=== PATIENT | female | born 1940 | race Caucasian/White ===

== ENCOUNTER 2017-11-16 02:23 | Outpatient (CLI) | payer MEDICARE, SELFPAY ==
[2017-11-16 11:10] LABS: ALT 18 U/L (12-78); AST 23 U/L (15-37); Alkaline Phosphatase 80 U/L (46-116); CREATININE 0.84 mg/dL (0.55-1.02)
[2017-11-16 11:18] LABS: Absolute Basophil Count 0.01 k/cumm (0.0-0.2); Absolute Eosinophil Count 0.08 k/cumm (0.0-0.7); Absolute Lymphocyte Count 0.91 k/cumm (1.2-3.4); Absolute Monocyte Count 0.28 k/cumm (0.11-0.7); Absolute Neutrophil Count 2.63 k/cumm (1.2-6.7); Basophils % 0.3; HCT 39.2 % (36.0-46.0); HGB 12.9 g/dL (12.0-15.5); Lymphocytes % 23.3; Mean Corp. HGB Concentration 32.9 g/dL (32.0-36.0); Mean Corpuscular Hemoglobin 30.4 pg (27.0-33.0); Mean Corpuscular Volume 92.5 fL (80-95); Monocytes % 7.2; Neutrophils % 67.2; Platelet Count 171 x1000/uL (130-400); RBC 4.24 m/cumm (4.00-5.20); RBC Distribution Width 14.3 % (11.7-14.6); White Blood Cell Count 3.91 k/cumm (4.4-10.8)
[2017-11-16 13:20] LABS: ESR 23 MM/HR (0-30)
== END 2017-11-16 02:43 ==
PROVIDERS: Visit Provider Internal Medicine Rheumatology
DX: M06.9 Rheumatoid arthritis, unspecified (principal); Z79.899 Other long term (current) drug therapy
CPT/HCPCS: 36415; 85652; 82565; 84075; 84450; 84460; 85025; 86140

== ENCOUNTER 2018-02-23 02:02 | Outpatient (CLI) | payer MEDICARE, SELFPAY ==
[2018-02-23 11:46] LABS: Abs Immature Grans 0.01 k/cumm (0.0-0.09); Absolute Basophil Count 0.01 k/cumm (0.0-0.2); Absolute Eosinophil Count 0.09 k/cumm (0.0-0.7); Absolute Lymphocyte Count 0.93 k/cumm (1.2-3.4); Absolute Monocyte Count 0.27 k/cumm (0.11-0.7); Absolute Neutrophil Count 2.32 k/cumm (1.2-6.7); Basophils % 0.3; Eosinophils % 2.5; HCT 39.6 % (36.0-46.0); HGB 13.1 g/dL (12.0-15.5); Immature Grans % 0.3; Lymphocytes % 25.6; Mean Corp. HGB Concentration 33.1 g/dL (32.0-36.0); Mean Corpuscular Hemoglobin 31.2 pg (27.0-33.0); Mean Corpuscular Volume 94.3 fL (80-95); Mean Platelet Volume 10.6 fL (8.0-11.0); Monocytes % 7.4; Neutrophils % 63.9; Platelet Count 170 x1000/uL (130-400); RBC Distribution Width 13.6 % (11.7-14.6); White Blood Cell Count 3.63 k/cumm (4.4-10.8)
[2018-02-23 12:14] LABS: ALT 24 U/L (12-78); AST 19 U/L (15-37); Alkaline Phosphatase 86 U/L (46-116); C-Reactive Protein 0.24 mg/dL (0.0-0.3); CREATININE 0.95 mg/dL (0.55-1.02); Estimated GFR 56.89 (mL/min/1.73m2)
[2018-02-23 13:15] LABS: ESR 19 MM/HR (0-30)
== END 2018-02-23 02:22 ==
PROVIDERS: Visit Provider Internal Medicine Rheumatology
DX: M06.9 Rheumatoid arthritis, unspecified (principal); Z79.899 Other long term (current) drug therapy
CPT/HCPCS: 36415; 85652; 82565; 84075; 84450; 84460; 85025; 86140

== ENCOUNTER 2018-05-17 02:12 | Outpatient (CLI) | payer MEDICARE, SELFPAY ==
[2018-05-17 12:59] LABS: ALT 20 U/L (12-78); AST 17 U/L (15-37); Albumin 3.9 g/dL (3.4-5.0); Alkaline Phosphatase 92 U/L (46-116); Anion Gap 10.5 mmol/L (3-11); BUN 20 mg/dL (7-18); Bilirubin, Total 0.6 mg/dL (0.2-1.0); C-Reactive Protein 0.22 mg/dL (0.0-0.3); CO2 28.5 mmol/L (21.0-32.0); CREATININE 0.99 mg/dL (0.55-1.02); Calcium 8.8 mg/dL (8.5-10.1); Chloride 104 mmol/L (98-107); Estimated GFR 54.25 (mL/min/1.73m2); Glucose 83 mg/dL (70-100); Potassium 4.1 mmol/L (3.5-5.1); Sodium 143 mmol/L (136-145); Total Protein 6.6 g/dL (6.4-8.2)
[2018-05-17 13:06] LABS: Abs Immature Grans 0.01 k/cumm (0.0-0.09); Absolute Basophil Count 0.01 k/cumm (0.0-0.2); Absolute Eosinophil Count 0.09 k/cumm (0.0-0.7); Absolute Lymphocyte Count 1.09 k/cumm (1.2-3.4); Absolute Monocyte Count 0.33 k/cumm (0.11-0.7); Absolute Neutrophil Count 2.37 k/cumm (1.2-6.7); Basophils % 0.3; Eosinophils % 2.3; HGB 13.6 g/dL (12.0-15.5); Immature Grans % 0.3; Lymphocytes % 27.9; Mean Corp. HGB Concentration 33.2 g/dL (32.0-36.0); Mean Corpuscular Hemoglobin 30.9 pg (27.0-33.0); Mean Corpuscular Volume 93.2 fL (80-95); Mean Platelet Volume 11.1 fL (8.0-11.0); Monocytes % 8.5; Neutrophils % 60.7; Platelet Count 190 x1000/uL (130-400)
== END 2018-05-17 02:32 ==
PROVIDERS: Visit Provider Internal Medicine Rheumatology
DX: M06.9 Rheumatoid arthritis, unspecified (principal); Z79.899 Other long term (current) drug therapy
CPT/HCPCS: 36415; 80053; 85025; 86140

== ENCOUNTER 2018-08-18 08:16 | Outpatient (CLI) | payer MEDICARE, SELFPAY ==
[2018-08-18 12:09] LABS: Abs Immature Grans 0.01 k/cumm (0.0-0.09); Absolute Basophil Count 0.01 k/cumm (0.0-0.2); Absolute Eosinophil Count 0.09 k/cumm (0.0-0.7); Absolute Lymphocyte Count 1.13 k/cumm (1.2-3.4); Absolute Monocyte Count 0.33 k/cumm (0.11-0.7); Basophils % 0.3; Eosinophils % 2.3; HCT 38.6 % (36.0-46.0); HGB 12.9 g/dL (12.0-15.5); Immature Grans % 0.3; Lymphocytes % 28.8; Mean Corp. HGB Concentration 33.4 g/dL (32.0-36.0); Mean Corpuscular Hemoglobin 30.6 pg (27.0-33.0); Mean Corpuscular Volume 91.7 fL (80-95); Monocytes % 8.4; Neutrophils % 59.9; Platelet Count 172 x1000/uL (130-400); RBC 4.21 m/cumm (4.00-5.20); RBC Distribution Width 13.7 % (11.7-14.6); White Blood Cell Count 3.93 k/cumm (4.4-10.8)
[2018-08-18 12:21] LABS: Absolute Neutrophil Count 2.35 k/cumm (1.2-6.7)
[2018-08-18 12:57] LABS: ALT 17 U/L (12-78); AST 12 U/L (15-37); Albumin 3.9 g/dL (3.4-5.0); Alkaline Phosphatase 69 U/L (46-116); Anion Gap 8.8 mmol/L (3-11); BUN 21 mg/dL (7-18); Bilirubin, Total 0.6 mg/dL (0.2-1.0); C-Reactive Protein 0.23 mg/dL (0.0-0.3); CO2 25.2 mmol/L (21.0-32.0); Calcium 8.9 mg/dL (8.5-10.1); Chloride 109 mmol/L (98-107); Estimated GFR 53.62 (mL/min/1.73m2); Glucose 91 mg/dL (70-100); Potassium 3.9 mmol/L (3.5-5.1); Sodium 143 mmol/L (136-145); Total Protein 6.3 g/dL (6.4-8.2)
== END 2018-08-18 08:36 ==
PROVIDERS: Visit Provider Internal Medicine Rheumatology
DX: M06.9 Rheumatoid arthritis, unspecified (principal); Z79.899 Other long term (current) drug therapy
CPT/HCPCS: 36415; 80053; 85025; 86140

== ENCOUNTER 2018-12-20 01:44 | Outpatient (CLI) | payer MEDICARE, SELFPAY ==
[2018-12-20 11:13] LABS: Abs Immature Grans 0.01 k/cumm (0.0-0.09); Absolute Basophil Count 0.01 k/cumm (0.0-0.2); Absolute Eosinophil Count 0.07 k/cumm (0.0-0.7); Absolute Lymphocyte Count 1.12 k/cumm (1.2-3.4); Absolute Monocyte Count 0.32 k/cumm (0.11-0.7); Absolute Neutrophil Count 3.03 k/cumm (1.2-6.7); Basophils % 0.2; Eosinophils % 1.5; HCT 40.9 % (36.0-46.0); HGB 13.4 g/dL (12.0-15.5); Immature Grans % 0.2; Lymphocytes % 24.6; Mean Corp. HGB Concentration 32.8 g/dL (32.0-36.0); Mean Corpuscular Hemoglobin 30.7 pg (27.0-33.0); Mean Corpuscular Volume 93.6 fL (80-95); Mean Platelet Volume 10.9 fL (8.0-11.0); Neutrophils % 66.5; Platelet Count 203 x1000/uL (130-400); RBC 4.37 m/cumm (4.00-5.20); RBC Distribution Width 13.7 % (11.7-14.6); White Blood Cell Count 4.56 k/cumm (4.4-10.8)
[2018-12-20 12:10] LABS: ALT 23 U/L (14-59); AST 16 U/L (15-37); Alkaline Phosphatase 79 U/L (46-116); Anion Gap 6.9 mmol/L (3-11); BUN 22 mg/dL (7-18); Bilirubin, Total 0.5 mg/dL (0.2-1.0); CO2 29.1 mmol/L (21.0-32.0); CREATININE 0.75 mg/dL (0.55-1.02); Chloride 108 mmol/L (98-107); Glucose 92 mg/dL (70-100); Potassium 4.4 mmol/L (3.5-5.1); Sodium 144 mmol/L (136-145); Total Protein 6.7 g/dL (6.4-8.2)
== END 2018-12-20 02:04 ==
PROVIDERS: Visit Provider Internal Medicine Rheumatology
DX: M06.9 Rheumatoid arthritis, unspecified (principal); Z79.899 Other long term (current) drug therapy
CPT/HCPCS: 36415; 80053; 85025; 86140

== ENCOUNTER 2019-03-02 00:54 | Outpatient (CLI) | payer MEDICARE, SELFPAY ==
[2019-03-02 13:10] LABS: Abs Immature Grans 0.01 k/cumm (0.0-0.09); Absolute Basophil Count 0.02 k/cumm (0.0-0.2); Absolute Lymphocyte Count 0.95 k/cumm (1.2-3.4); Absolute Monocyte Count 0.47 k/cumm (0.11-0.7); Absolute Neutrophil Count 4.17 k/cumm (1.2-6.7); Basophils % 0.3; Eosinophils % 1.7; HCT 39.4 % (36.0-46.0); HGB 12.5 g/dL (12.0-15.5); Immature Grans % 0.2 %; Lymphocytes % 16.6; Mean Corp. HGB Concentration 31.7 g/dL (32.0-36.0); Mean Corpuscular Hemoglobin 29.1 pg (27.0-33.0); Mean Corpuscular Volume 91.6 fL (80-95); Mean Platelet Volume 10.1 fL (8.0-11.0); Monocytes % 8.2; Platelet Count 268 x1000/uL (130-400); RBC Distribution Width 14.3 % (11.7-14.6); White Blood Cell Count 5.72 k/cumm (4.4-10.8)
[2019-03-02 13:30] LABS: ALT 48 U/L (14-59); AST 31 U/L (15-37); Albumin 3.8 g/dL (3.4-5.0); Alkaline Phosphatase 112 U/L (46-116); Anion Gap 3.8 mmol/L (3-11); BUN 31 mg/dL (7-18); Bilirubin, Total 0.5 mg/dL (0.2-1.0); C-Reactive Protein 1.98 mg/dL (0.0-0.3); CO2 30.2 mmol/L (21.0-32.0); CREATININE 0.85 mg/dL (0.55-1.02); Calcium 9.4 mg/dL (8.5-10.1); Chloride 103 mmol/L (98-107); Glucose 91 mg/dL (74-106); Potassium 4.4 mmol/L (3.5-5.1); Sodium 137 mmol/L (136-145); Total Protein 6.5 g/dL (6.4-8.2)
== END 2019-03-02 01:14 ==
PROVIDERS: Visit Provider Internal Medicine Rheumatology
DX: M06.9 Rheumatoid arthritis, unspecified (principal); Z79.899 Other long term (current) drug therapy
CPT/HCPCS: 36415; 80053; 85025; 86140

== ENCOUNTER 2019-09-07 02:57 | Outpatient (RCR) | payer MEDICARE, SELFPAY ==
[2019-08-25] MEDS: Normal Saline Flush 10 ML SYR IVP (08:58)
[2019-08-25] MEDS: ABATACEPT 750 MG in Normal Saline 100 ML 200 MG IVPB (09:36)
[2019-09-07 11:18] LABS: Absolute Basophil Count 0.01 k/cumm (0.0-0.2); Absolute Eosinophil Count 0.09 k/cumm (0.0-0.7); Absolute Lymphocyte Count 1.36 k/cumm (1.2-3.4); Absolute Monocyte Count 0.24 k/cumm (0.11-0.7); Absolute Neutrophil Count 2.84 k/cumm (1.2-6.7); Basophils % 0.2; HCT 39.9 % (36.0-46.0); HGB 13.3 g/dL (12.0-15.5); Mean Corp. HGB Concentration 33.3 g/dL (32.0-36.0); Mean Corpuscular Volume 89.9 fL (80-95); Mean Platelet Volume 10.2 fL (8.0-11.0); Monocytes % 5.3; Neutrophils % 62.5; Platelet Count 231 x1000/uL (130-400); RBC 4.44 m/cumm (4.00-5.20); RBC Distribution Width 14.7 % (11.7-14.6); White Blood Cell Count 4.54 k/cumm (4.4-10.8)
[2019-09-07 11:29] LABS: ALT 19 U/L (14-59); AST 21 U/L (15-37); Albumin 3.7 g/dL (3.4-5.0); Alkaline Phosphatase 77 U/L (46-116); Anion Gap 8.9 mmol/L (3-11); BUN 24 mg/dL (7-18); C-Reactive Protein 0.13 mg/dL (0.0-0.3); CO2 27.1 mmol/L (21.0-32.0); CREATININE 0.91 mg/dL (0.55-1.02); Chloride 105 mmol/L (98-107); Estimated GFR 59.63 (mL/min/1.73m2); Glucose 135 mg/dL (74-106); Potassium 3.8 mmol/L (3.5-5.1); Sodium 141 mmol/L (136-145)
[2019-09-07 11:37] LABS: Bilirubin, Total 0.6 mg/dL (0.2-1.0)
[2019-09-07] MEDS: Normal Saline Flush 10 ML SYR IVP (11:43)
[2019-09-07] MEDS: ABATACEPT 750 MG in Normal Saline 100 ML 200 MG IVPB (11:43)
== END 2019-09-16 23:59 | disposition home or self-care (01) ==
LOC: INF 02:57
PROVIDERS: Visit Provider Internal Medicine
DX: M06.9 Rheumatoid arthritis, unspecified (principal)
CPT/HCPCS: 36415; 80053; 96365; 85025; 86140; J0129

== ENCOUNTER 2019-10-04 01:36 | Outpatient (RCR) | payer MEDICARE, SELFPAY ==
[2019-10-04] MEDS: Normal Saline Flush 10 ML SYR IVP (12:44)
[2019-10-04] MEDS: ABATACEPT 750 MG in Normal Saline 100 ML 200 MG IVPB (13:15)
== END 2019-10-17 23:59 | disposition home or self-care (01) ==
LOC: INF 01:36
PROVIDERS: Visit Provider Nurse Practitioner Family
DX: M06.9 Rheumatoid arthritis, unspecified (principal)
CPT/HCPCS: 96365; J0129

== ENCOUNTER 2019-11-02 02:23 | Outpatient (RCR) | payer MEDICARE, SELFPAY ==
[2019-11-02] MEDS: ABATACEPT 750 MG in Normal Saline 100 ML 200 MG IVPB (11:42)
[2019-11-02] MEDS: Normal Saline Flush 10 ML SYR IVP (11:42)
== END 2019-11-16 23:59 | disposition home or self-care (01) ==
LOC: INF 02:23
PROVIDERS: Visit Provider Nurse Practitioner Family
DX: M06.9 Rheumatoid arthritis, unspecified (principal)
CPT/HCPCS: 96365; J0129

== ENCOUNTER 2019-11-30 11:00 | Outpatient (RCR) | payer MEDICARE, SELFPAY ==
[2019-11-30 11:27] LABS: Abs Immature Grans 0.01 10^3/uL (0.0-0.06); Absolute Basophil Count 0.01 10^3/uL (0.0-0.2); Absolute Eosinophil Count 0.08 10^3/uL (0.0-0.7); Absolute Lymphocyte Count 1.41 10^3/uL (1.2-3.4); Absolute Monocyte Count 0.31 10^3/uL (0.1-0.8); Absolute Neutrophil Count 3.36 10^3/uL (1.2-6.7); Basophils % 0.2; Eosinophils % 1.5; HCT 41.3 % (36.0-46.0); HGB 13.6 g/dL (11.2-15.7); Immature Grans % 0.2; Lymphocytes % 27.2; MCH 30.2 pg (27.0-33.0); MCHC 32.9 % (32.0-36.0); MCV 91.6 fL (80-95); MPV 10.6 fL (8.0-11.0); Neutrophils % 64.9; Nucleated RBC 0 %; Platelet Count 214 10^3/uL (130-400); RBC 4.51 10^6/uL (3.93-5.22); RDW 13.5 % (11.7-14.6); RDW-SD 44.9 fL; WBC 5.18 10^3/uL (4.4-10.8)
[2019-11-30 11:48] LABS: ALT 15 U/L (14-59); AST 19 U/L (15-37); Albumin 3.8 g/dL (3.4-5.0); Alkaline Phosphatase 81 U/L (46-116); BUN 18 mg/dL (7-18); Bilirubin, Total 0.6 mg/dL (0.2-1.0); CREATININE 0.87 mg/dL (0.55-1.02); Chloride 106 mmol/L (98-107); Glucose 118 mg/dL (74-106); Potassium 3.7 mmol/L (3.5-5.1); Sodium 141 mmol/L (136-145); Total Protein 6.8 g/dL (6.4-8.2)
[2019-11-30] MEDS: Normal Saline Flush 10 ML SYR IVP (11:49)
[2019-11-30] MEDS: ABATACEPT 750 MG in Normal Saline 100 ML 200 MG IVPB (11:49)
[2019-11-30 11:51] LABS: C-Reactive Protein < 0.05 mg/dL (0.0-0.3)
== END 2019-12-17 23:59 | disposition home or self-care (01) ==
LOC: INF 11:00
PROVIDERS: Visit Provider Nurse Practitioner Family
DX: M06.9 Rheumatoid arthritis, unspecified (principal)
CPT/HCPCS: 36415; 80053; 96365; 85025; 86140; J0129

== ENCOUNTER 2019-12-28 02:15 | Outpatient (RCR) | payer MEDICARE, SELFPAY ==
[2019-12-28] MEDS: ABATACEPT 750 MG in Normal Saline 100 ML 200 MG IVPB (11:38)
[2019-12-28] MEDS: Normal Saline Flush 10 ML SYR IVP (11:38)
== END 2020-01-16 23:59 | disposition home or self-care (01) ==
LOC: INF 02:15
PROVIDERS: Visit Provider Nurse Practitioner Family
DX: M06.9 Rheumatoid arthritis, unspecified (principal)
CPT/HCPCS: 96365; J0129

== ENCOUNTER 2020-01-25 02:56 | Outpatient (RCR) | payer MEDICARE, SELFPAY ==
[2020-01-25] MEDS: Normal Saline Flush 10 ML SYR IVP (11:35)
[2020-01-25] MEDS: ABATACEPT 750 MG in Normal Saline 100 ML 200 MG IVPB (11:35)
== END 2020-02-16 23:59 | disposition home or self-care (01) ==
LOC: INF 02:56
PROVIDERS: Visit Provider Nurse Practitioner Family
DX: M06.9 Rheumatoid arthritis, unspecified (principal)
CPT/HCPCS: 96365; J0129

== ENCOUNTER 2020-02-22 11:00 | Outpatient (RCR) | payer MEDICARE, SELFPAY ==
[2020-02-22 11:11] LABS: Abs Immature Grans 0.02 10^3/uL (0.0-0.06); Absolute Basophil Count 0.02 10^3/uL (0.0-0.2); Absolute Eosinophil Count 0.08 10^3/uL (0.0-0.7); Absolute Lymphocyte Count 1.58 10^3/uL (1.2-3.4); Absolute Monocyte Count 0.28 10^3/uL (0.1-0.8); Absolute Neutrophil Count 3.97 10^3/uL (1.2-6.7); Basophils % 0.3; Eosinophils % 1.3; HCT 41.6 % (36.0-46.0); HGB 13.5 g/dL (11.2-15.7); Immature Grans % 0.3; Lymphocytes % 26.6; MCH 30.2 pg (27.0-33.0); MCHC 32.5 % (32.0-36.0); MCV 93.1 fL (80-95); MPV 10.7 fL (8.0-11.0); Monocytes % 4.7; Neutrophils % 66.8; Nucleated RBC 0 %; Platelet Count 209 10^3/uL (130-400); RBC 4.47 10^6/uL (3.93-5.22); RDW 13.8 % (11.7-14.6); RDW-SD 46.3 fL; WBC 5.95 10^3/uL (4.4-10.8)
[2020-02-22 11:23] LABS: ALT 20 U/L (14-59); AST 18 U/L (15-37); Alkaline Phosphatase 77 U/L (46-116); Anion Gap 10.5 mmol/L (3-11); BUN 15 mg/dL (7-18); Bilirubin, Total 0.9 mg/dL (0.2-1.0); C-Reactive Protein 0.21 mg/dL (0.0-0.3); CO2 26.5 mmol/L (21.0-32.0); CREATININE 0.94 mg/dL (0.55-1.02); Calcium 8.9 mg/dL (8.5-10.1); Chloride 106 mmol/L (98-107); Glucose 112 mg/dL (74-106); Potassium 3.6 mmol/L (3.5-5.1); Sodium 143 mmol/L (136-145)
[2020-02-22] MEDS: ABATACEPT 750 MG in Normal Saline 100 ML 200 MG IVPB (12:15)
[2020-02-22] MEDS: Normal Saline Flush 10 ML SYR IVP (12:15)
== END 2020-03-18 23:59 | disposition home or self-care (01) ==
LOC: INF 11:00
PROVIDERS: Visit Provider Nurse Practitioner Family
DX: M06.9 Rheumatoid arthritis, unspecified (principal)
CPT/HCPCS: 36415; 80053; 96365; 85025; 86140; J0129

== ENCOUNTER 2020-03-21 02:41 | Outpatient (CLI) | payer MEDICARE, SELFPAY ==
--- NOTE | 2020-03-21 06:45 | DI.RAD_ITS ---
EXAM: XR CHEST 2V PA LATERAL INDICATION: wheezing, dyspnea,r06.2,z79.899,j18.9. COMPARISON: CR CHEST 2 VIEWS PA,LAT from 02/23/2009 CR ABD FLAT UPRIGHT PA CHEST from 04/12/2009 TECHNIQUE: 2D digital imaging was performed. FINDINGS: The heart is mildly enlarged. The pulmonary vasculature is within normal limits. There are bilatera l basilar infiltrates, right greater than left. There is a small right pleural effusion. No pneumot horax is present. Degenerative changes are seen in the spine. There are surgical clips in the right upper quadrant of the abdomen. IMPRESSION: 1. Mild cardiomegaly. 2. Small right pleural effusion and bilateral basilar infiltrates. The findings may represent pneumo viral or fluid overload/congestive heart failure. Please correlate clinically. DATA REPOSITORY: RADIATION DOSE DELIVERED:
== END 2020-03-21 02:42 | disposition home or self-care (01) ==
LOC: DI 02:41
DX: I51.7 Cardiomegaly (principal); J90 Pleural effusion, not elsewhere classified; R91.8 Other nonspecific abnormal finding of lung field
CPT/HCPCS: 71046

== ENCOUNTER 2020-03-21 03:09 | Outpatient (RCR) | payer MEDICARE, SELFPAY ==
[2020-03-21] MEDS: ABATACEPT 750 MG in Normal Saline 100 ML 200 MG IVPB (11:13)
[2020-03-21] MEDS: Normal Saline Flush 10 ML SYR IVP (11:13)
== END 2020-04-15 23:59 | disposition home or self-care (01) ==
LOC: INF 03:09
PROVIDERS: Visit Provider Nurse Practitioner Family
DX: M06.9 Rheumatoid arthritis, unspecified (principal)
CPT/HCPCS: 96365; 71046; J0129

== ENCOUNTER 2020-03-28 02:22 | Outpatient (CLI) | payer MEDICARE, SELFPAY ==
--- NOTE | 2020-03-28 08:30 | DI.CT_ITS ---
EXAM: CT CHEST WO CLINICAL HISTORY: BILAT INFILTRATES,EFFUSION,ASSESS FOR INFECTION,INTERSTITIAL LUNG DISEASE TECHNIQUE: Imaging Protocol: Axial computed tomography images with coronal and sagittal reformatted images were created and reviewed CONTRAST MATERIAL: Intravenous: Omnipaque 350 Contrast volume:structured data in ml. COMPARISON: CT ABD PELVIS WITH CONTRAST from 04/12/2009 CT ABD PELVIS WITH CONTRAST from 04/12/2009 CR ABD FLAT UPRIGHT PA CHEST from 07/22/2014 CR XR CHEST 2V PA LATERAL from 03/21/2020 FINDINGS: There are moderate-sized bilateral pleural effusions, right slightly greater than left. There is adj acent atelectasis. Atelectasis is also noted in the lingula and right middle lobe. There is chronic blunting at the right costophrenic angle. The heart is enlarged. There is aortic valve and mitral annular calcifications as well as coronary artery calcifications. Mild thoracic calcifications are s een. Thyroid is unremarkable. There is no adenopathy. Surgical clips are again seen at the posteri or aspect of the liver. Portion of the posterior right lobe has been resected. The spleen, pancreas , adrenals and visualized portions of the kidneys are unremarkable. There is no bowel dilatation. D egenerative changes are noted in the spine. IMPRESSION: Cardiomegaly. Bilateral pleural effusions and adjacent atelectasis. Nose significant interstitial l moraima disease or definite pneumonia. RADIATION DOSE DELIVERED: 544.11mGy.cm Total DLP DATA REPOSITORY: All CT scans at this facility are submitted to the National Radiology Data Registry (NRDR) Dose Index Registry (DIR) with the [employer] (A[employer]). RADIATION OPTIMIZATION: All CT scans at this facility use at least one of these dose optimization te chniques: automated exposure control; mA and/or kV adjustment per patient size (includes targeted exa ms where dose is matched to clinical indication); or iterative reconstruction.
== END 2020-03-28 02:23 ==
LOC: DI 02:22
PROVIDERS: Visit Provider Internal Medicine Rheumatology
DX: I51.7 Cardiomegaly (principal); J90 Pleural effusion, not elsewhere classified; J98.11 Atelectasis
CPT/HCPCS: 71250

== ENCOUNTER 2020-03-28 09:14 | Outpatient (CLI) | payer MEDICARE, SELFPAY ==
[2020-03-29 14:35] LABS: COVID-19 RT-PCR UVMMC Result Negative (Negative)
== END 2020-03-28 09:15 | disposition home or self-care (01) ==
LOC: LBO 09:51
PROVIDERS: Visit Provider Family Medicine
DX: Z20.822 Contact with and (suspected) exposure to COVID-19 (principal); I51.7 Cardiomegaly; J90 Pleural effusion, not elsewhere classified; J98.11 Atelectasis
CPT/HCPCS: 71250; U0003; U0005

== ENCOUNTER 2020-04-04 02:57 | Outpatient (CLI) | payer MEDICARE, SELFPAY ==
[2020-04-04 12:51] LABS: HCT 39.8 % (36.0-46.0); HGB 12.8 g/dL (11.2-15.7); MCH 30.5 pg (27.0-33.0); MCHC 32.2 % (32.0-36.0); MCV 94.8 fL (80-95); MPV 11.6 fL (8.0-11.0); Platelet Count 192 10^3/uL (130-400); RDW 14.5 % (11.7-14.6); RDW-SD 49.7 fL; WBC 5.27 10^3/uL (4.4-10.8)
[2020-04-04 13:17] LABS: ALT 39 U/L (14-59); AST 21 U/L (15-37); Albumin 3.8 g/dL (3.4-5.0); Alkaline Phosphatase 74 U/L (46-116); Anion Gap 11.8 mmol/L (3-11); BUN 18 mg/dL (7-18); Bilirubin, Total 0.8 mg/dL (0.2-1.0); C-Reactive Protein 0.96 mg/dL (0.0-0.3); CO2 25.2 mmol/L (21.0-32.0); Calcium 9.2 mg/dL (8.5-10.1); Chloride 106 mmol/L (98-107); Estimated GFR 53.35 (mL/min/1.73m2); Glucose 115 mg/dL (74-106); NT-proBNP 10911 pg/mL (<300); Potassium 3.4 mmol/L (3.5-5.1); Sodium 143 mmol/L (136-145); Total Protein 6.3 g/dL (6.4-8.2)
== END 2020-04-04 02:58 | disposition home or self-care (01) ==
PROVIDERS: Visit Provider Internal Medicine Rheumatology
DX: J90 Pleural effusion, not elsewhere classified (principal); R06.2 Wheezing; M06.9 Rheumatoid arthritis, unspecified; Z79.899 Other long term (current) drug therapy
CPT/HCPCS: 36415; 80053; 85027; 83880; 86140

== ENCOUNTER 2020-04-09 16:02 | Observation (INO) | payer MEDICARE, SELFPAY ==
[2020-04-09] VITALS (34 sets, daily range): BP systolic 112–142; BP diastolic 66–99; PULSE 72–112; RESP 17–32; TEMP 36.4–36.7; O2SAT 91–100
--- NOTE | 2020-04-09 15:45 | RT.EKG_ITS ---
APPROVED REPORT Exam: Resting ECG Patient Location: E HR:97 bpm ECG Measurements Heart Rate 97 AXIS DE 212 P 63 QRSd 167 QRS 0 QT 436 T 127 QTc 550 Conclusion Sinus rhythm...normal P axis, V-rate 60- 99 Atrial premature complexes...SV complexes w/ short R-R intvls Borderline prolonged DE interval...DE >207, V-rate 91-120 IVCD, consider LBBB...QRSd>120, notch/slur R I aVL V5-6 ST elevation secondary to IVCD...Multiple VCG criteria Physician: Negative for ANJALI, no prior for comparison
--- NOTE | 2020-04-09 16:00 | DI.RAD_ITS ---
EXAM: XR PORTABLE CHEST AP CLINICAL HISTORY: SOB, left sided CP. TECHNIQUE: 2D digital imaging was performed. COMPARISON: CR XR CHEST 2V PA LATERAL from 03/21/2020 FINDINGS: Cardiomegaly again noted. The mediastinum is not widened. There is increasing infiltrate and pleural effusion on the right side-right lung base. Also mild inc reased markings in the superior lingular segment of the left lung. No obvious pleural effusion on th e left side IMPRESSION: Increasing size pleural effusion on the right. Also increasing right lung base infiltrate. DATA REPOSITORY: RADIATION DOSE DELIVERED:
--- NOTE | 2020-04-09 16:26 | ED.GENADUL_ITS ---
Discharge Plan Disposition Patient Disposition: [facility] INPATIENT Condition: Stable Discharge Details Clinical Impression: Pleural effusion, Breath, shortness, Acute exacerbation of CHF (congestive heart failure) Primary Care Provider: Tania Foy ED Provider: Timoteo Graham Home Meds and New Rx's Prescriptions: No Action Orencia (with maltose) 250 mg recon soln 3 ml IV .COMPLEX RF: 0 calcium carbonate-vitamin D3 1 EACH tablet 1 ea PO DAILY RF: 0 folic acid 1 MG tablet 1 mg PO DAILY Qty: 90 RF: 4 cholecalciferol (vitamin D3) 1,000 UNIT tablet 1,000 unit PO DAILY RF: 0 PreserVision Lutein 1 EACH capsule 1 ea PO DAILY RF: 0 hydroxychloroquine 200 mg tablet 300 mg PO DAILY Qty: 180 RF: 4 Medical Decision Making 80-year-old female with a past medical history of new diagnosis of heart failure with an EF of 32%, moderate aortic stenosis, mild obesity, rheumatoid arthritis, presents today for shortness of breath. Patient states that for the last 2 to 3 weeks she has had a new onset shortness of breath and left-sided chest pain under her left breast which is location where she has previously had shingles. She states that since the onset 2 weeks ago which seemed to have no inciting event, she has had intermittent chest pain and difficulty breathing. She has taken an inhaler, but this has not changed her symptoms at all. She did have a CT scan w/o contrast 12 days ago and this showed bilateral pleural effusions and atelectasis. Echo was performed at [facility] 3 days ago which showed the decreased EF and the aortic stenosis. She has not had any improvement of her symptoms since then. She states that she feels the shortness of breath is notably worse today, and the chest pain seems to continue to be intermittent. Chest pain is worse with breathing, as well as with palpation under the left breast. She denies any cough, fever, or chills. She has received her first Covid vaccine. She has no other complaints at this time. She denies any history of tobacco abuse. No other complaints at this time. Exam demonstrates diminished breath sounds in the bases bilaterally, no calf tenderness. Vital signs are stable, heart rate is 100, oxygenation is 95% and higher. Would not be surprised if she has mild pleural effusions that is causing her shortness of breath with no evidence of wheeze that I can detect at this time. She could be in an episode of CHF, but she does not appear to be in florid CHF with no peripheral edema, decent continued oxygenation, with no wheezes or crackles on exam. We will evaluate fo r this and other cardiac etiologies, PE is on the differential but does seem a little less likely. We will get a D-dimer for further evaluation. We will get a portable chest x-ray, monitor closely and reassess. Symptoms do not appear infectious at this time with no fevers, chills, or history of illness otherwise. 4:41 PM Laboratory work-up chest x-ray imaging is returned. Chest x-ray shows persistent effusions worsening on the right from prior study. No white count, no bandemia. D-dimer 640, and age-adjusted negative. VBG stable. Calcium is minimally low at 3.2, renal function good. proBNP is 20,000, which is double her previous value 5 days ago. Lipase and thyroid function normal. Troponin normal. Bedside ultrasound was performed, although the patient did demonstrate evidence of small effusion there is only about 1 centimeter of viable real estate for which to do a thoracentesis, so I do not feel that the risk is worth it to justify the procedure at this time. I feel that medical diuresis is probably the better option. We did do an ambulatory pulse ox, patient hovers around 94%, but becomes extremely dyspneic subjectively, and feels very short of breath. I feel that with the patient's new onset of heart failure and other problems she would benefit from an overnight admission/observation for diuresis. Will contact Dr. Kimble for admission. 6:30 PM 20 mg of Lasix has been given, patient has been given oral and IV potassium for correction. Discussed the case with Dr. Kimble, he agrees with the assessment and plan. I will place admission orders on his behalf. I have extensively reviewed the treatment plan with the patient. I have addressed all patient concerns at this time. I have also discussed the plan with the admitting physician and they agree with the current assessment and plan and have agreed to assume responsibility for the patient. All parties demonstrate verbal understanding and agreement with our assessment and plan at this time. The documentation in this chart was dictated using [employer] dictation software. Please excuse any dictation errors. EKG 16: 09 Rate 97, sinus rhythm with a left bundle branch block, negative for SCARBOSSA criteria. No STEMI. FINDINGS: Tubes, catheters and devices: EKG leads overlie the chest. Lungs: Bibasilar atelectasis is suspected. Pleural spaces: There is increased homogeneous opacification at the right lung base consistent with increase in size of a right pleural effusion. Heart/Mediastinum: Cardiomegaly is present. Bones/joints: Thoracic spondylosis is noted. IMPRESSION: 1. Persistent cardiomegaly and bilateral pleural effusions. The right pleural effusion appears increased from the prior study. 2. Bibasilar atelectasis is again noted. Thank you for allowing us to participate in the care of your patient. Dictated and Authenticated by: Jamar England MD 04/09/2020 4:50 PM Eastern Time ([place] & [place]) HPI General Date/Time Provider Initiated Documentation: 04/09/20 16:09 . HPI Narrative: 80-year-old female with a past medical history of new diagnosis of heart failure with an EF of 32%, moderate aortic stenosis, mild obesity, rheumatoid arthritis, presents today for shortness of breath. Patient states that for the last 2 to 3 weeks she has had a new onset shortness of breath and left-sided chest pain under her left breast which is location where she has previously had shingles. She states that since the onset 2 weeks ago which seemed to have no inciting event, she has had intermittent chest pain and difficulty breathing. She has taken an inhaler, but this has not changed her symptoms at all. She did have a CT scan w/o contrast 12 days ago and this showed bilateral pleural effusions and atelectasis. Echo was performed at [facility] 3 days ago which showed the decreased EF and the aortic stenosis. She has not had any improvement of her symptoms since then. She states that she feels the shortness of breath is notably worse today, and the chest pain seems to continue to be intermittent. Chest pain is worse with breathing, as well as with palpation under the left breast. She denies any cough, fever, or chills. She has received her first Covid vaccine. She has no other complaints at this time. She denies any history of tobacco abuse. No other complaints at this time. Related Data Home Medications Medication Instructions Recorded Confirmed calcium carbonate-vitamin D3 1 ea PO DAILY 10/30/12 04/09/20 cholecalciferol (vitamin D3) 1,000 unit PO DAILY 10/30/12 04/09/20 folic acid 1 mg PO DAILY #90 tab-cap 10/30/12 04/09/20 vit C-vit A-alsuli-nasw-lutein 1 ea PO DAILY 03/24/17 04/09/20 [Preservision Lutein Softgel] hydroxychloroquine 200 mg tablet 300 mg PO DAILY #180 tab-cap 06/06/19 04/09/20 abatacept (with maltose) 250 mg 3 ml IV .COMPLEX ea 03/27/20 04/09/20 intravenous solution Allergies Allergy/AdvReac Type Severity Reaction Status Date / Time hydrocodone AdvReac Intermediate Nausea, Verified 04/09/20 16:15 vomitiing General Stated Complaint: RespSymp ESTEPHANIA: 2 Review of Systems All systems reviewed & are unremarkable except as noted in HPI and below PFSH Medical History Atrial fibrillation (01/15/02) Cholelithiasis without obstruction 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) Depressive disorder (11/28/11) Hammer toes of both feet (03/24/17) Impacted cerumen, bilateral Increased body mass index (BMI) (03/24/17) Long-term use of immunosuppressant medication Paralytic strabismus Pneumonia Primary malignant neoplasm of colon (01/16/08) with metastases to the liver; surgery and chemo (sigmoid colectomy and partial hepatectomy) Rheumatoid arthritis (11/28/11) sees Dr Cameron (dx 12/23) Rotator cuff syndrome Systolic murmur systolic (2002 echo [facility] normal) Undiagnosed cardiac murmurs systolic (2002 echo [facility] normal) Wheezing Surgical History Extraction of cataract 03/08/15;RIGHT EYE; DR. TODD 03/01/15;LEFT; DR. TODD History of surgery of liver Sigmoidoscopy [facility] [place]; 10cm x 10 cm section of the sigmoid colon Family History Mother Alzheimer disease Father Heart disease Sister No problems noted. Sister No problems noted. Grandfather Stroke Grandmother No problems noted. Social History Smoking/Tobacco Use Status: Never Smoking risk assessment performed?: Yes Alcohol Intake: current Alcohol Intake frequency: holidays/special occasions only Drug use: Never Substance use type: does not use Current gender identity: female Do you feel safe at home: Yes Do you feel safe in your relationship?: Yes Exam Narrative Exam Narrative: 1.Const: Well-nourished, Well-developed, appearing stated age 2.Eyes: PERRL, no conjunctival injection, and symmetrical lids. 3.ENT: Atraumatic external nose and ears. Moist MM. Neck: Symmetric, trachea midline, No thyromegaly. 4.CVS: +S1/S2, No murmurs or gallops. Peripheral pulses 2+ and equal in all extremities. Brisk capillary refill in all extremities. 5.RESP: Unlabored respiratory effort however the patient is conversationally dyspneic. Clear to auscultation otherwise except for diminished breath sounds in the bases. No wheezes rales or rhonchi 6.GI: Soft, Nontender/Nondistended, No hepatosplenomegaly. No guarding or rebound. 7.MSK: Normocephalic/Atraumatic, Extremities w/o deformity or ttp No cyanosis or clubbing, Normal movement of all extremities, no pitting edema. No calf tenderness. 8.Skin: Warm, Dry. No rashes or lesions. 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 Sensation grossly intact, no focal neurol ogic deficits. 10.Psych: (AAO) x3. Appropriate mood and affect Course Vital Signs Vital signs: Vital Signs Temperature 36.7 C 04/09/20 16:08 Pulse 101 H 04/09/20 16:08 Respiratory Rate 18 04/09/20 16:08 Blood Pressure 142/88 H 04/09/20 16:08 Pulse Oximetry 95 04/09/20 16:08 Temperature 36.7 C 04/09/20 16:08 Temperature Source Temporal Artery Scan 04/09/20 16:08 Pulse 101 H 04/09/20 16:08 Respiratory Rate 18 04/09/20 16:08 Respiratory Effort 04/09/20 16:21 Blood Pressure 142/88 H 04/09/20 16:08 Blood Pressure Position Sitting 04/09/20 16:08 Pulse Oximetry 95 04/09/20 16:08 Oxygen Delivery Method Room Air 04/09/20 16:08 Oxygen Flow Rate 0 04/09/20 16:08 Pain Level 3 04/09/20 16:08
[2020-04-09 16:36] LABS: BE (Venous) 0 mmol/L (-2-3); HCO3 (Venous) 25 mmol/L (23-28); O2 Sat (Venous) 78 %; TCO2 (Venous) 23 mmol/L (24-29); pCO2 (Venous) 42 mmHg (41-51); pH (Venous) 7.39 (7.31-7.41); pO2 (Venous) 45 mmHg
[2020-04-09 16:38] LABS: Abs Immature Grans 0.02 10^3/uL (0.0-0.06); Absolute Basophil Count 0.02 10^3/uL (0.0-0.2); Absolute Eosinophil Count 0.04 10^3/uL (0.0-0.7); Absolute Lymphocyte Count 1.17 10^3/uL (1.2-3.4); Absolute Monocyte Count 0.27 10^3/uL (0.1-0.8); Absolute Neutrophil Count 5.22 10^3/uL (1.2-6.7); Basophils % 0.3; Eosinophils % 0.6; HCT 41.2 % (36.0-46.0); HGB 13.2 g/dL (11.2-15.7); Immature Grans % 0.3; Lymphocytes % 17.4; MCH 29.9 pg (27.0-33.0); MCV 93.4 fL (80-95); MPV 11.4 fL (8.0-11.0); Neutrophils % 77.4; Nucleated RBC 0 %; Platelet Count 206 10^3/uL (130-400); RBC 4.41 10^6/uL (3.93-5.22); RDW 14.3 % (11.7-14.6); RDW-SD 48.9 fL; WBC 6.74 10^3/uL (4.4-10.8)
--- NOTE | 2020-04-09 16:50 | DI.VRAD_ITS ---
PROCEDURE INFORMATION: Exam: XR Chest, 1 View Exam date and time: 04/09/2020 4:36 PM Age: 80 years old Clinical indication: Shortness of breath; Patient HX: SOB, per PT: SOB for few weeks TECHNIQUE: Imaging protocol: XR of the chest Views: 1 view. COMPARISON: CT CHEST WO 03/28/2020 8:32 AM FINDINGS: Tubes, catheters and devices: EKG leads overlie the chest. Lungs: Bibasilar atelectasis is suspected. Pleural spaces: There is increased homogeneous opacification at the right lung base consistent with increase in size of a right pleural effusion. Heart/Mediastinum: Cardiomegaly is present. Bones/joints: Thoracic spondylosis is noted. IMPRESSION: 1. Persistent cardiomegaly and bilateral pleural effusions. The right pleural effusion appears increased from the prior study. 2. Bibasilar atelectasis is again noted. Dictated and Authenticated by: Jamar England MD. Ordering:CHANCE Mahmood MD
[2020-04-09 16:51] LABS: INR 1.1 (0.9-1.1); PTT Activated 22.5 sec (21.0-27.5); Prothrombin Time 11.3 sec (9.3-11.0)
[2020-04-09 17:00] LABS: ALT 32 U/L (14-59); AST 19 U/L (15-37); Alkaline Phosphatase 74 U/L (46-116); Anion Gap 12.6 mmol/L (3-11); BUN 15 mg/dL (7-18); Bilirubin, Total 1.1 mg/dL (0.2-1.0); CO2 24.4 mmol/L (21.0-32.0); CREATININE 0.9 mg/dL (0.55-1.02); Calcium 9.2 mg/dL (8.5-10.1); Chloride 106 mmol/L (98-107); Glucose 134 mg/dL (74-106); Lipase 137 U/L (73-393); NT-proBNP 20693 pg/mL (<300); Potassium 3.2 mmol/L (3.5-5.1); Sodium 143 mmol/L (136-145); TSH (W/Ref FT4) 3.17 uIU/mL (0.36-3.74); Total Protein 6.8 g/dL (6.4-8.2); Troponin I < 0.05 ng/mL (<0.06)
[2020-04-09 17:30] LABS: D-Dimer 640 ng/mlFEU (<500)
[2020-04-09] MEDS: Potassium Chloride 20 MEQ TABCR 40 MEQ PO (18:19)
[2020-04-09] MEDS: Furosemide 20 MG/2 ML VIAL IVP (18:19)
[2020-04-09] MEDS: POTASSIUM CHLORIDE 10 MEQ/100 ML BAG 100 MEQ IVPB (18:24)
--- NOTE | 2020-04-09 20:17 | W.PM.HP.N ---
Date of service: 04/09/20 Time of Service: 20:17 Assessment and Plan Assessment and plan (1) Acute exacerbation of CHF (congestive heart failure): Status: Acute Assessment and plan: I agree the patient shortness of breath is consistent with congestive heart failure with her pleural effusions and progressively worsening BNP, up from 10,000 earlier this month to 20,000 today in concordance with progression of her symptoms. She has a reduced ejection fraction of 32% seen on echocardiogram from 3 days ago. What is less clear to me is how much of the heart failure can be attributed to her aortic stenosis versus previously undiagnosed ischemic cardiomyopathy or other cause. She did receive a dose of IV Lasix in the emergency room and is putting out urine. We will follow ins and outs. I will avoid aggressive diuresis given concern for maintaining preload with aortic stenosis. I have consulted cardiology to help guide medical management given this is a more complex case. EKG is not normal, but this and troponins do not indicate acute ischemia. She did not seem to meet criteria for severe aortic stenosis that requires valve replacement. However, she seems to clearly have symptomatic just of heart failure. My impression is that she likely has a combination of significant ischemic and valvular disease contributing to her symptoms. I will await cardiology input before ordering ischemic work-up or instituting goal-directed therapy. (2) Aortic stenosis, moderate: Status: Acute Assessment and plan: As above, appears to be contributing to acute congestive heart failure. (3) Rheumatoid arthritis: Status: Acute Assessment and plan: Patient does not appear to have active rheumatoid arthritis clinically. CRP was mildly elevated earlier in March, will repeat with morning labs. I am concerned with her prolonged QT with her hydroxychloroquine use. I am checking magnesium and will be placed this and potassium as needed. Qualifiers: Rheumatoid arthritis location: multiple sites Rheumatoid factor presence: with rheumatoid factor Qualified Code(s): M05.79 - Rheumatoid arthritis with rheumatoid factor of multiple sites without organ or systems involvement (4) Pleural effusion: Status: Acute Assessment and plan: I agree this is likely related to congestive heart failure rather than inflammatory from her rheumatoid arthritis. There was not enough fluid for the emergency room physician to feel comfortable performing a thoracentesis. (5) Atrial fibrillation: Status: Acute Assessment and plan: Per history, paroxysmal. She was unaware of this diagnosis or having been offered anticoagulation. (6) Hypokalemia: Status: Acute Assessment and plan: Replaced IV and orally in the emergency room. Follow, along with magnesium. (7) DVT prophylaxis: Status: Acute Assessment and plan: Low molecular weight heparin. (8) Discharge planning issues: Status: Acute Assessment and plan: Patient is currently stable on the medical floor with telemetry monitoring. She references a possible advanced directive indicating DNR status, but she does not want me to change her full CODE STATUS in our orders until I find and review this document, which I have not been able to find. History of Present Illness History of Present Illness Chief Complaint: Shortness of breath Narrative: This is an 80-year-old woman with a history of rheumatoid arthritis controlled with abatacept, methotrexate, and hydroxychloroquine, history of atrial fibrillation and remote metastatic colon cancer was presenting with about 6 weeks of progressive shortness of breath. Patient was first seen on March 08 and complained of wheezing. Initially this was felt to be atelectasis related to sedentary lifestyle. She was seen again on March 20 at her primary care clinic. At this point she had a chest x-ray which showed bilateral infiltrates. She was not hypoxic. She was started on doxycycline and albuterol inhaler. These did not improve her symptoms. CT chest without contrast on March 28 showed bilateral pleural effusion and adjacent atelectasis, cardiomegaly, and no significant interstitial lung disease or definite pneumonia. COVID-19 testing was negative March 29. BNP December 02 was elevated at around 10,000. CRP that day was mildly elevated at 0.96. The patient is a vague historian, and states she is been feeling overwhelmed and thus has a hard time remembering details. She denies any clear inciting event prior to shortness of breath starting. She denies chest pain currently, but there is note of some pleuritic chest tightness during evaluation in the clinic on March 28. She has no history of syncope and denies dizziness. She has had a dry cough that developed during the same time period, with no sputum production or hemoptysis. She has not had fevers or chills. She denies upper respiratory symptoms including nasal congestion, sore throat, runny nose, change of taste and smell. She had not traveled or had sick contacts. She has noted new orthopnea and paroxysmal nocturnal dyspnea. She has not noted significant peripheral edema developing, or weight gain. She was evaluated in the emergency room and given 20 mg IV Lasix, and she states she has urinated a lot since then. Review of Systems Constitutional Constitutional: Denies anorexia, Denies chills, Denies fever(s), Reports lethargy, Denies weakness and Denies weight gain Eyes Eyes: Denies change in vision, Denies eye discharge and Denies irritation ENT Ears, Nose, Mouth, and Throat: Denies dizziness, Denies nasal congestion, Denies nasal discharge and Denies sore throat Cardiovascular Cardiovascular: Denies syncope, Reports rapid heart rate, Denies palpitations and Denies orthopnea Respiratory Respiratory: Denies excessive phlegm production and Reports wheezing Gastrointestinal Gastrointestinal: Denies abdominal pain, Denies constipation, Denies heartburn, Denies diarrhea, Denies nausea and Denies vomiting Genitourinary Genitourinary: Denies hematuria, Denies dysuria, Denies urinary incontinence and Denies vaginal discharge Musculoskeletal Musculoskeletal: Denies joint swelling Comments: Reports RA has been well controlled Integumentary/Breasts Skin/Breast: Denies rash and Denies skin ulcer Neurologic Neurologic: Denies dizziness, Denies syncope, Denies sensory deficit and Denies weakness Psychiatric Psychiatric: Denies mood swings and Denies panic attacks Endocrine Endocrine: Denies palpitations Hematologic/Lymphatic Hematologic/Lymphatic: Denies easy bleeding Allergic/Immunologic Allergic/Immunologic: Reports wheezing [facility] Medical History Atrial fibrillation (01/15/02) Cholelithiasis without obstruction 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) Depressive disorder (11/28/11) Hammer toes of both feet (03/24/17) Impacted cerumen, bilateral Increased body mass index (BMI) (03/24/17) Long-term use of immunosuppressant medication Paralytic strabismus Pneumonia Primary malignant neoplasm of colon (01/16/08) with metastases to the liver; surgery and chemo (sigmoid colectomy and partial hepatectomy) Rheumatoid arthritis (11/28/11) sees Dr Cameron (dx 12/23) Rotator cuff syndrome Systolic murmur systolic (2002 echo [facility] normal) Undiagnosed cardiac murmurs systolic (2002 echo [facility] normal) Wheezing Surgical History Extraction of cataract 03/08/15;RIGHT EYE; DR. TODD 03/01/15;LEFT; DR. TODD History of surgery of liver [place] [facility] [place]; 10cm x 10 cm section of the sigmoid colon Family History Mother Alzheimer disease Father Heart disease Sister No problems noted. Sister No problems noted. Grandfather Stroke Grandmother No problems noted. Social History (Updated 04/09/20 @ 20:31 by Tremaine Benítez) Smoking/Tobacco Use Status: Never Smoking risk assessment performed?: Yes Alcohol Intake: current Alcohol Intake frequency: holidays/special occasions only Drug use: Never Substance use type: does not use Current gender identity: female Do you feel safe at home: Yes Do you feel safe in your relationship?: Yes Additional Social history: Lives alone with her cats in [place]. No local family. Meds Home Medications and Allergies Home Medications Medication Instructions Recorded Confirmed Type calcium carbonate-vitamin D3 1 ea PO DAILY 10/30/12 04/09/20 History cholecalciferol (vitamin D3) 1,000 unit PO DAILY 10/30/12 04/09/20 History folic acid 1 mg PO DAILY #90 tab-cap 10/30/12 04/09/20 History vit C-vit S-cisxkn-ysgb-lutein 1 ea PO DAILY 03/24/17 04/09/20 History [Preservision Lutein Softgel] hydroxychloroquine 200 mg tablet 300 mg PO DAILY #180 tab-cap 06/06/19 04/09/20 History abatacept (with maltose) 250 mg 3 ml IV .COMPLEX ea 03/27/20 04/09/20 History intravenous solution Allergies Allergy/AdvReac Type Severity Reaction Status Date / Time hydrocodone AdvReac Intermediate Nausea, Verified 04/09/20 16:15 vomitiing Exam Narrative Exam Narrative: GEN: Alert and oriented, pleasent and cooperative, gives linear history. No acute distress at rest. HEENT: Head atraumatic. Conjunctiva clear, no icterus. PEERL, EOMI. no rhinorrhea. MMM, OP benign. Neck is supple with no masses or lymphadenopathy, trachea midline. JVP visible at about 12 cm of water LUNGS: CTAB with normal effort, though moderately diminished at bases bilaterally. No Rales or wheezes. CV: Regular rhythm with occasional skipped beats. Harsh 2 out of 6 systolic murmur audible throughout with some radiation to the neck. No gallops or rubs. ABD: +BS, soft, NT/ND EXT: no cyanosis, clubbing. Trace bilateral ankle edema MSK: No joint redness or swelling, MCPs not tender, though some deformity of fingers. NEURO: CN 2-12 grossly intact. Normal movement of 4 extremities. Normal speech and coordination SKIN: No rashs or open wounds except red patch underneath right breast. PSYCH: normal mood and affect. Results Labs Result diagrams: 04/09/20 16:25 04/09/20 16:25 Labs: Laboratory Results - last 24 hr 04/09/20 04/09/20 04/09/20 16:25 16:25 16:25 WBC 6.74 RBC 4.41 Hgb 13.2 Hct 41.2 MCV 93.4 MCH 29.9 MCHC 32.0 RDW 14.3 Plt Count 206 MPV 11.4 H Immature Gran % 0.3 Neutrophils % 77.4 Lymphocytes % 17.4 Monocytes % 4.0 Eosinophils % 0.6 Basophils % 0.3 Nucleated RBC % 0 Absolute Neutrophils 5.22 Absolute Lymphocytes 1.17 L Absolute Monocytes 0.27 Absolute Eosinophils 0.04 Absolute Basophils 0.02 PT INR APTT D-Dimer VBG pH 7.39 VBG pCO2 42 VBG pO2 45 VBG HCO3 25 VBG Total CO2 23 L VBG O2 Saturation 78 VBG Base Excess 0 Sodium 143 Potassium 3.2 L Chloride 106 Carbon Dioxide 24.4 Anion Gap 12.6 H BUN 15 Creatinine 0.9 Estimated GFR/1.73 m2 >= 60.00 Glucose 134 H Calcium 9.2 Total Bilirubin 1.1 H AST 19 ALT 32 Alkaline Phosphatase 74 Troponin I < 0.05 NT-Pro-B Natriuret Pep 23826 H Total Protein 6.8 Albumin 4.0 Lipase 137 TSH 3.17 COVID-19 Source 04/09/20 04/09/20 04/09/20 16:25 16:25 18:00 WBC RBC Hgb Hct MCV MCH MCHC RDW Plt Count MPV Immature Gran % Neutrophils % Lymphocytes % Monocytes % Eosinophils % Basophils % Nucleated RBC % Absolute Neutrophils Absolute Lymphocytes Absolute Monocytes Absolute Eosinophils Absolute Basophils PT 11.3 H INR 1.1 APTT 22.5 D-Dimer 640 H VBG pH VBG pCO2 VBG pO2 VBG HCO3 VBG Total CO2 VBG O2 Saturation VBG Base Excess Sodium Potassium Chloride Carbon Dioxide Anion Gap BUN Creatinine Estimated GFR/1.73 m2 Glucose Calcium Total Bilirubin AST ALT Alkaline Phosphatase Troponin I NT-Pro-B Natriuret Pep Total Protein Albumin Lipase TSH COVID-19 Source Nasopharyx Last Vital Signs Temp 36.4 C L 04/09/20 19:26 Pulse 104 H 04/09/20 19:26 Resp 20 04/09/20 19:26 BP 126/80 04/09/20 19:26 Pulse Ox 100 04/09/20 19:26 COVID-19 Screening Have you, or household traveled for leisure in last 14 days?: No Had IN PERSON contact w/suspected or confirmed C-19 person: No
[2020-04-09 20:35] LABS: Troponin I < 0.05 ng/mL (<0.06)
[2020-04-09 20:46] LABS: Magnesium 1.8 mg/dL (1.8-2.4)
[2020-04-09] MEDS: Normal Saline Flush 10 ML SYR IVP ×2 (21:59→22:02)
[2020-04-09] MEDS: Enoxaparin 40 MG/0.4 ML SYR SC (22:00)
[2020-04-10] VITALS (7 sets, daily range): BP systolic 106–129; BP diastolic 76–89; PULSE 80–101; RESP 17–32; TEMP 35.7–36.4; O2SAT 94–100
[2020-04-10 07:01] LABS: Anion Gap 9.6 mmol/L (3-11); BUN 17 mg/dL (7-18); C-Reactive Protein 0.36 mg/dL (0.0-0.3); CO2 26.4 mmol/L (21.0-32.0); CREATININE 1.1 mg/dL (0.55-1.02); Calcium 8.9 mg/dL (8.5-10.1); Chloride 108 mmol/L (98-107); Estimated GFR 47.79 (mL/min/1.73m2); Glucose 147 mg/dL (74-106); Sodium 144 mmol/L (136-145)
[2020-04-10] MEDS: Cholecalciferol (Vitamin D3) 1,000 UNIT TAB 1000 UNITS PO (08:54)
[2020-04-10] MEDS: Folic Acid 1 MG TAB PO (08:54)
[2020-04-10] MEDS: Beta-Carotene(A) w/C,E, & Minerals TAB 1 TAB PO (08:54)
[2020-04-10] MEDS: Hydroxychloroquine 200 MG TAB 300 MG PO (08:54)
[2020-04-10] MEDS: Normal Saline Flush 10 ML SYR IVP ×2 (10:01→16:43)
[2020-04-10] MEDS: Furosemide 40 MG/4 ML VIAL IVP ×2 (10:01→16:44)
[2020-04-10] MEDS: Acetaminophen 325 MG TAB 650 MG PO (11:07)
--- NOTE | 2020-04-10 12:27 | W.PM.PROGNOT ---
Date of Service Date of service: 04/10/20 Time of Service: 12:28 Assessment and Plan Assessment and plan (1) Acute exacerbation of CHF (congestive heart failure): Start date: 04/10/20 Start time: 12:34 Status: Acute Assessment and plan: BNP over 20,000 up from previous. not on diuretics at home. EF 32%, Cardiology agrees with aggressive diuresis. Received 40 mg IVP in ED additional 20 mg this am with 40 mg IVP at 0830, after evaluation patient continues to severely SOB another 20 mg IVP ordered stat and 40 mg IVP ordered BID. She will need lasix po on discharge. She is adamant about going home if breathing improves possible discharge in am. (2) Pleural effusion: Start date: 04/10/20 Start time: 12:44 Status: Acute Assessment and plan: related to congestive heart failure rather than inflammatory from her rheumatoid arthritis. will treat as above (3) Aortic stenosis, moderate: Start date: 04/10/20 Start time: 12:37 Status: Acute Assessment and plan: Cardiology does not feel this is a contributing factor, she does have moderate PHTN, she could have also had a bout of RVR and she likely has sleep apnea, she also does not appear to be someone who knows about following a low sodium diet, educatio was given for CHF along with binder, daily wts and what to monitor for. EKG no change from previous, SR with LBBB, will d/c teley (4) Rheumatoid arthritis: Start date: 04/10/20 Start time: 12:42 Status: Acute Assessment and plan: Patient does not appear to have active rheumatoid arthritis clinically. CRP was mildly elevated earlier in March, will repeat with morning labs. concerned with her prolonged QT with her hydroxychloroquine use. magnesium 1.8 and potassium 4.0 will recheck labs in am and monitor, replete as necessary CRP down to 0.36 Qualifiers: Rheumatoid arthritis location: multiple sites Rheumatoid factor presence: with rheumatoid factor Qualified Code(s): M05.79 - Rheumatoid arthritis with rheumatoid factor of multiple sites without organ or systems involvement (5) Atrial fibrillation: Start date: 04/10/20 Start time: 12:45 Status: Ruled-out Assessment and plan: Per history, paroxysmal. SR at this time as above (6) Hypokalemia: Start date: 04/10/20 Start time: 12:50 Status: Resolved Assessment and plan: Replaced IV and orally in the emergency room. Follow, along with magnesium. (7) DVT prophylaxis: Start date: 04/10/20 Start time: 12:50 Status: Acute Assessment and plan: Low molecular weight heparin. (8) Discharge planning issues: Start date: 04/10/20 Start time: 12:50 Status: Acute Assessment and plan: She will go home when medically stable. Likely tomorrow,. above case discussed with Dr. Sandoval Subjective Subjective Patient reports: shortness of breath Interval history since last seen: Sitting up in chair wanting to go home, however visibly SOB while just sitting in the chair. Spoke with cardiology regarding diuretics and they agree to giving what is needed for diuresis. BNP over 20,000 this admission. Eager to go home, no edema or JVD, will given an additional 20 IVP lasix now and 40 ivp bid, possible discharge home tomorrow if SOB improved. She denies CP, n/v/d. Repeat EKG, questionable wide qt on telemetry Exam Narrative Exam Narrative: GEN: Alert and oriented, pleasent and cooperative. No acute distress at rest. HEENT: Head atraumatic. Conjunctiva clear, no icterus. PEERL, EOMI. no rhinorrhea. MMM, OP benign. Neck is supple with no masses or lymphadenopathy, trachea midline. NO JVD at this time. LUNGS: CTAB with normal effort, though moderately diminished at bases bilaterally. No Rales or wheezes. CV: Regular rhythm with occasional skipped beats. Harsh 2 out of 6 systolic murmur audible throughout with some radiation to the neck. No gallops or rubs. ABD: +BS, soft, NT/ND EXT: no cyanosis, clubbing. Trace bilateral ankle edema MSK: No joint redness or swelling, MCPs not tender, though some deformity of fingers. NEURO: CN 2-12 grossly intact. Normal movement of 4 extremities. Normal speech and coordination SKIN: No rashs or open wounds except red patch underneath right breast. PSYCH: normal mood and affect. Objective Last Vital Signs Temp 35.7 C L 04/10/20 11:13 Pulse 100 H 04/10/20 11:13 Resp 20 04/10/20 11:13 BP 106/86 04/10/20 11:13 Pulse Ox 94 04/10/20 11:13 Laboratory Results - last 24 hr 04/09/20 04/09/20 04/09/20 16:25 16:25 16:25 WBC 6.74 RBC 4.41 Hgb 13.2 Hct 41.2 MCV 93.4 MCH 29.9 MCHC 32.0 RDW 14.3 Plt Count 206 MPV 11.4 H Immature Gran % 0.3 Neutrophils % 77.4 Lymphocytes % 17.4 Monocytes % 4.0 Eosinophils % 0.6 Basophils % 0.3 Nucleated RBC % 0 Absolute Neutrophils 5.22 Absolute Lymphocytes 1.17 L Absolute Monocytes 0.27 Absolute Eosinophils 0.04 Absolute Basophils 0.02 PT INR APTT D-Dimer VBG pH 7.39 VBG pCO2 42 VBG pO2 45 VBG HCO3 25 VBG Total CO2 23 L VBG O2 Saturation 78 VBG Base Excess 0 Sodium 143 Potassium 3.2 L Chloride 106 Carbon Dioxide 24.4 Anion Gap 12.6 H BUN 15 Creatinine 0.9 Estimated GFR/1.73 m2 >= 60.00 Glucose 134 H Calcium 9.2 Magnesium Total Bilirubin 1.1 H AST 19 ALT 32 Alkaline Phosphatase 74 Troponin I < 0.05 C-Reactive Protein NT-Pro-B Natriuret Pep 23419 H Total Protein 6.8 Albumin 4.0 Lipase 137 TSH 3.17 COVID-19 Source 04/09/20 04/09/20 04/09/20 16:25 16:25 18:00 WBC RBC Hgb Hct MCV MCH MCHC RDW Plt Count MPV Immature Gran % Neutrophils % Lymphocytes % Monocytes % Eosinophils % Basophils % Nucleated RBC % Absolute Neutrophils Absolute Lymphocytes Absolute Monocytes Absolute Eosinophils Absolute Basophils PT 11.3 H INR 1.1 APTT 22.5 D-Dimer 640 H VBG pH VBG pCO2 VBG pO2 VBG HCO3 VBG Total CO2 VBG O2 Saturation VBG Base Excess Sodium Potassium Chloride Carbon Dioxide Anion Gap BUN Creatinine Estimated GFR/1.73 m2 Glucose Calcium Magnesium Total Bilirubin AST ALT Alkaline Phosphatase Troponin I C-Reactive Protein NT-Pro-B Natriuret Pep Total Protein Albumin Lipase TSH COVID-19 Source Nasopharyx 04/09/20 04/09/20 04/10/20 20:10 20:10 06:39 WBC RBC Hgb Hct MCV MCH MCHC RDW Plt Count MPV Immature Gran % Neutrophils % Lymphocytes % Monocytes % Eosinophils % Basophils % Nucleated RBC % Absolute Neutrophils Absolute Lymphocytes Absolute Monocytes Absolute Eosinophils Absolute Basophils PT INR APTT D-Dimer VBG pH VBG pCO2 VBG pO2 VBG HCO3 VBG Total CO2 VBG O2 Saturation VBG Base Excess Sodium 144 Potassium 4.0 D Chloride 108 H Carbon Dioxide 26.4 Anion Gap 9.6 BUN 17 Creatinine 1.1 H Estimated GFR/1.73 m2 47.79 Glucose 147 H Calcium 8.9 Magnesium 1.8 Total Bilirubin AST ALT Alkaline Phosphatase Troponin I < 0.05 C-Reactive Protein 0.36 H NT-Pro-B Natriuret Pep Total Protein Albumin Lipase TSH COVID-19 Source
--- NOTE | 2020-04-10 12:30 | RT.EKG_ITS ---
APPROVED REPORT Exam: Resting ECG Patient Location: I HR:91 bpm ECG Measurements Heart Rate 91 AXIS IA 192 P 38 QRSd 166 QRS -33 QT 444 T 128 QTc 538 Conclusion Sinus rhythm...normal P axis, V-rate 60- 99 Atrial premature complex...SV complex w/ short R-R interval Left bundle branch block...QRSd>120, broad/notched R ST elevation secondary to IVCD...Multiple VCG criteria
--- NOTE | 2020-04-10 12:36 | W.NUTRFU ---
Date of service: 04/10/20 Time of Service: 12:36 Nutritional Follow up NOTE: 80 year old female admitted with CHF, SOB with CP with hx of colon CA. BMI indicates class 1 obesity. Covid status pending. Does not appear at nutritional risk. Would like to educate pt on low sodium/DASH diet but unable to due to covid precautions. Provided written materials and contact info to nurse who will bring to patient. Will follow up when able to enter her room. Time Spent in Nutritional Counseling and Treatment: 0
[2020-04-10] MEDS: Furosemide 20 MG/2 ML VIAL IVP ×2 (13:56→14:19)
[2020-04-10] MEDS: Nystatin POWDER 60 GM JAR TP ×2 (13:57→19:51)
[2020-04-10 15:56] LABS: COVID-19 PCR Negative (Negative)
--- NOTE | 2020-04-10 17:19 | PDOC.CMIN ---
- If Service Date Differs Date of service: 04/11/20 Time of Service: 17:14 Care Management Initial Assess REASON FOR HOSPITALIZATION:: SOB, CHF Exacerbation PAST MEDICAL HISTORY/PAST SURGICAL HISTORY:: Atrial fibrillation (01/15/02). Cholelithiasis without obstruction. 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 Depressive disorder (11/28/11). Hammer toes of both feet (03/24/17). Impacted cerumen, bilateral. Increased body mass index (BMI) (03/24/17). Long-term use of immunosuppressant medication. Paralytic strabismus. Pneumonia. Primary malignant neoplasm of colon (01/16/08). with metastases to the liver; surgery and chemo (sigmoid colectomy and partial hepatectomy). Rheumatoid arthritis (11/28/11). sees Dr Cameron (dx 12/23). Rotator cuff syndrome. Systolic murmur. systolic (2002 echo [facility] normal). Undiagnosed cardiac murmurs. systolic (2002 echo [facility] normal). Wheezing. Surgical History . Extraction of cataract. 03/08/15;RIGHT EYE; DR. TODD. 03/01/15;LEFT; DR. TODD. History of surgery of liver. Sigmoidoscopy. [facility] [place]; 10cm x 10 cm section of the sigmoid colon PREVIOUS FUNCTIONAL STATUS/SOCIAL/FAMILY SUPPORTS:: Leanne resides alone in [place], [place] in a mobile home with her beloved kitties she calls her kids. She reports being independent at baseline in the community with friends who support her. CURRENT FUNCTIONAL STATUS:: Leanne is advocating for returning home to her kitties. She does not want to stay at [facility] and reports preferring to discuss services supports with her PCP; Tania Foy. ADVANCE DIRECTIVES:: On file at [facility] Loren as agent, Benita as alternate. Has patient been provided with info about the portal/API?: No Did the patient sign up for the portal?: No CODE STATUS:: DNR/DNI INSURANCE COVERAGE / FINANCIAL ISSUES:: Medicare. Financial Asst 100 CURRENT HOME/COMMUNITY SERVICES/EQUIPMENT:: Leanne reports no current supports at this time. PRIMARY CARE PHYSICIAN:: Tania Foy DO, [facility]. POTENTIAL DISCHARGE NEEDS:: Follow up appointments in the community. PATIENT/FAMILY EDUCATION NEEDS:: Review discharge instructions, discuss [employer]. ANTICIPATED BARRIERS TO DISCHARGE:: None identified. TRANSPORTATION:: Via [facility], coordinated by this marine underwriter. PLAN:: Leanne will return home when ready per MD. She is unwilling to consider additional services at this time and will discuss with her PCP during follow up. She reports having an appointment at the infusion room at [facility] next week. She will transport via private vehicle with [facility], coordinated by this marine underwriter.
[2020-04-10] MEDS: Enoxaparin 40 MG/0.4 ML SYR SC (19:50)
[2020-04-11 06:55] LABS: BUN 21 mg/dL (7-18); Calcium 8.6 mg/dL (8.5-10.1); Estimated GFR 53.35 (mL/min/1.73m2); Glucose 110 mg/dL (74-106); NT-proBNP 12833 pg/mL (<300)
[2020-04-11 07:10] LABS: Chloride 103 mmol/L (98-107); Sodium 144 mmol/L (136-145)
[2020-04-11 07:11] VITALS: PULSE 82
[2020-04-11 07:45] VITALS: BP 122/79; PULSE 85; RESP 19; TEMP 36.7; O2SAT 93
[2020-04-11] MEDS: Nystatin POWDER 60 GM JAR TP (08:40)
[2020-04-11] MEDS: Hydroxychloroquine 200 MG TAB 300 MG PO (08:40)
[2020-04-11] MEDS: Furosemide 40 MG/4 ML VIAL IVP (08:40)
[2020-04-11] MEDS: Normal Saline Flush 10 ML SYR IVP (08:41)
[2020-04-11] MEDS: Potassium Chloride 20 MEQ TABCR 40 MEQ PO (08:41)
[2020-04-11] MEDS: Beta-Carotene(A) w/C,E, & Minerals TAB 1 TAB PO (08:41)
[2020-04-11] MEDS: Cholecalciferol (Vitamin D3) 1,000 UNIT TAB 1000 UNITS PO (08:41)
[2020-04-11] MEDS: Folic Acid 1 MG TAB PO (08:41)
--- NOTE | 2020-04-11 10:35 | W.PM.DS.N ---
Date of service: 04/11/20 Time of Service: 11:05 DS: Diagnosis Discharge Diagnosis (1) Acute exacerbation of CHF (congestive heart failure): Start date: 04/11/20 Start time: 11:08 Status: Acute Asessment and Plan: Given CHF book, educated on sodium restriction, fluid restriction Will start lasix 20 mg daily Repeat BNP and BMP in 1 week f/u with cardiology and PCP wt self daily Given IV lasix with good result (2) Pleural effusion: Start date: 04/11/20 Start time: 11:07 Status: Acute Asessment and Plan: Found on imaging given lasix, improved no longer SOB (3) Aortic stenosis, moderate: Start date: 04/11/20 Start time: 11:07 Status: Acute Asessment and Plan: Cardiology does not feel this is affecting her CHF (4) Rheumatoid arthritis: Start date: 04/11/20 Start time: 11:07 Status: Acute Asessment and Plan: continue outpatient medication and follow up with Rheumatology as scheduled (5) Atrial fibrillation: Start date: 04/11/20 Start time: 11:06 Status: Ruled-out Asessment and Plan: EKG revealing prolonged qt likely from RA medication with SR and LBBB, she will need to be followed by cardiology (6) Hypokalemia: Start date: 04/11/20 Start time: 11:06 Status: Resolved Asessment and Plan: repleted with IV and PO, will need to monitor as an outpatient as she is starting potassium above case discussed with Dr. Sandoval Discharge Plan Disposition Patient Disposition: HOME Condition: Stable Discharge Details Reason For Visit: SOB, CHF EXACERBATION Admit Date/Time: 04/09/20 18:35 Admit Provider: Tremaine Benítez Attending Provider: Tremaine Benítez Primary Care Provider: Tania Foy [facility] Hospital Course: This is an 80-year-old woman with a history of rheumatoid arthritis controlled with abatacept, methotrexate, and hydroxychloroquine, history of atrial fibrillation and remote metastatic colon cancer was presenting with about 6 weeks of progressive shortness of breath. Patient was first seen on March 08 and complained of wheezing. Initially this was felt to be atelectasis related to sedentary lifestyle. She was seen again on March 20 at her primary care clinic. At this point she had a chest x-ray which showed bilateral infiltrates. She was not hypoxic. She was started on doxycycline and albuterol inhaler. These did not improve her symptoms. CT chest without contrast on March 28 showed bilateral pleural effusion and adjacent atelectasis, cardiomegaly, and no significant interstitial lung disease or definite pneumonia. COVID-19 testing was negative March 29. BNP December 02 was elevated at around 10,000. CRP that day was mildly elevated at 0.96. The patient is a vague historian, and states she is been feeling overwhelmed and thus has a hard time remembering details. She denies any clear inciting event prior to shortness of breath starting. She denies chest pain currently, but there is note of some pleuritic chest tightness during evaluation in the clinic on March 28. She has no history of syncope and denies dizziness. She has had a dry cough that developed during the same time period, with no sputum production or hemoptysis. She has not had fevers or chills. She denies upper respiratory symptoms including nasal congestion, sore throat, runny nose, change of taste and smell. She had not traveled or had sick contacts. She has noted new orthopnea and paroxysmal nocturnal dyspnea. She has not noted significant peripheral edema developing, or weight gain. She was evaluated in the emergency room and given 20 mg IV Lasix, and she states she has urinated a lot since then. She was admitted for further management of CHF. She needed an additional 40 mg IVP lasix with BNP of over 20,000. On evaluation she was SOB just sitting still she wanted to go home but required an additional 20 mg with 40 mg BID, repeat BNP revealed 12,000 in the morning. SOB resolved. She was educated on CHF given a binder and discussed with sodium restriction and fluid restriction. She will discharged home on lasix daily, she will need follow labs and f/u with cardiology as EF is 35% and new onset CHF and she will also need f/u with Dr. Grayson in 1 week with repeat BNP and BMP. SHe denies CP, SOB, N/V/D Home Meds and New Rx's Prescriptions: New potassium chloride 20 mEq tablet extended release 40 meq PO DAILY Qty: 2 RF: 0 furosemide 20 mg tablet 20 mg PO DAILY Qty: 30 RF: 0 Continued Orencia (with maltose) 250 mg recon soln 3 ml IV .COMPLEX RF: 0 calcium carbonate-vitamin D3 1 EACH tablet 1 ea PO DAILY RF: 0 folic acid 1 MG tablet 1 mg PO DAILY Qty: 90 RF: 4 cholecalciferol (vitamin D3) 1,000 UNIT tablet 1,000 unit PO DAILY RF: 0 PreserVision Lutein 1 EACH capsule 1 ea PO DAILY RF: 0 hydroxychloroquine 200 mg tablet 300 mg PO DAILY Qty: 180 RF: 4 Discharge Instructions Instructions: DASH Eating Plan (GEN), Low-Sodium Diet (GEN) Additional Instructions: Follow a low sodium diet Weigh yourself daily, if you have a 2-3 lb weight gain in 1-2 days follow up with you PCP right away Stick to a 1500 fluid restriction daily, you can have 500 ml of fluid throughout the morning, 500 throughout the afternoon and again in the evening. This may need to decreased to 1200 ml if you start to retain fluid You will be started on lasix 20 mg. You can take this in the morning or between 2-4 pm, this will make you pee. It needs to be taken daily. Follow up Cardology at [facility] on Follow up with Dr. Grayson on 04/19 at 3:20 Stand Alone Forms: Nursing Discharge Form Referrals: CARDIOLOGY,[facility] [OTHER] - (EF of 35% with no cardiology following her, now with CHF. Starting on Lasix Would prefer Tika) Tania Foy MD, [place] [Primary Care Provider] - 04/19/20 3:20 pm Activity:: Activity as Tolerated Equipment/Supplies:: No Equipment Needed Diet:: Low Sodium Discharge Orders Discharge Orders: Discharge Order (Routine); Ordered 04/11/20 Ordered By: Jessie Benoit Other Ambulatory Orders: Basic Metabolic Panel (Routine) Location: None Selected Ordered By: Jessie Benoit NT-proBNP (Routine) Location: None Selected Ordered By: Jessie Benoit DS: Summary Time Spent with Patient providing and/or coordinating discharge services: Greater than 30 minutes (total discharge time 65 mins) Status at Discharge Functional status at discharge: independent ambulation Overall status at discharge: patient is back to baseline Mental Status: mental status grossly normal Speech and Movement: speech and movement normal Mood: congruent mood Affect: normal affect Exam Narrative Exam Narrative: GEN: Alert and oriented, pleasent and cooperative. No acute distress at rest. HEENT: Head atraumatic. Conjunctiva clear, no icterus. PEERL, EOMI. no rhinorrhea. MMM, OP benign. Neck is supple with no masses or lymphadenopathy, trachea midline. NO JVD at this time. LUNGS: CTAB with normal effort, though moderately diminished at bases bilaterally. No Rales or wheezes. CV: Regular rhythm with occasional skipped beats. Harsh 2 out of 6 systolic murmur audible throughout with some radiation to the neck. No gallops or rubs. ABD: +BS, soft, NT/ND EXT: no cyanosis, clubbing. Trace bilateral ankle edema MSK: No joint redness or swelling, MCPs not tender, though some deformity of fingers. NEURO: CN 2-12 grossly intact. Normal movement of 4 extremities. Normal speech and coordination SKIN: No rashs or open wounds except red patch underneath right breast. PSYCH: normal mood and affect. Psych Mental Status: mental status grossly normal Speech and Movement: speech and movement normal Mood: congruent mood Affect: normal affect DS: Data Vitals/I&O Vitals and I&O: Vital Signs Temperature 36.7 C 04/11/20 07:45 Temperature Source Tympanic 04/11/20 07:45 Pulse 85 04/11/20 07:45 Pulse Rhythm Regular 04/11/20 02:46 Pulse 106 H 04/09/20 18:40 Respiratory Rate 19 04/11/20 07:45 Respiratory Effort 04/11/20 02:46 Respiratory Depth Shallow 04/11/20 02:46 Respiratory Pattern Normal 04/11/20 02:46 Blood Pressure 122/79 04/11/20 07:45 Blood Pressure Mean 103 04/09/20 18:46 Blood Pressure Position Sitting 04/09/20 16:08 Pulse Oximetry 93 04/11/20 07:45 Oxygen Delivery Method Room Air 04/11/20 07:45 Oxygen Flow Rate 0 04/11/20 07:45 Pain Level 0 04/11/20 07:45 Intake & Output 04/10/20 04/10/20 04/11/20 11:59 23:59 11:59 Intake Total 120 / 360 240 / 360 500 / 500 Output Total 600 / 1800 1200 / 1800 750 / 750 Balance -480 / -1440 -960 / -1440 -250 / -250 Weight 70.8 kg 68.9 kg Intake: IV 20 / 20 Oral 120 / 360 240 / 360 480 / 480 Output: Urine 600 / 1800 1200 / 1800 750 / 750 Other: Urine Color Yellow Pale Straw Urine Appearance Clear Clear Sediment Urine Odor Normal Normal Strong Comment pt voided 1x in toilet and dumped hat before RN assessed. Pt educated about importance of measuring urine and asked to leave urine in hat after voiding. Per pt she has voided 4 times and emptied the hat in the toliet herself and has not looked at the measurement. Discussed that we need to measure the urine so she needs to let us empty it. Voiding Methods Toilet Toilet Toilet Data Completed and Pending Completed studies during hospitalization [Text1]: COMPARISON: CR XR CHEST 2V PA LATERAL from 03/21/2020 FINDINGS: Cardiomegaly again noted. The mediastinum is not widened. There is increasing infiltrate and pleural effusion on the right side-right lung base. Also mild increased markings in the superior lingular segment of the left lung. No obvious pleural effusion on the left side IMPRESSION: Increasing size pleural effusion on the right. Also increasing right lung base infiltrate. 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 TODD 03/01/15;LEFT; DR. TODD History of surgery of liver [place] [facility] 10[place] x 10 cm section of the sigmoid colon Family History Mother Alzheimer disease Father Heart disease Sister No problems noted. Sister No problems noted. Grandfather Stroke Grandmother No problems noted. Social History (Updated 04/09/20 @ 20:31 by Tremaine Benítez) Smoking/Tobacco Use Status: Never Smoking risk assessment performed?: Yes Alcohol Intake: current Alcohol Intake frequency: holidays/special occasions only Drug use: Never Substance use type: does not use Current gender identity: female Do you feel safe at home: Yes Do you feel safe in your relationship?: Yes Additional Social history: Lives alone with her cats in [place]. No local family.
--- NOTE | 2020-04-11 12:19 | NUR.NOTE ---
Received call from Charu Moody who is on Leanne's HIPAA. States that she is concerned about the pt being confused. Advised that pt has been oriented and very cooperative with teaching while she has been here and that she has been cleared for discharge. Asking if pt will have services while at home. Spoke with Allie Dickerson who stated that they will send a referral to [facility]. Charu also asking what else she can do if they notice decline in the pt. Discussed that she can follow up with the [facility] or call Leanne's PCP. Verbalized understanding.Nursing Note:
--- NOTE | 2020-04-11 17:26 | PDOC.CMDIS ---
LACE Index Scoring Tool - Questions: Length of Stay (in days): 2 Acuity (Admit via E.D.?): Yes Comorbidities: Any Tumor, Connective Tissue Disease E.D. Visits: 1 - Answers: Total Score: 11 Risk of Readmission: High Risk Care Management Discharge Reason for Hospitalization: SOB, CHF Exacerbation Discharge Plan: Leanne will return home when ready per MD. She is unwilling to consider additional services at this time and will discuss with her PCP during follow up. She reports having an appointment at the infusion room at [facility] next week. She will transport via private vehicle with [facility], coordinated by this appeals writer. Patient/Family Education Needs: Review discharge instructions, discuss Ask Me Three. Services Needed at Discharge: Transportation ([facility])
== END 2020-04-11 12:11 | disposition home or self-care (01) ==
LOC: ER 18:40 → MS 19:22
PROVIDERS: Nurse Practitioner Family; Admitting Provider Family Medicine; Emergency Provider Student in an Organized Health Care Education/Training Program; PCP Family Medicine; Visit Provider Family Medicine
DX: I50.9 Heart failure, unspecified (principal); R94.31 Abnormal electrocardiogram [ECG] [EKG]; G40.209 Localization-related (focal) (partial) symptomatic epilepsy and epileptic syndromes with complex partial seizures, not intractable, without status epilepticus; Z85.038 Personal history of other malignant neoplasm of large intestine; Z90.49 Acquired absence of other specified parts of digestive tract; Z98.0 Intestinal bypass and anastomosis status; I27.20 Pulmonary hypertension, unspecified; M05.79 Rheumatoid arthritis with rheumatoid factor of multiple sites without organ or systems involvement; I48.0 Paroxysmal atrial fibrillation; E87.6 Hypokalemia; Z79.899 Other long term (current) drug therapy
CPT/HCPCS: 36415; 80048; 80053; 82805; 83690; 93005; 96365; 96375; 99219; 99233; 99239; 99285; J1650; 71045; 83735; 83880; 84443; 84484; 85025; 85379; 85610; 85730; 86140; 93010; 99226; G0378; J1940; J1941; J3480

== ENCOUNTER → 2020-04-10 07:55 | Outpatient (BNVA) | payer MEDICARE, SELFPAY | PROVIDERS: PCP Family Medicine; Referring Provider Family Medicine; Visit Provider Internal Medicine Cardiovascular Disease | DX: R69 Illness, unspecified (principal) ==

== ENCOUNTER 2020-04-30 15:03 | Outpatient (REF) | payer MEDICARE, SELFPAY ==
[2020-04-30 20:55] LABS: ALT 25 U/L (14-59); AST 25 U/L (15-37); Albumin 4.2 g/dL (3.4-5.0); Alkaline Phosphatase 73 U/L (46-116); Anion Gap 11.2 mmol/L (3-11); BUN 25 mg/dL (7-18); Bilirubin, Total 0.9 mg/dL (0.2-1.0); CO2 27.8 mmol/L (21.0-32.0); CREATININE 1.1 mg/dL (0.55-1.02); Calcium 9.9 mg/dL (8.5-10.1); Chloride 103 mmol/L (98-107); Estimated GFR 47.79 (mL/min/1.73m2); Glucose 103 mg/dL (74-106); Sodium 142 mmol/L (136-145); Total Protein 6.8 g/dL (6.4-8.2)
== END 2020-04-30 15:04 | disposition home or self-care (01) ==
LOC: LBN 15:03
PROVIDERS: PCP Family Medicine; Visit Provider Family Medicine
DX: I50.9 Heart failure, unspecified (principal)
CPT/HCPCS: 80053

== ENCOUNTER → 2020-05-03 10:22 | Outpatient (BNVA) | payer MEDICARE, SELFPAY | PROVIDERS: PCP Family Medicine; Referring Provider Family Medicine; Visit Provider Internal Medicine Cardiovascular Disease | DX: I50.22 Chronic systolic (congestive) heart failure (principal); R01.1 Cardiac murmur, unspecified; I35.0 Nonrheumatic aortic (valve) stenosis | CPT/HCPCS: 99203; 99213 ==

== ENCOUNTER 2020-05-16 02:28 | Outpatient (RCR) | payer MEDICARE, SELFPAY ==
[2020-04-18 11:08] LABS: Abs Immature Grans 0.01 10^3/uL (0.0-0.06); Absolute Basophil Count 0.03 10^3/uL (0.0-0.2); Absolute Eosinophil Count 0.08 10^3/uL (0.0-0.7); Absolute Lymphocyte Count 1.26 10^3/uL (1.2-3.4); Absolute Monocyte Count 0.31 10^3/uL (0.1-0.8); Absolute Neutrophil Count 3.99 10^3/uL (1.2-6.7); Basophils % 0.5; Eosinophils % 1.4; HCT 43.6 % (36.0-46.0); HGB 14.1 g/dL (11.2-15.7); Immature Grans % 0.2; Lymphocytes % 22.2; MCH 30.1 pg (27.0-33.0); MCHC 32.3 % (32.0-36.0); MPV 12.5 fL (8.0-11.0); Monocytes % 5.5; Neutrophils % 70.2; Nucleated RBC 0 %; Platelet Count 218 10^3/uL (130-400); RBC 4.69 10^6/uL (3.93-5.22); RDW 14.2 % (11.7-14.6); RDW-SD 47.9 fL; WBC 5.68 10^3/uL (4.4-10.8)
[2020-04-18 11:23] LABS: ALT 27 U/L (14-59); AST 25 U/L (15-37); Alkaline Phosphatase 69 U/L (46-116); BUN 20 mg/dL (7-18); Bilirubin, Total 0.9 mg/dL (0.2-1.0); C-Reactive Protein 0.07 mg/dL (0.0-0.3); CREATININE 1.1 mg/dL (0.55-1.02); Calcium 9.2 mg/dL (8.5-10.1); Chloride 105 mmol/L (98-107); Estimated GFR 47.79 (mL/min/1.73m2); Glucose 145 mg/dL (74-106); Potassium 3.8 mmol/L (3.5-5.1); Sodium 142 mmol/L (136-145); Total Protein 7.1 g/dL (6.4-8.2)
[2020-04-18] MEDS: ABATACEPT 750 MG in Normal Saline 100 ML 200 MG IVPB (11:29)
[2020-04-18] MEDS: Normal Saline Flush 10 ML SYR IVP (11:29)
[2020-05-16] MEDS: Normal Saline Flush 10 ML SYR IVP (10:54)
[2020-05-16] MEDS: ABATACEPT 750 MG in Normal Saline 100 ML 200 MG IVPB (11:33)
== END 2020-05-16 23:59 | disposition home or self-care (01) ==
LOC: INF 02:28
PROVIDERS: Internal Medicine Rheumatology; PCP Family Medicine; Visit Provider Nurse Practitioner Family
DX: M06.9 Rheumatoid arthritis, unspecified (principal)
CPT/HCPCS: 36415; 80053; 96365; 85025; 86140; J0129

== ENCOUNTER 2020-06-13 11:00 | Outpatient (RCR) | payer MEDICARE, SELFPAY ==
[2020-06-13] MEDS: Normal Saline Flush 10 ML SYR IVP (11:05)
[2020-06-13 11:13] LABS: Absolute Basophil Count 0.03 10^3/uL (0.0-0.2); Absolute Eosinophil Count 0.12 10^3/uL (0.0-0.7); Absolute Lymphocyte Count 1.73 10^3/uL (1.2-3.4); Absolute Monocyte Count 0.33 10^3/uL (0.1-0.8); Absolute Neutrophil Count 2.96 10^3/uL (1.2-6.7); Basophils % 0.6; Eosinophils % 2.3; HCT 40.7 % (36.0-46.0); HGB 13.2 g/dL (11.2-15.7); Lymphocytes % 33.5; MCH 29.6 pg (27.0-33.0); MCHC 32.4 % (32.0-36.0); MCV 91.3 fL (80-95); MPV 11.5 fL (8.0-11.0); Monocytes % 6.4; Neutrophils % 57.2; Nucleated RBC 0 %; Platelet Count 188 10^3/uL (130-400); RBC 4.46 10^6/uL (3.93-5.22); RDW 14.4 % (11.7-14.6); RDW-SD 47.8 fL; WBC 5.17 10^3/uL (4.4-10.8)
[2020-06-13 11:34] LABS: ALT 21 U/L (14-59); AST 21 U/L (15-37); Albumin 3.9 g/dL (3.4-5.0); Alkaline Phosphatase 71 U/L (46-116); Anion Gap 7.2 mmol/L (3-11); BUN 20 mg/dL (7-18); Bilirubin, Total 0.4 mg/dL (0.2-1.0); C-Reactive Protein < 0.05 mg/dL (0.0-0.3); CO2 28.8 mmol/L (21.0-32.0); CREATININE 0.9 mg/dL (0.55-1.02); Chloride 108 mmol/L (98-107); Glucose 83 mg/dL (74-106); Potassium 3.5 mmol/L (3.5-5.1); Sodium 144 mmol/L (136-145)
[2020-06-13] MEDS: ABATACEPT 750 MG in Normal Saline 100 ML 200 MG IVPB (11:35)
== END 2020-06-15 23:59 | disposition home or self-care (01) ==
LOC: INF 11:00
PROVIDERS: Internal Medicine Rheumatology; PCP Family Medicine; Visit Provider Nurse Practitioner Family
DX: M06.9 Rheumatoid arthritis, unspecified (principal)
CPT/HCPCS: 36415; 80053; 96365; 85025; 86140; J0129

== ENCOUNTER 2020-07-11 02:59 | Outpatient (RCR) | payer MEDICARE, SELFPAY ==
[2020-07-11] MEDS: Normal Saline Flush 10 ML SYR IVP (11:44)
[2020-07-11] MEDS: ABATACEPT 750 MG in Normal Saline 100 ML 200 MG IVPB (11:44)
== END 2020-07-16 23:59 | disposition home or self-care (01) ==
LOC: INF 02:59
PROVIDERS: PCP Family Medicine; Visit Provider Nurse Practitioner Family
DX: M06.9 Rheumatoid arthritis, unspecified (principal)
CPT/HCPCS: 96365; J0129

== ENCOUNTER 2020-07-30 01:40 | Outpatient (CLI) | payer MEDICARE, SELFPAY ==
--- NOTE | 2020-07-30 13:49 | DI.US_ITS ---
APPROVED REPORT EXAM: Comprehensive 2D, Doppler, and color-flow Echocardiogram Patient Location: Out-Patient Linoleum Tile Floor Layer: Micaela Kirk RDCS (AE) Indications: Aortic Stenosis, Moderate Systolic murmur, Chronic Systolic heart failure Other Information Study Quality: Adequate Conclusion Left Ventricle : Left ventricle is moderately dilated. Left ventricular systolic function is severely decreased. There is normal left ventricular wall thickness. Global hypokinesis LVEF is 16%. Right Ventricle : Right ventricle is not well visualized. Right ventricular systolic function could n ot be assessed. The RVSP is 26.7 mmHg. Atria : Left atrium is severely dilated. Right atrium is not well visualized. Aortic Valve : Aortic valve is calcified. Number of aortic valve leaflets could not be assessed. Trac e aortic regurgitation. Moderate aortic stenosis. Peak aortic valve gradient is 34.5mmHg. Highest tammie n aortic valve gradient is 20.6mmHg. Calculated CHRISTIE by the continuity equation is 1.06cm2. Mitral Valve : Severe mitral annular calcification. Mild to moderate mitral regurgitation. No evidenc e of mitral valve stenosis. Great Vessels : The aortic root is normal in size. The ascending aorta is moderately dilated. Aortic arch is normal in caliber. IVC is normal in size and collapses >50% with inspiration. No prior study available for comparison. Wall motion Left Ventricle Left ventricle is moderately dilated. Left ventricular systolic function is severely decreased. There is normal left ventricular wall thickness. Global hypokinesis There is no ventricular septal defect visualized. LVEF is 16%. Right Ventricle Right ventricle is not well visualized. Right ventricular systolic function could not be assessed. Th e RVSP is 26.7 mmHg. Atria Left atrium is severely dilated. Right atrium is not well visualized. The interatrial septum is intac t with no evidence for an atrial septal defect. Aortic Valve Aortic valve is calcified. Number of aortic valve leaflets could not be assessed. Moderate aortic anirudh nosis. Peak aortic valve gradient is 34.5mmHg. Highest mean aortic valve gradient is 20.6mmHg. Calcul ated CHRISTIE by the continuity equation is 1.06cm2. Trace aortic regurgitation. Mitral Valve Severe mitral annular calcification. No evidence of mitral valve stenosis. Mild to moderate mitral re gurgitation. Tricuspid Valve The tricuspid valve is normal in structure. There is no tricuspid valve stenosis. Mild tricuspid regu rgitation. Pulmonic Valve The pulmonary valve is normal in structure. There is no pulmonic valvular stenosis. There is no pulmo junior valvular regurgitation. Great Vessels The aortic root is normal in size. The ascending aorta is moderately dilated. Aortic arch is normal i n caliber. IVC is normal in size and collapses >50% with inspiration. Pericardium There is no pericardial effusion. 2D Dimensions IVSD d PLAX 1.00 cm F: 0.6-1.0 LV Vol A2C d MOD 171.0 mL LVPW d PLAX 1.01 cm F: 0.6 - 1.0 LV Vol A4C d MOD 150.3 mL LVID d PLAX 5.78 cm F: 3.8 - 5.2 LA vol/ BSA A4C s A-L 60.4 mL/m2 LVDs 5.30 cm F: 2.2 - 3.5 LA Area A4C s MOD 26.98 cm2 Ao Root d 2.67 cm F: 2.7 - 3.3 LV EF A4C MOD 15.3 % Ao Asc Diam d 3.58 cm F: 2.3 - 3.1 LV EF A2C MOD 15.9 % LV EF Teichholz 17.3 % LV EF Biplane MOD 16.1 % LVEF (Davis's) 16.11 % F: 54 - 74 SV 27.89 mL LV Volume 140.70 mL F: 46 - 106 SV Index 17.44 mL/m2 LV Volume Index 87.93 mL/m2 F: 29 - 61 LV Vol Biplane MOD 173.1 mL FS 7.90 % M-Mode TAPSE 2.21 cm (M/F) >1.7 LV Diastology MV E' medial 0.060 (>0.07 m/s) E/A Ratio 0.7 LV E/e MED 14.25 (<14) MV E Vmax 0.86 (0.4-1.3 m/s) MV E' lateral 0.064 (>0.1 m/s) MV A Vmax 1.30 (0.4-1.3 m/s) LV E/e LAT 13.35 (<14) MV E/A Ratio 0.66 MV E/E' medial 14.29 MV E/E' lateral 13.39 Aortic Valve LVOT Area 3.23 cm2 AoV Area Vmax 1.06 cm2 LVOT Vmax 0.97 m/s AoV Area/ BSA (Vmax) 0.67 cm2/m2 LVOT Mean Carlos. 0.75 m/s CHRISTIE Mean Carlos. 1.12 cm2 LVOT Peak Grad 3.7 mmHg CHRISTIE Mean Carlos. Index 0.70 cm2/m2 LVOT Mean Grad 2.4 mmHg AR DT 3016 msec LVOT VTI 0.214 m AR PHT 875 msec LVOT Diam s 2.00 cm AoV Vmax 2.94 m/s Velocity Ratio 0.32 AoV Mean Carlos. 2.16 m/s AoV Peak Grad 34.5 mmHg LVOT SV 69.01 mL AoV Mean Grad 20.6 mmHg AoV VTI 0.649 m AoV Area VTI 1.06 cm2 AoV Area/ BSA (VTI) 0.67 cm/m2 Mitral Valve MV DT 296 (160-240 msec) MR Vmax 4.47 m/s MV PHT 86 msec MR VTI 1.567 m MV Area PHT 2.56 cm2 MR Peak Grad 80.0 mmHg MV VTI 0.465 m MR Mean Grad 53.7 mmHg MV VTI Annulus 0.477 m MR PISA Radius 0.52 cm MV Area VTI 1.52 (4.0-6.0 cm2) MR EROA 0.13 cm2 MR Aliasing Velocity 0.35 m/s MR PISA 1.67 cm2 Pulmonary Valve PV Vmax 1.16 (0.5-1.5 m/s) RVOT Peak Gr. 4.55 mmHg PV Peak Grad 5.4 mmHg RVOT Mean Gr. 1.95 mmHg PV Mean Grad 2.6 mmHg RVOT VTI 0.177 m PV VTI 0.214 m RVOT Vmax 1.07 m/s Tricuspid Valve TR Peak Grad 23.6 mmHg TR Vmax 2.43 m/s RA Pressure 3.00 mmHg RVSP (TR) 26.7 mmHg
== END 2020-07-30 02:00 ==
PROVIDERS: PCP Family Medicine; Visit Provider Internal Medicine Cardiovascular Disease
DX: R01.1 Cardiac murmur, unspecified (principal); I77.810 Thoracic aortic ectasia; I08.3 Combined rheumatic disorders of mitral, aortic and tricuspid valves
CPT/HCPCS: 93306

== ENCOUNTER → 2020-08-07 12:49 | Outpatient (BNVA) | payer MEDICARE, SELFPAY | PROVIDERS: PCP Family Medicine; Referring Provider Family Medicine; Visit Provider Internal Medicine Cardiovascular Disease | DX: I35.0 Nonrheumatic aortic (valve) stenosis (principal); I50.22 Chronic systolic (congestive) heart failure | CPT/HCPCS: 99214 ==

== ENCOUNTER 2020-08-08 10:00 | Outpatient (RCR) | payer MEDICARE, SELFPAY ==
[2020-08-08 11:04] LABS: Abs Immature Grans 0.02 10^3/uL (0.0-0.06); Absolute Basophil Count 0.03 10^3/uL (0.0-0.2); Absolute Eosinophil Count 0.13 10^3/uL (0.0-0.7); Absolute Lymphocyte Count 1.82 10^3/uL (1.2-3.4); Absolute Monocyte Count 0.35 10^3/uL (0.1-0.8); Absolute Neutrophil Count 3.09 10^3/uL (1.2-6.7); Basophils % 0.6; Eosinophils % 2.4; HCT 40.1 % (36.0-46.0); HGB 13.2 g/dL (11.2-15.7); Immature Grans % 0.4; Lymphocytes % 33.5; MCHC 32.9 % (32.0-36.0); MCV 94.1 fL (80-95); MPV 10.4 fL (8.0-11.0); Monocytes % 6.4; Neutrophils % 56.7; Nucleated RBC 0 %; Platelet Count 199 10^3/uL (130-400); RBC 4.26 10^6/uL (3.93-5.22); RDW 13.6 % (11.7-14.6); RDW-SD 46.2 fL; WBC 5.44 10^3/uL (4.4-10.8)
[2020-08-08 11:18] LABS: ALT 20 U/L (14-59); AST 20 U/L (15-37); Albumin 3.9 g/dL (3.4-5.0); Alkaline Phosphatase 69 U/L (46-116); Anion Gap 9.8 mmol/L (3-11); BUN 21 mg/dL (7-18); Bilirubin, Total 0.4 mg/dL (0.2-1.0); C-Reactive Protein 0.06 mg/dL (0.0-0.3); CO2 27.2 mmol/L (21.0-32.0); CREATININE 0.8 mg/dL (0.55-1.02); Calcium 8.7 mg/dL (8.5-10.1); Chloride 106 mmol/L (98-107); Glucose 95 mg/dL (74-106); Potassium 3.7 mmol/L (3.5-5.1); Sodium 143 mmol/L (136-145)
[2020-08-08] MEDS: ABATACEPT 750 MG in Normal Saline 100 ML 200 MG IVPB (11:28)
[2020-08-08] MEDS: Normal Saline Flush 10 ML SYR IVP (11:29)
== END 2020-08-15 23:59 | disposition home or self-care (01) ==
LOC: INF 10:00
PROVIDERS: Internal Medicine Rheumatology; PCP Family Medicine; Visit Provider Nurse Practitioner Family
DX: M06.9 Rheumatoid arthritis, unspecified (principal)
CPT/HCPCS: 36415; 80053; 96365; 85025; 86140; J0129

== ENCOUNTER 2020-09-05 02:43 | Outpatient (RCR) | payer MEDICARE, SELFPAY ==
[2020-09-05] MEDS: ABATACEPT 750 MG in Normal Saline 100 ML 200 MG IVPB (11:31)
[2020-09-05] MEDS: Normal Saline Flush 10 ML SYR IVP (11:31)
== END 2020-09-15 23:59 | disposition home or self-care (01) ==
LOC: INF 02:43
PROVIDERS: PCP Family Medicine; Visit Provider Nurse Practitioner Family
DX: M06.9 Rheumatoid arthritis, unspecified (principal)
CPT/HCPCS: 96365; J0129

== ENCOUNTER 2020-10-04 02:13 | Outpatient (RCR) | payer MEDICARE, SELFPAY ==
[2020-10-04] MEDS: Normal Saline Flush 10 ML SYR IVP (09:39)
[2020-10-04 09:54] LABS: Abs Immature Grans 0.01 10^3/uL (0.0-0.06); Absolute Basophil Count 0.02 10^3/uL (0.0-0.2); Absolute Eosinophil Count 0.11 10^3/uL (0.0-0.7); Absolute Monocyte Count 0.35 10^3/uL (0.1-0.8); Absolute Neutrophil Count 3.31 10^3/uL (1.2-6.7); Basophils % 0.4; Eosinophils % 2.1; HCT 39.4 % (36.0-46.0); HGB 13.1 g/dL (11.2-15.7); Immature Grans % 0.2; Lymphocytes % 28.3; MCH 31.3 pg (27.0-33.0); MCHC 33.2 % (32.0-36.0); MCV 94.3 fL (80-95); MPV 10.3 fL (8.0-11.0); Monocytes % 6.6; Neutrophils % 62.4; Nucleated RBC 0 %; Platelet Count 201 10^3/uL (130-400); RBC 4.18 10^6/uL (3.93-5.22); RDW 12.9 % (11.7-14.6)
[2020-10-04 10:12] LABS: ALT 26 U/L (14-59); AST 20 U/L (15-37); Albumin 3.9 g/dL (3.4-5.0); Alkaline Phosphatase 73 U/L (46-116); Anion Gap 9.8 mmol/L (3-11); BUN 25 mg/dL (7-18); Bilirubin, Total 0.4 mg/dL (0.2-1.0); C-Reactive Protein < 0.05 mg/dL (0.0-0.3); CO2 28.2 mmol/L (21.0-32.0); Calcium 9.1 mg/dL (8.5-10.1); Chloride 106 mmol/L (98-107); Estimated GFR 53.35 (mL/min/1.73m2); Glucose 103 mg/dL (74-106); Potassium 3.9 mmol/L (3.5-5.1); Sodium 144 mmol/L (136-145); Total Protein 6.9 g/dL (6.4-8.2)
[2020-10-04] MEDS: ABATACEPT 750 MG in Normal Saline 100 ML 200 MG IVPB (10:15)
== END 2020-10-16 23:59 | disposition home or self-care (01) ==
LOC: INF 02:13
PROVIDERS: Internal Medicine Rheumatology; PCP Family Medicine; Visit Provider Nurse Practitioner Family
DX: M06.9 Rheumatoid arthritis, unspecified (principal)
CPT/HCPCS: 36415; 80053; 96365; 85025; 86140; J0129

== ENCOUNTER → 2020-10-26 10:37 | Outpatient (BNVA) | payer MEDICARE, SELFPAY | PROVIDERS: PCP Family Medicine; Visit Provider Internal Medicine Cardiovascular Disease | DX: I35.0 Nonrheumatic aortic (valve) stenosis (principal); I42.9 Cardiomyopathy, unspecified; I50.22 Chronic systolic (congestive) heart failure | CPT/HCPCS: 99214; 99213 ==

== ENCOUNTER 2020-11-07 02:38 | Outpatient (RCR) | payer MEDICARE, SELFPAY ==
[2020-11-07] MEDS: Normal Saline Flush 10 ML SYR IVP (13:01)
[2020-11-07] MEDS: ABATACEPT 750 MG in Normal Saline 100 ML 200 MG IVPB (13:37)
== END 2020-11-15 23:59 | disposition home or self-care (01) ==
LOC: INF 02:38
PROVIDERS: PCP Family Medicine; Visit Provider Nurse Practitioner Family
DX: M06.9 Rheumatoid arthritis, unspecified (principal)
CPT/HCPCS: 96365; J0129

== ENCOUNTER 2020-12-05 11:00 | Outpatient (RCR) | payer MEDICARE, SELFPAY ==
[2020-12-05 11:10] LABS: Abs Immature Grans 0.01 10^3/uL (0.0-0.06); Absolute Basophil Count 0.03 10^3/uL (0.0-0.2); Absolute Eosinophil Count 0.08 10^3/uL (0.0-0.7); Absolute Lymphocyte Count 1.63 10^3/uL (1.2-3.4); Absolute Monocyte Count 0.31 10^3/uL (0.1-0.8); Absolute Neutrophil Count 3.54 10^3/uL (1.2-6.7); Basophils % 0.5; Eosinophils % 1.4; HCT 41.5 % (36.0-46.0); HGB 13.9 g/dL (11.2-15.7); Immature Grans % 0.2; Lymphocytes % 29.1; MCHC 33.5 % (32.0-36.0); MCV 92.6 fL (80-95); MPV 10.4 fL (8.0-11.0); Monocytes % 5.5; Neutrophils % 63.3; Nucleated RBC 0 %; Platelet Count 204 10^3/uL (130-400); RBC 4.48 10^6/uL (3.93-5.22); RDW 12.4 % (11.7-14.6); RDW-SD 41.8 fL
[2020-12-05 11:20] LABS: ALT 20 U/L (14-59); AST 17 U/L (15-37); Albumin 4.1 g/dL (3.4-5.0); Alkaline Phosphatase 77 U/L (46-116); Anion Gap 9.2 mmol/L (3-11); BUN 13 mg/dL (7-18); Bilirubin, Total 0.7 mg/dL (0.2-1.0); CO2 27.8 mmol/L (21.0-32.0); Calcium 9.2 mg/dL (8.5-10.1); Chloride 107 mmol/L (98-107); Estimated GFR 53.35 (mL/min/1.73m2); Glucose 141 mg/dL (74-106); Sodium 144 mmol/L (136-145); Total Protein 7.1 g/dL (6.4-8.2)
[2020-12-05 11:22] LABS: C-Reactive Protein < 0.05 mg/dL (0.0-0.3)
[2020-12-05] MEDS: Normal Saline Flush 10 ML SYR IVP (11:30)
[2020-12-05] MEDS: ABATACEPT 750 MG in Normal Saline 100 ML 200 MG IVPB (11:30)
== END 2020-12-16 23:59 | disposition home or self-care (01) ==
LOC: INF 11:00
PROVIDERS: Internal Medicine Rheumatology; PCP Family Medicine; Visit Provider Nurse Practitioner Family
DX: M06.9 Rheumatoid arthritis, unspecified (principal)
CPT/HCPCS: 36415; 80053; 96365; 85025; 86140; J0129

== ENCOUNTER 2021-01-02 01:27 | Outpatient (RCR) | payer MEDICARE, SELFPAY ==
[2021-01-02] MEDS: Normal Saline Flush 10 ML SYR IVP (10:57)
[2021-01-02] MEDS: ABATACEPT 750 MG in Normal Saline 100 ML 200 MG IVPB (11:30)
== END 2021-01-15 23:59 | disposition home or self-care (01) ==
LOC: INF 01:27
PROVIDERS: PCP Family Medicine; Visit Provider Nurse Practitioner Family
DX: M06.9 Rheumatoid arthritis, unspecified (principal); Z79.899 Other long term (current) drug therapy
CPT/HCPCS: 96365; J0129

== ENCOUNTER 2021-01-18 01:33 | Outpatient (CLI) | payer MEDICARE, SELFPAY ==
--- NOTE | 2021-01-18 13:57 | DI.US_ITS ---
APPROVED REPORT EXAM: Comprehensive 2D, Doppler, and color-flow Echocardiogram Patient Location: Out-Patient Certified Massage Therapist: Micaela Kirk RDCS (AE) Indications: Aortic stenosis, Systolic murmur Other Information Study Quality: Adequate Conclusion Left ventricle is mildly dilated. Wall thickness is normal. Estimated ejection fraction is 20%. Th ere is severe global hypokinesis The right ventricle appears normal in size and systolic function The left atrium is moderately dilated. The right atrium is normal in size Aortic valve is sclerotic with mild regurgitation. There is severe aortic stenosis. Peak gradient i s 43 mmHg, mean gradient 25 mmHg. Calculated aortic valve area is 0.96 cm?? Moderate to severe mitral annular calcification. Mild to moderate mitral regurgitation Normal tricuspid valve with mild regurgitation. Estimated right ventricular systolic pressure is nor mal at 23 mmHg Mildly dilated ascending aorta measuring 3.56 cm Wall motion Left Ventricle Left ventricle is mildly dilated. Left ventricular systolic function is severely decreased. There is normal left ventricular wall thickness. Severe global hypokinesis There is no ventricular septal defe ct visualized. LVEF is 20%. Right Ventricle The right ventricle is normal size. The right ventricular systolic function is normal RVSP .23 mmHG Atria Left atrium is moderately dilated. The right atrium size is normal. The interatrial septum is intact with no evidence for an atrial septal defect. Aortic Valve Aortic valve is calcified. Aortic valve is probably trileaflet. Severe aortic stenosis. Peak aortic v alve gradient is 42.9mmHg. Highest mean aortic valve gradient is 24.6mmHg. Calculated CHRISTIE by the cont inuity equation is .96cm2. Mild aortic regurgitation. Mitral Valve Moderate to severe mitral annular calcification. No evidence of mitral valve stenosis. Mild to modera te mitral regurgitation. Tricuspid Valve The tricuspid valve is normal in structure. There is no tricuspid valve stenosis. Mild tricuspid regu rgitation. Pulmonic Valve The pulmonary valve is normal in structure. There is no pulmonic valvular stenosis. There is no pulmo junior valvular regurgitation. Great Vessels The aortic root is normal in size. The ascending aorta is mildly dilated. Aortic arch is normal in ca liber. IVC is normal in size and collapses >50% with inspiration. Pericardium There is no pericardial effusion. 2D Dimensions IVSD d PLAX 1.02 cm F: 0.6-1.0 LV Vol A2C d MOD 155.6 mL LVPW d PLAX 1.00 cm F: 0.6 - 1.0 LV Vol A4C d MOD 186.0 mL LVID d PLAX 5.74 cm F: 3.8 - 5.2 LA vol/ BSA A2C s A-L 40.6 mL/m2 LVDs 5.25 cm F: 2.2 - 3.5 LA vol/ BSA A4C s A-L 56.2 mL/m2 Ao Root d 2.74 cm F: 2.7 - 3.3 LA Vol/ BSA Biplane s A-L 47.9 mL/m2 RA Area A4C 9.91 cm2 LA Area A4C s MOD 24.83 cm2 RA Vol/ BSA A4C s A-L 12.6 mL/m2 LA Area A2C s MOD 21.16 cm2 Ao Asc Diam d 3.56 cm F: 2.3 - 3.1 LV EF A4C MOD 17.0 % LV EF Teichholz 17.5 % LV EF A2C MOD 16.9 % LVEF (Davis's) 17.36 % F: 54 - 74 LV EF Biplane MOD 17.4 % LV Volume 138.09 mL F: 46 - 106 SV 29.72 mL LV Volume Index 84.71 mL/m2 F: 29 - 61 SV Index 18.23 mL/m2 LV Vol Biplane MOD 171.2 mL FS 8.00 % M-Mode TAPSE 2.20 cm (M/F) >1.7 LV Diastology MV E' medial 0.042 (>0.07 m/s) E/A Ratio 0.6 LV E/e MED 25.50 (<14) MV E Vmax 1.07 (0.4-1.3 m/s) MV E' lateral 0.031 (>0.1 m/s) MV A Vmax 1.70 (0.4-1.3 m/s) LV E/e LAT 34.30 (<14) MV E/A Ratio 0.63 MV E/E' medial 25.53 MV E/E' lateral 34.31 Aortic Valve LVOT Area 3.16 cm2 AoV Area Vmax 0.96 cm2 LVOT Vmax 0.99 m/s AoV Area/ BSA (Vmax) 0.59 cm2/m2 LVOT Mean Carlos. 0.79 m/s CHRISTIE Mean Carlos. 1.06 cm2 LVOT Peak Grad 3.9 mmHg CHRISTIE Mean Carlos. Index 0.65 cm2/m2 LVOT Mean Grad 2.6 mmHg AR DT 2214 msec LVOT VTI 0.241 m AR PHT 642 msec LVOT Diam s 2.00 cm AoV Vmax 3.28 m/s Velocity Ratio 0.30 AoV Mean Carlos. 2.35 m/s AoV Peak Grad 42.9 mmHg LVOT SV 76.16 mL AoV Mean Grad 24.6 mmHg AoV VTI 0.769 m AoV Area VTI 0.99 cm2 AoV Area/ BSA (VTI) 0.61 cm/m2 Mitral Valve MV DT 562 (160-240 msec) MR Vmax 4.72 m/s MV PHT 163 msec MR VTI 2.077 m MV Area PHT 1.35 cm2 MR Peak Grad 89.0 mmHg MV VTI 0.583 m MR Mean Grad 58.4 mmHg MV VTI Annulus 0.591 m MR PISA Radius 0.41 cm MV Area VTI 1.33 (4.0-6.0 cm2) MR EROA 0.08 cm2 MR Aliasing Velocity 0.35 m/s MR PISA 1.05 cm2 Pulmonary Valve PV Vmax 1.03 (0.5-1.5 m/s) RVOT Peak Gr. 2.54 mmHg PV Peak Grad 4.2 mmHg RVOT Mean Gr. 1.25 mmHg PV Mean Grad 2.2 mmHg RVOT VTI 0.172 m PV VTI 0.228 m RVOT Vmax 0.80 m/s Tricuspid Valve TR Peak Grad 20.2 mmHg TR Vmax 2.25 m/s RA Pressure 3.00 mmHg RVSP (TR) 23.2 mmHg
== END 2021-01-18 01:53 ==
PROVIDERS: PCP Family Medicine; Visit Provider Internal Medicine Cardiovascular Disease
DX: R01.1 Cardiac murmur, unspecified (principal); I77.810 Thoracic aortic ectasia; I08.3 Combined rheumatic disorders of mitral, aortic and tricuspid valves
CPT/HCPCS: 93306

== ENCOUNTER → 2021-01-25 10:31 | Outpatient (BNVA) | payer MEDICARE, SELFPAY | PROVIDERS: PCP Family Medicine; Visit Provider Internal Medicine Cardiovascular Disease | DX: I35.0 Nonrheumatic aortic (valve) stenosis (principal); I42.9 Cardiomyopathy, unspecified; I50.22 Chronic systolic (congestive) heart failure; I44.7 Left bundle-branch block, unspecified | CPT/HCPCS: 99214 ==

== ENCOUNTER 2021-01-30 11:00 | Outpatient (RCR) | payer MEDICARE, SELFPAY ==
[2021-01-30 11:16] LABS: Abs Immature Grans 0.03 10^3/uL (0.0-0.06); Absolute Basophil Count 0.02 10^3/uL (0.0-0.2); Absolute Eosinophil Count 0.22 10^3/uL (0.0-0.7); Absolute Lymphocyte Count 1.32 10^3/uL (1.2-3.4); Absolute Monocyte Count 0.43 10^3/uL (0.1-0.8); Absolute Neutrophil Count 5.65 10^3/uL (1.2-6.7); Basophils % 0.3; Eosinophils % 2.9; HCT 41.7 % (36.0-46.0); HGB 14.1 g/dL (11.2-15.7); Immature Grans % 0.4; Lymphocytes % 17.2; MCH 31.6 pg (27.0-33.0); MCHC 33.8 % (32.0-36.0); MCV 93.5 fL (80-95); MPV 10.4 fL (8.0-11.0); Monocytes % 5.6; Neutrophils % 73.6; Nucleated RBC 0 %; Platelet Count 210 10^3/uL (130-400); RBC 4.46 10^6/uL (3.93-5.22); RDW 12.8 % (11.7-14.6); RDW-SD 43.5 fL; WBC 7.67 10^3/uL (4.4-10.8)
[2021-01-30 11:29] LABS: ALT 19 U/L (14-59); AST 19 U/L (15-37); Albumin 4.1 g/dL (3.4-5.0); Alkaline Phosphatase 91 U/L (46-116); Anion Gap 9.9 mmol/L (3-11); BUN 18 mg/dL (7-18); C-Reactive Protein 1.24 mg/dL (0.0-0.3); CO2 27.1 mmol/L (21.0-32.0); CREATININE 0.9 mg/dL (0.55-1.02); Chloride 104 mmol/L (98-107); Glucose 108 mg/dL (74-106); Potassium 3.9 mmol/L (3.5-5.1); Sodium 141 mmol/L (136-145); Total Protein 7.2 g/dL (6.4-8.2)
[2021-01-30] MEDS: ABATACEPT 750 MG in Normal Saline 100 ML 200 MG IVPB (11:58)
[2021-01-30] MEDS: Normal Saline Flush 10 ML SYR IVP (11:59)
[2021-03-27 11:36] LABS: Abs Immature Grans 0.01 10^3/uL (0.0-0.06); Absolute Basophil Count 0.02 10^3/uL (0.0-0.2); Absolute Eosinophil Count 0.05 10^3/uL (0.0-0.7); Absolute Lymphocyte Count 1.84 10^3/uL (1.2-3.4); Absolute Monocyte Count 0.38 10^3/uL (0.1-0.8); Basophils % 0.3; Eosinophils % 0.8; HCT 40.6 % (36.0-46.0); HGB 13.5 g/dL (11.2-15.7); Immature Grans % 0.2; Lymphocytes % 31.2; MCH 31.5 pg (27.0-33.0); MCHC 33.3 % (32.0-36.0); MCV 94.9 fL (80-95); MPV 10.8 fL (8.0-11.0); Monocytes % 6.4; Neutrophils % 61.1; Nucleated RBC 0 %; Platelet Count 229 10^3/uL (130-400); RBC 4.28 10^6/uL (3.93-5.22); RDW 13.2 % (11.7-14.6); RDW-SD 44.5 fL
[2021-03-27 11:49] LABS: ALT 18 U/L (14-59); AST 22 U/L (15-37); Albumin 4.2 g/dL (3.4-5.0); Alkaline Phosphatase 73 U/L (46-116); BUN 19 mg/dL (7-18); Bilirubin, Total 0.7 mg/dL (0.2-1.0); C-Reactive Protein < 0.05 mg/dL (0.0-0.3); CREATININE 0.8 mg/dL (0.55-1.02); Calcium 8.9 mg/dL (8.5-10.1); Chloride 107 mmol/L (98-107); Glucose 99 mg/dL (74-106); Potassium 3.7 mmol/L (3.5-5.1); Sodium 142 mmol/L (136-145); Total Protein 7.1 g/dL (6.4-8.2)
== END 2021-02-15 23:59 | disposition home or self-care (01) ==
LOC: INF 11:00
PROVIDERS: Family Medicine; Internal Medicine Rheumatology; PCP Family Medicine; Visit Provider Nurse Practitioner Family
DX: M06.09 Rheumatoid arthritis without rheumatoid factor, multiple sites (principal)
CPT/HCPCS: 36415; 80053; 96365; 85025; 86140; J0129

== ENCOUNTER 2021-02-06 03:01 | Outpatient (CLI) | payer MEDICARE, SELFPAY ==
[2021-02-06 11:32] LABS: Absolute Basophil Count 0.02 10^3/uL (0.0-0.2); Absolute Eosinophil Count 0.07 10^3/uL (0.0-0.7); Absolute Lymphocyte Count 1.71 10^3/uL (1.2-3.4); Absolute Monocyte Count 0.33 10^3/uL (0.1-0.8); Absolute Neutrophil Count 2.71 10^3/uL (1.2-6.7); Basophils % 0.4; Eosinophils % 1.4; HCT 39.6 % (36.0-46.0); HGB 13.4 g/dL (11.2-15.7); Lymphocytes % 35.3; MCH 31.7 pg (27.0-33.0); MCHC 33.8 % (32.0-36.0); MCV 93.6 fL (80-95); MPV 10.2 fL (8.0-11.0); Monocytes % 6.8; Neutrophils % 56.1; Nucleated RBC 0 %; Platelet Count 199 10^3/uL (130-400); RBC 4.23 10^6/uL (3.93-5.22); RDW-SD 43.9 fL; WBC 4.84 10^3/uL (4.4-10.8)
[2021-02-06 11:47] LABS: PTT Activated 22.5 sec (21.0-27.5); Prothrombin Time 9.9 sec (9.3-11.0)
[2021-02-06 13:14] LABS: Anion Gap 7.6 mmol/L (3-11); BUN 22 mg/dL (7-18); CO2 30.4 mmol/L (21.0-32.0); CREATININE 0.9 mg/dL (0.55-1.02); Chloride 107 mmol/L (98-107); Glucose 85 mg/dL (74-106); Potassium 4.2 mmol/L (3.5-5.1); Sodium 145 mmol/L (136-145)
== END 2021-02-06 03:02 | disposition home or self-care (01) ==
LOC: LBO 03:01
PROVIDERS: PCP Family Medicine; Visit Provider Internal Medicine Cardiovascular Disease
DX: R01.1 Cardiac murmur, unspecified; I50.22 Chronic systolic (congestive) heart failure; I48.91 Unspecified atrial fibrillation; I35.0 Nonrheumatic aortic (valve) stenosis; I42.9 Cardiomyopathy, unspecified; Z98.890 Other specified postprocedural states; Z79.899 Other long term (current) drug therapy
CPT/HCPCS: 36415; 80051; 82947; 84520; 82565; 85025; 85610; 85730

== ENCOUNTER 2021-02-27 01:36 | Outpatient (RCR) | payer MEDICARE, SELFPAY ==
[2021-02-27] MEDS: ABATACEPT 750 MG in Normal Saline 100 ML 200 MG IVPB (11:58)
[2021-02-27] MEDS: Normal Saline Flush 10 ML SYR IVP (11:58)
== END 2021-03-18 23:59 | disposition home or self-care (01) ==
LOC: INF 01:36
PROVIDERS: PCP Family Medicine; Visit Provider Nurse Practitioner Family
DX: M06.09 Rheumatoid arthritis without rheumatoid factor, multiple sites (principal); Z79.899 Other long term (current) drug therapy
CPT/HCPCS: 96365; J0129

== ENCOUNTER 2021-03-12 03:55 | Outpatient (CLI) | payer MEDICARE, SELFPAY ==
[2021-03-12 20:29] LABS: COVID-19 RT-PCR UVMMC Result Negative (Negative)
== END 2021-03-12 03:56 | disposition home or self-care (01) ==
LOC: LBO 03:55
PROVIDERS: PCP Family Medicine; Visit Provider Internal Medicine Rheumatology
DX: Z20.822 Contact with and (suspected) exposure to COVID-19 (principal); Z01.818 Encounter for other preprocedural examination
CPT/HCPCS: U0003; U0005

== ENCOUNTER 2021-03-14 03:18 | Outpatient (CLI) | payer MEDICARE, SELFPAY | END 2021-03-14 03:19 | disposition home or self-care (01) | LOC: INF 03:19 | PROVIDERS: PCP Family Medicine; Visit Provider Family Medicine | DX: D84.821 Immunodeficiency due to drugs (principal); Z79.899 Other long term (current) drug therapy; M06.9 Rheumatoid arthritis, unspecified; Z23 Encounter for immunization | CPT/HCPCS: 96372; Q0220 ==

== ENCOUNTER 2021-03-27 11:15 | Outpatient (RCR) | payer MEDICARE, SELFPAY ==
[2021-03-27] MEDS: ABATACEPT 750 MG in Normal Saline 100 ML 200 MG IVPB (11:26)
[2021-03-27] MEDS: Normal Saline Flush 10 ML SYR IVP (11:27)
== END 2021-04-15 23:59 | disposition home or self-care (01) ==
LOC: INF 11:15
PROVIDERS: PCP Family Medicine; Visit Provider Nurse Practitioner Family
DX: M06.09 Rheumatoid arthritis without rheumatoid factor, multiple sites (principal)
CPT/HCPCS: 36415; 80053; 96365; 85025; 86140; J0129

== ENCOUNTER 2021-04-22 04:03 | Outpatient (CLI) | payer MEDICARE, SELFPAY ==
[2021-04-23 02:16] LABS: COVID-19 RT-PCR UVMMC Result Negative (Negative)
== END 2021-04-22 04:04 | disposition home or self-care (01) ==
LOC: LBO 04:04
PROVIDERS: PCP Family Medicine; Visit Provider Internal Medicine Rheumatology
DX: Z20.822 Contact with and (suspected) exposure to COVID-19 (principal); Z01.812 Encounter for preprocedural laboratory examination
CPT/HCPCS: U0003; U0005

== ENCOUNTER 2021-04-24 01:38 | Outpatient (RCR) | payer MEDICARE, SELFPAY ==
[2021-04-24] MEDS: Normal Saline Flush 10 ML SYR IVP (11:00)
[2021-04-24] MEDS: ABATACEPT 750 MG in Normal Saline 100 ML 200 MG IVPB (11:37)
== END 2021-05-16 23:59 | disposition home or self-care (01) ==
LOC: INF 01:38
PROVIDERS: PCP Family Medicine; Visit Provider Nurse Practitioner Family
DX: M06.09 Rheumatoid arthritis without rheumatoid factor, multiple sites (principal)
CPT/HCPCS: 96365; 96372; Q0221; J0129

== ENCOUNTER 2021-05-22 01:54 | Outpatient (RCR) | payer MEDICARE, SELFPAY ==
[2021-05-22 11:04] LABS: Abs Immature Grans 0.01 10^3/uL (0.0-0.06); Absolute Basophil Count 0.02 10^3/uL (0.0-0.2); Absolute Eosinophil Count 0.11 10^3/uL (0.0-0.7); Absolute Lymphocyte Count 1.69 10^3/uL (1.2-3.4); Absolute Monocyte Count 0.33 10^3/uL (0.1-0.8); Absolute Neutrophil Count 2.95 10^3/uL (1.2-6.7); Basophils % 0.4; Eosinophils % 2.2; HGB 13.6 g/dL (11.2-15.7); Immature Grans % 0.2; Lymphocytes % 33.1; MCH 30.8 pg (27.0-33.0); MCHC 33.2 % (32.0-36.0); Monocytes % 6.5; Neutrophils % 57.6; Nucleated RBC 0 %; Platelet Count 189 10^3/uL (130-400); RBC 4.41 10^6/uL (3.93-5.22); RDW 12.6 % (11.7-14.6); RDW-SD 43.1 fL; WBC 5.11 10^3/uL (4.4-10.8)
[2021-05-22 11:22] LABS: ALT 19 U/L (14-59); AST 18 U/L (15-37); Albumin 4.1 g/dL (3.4-5.0); Alkaline Phosphatase 72 U/L (46-116); Anion Gap 9.5 mmol/L (3-11); BUN 18 mg/dL (7-18); Bilirubin, Total 0.5 mg/dL (0.2-1.0); C-Reactive Protein 0.07 mg/dL (0.0-0.3); CO2 26.5 mmol/L (21.0-32.0); CREATININE 0.8 mg/dL (0.55-1.02); Calcium 8.7 mg/dL (8.5-10.1); Chloride 107 mmol/L (98-107); Glucose 100 mg/dL (74-106); Potassium 3.5 mmol/L (3.5-5.1); Sodium 143 mmol/L (136-145)
[2021-05-22] MEDS: ABATACEPT 750 MG in Normal Saline 100 ML 200 MG IVPB (11:31)
[2021-05-22] MEDS: Normal Saline Flush 10 ML SYR IVP (11:31)
== END 2021-06-15 23:59 | disposition home or self-care (01) ==
LOC: INF 01:54
PROVIDERS: PCP Family Medicine; Visit Provider Nurse Practitioner Family
DX: M06.09 Rheumatoid arthritis without rheumatoid factor, multiple sites (principal)
CPT/HCPCS: 36415; 80053; 96365; 85025; 86140; J0129

== ENCOUNTER → 2021-05-28 23:53 | Outpatient (CLI) | payer MEDICARE, SELFPAY ==
--- NOTE | 2021-05-28 | DI.RAD_ITS ---
Exam(s) XR TOE RT GREAT EXAM: XR TOE RT GREAT CLINICAL HISTORY: STUBBED TOE ABOUT 10 DAYS AGO, SWELLING, PAIN, ASSESS FOR FRACTURE. TECHNIQUE: 2D digital imaging was performed. Four images were obtained. COMPARISON: No exams were available for comparison FINDINGS: BONES: There is a lucency at the lateral aspect of the metaphysis of the distal phalanx of the great toe suspicious for nondisplaced fracture. No bony destructive lesion is seen. JOINTS: No dislocation present. There is a marked hallux valgus deformity. Degenerative changes are seen at the 1st MTP joint. Hammertoe deformities are seen at the 2nd through 5th toes. SOFT TISSUE: Normal. IMPRESSION: Question of a nondisplaced fracture involving the proximal metaphysis of the distal phalanx of the gr eat toe. DATA REPOSITORY: RADIATION DOSE DELIVERED:
== END ==
PROVIDERS: PCP Family Medicine; Visit Provider Internal Medicine Rheumatology
DX: M79.674 Pain in right toe(s) (principal); R22.43 Localized swelling, mass and lump, lower limb, bilateral
CPT/HCPCS: 73660

== ENCOUNTER 2021-07-16 02:02 | Outpatient (RCR) | payer MEDICARE, SELFPAY ==
[2021-06-19] MEDS: ABATACEPT 750 MG in Normal Saline 100 ML 200 MG IVPB (11:38)
[2021-06-19] MEDS: Normal Saline Flush 10 ML SYR IVP (11:39)
[2021-07-16 08:24] LABS: Abs Immature Grans 0.01 10^3/uL (0.0-0.06); Absolute Basophil Count 0.03 10^3/uL (0.0-0.2); Absolute Eosinophil Count 0.11 10^3/uL (0.0-0.7); Absolute Lymphocyte Count 1.78 10^3/uL (1.2-3.4); Absolute Monocyte Count 0.29 10^3/uL (0.1-0.8); Absolute Neutrophil Count 2.71 10^3/uL (1.2-6.7); Basophils % 0.6; Eosinophils % 2.2; HGB 13.2 g/dL (11.2-15.7); Immature Grans % 0.2; Lymphocytes % 36.1; MCH 30.4 pg (27.0-33.0); MCV 92 fL (80-95); MPV 11.2 fL (8.0-11.0); Monocytes % 5.9; Platelet Count 182 10^3/uL (130-400); RBC 4.34 10^6/uL (3.93-5.22); RDW 12.6 % (11.7-14.6); RDW-SD 42.2 fL; WBC 4.93 10^3/uL (4.4-10.8)
[2021-07-16] MEDS: ABATACEPT 750 MG in Normal Saline 100 ML 200 MG IVPB (08:37)
[2021-07-16] MEDS: Normal Saline Flush 10 ML SYR IVP (08:37)
[2021-07-16 08:42] LABS: ALT 17 U/L (14-59); AST 19 U/L (15-37); Albumin 3.9 g/dL (3.4-5.0); Alkaline Phosphatase 70 U/L (46-116); Anion Gap 7.9 mmol/L (3-11); BUN 17 mg/dL (7-18); Bilirubin, Total 0.6 mg/dL (0.2-1.0); C-Reactive Protein 0.09 mg/dL (0.0-0.3); CO2 26.1 mmol/L (21.0-32.0); CREATININE 0.9 mg/dL (0.55-1.02); Calcium 8.7 mg/dL (8.5-10.1); Chloride 109 mmol/L (98-107); Glucose 93 mg/dL (74-106); Potassium 3.7 mmol/L (3.5-5.1); Sodium 143 mmol/L (136-145); Total Protein 6.7 g/dL (6.4-8.2)
== END 2021-07-16 23:59 | disposition home or self-care (01) ==
LOC: INF 02:02
PROVIDERS: PCP Family Medicine; Visit Provider Nurse Practitioner Family
DX: M06.09 Rheumatoid arthritis without rheumatoid factor, multiple sites (principal)
CPT/HCPCS: 36415; 80053; 96365; 85025; 86140; J0129

== ENCOUNTER 2021-08-05 02:45 | Outpatient (CLI) | payer MEDICARE, SELFPAY ==
[2021-08-05 15:01] LABS: ALT 20 U/L (14-59); AST 18 U/L (15-37); Albumin 4.2 g/dL (3.4-5.0); Alkaline Phosphatase 74 U/L (46-116); Anion Gap 8.5 mmol/L (3-11); BUN 19 mg/dL (7-18); Bilirubin, Total 0.7 mg/dL (0.2-1.0); CO2 27.5 mmol/L (21.0-32.0); CREATININE 1.1 mg/dL (0.55-1.02); Calcium 9.4 mg/dL (8.5-10.1); Chloride 105 mmol/L (98-107); Estimated GFR 47.67 (mL/min/1.73m2); Glucose 99 mg/dL (74-106); Potassium 3.7 mmol/L (3.5-5.1); Sodium 141 mmol/L (136-145); Total Protein 7.1 g/dL (6.4-8.2)
[2021-08-05 23:23] LABS: Calculated LDL 141 mg/dL (<100); Cholesterol 227 mg/dL (<200); HDL Cholesterol 64 mg/dL (40-60); Triglyceride 111 mg/dL (<150)
== END 2021-08-05 02:46 | disposition home or self-care (01) ==
LOC: LOS 02:46
PROVIDERS: PCP Family Medicine; Visit Provider Family Medicine
DX: I50.22 Chronic systolic (congestive) heart failure (principal); Z98.2 Presence of cerebrospinal fluid drainage device; Z79.899 Other long term (current) drug therapy
CPT/HCPCS: 36415; 80053; 80061

== ENCOUNTER 2021-08-14 01:35 | Outpatient (RCR) | payer MEDICARE, SELFPAY ==
[2021-08-14 11:23] LABS: Abs Immature Grans 0.01 10^3/uL (0.0-0.06); Absolute Basophil Count 0.02 10^3/uL (0.0-0.2); Absolute Eosinophil Count 0.12 10^3/uL (0.0-0.7); Absolute Lymphocyte Count 1.32 10^3/uL (1.2-3.4); Absolute Monocyte Count 0.22 10^3/uL (0.1-0.8); Absolute Neutrophil Count 3.44 10^3/uL (1.2-6.7); Basophils % 0.4; Eosinophils % 2.3; HCT 39.8 % (36.0-46.0); HGB 13.3 g/dL (11.2-15.7); Immature Grans % 0.2; Lymphocytes % 25.7; MCH 31.1 pg (27.0-33.0); MCHC 33.4 % (32.0-36.0); MCV 93 fL (80-95); MPV 10.4 fL (8.0-11.0); Monocytes % 4.3; Neutrophils % 67.1; Platelet Count 177 10^3/uL (130-400); RBC 4.27 10^6/uL (3.93-5.22); RDW 13.4 % (11.7-14.6); RDW-SD 44.9 fL; WBC 5.13 10^3/uL (4.4-10.8)
[2021-08-14] MEDS: Normal Saline Flush 10 ML SYR IVP (11:41)
[2021-08-14] MEDS: ABATACEPT 750 MG in Normal Saline 100 ML 200 MG IVPB (11:41)
[2021-08-14 11:44] LABS: ALT 19 U/L (14-59); AST 17 U/L (15-37); Albumin 3.8 g/dL (3.4-5.0); Alkaline Phosphatase 70 U/L (46-116); Anion Gap 9.5 mmol/L (3-11); BUN 25 mg/dL (7-18); Bilirubin, Total 0.5 mg/dL (0.2-1.0); CO2 25.5 mmol/L (21.0-32.0); Calcium 8.7 mg/dL (8.5-10.1); Chloride 104 mmol/L (98-107); Estimated GFR 53.21 (mL/min/1.73m2); Glucose 143 mg/dL (74-106); Potassium 3.5 mmol/L (3.5-5.1); Sodium 139 mmol/L (136-145); Total Protein 6.7 g/dL (6.4-8.2)
[2021-08-14 11:45] LABS: C-Reactive Protein < 0.05 mg/dL (0.0-0.3)
== END 2021-08-15 23:59 | disposition home or self-care (01) ==
LOC: INF 01:35
PROVIDERS: PCP Family Medicine; Visit Provider Nurse Practitioner Family
DX: M06.09 Rheumatoid arthritis without rheumatoid factor, multiple sites (principal); Z79.899 Other long term (current) drug therapy
CPT/HCPCS: 80053; 96365; 85025; 86140; J0129

== ENCOUNTER → 2021-09-05 10:31 | Outpatient (BNVA) | payer MEDICARE, SELFPAY | PROVIDERS: PCP Family Medicine; Referring Provider Family Medicine; Visit Provider Internal Medicine Cardiovascular Disease | DX: I44.7 Left bundle-branch block, unspecified (principal); I42.9 Cardiomyopathy, unspecified; Z95.2 Presence of prosthetic heart valve | CPT/HCPCS: 99214; 99213 ==

== ENCOUNTER 2021-09-11 02:33 | Outpatient (RCR) | payer MEDICARE, SELFPAY ==
[2021-09-11] MEDS: Normal Saline Flush 10 ML SYR IVP (11:36)
[2021-09-11] MEDS: ABATACEPT 750 MG in Normal Saline 100 ML 200 MG IVPB (11:36)
== END 2021-09-15 23:59 | disposition home or self-care (01) ==
LOC: INF 02:33
PROVIDERS: PCP Family Medicine; Visit Provider Nurse Practitioner Family
DX: M06.09 Rheumatoid arthritis without rheumatoid factor, multiple sites (principal)
CPT/HCPCS: 96365; J0129

== ENCOUNTER 2021-10-09 02:17 | Outpatient (RCR) | payer MEDICARE, SELFPAY ==
[2021-10-09 10:55] LABS: Abs Immature Grans 0.01 10^3/uL (0.0-0.06); Absolute Basophil Count 0.03 10^3/uL (0.0-0.2); Absolute Eosinophil Count 0.14 10^3/uL (0.0-0.7); Absolute Lymphocyte Count 1.53 10^3/uL (1.2-3.4); Absolute Monocyte Count 0.29 10^3/uL (0.1-0.8); Absolute Neutrophil Count 3.05 10^3/uL (1.2-6.7); Basophils % 0.6; Eosinophils % 2.8; HGB 13.3 g/dL (11.2-15.7); Immature Grans % 0.2; Lymphocytes % 30.3; MCHC 33.3 % (32.0-36.0); MCV 93 fL (80-95); MPV 10.6 fL (8.0-11.0); Monocytes % 5.7; Neutrophils % 60.4; Platelet Count 188 10^3/uL (130-400); RBC 4.29 10^6/uL (3.93-5.22); RDW 12.8 % (11.7-14.6); RDW-SD 42.8 fL; WBC 5.05 10^3/uL (4.4-10.8)
[2021-10-09 11:12] LABS: ALT 22 U/L (14-59); AST 22 U/L (15-37); Albumin 3.7 g/dL (3.4-5.0); Alkaline Phosphatase 67 U/L (46-116); Anion Gap 7.6 mmol/L (3-11); BUN 19 mg/dL (7-18); Bilirubin, Total 0.6 mg/dL (0.2-1.0); CO2 28.4 mmol/L (21.0-32.0); CREATININE 0.9 mg/dL (0.55-1.02); Calcium 8.6 mg/dL (8.5-10.1); Chloride 107 mmol/L (98-107); Glucose 110 mg/dL (74-106); Potassium 3.7 mmol/L (3.5-5.1); Sodium 143 mmol/L (136-145); Total Protein 6.6 g/dL (6.4-8.2)
[2021-10-09] MEDS: Normal Saline Flush 10 ML SYR IVP (11:16)
[2021-10-09] MEDS: ABATACEPT 750 MG in Normal Saline 100 ML 200 MG IVPB (11:16)
[2021-10-09 11:17] LABS: C-Reactive Protein < 0.05 mg/dL (0.0-0.3)
== END 2021-10-16 23:59 | disposition home or self-care (01) ==
LOC: INF 02:17
PROVIDERS: Internal Medicine Rheumatology; PCP Family Medicine; Visit Provider Nurse Practitioner Family
DX: M06.09 Rheumatoid arthritis without rheumatoid factor, multiple sites (principal)
CPT/HCPCS: 36415; 80053; 96365; 85025; 86140; J0129

== ENCOUNTER 2021-11-06 02:02 | Outpatient (RCR) | payer MEDICARE, SELFPAY ==
[2021-11-06] MEDS: ABATACEPT 750 MG in Normal Saline 100 ML 200 MG IVPB (11:22)
[2021-11-06] MEDS: Normal Saline Flush 10 ML SYR IVP (11:22)
== END 2021-11-15 23:59 | disposition home or self-care (01) ==
LOC: INF 02:02
PROVIDERS: PCP Family Medicine; Visit Provider Nurse Practitioner Family
DX: M06.09 Rheumatoid arthritis without rheumatoid factor, multiple sites (principal)
CPT/HCPCS: 96365; 96372; Q0221; J0129

== ENCOUNTER 2021-12-04 02:12 | Outpatient (RCR) | payer MEDICARE, SELFPAY ==
[2021-12-04 11:04] LABS: Abs Immature Grans 0.01 10^3/uL (0.0-0.06); Absolute Basophil Count 0.02 10^3/uL (0.0-0.2); Absolute Eosinophil Count 0.08 10^3/uL (0.0-0.7); Absolute Lymphocyte Count 1.13 10^3/uL (1.2-3.4); Absolute Monocyte Count 0.36 10^3/uL (0.1-0.8); Absolute Neutrophil Count 3.02 10^3/uL (1.2-6.7); Basophils % 0.4; Eosinophils % 1.7; HGB 13.6 g/dL (11.2-15.7); Immature Grans % 0.2; Lymphocytes % 24.5; MCH 30.8 pg (27.0-33.0); MCV 91 fL (80-95); MPV 9.9 fL (8.0-11.0); Monocytes % 7.8; Neutrophils % 65.4; Platelet Count 184 10^3/uL (130-400); RBC 4.42 10^6/uL (3.93-5.22); RDW 12.8 % (11.7-14.6); RDW-SD 41.1 fL; WBC 4.62 10^3/uL (4.4-10.8)
[2021-12-04 11:23] LABS: ALT 21 U/L (14-59); AST 22 U/L (15-37); Albumin 4.1 g/dL (3.4-5.0); Alkaline Phosphatase 92 U/L (46-116); Anion Gap 7.8 mmol/L (3-11); BUN 16 mg/dL (7-18); Bilirubin, Total 0.9 mg/dL (0.2-1.0); C-Reactive Protein 0.24 mg/dL (0.0-0.3); CO2 29.2 mmol/L (21.0-32.0); CREATININE 0.9 mg/dL (0.55-1.02); Calcium 9.4 mg/dL (8.5-10.1); Chloride 106 mmol/L (98-107); Estimated GFR 64.23 (mL/min/1.73m2); Glucose 97 mg/dL (74-106); Potassium 3.5 mmol/L (3.5-5.1); Sodium 143 mmol/L (136-145); Total Protein 7.3 g/dL (6.4-8.2)
[2021-12-04] MEDS: ABATACEPT 750 MG in Normal Saline 100 ML 200 MG IVPB (11:43)
[2021-12-04] MEDS: Normal Saline Flush 10 ML SYR IVP (11:44)
== END 2021-12-16 23:59 | disposition home or self-care (01) ==
LOC: INF 02:12
PROVIDERS: PCP Family Medicine; Visit Provider Nurse Practitioner Family
DX: M06.09 Rheumatoid arthritis without rheumatoid factor, multiple sites (principal)
CPT/HCPCS: 36415; 80053; 96365; 85025; 86140; J0129

== ENCOUNTER 2022-01-03 09:51 | Emergency (ER) | payer MEDICARE, SELFPAY ==
[2022-01-03] VITALS (32 sets, daily range): BP systolic 118–146; BP diastolic 57–76; PULSE 70–110; RESP 14–26; TEMP 36.6; O2SAT 89–98
--- NOTE | 2022-01-03 09:45 | RT.EKG_ITS ---
APPROVED REPORT Exam: Resting ECG Reason for Exam: weakness Patient Location: E HR:87 bpm ECG Measurements Heart Rate 87 AXIS RI 182 P 24 QRSd 175 QRS -36 QT 440 T 116 QTc 529 Conclusion Sinus rhythm...normal P axis, V-rate 60- 99 Left bundle branch block...QRSd>120, broad/notched R ST elevation secondary to IVCD...Multiple VCG criteria sinus rhythm, left axis, LBBB with expected repol abnormalities, negative sgarbossa criteria
--- NOTE | 2022-01-03 10:15 | DI.CT_ITS ---
Exam(s) CT HEAD WO EXAM: CT HEAD WO CLINICAL HISTORY: unsteady gait. TECHNIQUE: Imaging Protocol: Axial computed tomography images with coronal and sagittal reformatted images were created and reviewed COMPARISON: No exams were available for comparison FINDINGS: There are no skull fractures. There is no fluid in the visualized paranasal sinuses. There is no evidence of intracranial hemorrhage, mass effect, or shift of midline structures. There are no extra-axial fluid collections. No evidence of blood within the ventricles nor within the basa l cisterns. No evidence of obvious territorial infarct. Size the lateral ventricles is slightly lar varghese than size of the overlying cortical sulci. IMPRESSION: No acute intracranial findings on this noninfused CT scan of the brain. However, the size of the lateral ventricles is slightly at a proportion when compared to the overlyin g cortical sulci. Correlation with clinical triad of normal pressure hydrocephalus recommended. RADIATION DOSE DELIVERED: Total DLP DATA REPOSITORY: All CT scans at this facility are submitted to the National Radiology Data Registry (NRDR) Dose Index Registry (DIR) with the [employer] (ACR). RADIATION OPTIMIZATION: All CT scans at this facility use at least one of these dose optimization te chniques: automated exposure control; mA and/or kV adjustment per patient size (includes targeted exa ms where dose is matched to clinical indication); or iterative reconstruction.
--- NOTE | 2022-01-03 10:15 | DI.CT_ITS ---
Exam(s) CT ABDOMEN PELVIS W EXAM: CT ABDOMEN PELVIS W CLINICAL HISTORY: decreased po intake, hx of colon cancer in remiss. TECHNIQUE: Imaging Protocol: Axial computed tomography images with coronal and sagittal reformatted images were created and reviewed CONTRAST MATERIAL: Intravenous: Omnipaque 100cc Oral: None COMPARISON: CT ABD PELVIS WITH CONTRAST from 04/12/2009 FINDINGS: VISUALIZED LUNG BASES: No nodules nor pleural effusions evident. Aortic valve TAVR incidentally note d. ABDOMEN: There is no ascites. LIVER: There are no focal hepatic lesions evident . GALLBLADDER/BILIARY: Gallbladder surgically absent. CBD is not dilated. PANCREAS: No evidence of pancreatic mass nor dilatation of the pancreatic duct. SPLEEN: Spleen is not enlarged. No obvious intrasplenic lesions. Splenic and portal veins are paten t. ADRENALS: There are no significant adrenal masses. KIDNEYS:No cysts evident. No solid renal masses. No calculi nor hydronephrosis.. ABDOMINAL AORTA: Abdominal aorta is not enlarged. LYMPH NODES:There is no retroperitoneal nor paraaortic adenopathy. ABDOMINAL WALL: Anterior abdominal wall fat containing umbilical hernia noted, larger than previous. No bowel loops therein. No bowel obstruction. GI: There is no evidence of bowel obstruction, free air, nor abscess. PELVIS: GI: Again noted is evidence of partial sigmoid resection..No evidence of sigmoid diverticulitis. LYMPH NODES: There is a partially calcified mass in the pelvis left of center which measures 4 by 3 c m, not previously present. Suspicious for malignant mass. REPRODUCTIVE: Age-appropriate URINARY BLADDER: Collapsed. OSSEOUS: No significant osseous lesions. IMPRESSION: 1. In this patient has had prior surgery there is a suspicion partially calcified left pelvic mesente nuris mass measuring 4 x 3 x 3.3 cm, as described above. Probable malignant mass. There are no lesion s in the liver at this time.. 2. Anterior abdominal wall periumbilical fat containing hernia as well as another sludge or hernia in the midline just below this. There are no bowel loops within the hernia sacs. No bowel obstruction evident. No free fluid. No prominent adenopathy. 3. No ascites Called by myself to ER physician. RADIATION DOSE DELIVERED: Total DLP DATA REPOSITORY: All CT scans at this facility are submitted to the National Radiology Data Registry (NRDR) Dose Index Registry (DIR) with the [employer] (ACR). RADIATION OPTIMIZATION: All CT scans at this facility use at least one of these dose optimization te chniques: automated exposure control; mA and/or kV adjustment per patient size (includes targeted exa ms where dose is matched to clinical indication); or iterative reconstruction.
--- NOTE | 2022-01-03 10:24 | ED.GENADUL_ITS ---
Discharge Plan Disposition Patient Disposition: Home Condition: Stable Discharge Details Chief Complaint: GenMedical Clinical Impression: Pelvic mass Primary Care Provider: Tania Foy ED Provider: Lanre Traore Home Meds and New Rx's Prescriptions: No Action Orencia (with maltose) 250 mg recon soln 3 ml IV .COMPLEX Rx Instructions: 3 mL (750mg) IV Q4 weeks; methotrexate sodium 2.5 mg tablet 10 mg PO QWEEK aspirin 81 mg tablet,chewable 81 mg PO DAILY calcium carbonate-vitamin D3 1 EACH tablet 1 ea PO DAILY folic acid 1 MG tablet 1 mg PO DAILY Qty: 90 cholecalciferol (vitamin D3) 1,000 UNIT tablet 1,000 unit PO DAILY PreserVision Lutein 226 mg-200 unit -5 mg-0.8 mg capsule 2 cap PO DAILY hydroxychloroquine 200 mg tablet 100 mg PO DAILY Qty: 180 Rx Instructions: 1.5 TAB Daily; updated to 1 cap daily 08/07/20. furosemide 20 mg tablet 20 mg PO DAILY Qty: 90 4RF metoprolol succinate 25 mg tablet extended release 24 hr 12.5 mg PO DAILY losartan 25 mg tablet 50 mg PO DAILY Qty: 90 3RF Discharge Instructions Additional Instructions: Please follow-up with Dr. Foy on Thursday at 1:40 PM to further evaluate abdominal/pelvic mass found on CT scan. Please return to the emergency department for any worsening symptoms Referrals: Tania Foy MD, [place] [Primary Care Provider] - 01/06/22 1:40 pm Medical Decision Making 81-year-old female history of CHF, TAVR, in remission from colon cancer, presents with decreased p.o. intake over the past 3 to 4 days, no nausea no vomiting, no abdominal distention or pain, nonperitoneal on examination, denies diarrhea has not had a bowel movement in a couple of days, slight dry oral mucosa slightly pale conjunctiva, hemodynamically stable afebrile nontoxic, consider dehydration versus left-sided abnormality must also consider recurrence of malignancy versus bowel obstruction versus intracranial metastases versus viral syndrome. Will obtain screening labs imaging close reassessment disposition pending results 15: 56 patient resting comfortably no acute distress. Mild COLTEN likely related to decreased p.o. intake. Evidence of pelvic mesenteric mass measuring 4 x 3 x 3.3 cm. Concern for recurrence of her prior malignancy. Discussed case with her primary care team Dr. Foy's office they would like to fit her in Thursday morning at 1:40 PM to initiate a malignancy evaluation. Patient counseled regarding these findings. Given home care instructions and return precautions. Family friend coming to pick her up. Sign Out No HPI General Date/Time Provider Initiated Documentation: 01/03/22 10:03 . 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 intake over the past 3 to 4 days, denies nausea or vomiting, denies abdominal pain, denies diarrhea has had some constipation. Feels that both of her legs are fatigued and she needs to hold onto things when she ambulates. Related Data Home Medications Medication Instructions Recorded Confirmed calcium carbonate 600 mg-vitamin 1 ea PO DAILY 10/30/12 01/03/22 D3 5 mcg (200 unit) tablet cholecalciferol (vitamin D3) 25 1,000 unit PO DAILY 10/30/12 01/03/22 mcg (1,000 unit) tablet folic acid 1 mg tablet 1 mg PO DAILY #90 tab-caps 10/30/12 01/03/22 abatacept (with maltose) 250 mg 3 ml IV .COMPLEX 03/27/20 01/03/22 intravenous solution (Orencia (with maltose)) vit C 226 mg-vit E 90 mg-copper 2 cap PO DAILY 05/03/20 01/03/22 0.8 mg-zinc oxide-lutein 5 mg capsule (PreserVision Lutein) hydroxychloroquine 200 mg tablet 100 mg PO DAILY #180 tab-caps 08/07/20 01/03/22 methotrexate sodium 2.5 mg tablet 10 mg PO QWEEK 08/07/20 01/03/22 aspirin 81 mg chewable tablet 81 mg PO DAILY 07/29/21 01/03/22 furosemide 20 mg tablet 20 mg PO DAILY #90 tabs 08/12/21 01/03/22 losartan 25 mg tablet 50 mg PO DAILY #90 tabs 11/13/21 01/03/22 metoprolol succinate 25 mg 12.5 mg PO DAILY 11/13/21 01/03/22 tablet,extended release 24 hr Previous Rx's Medication Instructions Recorded furosemide 20 mg tablet 20 mg PO DAILY #90 tabs 08/12/21 losartan 25 mg tablet 50 mg PO DAILY #90 tabs 11/13/21 Allergies Allergy/AdvReac Type Severity Reaction Status Date / Time hydrocodone AdvReac Intermediate Nausea, Verified 01/03/22 10:04 vomitiing General Stated Complaint: GenMedical ESTEPHANIA: 2 Review of Systems Narrative: Review of Systems Constitutional: Fatigue Eyes: negative ENT: negative Cardiovascular: negative Respiratory: negative Gastrointestinal: Decreased p.o. intake : negative Musculoskeletal: negative Skin: negative Neurologic: negative Psych: negative PFSH All Active Problems (Updated 01/03/22 @ 16:01 by Lanre Traore MD) Pelvic mass (Acute) S/P TAVR (transcatheter aortic valve replacement) (Acute) 07/17/21 [facility] [place] Left bundle branch block (Acute) Aortic stenosis (Chronic) Cardiomyopathy (Acute) Chronic systolic heart failure (Acute) Discharge planning issues (Acute) DVT prophylaxis (Acute) Pleural effusion (Acute) Breath, shortness (Acute) Acute exacerbation of CHF (congestive heart failure) (Acute) Symptomatic severe aortic stenosis with low ejection fraction (Acute) 32% : 1.2 cm Aortic stenosis, moderate (Acute) 1.2-1.3 cm on 04/09/20 Pneumonia (Acute) Impacted cerumen, bilateral (Acute) Wheezing (Acute) Long-term use of immunosuppressant medication (Acute) Undiagnosed cardiac murmurs (Acute) systolic (2002 echo [facility] normal) Cholelithiasis without obstruction (Acute) 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 TODD 03/01/15;LEFT; DR. TODD Sigmoidoscopy [facility] [place]; 10cm x 10 cm section of the sigmoid colon Family History Mother Alzheimer disease Father Heart disease Sister No problems noted. Sister No problems noted. Grandfather Stroke Grandmother No problems noted. Social History Smoking/Tobacco Use Status: Never Smoking risk assessment performed?: Yes Alcohol Intake: current Alcohol Intake frequency: holidays/special occasions only Alcohol type: wine Drug use: Never Substance use type: does not use Current gender identity: female What type of physical activity do you participate in: none Do you feel safe at home: Yes Do you feel safe in your relationship?: Yes Additional Social history: Lives alone with her cats in [place]. No local family. Exam Narrative Exam Narrative: Physical Examination General: alert, awake, cooperative, resting comfortably, no acute distress HEENT: normocephalic, atraumatic; PERRL, EOM intact, conjunctiva slightly pale; no nasal discharge; slightly dry mucous membranes, oral and pharyngeal mucosa normal, tolerating secretions Neck: supple, trachea midline; full ROM Chest: normal to inspection Respiratory: normal respiratory effort, speaking in full sentences, clear to auscultation, no wheezing, rales or rhonchi Cardiac: regular rate, regular rhythm, S1S2 intact, no murmurs rubs or gallops GI: abdomen soft, non-tender, non-distended; no palpable mass or hepatosplenomegaly Skin: no lesions, rashes or trauma appreciated Neuro: AAOx3, normal speech, moving all extremities; 5-5 strength upper and lower extremities bilaterally, cranial nerves II through XII intact Extremities: No edema or trauma noted Psych: Appropriate mood and affect Course Vital Signs Vital signs: Vital Signs Temperature 36.6 C 01/03/22 09:56 Pulse 88 01/03/22 09:56 Respiratory Rate 18 01/03/22 09:56 Blood Pressure 125/70 01/03/22 09:56 Pulse Oximetry 97 01/03/22 09:56 Temperature 36.6 C 01/03/22 09:56 Temperature Source Oral 01/03/22 09:56 Pulse 88 01/03/22 09:56 Respiratory Rate 16 01/03/22 10:16 Respiratory Effort Non-Labored 01/03/22 10:16 Respiratory Depth Normal 01/03/22 10:16 Respiratory Pattern Normal 01/03/22 10:16 Blood Pressure 125/70 01/03/22 09:56 Blood Pressure Position Supine 01/03/22 09:56 Pulse Oximetry 97 01/03/22 09:56 Oxygen Delivery Method Room Air 01/03/22 09:56 Oxygen Flow Rate 0 01/03/22 09:56 PAWSS Have you Been Recently Intoxicated or Drunk Within the Last 30 days?: No Have you Ever Experienced Previous Episodes of Alcohol Withdrawal?: No Have you ever Experienced Withdrawal Seizures?: No Have you ever Experienced Delirium Tremens(DT)s?: No Have you ever undergone Alcohol Rehabilitation Treatment (i.e, inpt ot outpatient treatment programs)?: No Have you ever Experienced Blackouts?: No Have you ever Combined Alcohol with other Downers within the last 90 days?: No Have you ever Combined Alcohol with any other Substance of Abuse during the last 90 days?: No Positive Blood Alcohol level on Presentation? [PCS.BAL]: No Evidence of Increased Autonomic Activity (i.e. HR>120, tremor, sweating, agitation, nausea)?: No Result: 0
[2022-01-03] MEDS: Normal Saline 500 ML 1000 ML IV (10:35)
[2022-01-03] MEDS: Ondansetron 4 MG/2 ML VIAL IVP (10:36)
[2022-01-03 10:39] LABS: Abs Immature Grans 0.02 10^3/uL (0.0-0.06); Absolute Basophil Count 0.01 10^3/uL (0.0-0.2); Absolute Eosinophil Count 0.06 10^3/uL (0.0-0.7); Absolute Monocyte Count 0.32 10^3/uL (0.1-0.8); Absolute Neutrophil Count 4.49 10^3/uL (1.2-6.7); Basophils % 0.2; Eosinophils % 1.1; HCT 37.4 % (36.0-46.0); HGB 12.6 g/dL (11.2-15.7); Immature Grans % 0.4; Lymphocytes % 10.9; MCH 29.7 pg (27.0-33.0); MCHC 33.7 % (32.0-36.0); MCV 88 fL (80-95); MPV 9.5 fL (8.0-11.0); Monocytes % 5.8; Neutrophils % 81.6; Platelet Count 228 10^3/uL (130-400); RBC 4.24 10^6/uL (3.93-5.22); RDW 14.2 % (11.7-14.6); RDW-SD 44.8 fL
[2022-01-03 10:59] LABS: ALT 15 U/L (14-59); AST 21 U/L (15-37); Albumin 3.7 g/dL (3.4-5.0); Alkaline Phosphatase 90 U/L (46-116); Anion Gap 10.6 mmol/L (3-11); BUN 27 mg/dL (7-18); Bilirubin, Total 0.9 mg/dL (0.2-1.0); CO2 28.4 mmol/L (21.0-32.0); CREATININE 1.3 mg/dL (0.55-1.02); Calcium 10.3 mg/dL (8.5-10.1); Chloride 99 mmol/L (98-107); Estimated GFR 41.31 (mL/min/1.73m2); Glucose 114 mg/dL (74-106); Potassium 3.2 mmol/L (3.5-5.1); Sodium 138 mmol/L (136-145); Total Protein 7.4 g/dL (6.4-8.2)
[2022-01-03 11:14] LABS: COVID-19 PCR Negative (Negative); Influenza A PCR Negative (Negative); Influenza B PCR Negative (Negative); RSV PCR Negative (Negative)
[2022-01-03 13:12] LABS: Bilirubin Negative (Negative); Blood Negative (Negative); Clarity Clear (Clear); Glucose Negative (Negative); Ketones Negative (Negative); Leukocyte Esterase Negative (Negative); Nitrite Negative (Negative); Specific Gravity >= 1.030 (1.005-1.025); Urobilinogen 0.2 EU/dL (Up TO 0.2); pH 5.5 (5-8)
[2022-01-03] MEDS: Omnipaque 350 MG/ML 100 ML BTL IJ (13:27)
== END 2022-01-03 16:07 | disposition home or self-care (01) ==
PROVIDERS: Emergency Provider Emergency Medicine; PCP Family Medicine
DX: R19.00 Intra-abdominal and pelvic swelling, mass and lump, unspecified site (principal); C18.9 Malignant neoplasm of colon, unspecified; C78.7 Secondary malignant neoplasm of liver and intrahepatic bile duct; N17.9 Acute kidney failure, unspecified; I50.9 Heart failure, unspecified; Z79.82 Long term (current) use of aspirin; Z20.822 Contact with and (suspected) exposure to COVID-19
CPT/HCPCS: 36415; 80053; 87637; 93005; 96361; 96374; 99285; 70450; 74177; 81003; 85025; 93010; J2405; J3490

== ENCOUNTER 2022-01-10 00:54 | Outpatient (RCR) | payer MEDICARE, SELFPAY ==
[2022-01-10] MEDS: Normal Saline Flush 10 ML SYR IVP ×2 (10:18→10:59)
[2022-01-10] MEDS: ABATACEPT 750 MG in Normal Saline 100 ML 200 MG IVPB (10:58)
== END 2022-01-15 23:59 | disposition home or self-care (01) ==
LOC: INF 00:54
PROVIDERS: PCP Family Medicine; Visit Provider Nurse Practitioner Family
DX: M06.09 Rheumatoid arthritis without rheumatoid factor, multiple sites (principal)
CPT/HCPCS: 96365; J0129

== ENCOUNTER 2022-01-30 02:12 | Outpatient (CLI) | payer MEDICARE, SELFPAY ==
--- NOTE | 2022-01-30 06:45 | DI.MRI_ITS ---
Exam(s) MR BRAIN WO EXAM: MR BRAIN WO CLINICAL HISTORY: F/U abnl CT Head,R93.0,INCREASED LATERAL VENTRICLE TECHNIQUE: Multiplanar multisequence MRI of the brain was performed. COMPARISON: CT CT HEAD WO from 01/03/2022 FINDINGS: VENTRICLES AND EXTRA AXIAL SPACES: Normal in size and morphology for the patient's age. MIDLINE SHIFT: None. CEREBRAL PARENCHYMA: No focus of restricted diffusion to suggest acute infarct. No space-occupying le zeny identified. There are few foci of hyperintense signal seen in the white matter on the FLAIR and T2 weighted images likely reflecting small vessel ischemic disease. The periventricular white matter is nonspecific. There does appear to be bilateral and symmetric hippocampal atrophy. The findings in the ventricle likely reflect age-related cerebral atrophy. HEMORRHAGE: None. BRAINSTEM/CEREBELLUM: Normal. CALVARIUM: Normal. VISUALIZED PARANASAL SINUSES/MASTOIDS:Clear. [place]: Normal flow void. PIT[place]ARY [place]: Unremarkable. OTHER FINDINGS: None. IMPRESSION: 1. Probable age-related cerebral atrophy. 2. Findings of small vessel ischemic disease. 3. No evidence of an acute infarct. DATA REPOSITORY:
== END 2022-01-30 02:32 ==
PROVIDERS: PCP Family Medicine; Visit Provider Family Medicine
DX: R93.0 Abnormal findings on diagnostic imaging of skull and head, not elsewhere classified (principal); G93.89 Other specified disorders of brain
CPT/HCPCS: 70551

== ENCOUNTER 2022-02-12 02:12 | Outpatient (RCR) | payer MEDICARE, SELFPAY ==
[2022-02-12 11:08] LABS: Abs Immature Grans 0.01 10^3/uL (0.0-0.06); Absolute Basophil Count 0.02 10^3/uL (0.0-0.2); Absolute Eosinophil Count 0.11 10^3/uL (0.0-0.7); Absolute Lymphocyte Count 1.33 10^3/uL (1.2-3.4); Absolute Monocyte Count 0.33 10^3/uL (0.1-0.8); Absolute Neutrophil Count 2.82 10^3/uL (1.2-6.7); Basophils % 0.4; Eosinophils % 2.4; HCT 39.1 % (36.0-46.0); HGB 12.8 g/dL (11.2-15.7); Immature Grans % 0.2; Lymphocytes % 28.8; MCH 29.6 pg (27.0-33.0); MCHC 32.7 % (32.0-36.0); MCV 90 fL (80-95); MPV 10.2 fL (8.0-11.0); Monocytes % 7.1; Neutrophils % 61.1; Platelet Count 182 10^3/uL (130-400); RBC 4.33 10^6/uL (3.93-5.22); RDW 14.7 % (11.7-14.6); RDW-SD 47.6 fL; WBC 4.62 10^3/uL (4.4-10.8)
[2022-02-12 11:23] LABS: ALT 37 U/L (14-59); AST 25 U/L (15-37); Albumin 4.1 g/dL (3.4-5.0); Alkaline Phosphatase 91 U/L (46-116); Anion Gap 7.3 mmol/L (3-11); BUN 17 mg/dL (7-18); Bilirubin, Total 0.5 mg/dL (0.2-1.0); CO2 28.7 mmol/L (21.0-32.0); CREATININE 0.9 mg/dL (0.55-1.02); Calcium 9.2 mg/dL (8.5-10.1); Chloride 106 mmol/L (98-107); Estimated GFR 63.83 (mL/min/1.73m2); Glucose 99 mg/dL (74-106); Potassium 3.7 mmol/L (3.5-5.1); Sodium 142 mmol/L (136-145); Total Protein 7.2 g/dL (6.4-8.2)
[2022-02-12 11:30] LABS: C-Reactive Protein < 0.05 mg/dL (0.0-0.3)
[2022-02-12] MEDS: ABATACEPT 750 MG in Normal Saline 100 ML 200 MG IVPB (12:14)
[2022-02-12] MEDS: Normal Saline Flush 10 ML SYR IVP (12:15)
== END 2022-02-15 23:59 | disposition home or self-care (01) ==
LOC: INF 02:12
PROVIDERS: PCP Family Medicine; Visit Provider Nurse Practitioner Family
DX: M06.09 Rheumatoid arthritis without rheumatoid factor, multiple sites (principal)
CPT/HCPCS: 36415; 80053; 96365; 85025; 86140; J0129

== ENCOUNTER → 2022-03-10 10:13 | Outpatient (BNVA) | payer MEDICARE, SELFPAY | PROVIDERS: PCP Family Medicine; Referring Provider Family Medicine; Visit Provider Surgery | DX: Z12.11 Encounter for screening for malignant neoplasm of colon (principal); Z85.038 Personal history of other malignant neoplasm of large intestine | CPT/HCPCS: 99213 ==

== ENCOUNTER 2022-03-12 08:17 | Day surgery (SDC) | payer MEDICARE, SELFPAY ==
[2022-03-12 08:36] VITALS: BP 133/72; PULSE 86; RESP 16; TEMP 36.3; O2SAT 99
[2022-03-12] MEDS: Lactated Ringers 1,000 ML 80 ML IV (09:01)
--- NOTE | 2022-03-12 09:23 | W.ANESPRE ---
General Info Date of Service Date Performed: 03/12/22 Height: 5 ft Weight: 68.4 kg Body Mass Index (BMI): 29.4 Surgical Procedure: Operation Date: 03/12/22 09:50 Proposed Procedure Side Surgeon p Skyler Castrejon MD Meds Allergies and Home Medications Allergies Allergy/AdvReac Type Severity Reaction Status Date / Time hydrocodone AdvReac Intermediate Nausea, Verified 03/11/22 14:08 vomitiing Home Medication Medication Instructions Recorded calcium carbonate 600 mg-vitamin 1 ea PO DAILY 10/30/12 D3 5 mcg (200 unit) tablet cholecalciferol (vitamin D3) 25 1,000 unit PO DAILY 10/30/12 mcg (1,000 unit) tablet folic acid 1 mg tablet 1 mg PO DAILY #90 tab-caps 10/30/12 methotrexate sodium 2.5 mg tablet 10 mg PO QWEEK 08/07/20 aspirin 81 mg chewable tablet 81 mg PO DAILY 07/29/21 furosemide 20 mg tablet 20 mg PO DAILY #90 tabs 08/12/21 losartan 25 mg tablet 50 mg PO DAILY #90 tabs 11/13/21 metoprolol succinate 25 mg 12.5 mg PO DAILY #45 tabs 01/29/22 tablet,extended release 24 hr abatacept 50 mg/0.4 mL 250 mg subcut .every 28 days 02/28/22 subcutaneous syringe (Orencia) vit C 250 mg-vit E 200 unit-zinc 2 tab PO DAILY 02/28/22 12.5 mg-copper 1 [id number] tablet (ICaps AREDS2 (copper citrate)) Current Visit Medications: Current Medications Generic Name Dose Route Start Last Admin Trade Name Umang PRN Reason Stop Dose Admin Ringer's Solution 1,000 mls @ 80 mls/hr 03/12/22 06:00 03/12/22 09:01 IV 04/10/22 23:59 80 mls/hr INFUSION WES Administration Ampicillin Sodium 2 gm/ Sodium 100 mls @ 300 mls/hr 03/12/22 06:00 Chloride IVPB 03/12/22 18:00 PREOP WES IV Miscellaneous Supplies 1 each 03/12/22 06:00 Iv Access IV 04/10/22 23:59 DIRECTED WES Sodium Chloride 0 ml 03/12/22 06:00 Normal Saline Flush 10 Ml Syr IV 04/10/22 23:59 PRN PRN Sodium Chloride 0 ml 03/12/22 06:00 Normal Saline 10 Ml Vial IJ 04/10/22 23:59 DIRECTED PRN Sterile Water 0 ml 03/12/22 06:00 Water,Injection,Sterile 10 Ml Vial IJ 04/10/22 23:59 DIRECTED PRN PFSH Active Problems Active Problems: Problem Status Onset Code Systolic murmur R01.1 Rotator cuff syndrome M75.100 Rheumatoid arthritis 11/28/11 M06.9 Primary malignant neoplasm of colon 01/16/08 C18.9 Paralytic strabismus H49.9 Increased body mass index (BMI) 03/24/17 R63.8 History of surgery of liver Z98.890 Hammer toes of both feet 03/24/17 M20.41, M20.42 Depressive disorder 11/28/11 F32.9 Complex partial epilepsy 01/20/14 G40.209 Cholelithiasis without obstruction K80.20 Undiagnosed cardiac murmurs R01.1 Long-term use of immunosuppressant medication Z79.899 Wheezing R06.2 Impacted cerumen, bilateral H61.23 Pneumonia J18.9 Aortic stenosis, moderate I35.0 Symptomatic severe aortic stenosis with low ejection fraction I35.0 Pleural effusion J90 Breath, shortness R06.02 Acute exacerbation of CHF (congestive heart failure) I50.9 DVT prophylaxis Z29.9 Discharge planning issues Z02.9 Hypokalemia E87.6 Chronic systolic heart failure I50.22 Cardiomyopathy I42.9 Aortic stenosis I35.0 Left bundle branch block I44.7 S/P TAVR (transcatheter aortic valve replacement) Z95.[address] scan, head R93.0 Metastatic colon cancer in female C18.9 Tooth pain K08.89 CHF (congestive heart failure) I50.9 Vascular abnormality of brain Q28.3 Medical History Medical History CAD (coronary artery disease) Depression History of DVT (deep vein thrombosis) Surgical History Surgical History (Updated 03/12/22 @ 08:28 by Jed Christianson) Extraction of cataract 03/08/15;RIGHT EYE; DR. TODD 03/01/15;LEFT; DR. TODD History of colonoscopy History of partial colectomy Hx of cholecystectomy Sigmoidoscopy [facility]; 10cm x 10 cm section of the sigmoid colon Tobacco Smoking/Tobacco Use Status: Never Alcohol Alcohol Intake: current Alcohol intake frequency: holidays/special occasions only Alcohol type: wine Substance Use Substance use: Never Substance use type: does not use Vital Signs and Lab Results Vital Signs Most Recent Vital Signs in EMR: Most Recent Vital Signs Temp Pulse Resp BP Pulse Ox 36.3 C L 86 16 133/72 99 03/12/22 08:36 03/12/22 08:36 03/12/22 08:36 03/12/22 08:36 03/12/22 08:36 Lab Results Blood Type / Crossmatch: No Data to Display Complete Blood Count: White Blood Count 4.62 10^3/uL (4.4-10.8) 02/12/22 10:54 Red Blood Count 4.33 10^6/uL (3.93-5.22) 02/12/22 10:54 Hemoglobin 12.8 g/dL (11.2-15.7) 02/12/22 10:54 Hematocrit 39.1 % (36.0-46.0) 02/12/22 10:54 Platelet Count 182 10^3/uL (130-400) 02/12/22 10:54 Complete Metabolic Panel: Sodium 142 mmol/L (136-145) 02/12/22 10:54 Potassium 3.7 mmol/L (3.5-5.1) 02/12/22 10:54 Chloride 106 mmol/L (98-107) 02/12/22 10:54 Carbon Dioxide 28.7 mmol/L (21.0-32.0) 02/12/22 10:54 BUN 17 mg/dL (7-18) 02/12/22 10:54 Creatinine 0.9 mg/dL (0.55-1.02) 02/12/22 10:54 Est GFR (CKD-EPI 2020) 63.83 (mL/min/1.73m2) 02/12/22 10:54 Calcium 9.2 mg/dL (8.5-10.1) 02/12/22 10:54 Albumin 4.1 g/dL (3.4-5.0) 02/12/22 10:54 Glucose 99 mg/dL (74-106) 02/12/22 10:54 C-Reactive Protein < 0.05 mg/dL (0.0-0.3) 02/12/22 10:54 Liver Function Panel: Alanine Aminotransferase (ALT/SGPT) 37 U/L (14-59) 02/12/22 10:54 Aspartate Amino Transf (AST/SGOT) 25 U/L (15-37) 02/12/22 10:54 Coagulation Panel: No Data to Display Cardiac Panel: No Data to Display Arterial Blood Gas: No Data to Display Venous Blood Gas: No Data to Display Pancreas Panel: No Data to Display Thyroid Panel: No Data to Display Infectious Disease: No Data to Display Blood Cultures: No Data to Display Toxicology Panel: No Data to Display Imaging and Studies Imaging and Studies Study information below may be from another EMR and interpreted by another provider. Please see original notes in EMR for more complete details. EKG Summary: DATE/TIME OF SERVICE: 01/03/22 1001 : 1940PERFORMING LOCATION: ER APPROVED REPORT Exam: Resting ECG Reason for Exam: weakness Patient Location: E HR:87 bpm ECG Measurements Heart Rate 87 AXIS OH 182 P 24 QRSd 175 QRS -36 QT 440 T116 QTc 529 Conclusion Sinus rhythm...normal P axis, V-rate 60- 99 Left bundle branch block...QRSd>120, broad/notched R ST elevation secondary to IVCD...Multiple VCG criteria Echocardiogram Summary: 09/24/21: EF 33%, Mild to mod MR, mild MS, prosthetic aortic valve in place. Date of Exam: 01/18/21Sex: F Admission Date: 01/18/21 : 1940 Age: 80 APPROVED REPORT EXAM: Comprehensive 2D, Doppler, and color-flow Echocardiogram Patient Location: Out-Patient Professional Architect: Micaela Kirk RDCS (AE) Indications: Aortic stenosis, Systolic murmur Other Information Study Quality: Adequate Conclusion Left ventricle is mildly dilated. Wall thickness is normal. Estimated ejection fraction is 20%. There is severe global hypokinesis The right ventricle appears normal in size and systolic function The left atrium is moderately dilated. The right atrium is normal in size Aortic valve is sclerotic with mild regurgitation. There is severe aortic stenosis. Peak gradient is 43 mmHg, mean gradient 25 mmHg. Calculated aortic valve area is 0.96 cm?? Moderate to severe mitral annular calcification. Mild to moderate mitral regurgitation Normal tricuspid valve with mild regurgitation. Estimated right ventricular systolic pressure is normal at 23 mmHg Mildly dilated ascending aorta measuring 3.56 cm Anesthesia Assessment and Plan Anesthesia History Personal History: PONV Family History: No Family History of Anesthesia Complications Exercise Tolerance Exercise Tolerance: Metabolic Equivalents>4 Pertinent Negatives Pertinent Negatives: No Symptoms of GERD and No Major Pulmonary Symptoms or Complaints Cardiac & Pulmonary Exam Cardiac Exam: Normal S1/S2 Heart Sounds Pulmonary Exam: Clear Bilateral Breath Sounds Implantable Cardiac Device Does patient have a Pacemaker or an ICD?: No Airway Exam Known Difficult Airway: No Mallampati Class: 1 Mouth Opening: Normal (> 3cm) Thyromental Distance: Greater than 3 cm Neck Range of Motion: Full ROM Neck Circumference: Normal Teeth Condition: Normal Dentition ASA Classification ASA Score: ASA 4 Emergency Case?: No NPO Status NPO Status: NPO Clears >2 hours, Solids >8 hours Anesthesia Plan Resuscitation Status: Full Code Anesthesia Technique: General Anesthesia Airway Planned: Natural Airway Monitors Used: Standard Monitors
[2022-03-12] MEDS: AMPICILLIN SODIUM 2 GM in Normal Saline 100 ML IVPB (09:26)
[2022-03-12 09:27] VITALS: BMI 29.4
--- NOTE | 2022-03-12 09:27 | COLE_ITS ---
Date of service: 03/12/22 Time of Service: 10:00 Colonoscopy Report Procedure Description: Procedures performed: 1. Colonoscopy Preoperative diagnosis: Surveillance colonoscopy, history of colon cancer, metastatic adenocarcinoma Postoperative diagnosis: Minimal pandiverticular disease Surgeon: Micah Castrejon Anesthesia: Nicholas Indication for procedure: 82-year-old woman has a history of colorectal cancer, treated with surgery upfront around a decade ago. She does not recall if she has had surveillance colonoscopy since then or not. A couple of months ago she underwent CT?guided biopsy of pelvic retroperitoneal lymph node which revealed metastatic adenocarcinoma presumably colon in origin. Her medical oncologist (Dr. Puentes) recommended a prompt surveillance colonoscopy. Findings: No new colon cancer was found. No polyps either. The prior anastomosis was easily identified and normal. There are scattered diverticular disease present throughout the entire colon but it is minimal. There are a couple of small diverticuli in the right?colon and care is needed that these are not mis?identified as the appendiceal orifice which was reliably seen after finding the ileocecal valve. Surveillance/follow-up recommendations: The patient has metastatic adenocarc inoma. Surveillance colonoscopy is probably unnecessary going forward but I would defer that decision to her medical oncology team. Complications: None Blood loss: Minimal Prep: Excellent Specimens: None Procedure in detail: Written consent was obtained from the patient who was in agreement with the risks, benefits and indications of the procedure.? We went to the endoscopy suite and laid the patient in left lateral decubitus position.? Anesthesia was administered which was tolerated well.? A timeout was performed and when we are all in agreement we began the procedure. Digital rectal exam and visual examination was performed and within normal limits.? A well?lubricated colonoscope was advanced without difficulty all the way to the cecum identified by the ileocecal valve and appendiceal orifice.? It was then slowly withdrawn.?? Retroflexion was performed in the rectum.? The findings/interventions are noted above. The scope was then removed and the patient tolerated the procedure well and was then taken back to the PACU in hemodynamically stable condition.
[2022-03-12 10:25] VITALS: BP 124/60; PULSE 59; RESP 16; TEMP 36.2
--- NOTE | 2022-03-12 10:31 | W.ANESPOSTOP ---
Postoperative Evaluation Date, Time and Location Date Performed: 03/12/22 Time Performed: 10:31 Patient Location: Day Surgery Unit Vital Signs Most Recent Imported Vital Signs: Most Recent Vital Signs Temp Pulse Resp BP Pulse Ox 36.2 C L 59 L 16 124/60 99 03/12/22 10:25 03/12/22 10:25 03/12/22 10:25 03/12/22 10:03/12/22 08:36 Pain Score Most Recent Pain Score: Most Recent Pain Score Pain Level 0 03/12/22 10:25 Assessment Mental Status: Awake (Alert & Oriented to Patient Baseline) Airway and Respiratory Function: Patent airway with normal (patient baseline) respiratory exam Cardiovascular Function: Hemodynamically Stable Hydration Status: Adequately Hydrated Nausea & Vomiting: No Nausea or Vomiting Pain: Pt. Denies Any Pain Peripheral Nerve Block: Patient did not receive a nerve block
[2022-03-12 10:52] VITALS: BP 139/66; PULSE 60; RESP 16; TEMP 36.3; O2SAT 97
== END 2022-03-12 11:33 | disposition home or self-care (01) ==
PROVIDERS: PCP Family Medicine; Visit Provider Student in an Organized Health Care Education/Training Program
PROC: 0DJD8ZZ Inspection of Lower Intestinal Tract, Via Natural or Artificial Opening Endoscopic (ICD-10-PCS; CPT 45378; principal; 2022-03-12 09:45)
DX: Z12.11 Encounter for screening for malignant neoplasm of colon (principal); Z85.038 Personal history of other malignant neoplasm of large intestine; K57.30 Diverticulosis of large intestine without perforation or abscess without bleeding; C77.2 Secondary and unspecified malignant neoplasm of intra-abdominal lymph nodes
CPT/HCPCS: G0105; J0290

== ENCOUNTER 2022-03-13 02:11 | Outpatient (RCR) | payer MEDICARE, SELFPAY ==
[2022-03-13] MEDS: Normal Saline Flush 10 ML SYR IVP (10:15)
[2022-03-13] MEDS: ABATACEPT 750 MG in Normal Saline 100 ML 200 MG IVPB (10:15)
== END 2022-03-18 23:59 | disposition home or self-care (01) ==
LOC: INF 02:11
PROVIDERS: PCP Family Medicine; Visit Provider Nurse Practitioner Family
DX: M05.79 Rheumatoid arthritis with rheumatoid factor of multiple sites without organ or systems involvement (principal)
CPT/HCPCS: 96365; J0129

== ENCOUNTER 2022-04-17 02:53 | Outpatient (RCR) | payer MEDICARE, SELFPAY ==
[2022-04-17] MEDS: Normal Saline Flush 10 ML SYR IVP (09:58)
[2022-04-17 10:03] LABS: Abs Immature Grans 0.01 10^3/uL (0.0-0.06); Absolute Basophil Count 0.02 10^3/uL (0.0-0.2); Absolute Eosinophil Count 0.12 10^3/uL (0.0-0.7); Absolute Lymphocyte Count 1.36 10^3/uL (1.2-3.4); Absolute Monocyte Count 0.43 10^3/uL (0.1-0.8); Absolute Neutrophil Count 4.17 10^3/uL (1.2-6.7); Basophils % 0.3; HCT 42.5 % (36.0-46.0); HGB 14.1 g/dL (11.2-15.7); Immature Grans % 0.2; Lymphocytes % 22.3; MCH 30.7 pg (27.0-33.0); MCHC 33.2 % (32.0-36.0); MCV 93 fL (80-95); Neutrophils % 68.2; Platelet Count 210 10^3/uL (130-400); RBC 4.59 10^6/uL (3.93-5.22); RDW 14.2 % (11.7-14.6); RDW-SD 47.2 fL; WBC 6.11 10^3/uL (4.4-10.8)
[2022-04-17 10:18] LABS: ALT 41 U/L (14-59); AST 27 U/L (15-37); Albumin 4.1 g/dL (3.4-5.0); Alkaline Phosphatase 92 U/L (46-116); Anion Gap 8.9 mmol/L (3-11); BUN 24 mg/dL (7-18); Bilirubin, Total 0.7 mg/dL (0.2-1.0); C-Reactive Protein < 0.05 mg/dL (0.0-0.3); CO2 29.1 mmol/L (21.0-32.0); CREATININE 0.9 mg/dL (0.55-1.02); Calcium 9.1 mg/dL (8.5-10.1); Chloride 106 mmol/L (98-107); Estimated GFR 63.83 (mL/min/1.73m2); Glucose 99 mg/dL (74-106); Potassium 3.7 mmol/L (3.5-5.1); Sodium 144 mmol/L (136-145); Total Protein 7.3 g/dL (6.4-8.2)
[2022-04-17] MEDS: ABATACEPT 750 MG in Normal Saline 100 ML 200 MG IVPB (10:36)
== END 2022-05-16 23:59 | disposition home or self-care (01) ==
LOC: INF 02:53
PROVIDERS: PCP Family Medicine; Visit Provider Nurse Practitioner Family
DX: M05.79 Rheumatoid arthritis with rheumatoid factor of multiple sites without organ or systems involvement (principal)
CPT/HCPCS: 80053; 96365; 85025; 86140; J0129

== ENCOUNTER 2022-05-20 02:45 | Outpatient (RCR) | payer MEDICARE, SELFPAY ==
[2022-05-20] MEDS: Normal Saline Flush 10 ML SYR IVP (10:59)
[2022-05-20] MEDS: ABATACEPT 750 MG in Normal Saline 100 ML 200 MG IVPB (10:59)
== END 2022-06-15 23:59 | disposition home or self-care (01) ==
LOC: INF 02:45
PROVIDERS: PCP Family Medicine; Visit Provider Nurse Practitioner Family
DX: M05.79 Rheumatoid arthritis with rheumatoid factor of multiple sites without organ or systems involvement (principal)
CPT/HCPCS: 96365; J0129

== ENCOUNTER 2022-05-23 11:55 | Outpatient (CLI) | payer MEDICARE, SELFPAY ==
[2022-05-23 11:48] LABS: Abs Immature Grans 0.01 10^3/uL (0.0-0.06); Absolute Basophil Count 0.03 10^3/uL (0.0-0.2); Absolute Eosinophil Count 0.16 10^3/uL (0.0-0.7); Absolute Lymphocyte Count 0.98 10^3/uL (1.2-3.4); Absolute Monocyte Count 0.21 10^3/uL (0.1-0.8); Absolute Neutrophil Count 4.75 10^3/uL (1.2-6.7); Basophils % 0.5; Eosinophils % 2.6; HCT 38.8 % (36.0-46.0); Immature Grans % 0.2; MCH 31.1 pg (27.0-33.0); MCHC 33.5 % (32.0-36.0); MCV 93 fL (80-95); MPV 9.8 fL (8.0-11.0); Monocytes % 3.4; Neutrophils % 77.3; Platelet Count 144 10^3/uL (130-400); RBC 4.18 10^6/uL (3.93-5.22); RDW 13.1 % (11.7-14.6); WBC 6.14 10^3/uL (4.4-10.8)
[2022-05-23 12:02] LABS: ALT 24 U/L (14-59); AST 19 U/L (15-37); Alkaline Phosphatase 86 U/L (46-116); Anion Gap 7.1 mmol/L (3-11); BUN 21 mg/dL (7-18); Bilirubin, Total 0.7 mg/dL (0.2-1.0); CO2 29.9 mmol/L (21.0-32.0); CREATININE 0.9 mg/dL (0.55-1.02); Calcium 8.9 mg/dL (8.5-10.1); Chloride 106 mmol/L (98-107); Estimated GFR 63.83 (mL/min/1.73m2); Glucose 118 mg/dL (74-106); Potassium 3.7 mmol/L (3.5-5.1); Sodium 143 mmol/L (136-145); Total Protein 6.9 g/dL (6.4-8.2)
[2022-05-26 14:40] LABS: CEA 13.5 ng/mL (See Note)
== END 2022-05-23 11:56 | disposition home or self-care (01) ==
LOC: LBO 11:56
PROVIDERS: PCP Family Medicine; Visit Provider Internal Medicine Hematology & Oncology
DX: C18.9 Malignant neoplasm of colon, unspecified (principal); C78.7 Secondary malignant neoplasm of liver and intrahepatic bile duct
CPT/HCPCS: 36415; 80053; 82378; 85025

== ENCOUNTER 2022-07-15 03:17 | Outpatient (RCR) | payer MEDICARE, SELFPAY ==
[2022-06-17] MEDS: Normal Saline Flush 10 ML SYR IVP (10:08)
[2022-06-17 10:21] LABS: Abs Immature Grans 0.03 10^3/uL (0.0-0.06); Absolute Basophil Count 0.02 10^3/uL (0.0-0.2); Absolute Eosinophil Count 0.09 10^3/uL (0.0-0.7); Absolute Lymphocyte Count 0.94 10^3/uL (1.2-3.4); Absolute Neutrophil Count 3.99 10^3/uL (1.2-6.7); Basophils % 0.4; Eosinophils % 1.7; HCT 39.2 % (36.0-46.0); HGB 13.4 g/dL (11.2-15.7); Immature Grans % 0.6; Lymphocytes % 17.5; MCH 31.6 pg (27.0-33.0); MCHC 34.2 % (32.0-36.0); MCV 93 fL (80-95); MPV 9.7 fL (8.0-11.0); Monocytes % 5.6; Neutrophils % 74.2; Platelet Count 160 10^3/uL (130-400); RBC 4.24 10^6/uL (3.93-5.22); RDW 13.2 % (11.7-14.6); WBC 5.37 10^3/uL (4.4-10.8)
[2022-06-17 10:35] LABS: ALT 26 U/L (14-59); AST 22 U/L (15-37); Albumin 4.1 g/dL (3.4-5.0); Alkaline Phosphatase 86 U/L (46-116); Anion Gap 6.3 mmol/L (3-11); BUN 23 mg/dL (7-18); Bilirubin, Total 0.8 mg/dL (0.2-1.0); C-Reactive Protein 0.05 mg/dL (0.0-0.3); CO2 29.7 mmol/L (21.0-32.0); CREATININE 0.9 mg/dL (0.55-1.02); Calcium 8.9 mg/dL (8.5-10.1); Chloride 108 mmol/L (98-107); Estimated GFR 63.83 (mL/min/1.73m2); Glucose 104 mg/dL (74-106); Potassium 3.7 mmol/L (3.5-5.1); Sodium 144 mmol/L (136-145); Total Protein 7.2 g/dL (6.4-8.2)
[2022-06-17] MEDS: ABATACEPT 750 MG in Normal Saline 100 ML 200 MG IVPB (10:37)
== END 2022-07-16 23:59 | disposition home or self-care (01) ==
LOC: INF 03:17
PROVIDERS: PCP Family Medicine; Visit Provider Nurse Practitioner Family
DX: M05.79 Rheumatoid arthritis with rheumatoid factor of multiple sites without organ or systems involvement (principal)
CPT/HCPCS: 80053; 96365; 85025; 86140; J0129

== ENCOUNTER 2022-08-14 03:40 | Outpatient (RCR) | payer MEDICARE, SELFPAY ==
[2022-07-17] MEDS: ABATACEPT 750 MG in Normal Saline 100 ML 200 MG IVPB (10:36)
[2022-07-17] MEDS: Normal Saline Flush 10 ML SYR IVP (10:37)
[2022-08-14 10:19] LABS: Abs Immature Grans 0.02 10^3/uL (0.0-0.06); Absolute Basophil Count 0.03 10^3/uL (0.0-0.2); Absolute Eosinophil Count 0.14 10^3/uL (0.0-0.7); Absolute Lymphocyte Count 1.23 10^3/uL (1.2-3.4); Absolute Monocyte Count 0.34 10^3/uL (0.1-0.8); Absolute Neutrophil Count 3.95 10^3/uL (1.2-6.7); Basophils % 0.5; Eosinophils % 2.5; HCT 38.3 % (36.0-46.0); HGB 12.9 g/dL (11.2-15.7); Immature Grans % 0.4; Lymphocytes % 21.5; MCH 31.1 pg (27.0-33.0); MCHC 33.7 % (32.0-36.0); MCV 92 fL (80-95); MPV 9.9 fL (8.0-11.0); Neutrophils % 69.1; Platelet Count 175 10^3/uL (130-400); RBC 4.15 10^6/uL (3.93-5.22); RDW 13.2 % (11.7-14.6); RDW-SD 43.8 fL; WBC 5.71 10^3/uL (4.4-10.8)
[2022-08-14 10:49] LABS: ALT 20 U/L (14-59); AST 21 U/L (15-37); Albumin 3.9 g/dL (3.4-5.0); Alkaline Phosphatase 86 U/L (46-116); Anion Gap 8.6 mmol/L (3-11); BUN 23 mg/dL (7-18); Bilirubin, Total 0.7 mg/dL (0.2-1.0); CO2 28.4 mmol/L (21.0-32.0); CREATININE 0.9 mg/dL (0.55-1.02); Calcium 8.9 mg/dL (8.5-10.1); Chloride 105 mmol/L (98-107); Estimated GFR 63.83 (mL/min/1.73m2); Glucose 127 mg/dL (74-106); Potassium 3.6 mmol/L (3.5-5.1); Sodium 142 mmol/L (136-145)
[2022-08-14 10:50] LABS: C-Reactive Protein < 0.05 mg/dL (0.0-0.3)
[2022-08-14] MEDS: ABATACEPT 750 MG in Normal Saline 100 ML 200 MG IVPB (10:50)
[2022-08-14] MEDS: Normal Saline Flush 10 ML SYR IVP (10:50)
== END 2022-08-15 23:59 | disposition home or self-care (01) ==
LOC: INF 03:40
PROVIDERS: Internal Medicine Rheumatology; PCP Family Medicine; Visit Provider Nurse Practitioner Family
DX: M05.79 Rheumatoid arthritis with rheumatoid factor of multiple sites without organ or systems involvement (principal)
CPT/HCPCS: 36415; 80053; 96365; 85025; 86140; J0129

== ENCOUNTER 2022-09-04 01:53 | Outpatient (CLI) | payer MEDICARE, SELFPAY ==
--- NOTE | 2022-09-04 08:00 | DI.CT_ITS ---
Exam(s) CT CHEST/ABD/PEL W EXAM: CT CHEST/ABD/PEL W CLINICAL HISTORY: PRIMARY COLON CA WITH METS, C18.9 TECHNIQUE: Imaging Protocol: Axial computed tomography images with coronal and sagittal reformatted images were created and reviewed CONTRAST MATERIAL: Intravenous: Omnipaque 350 contrast volume:100 mL Oral: Yes COMPARISON: CT CT ABDOMEN PELVIS W from 01/03/2022 FINDINGS: The examination is limited due to patient motion artifact. CHEST: Tracheobronchial tree: Patent where visualized. Pulmonary parenchyma: No consolidation or dominant measurable mass. No architectural distortion. Ther e is a stable 4 mm pulmonary nodule in the left lower lobe. Visualized thyroid gland: There are few small hypodense nodules in the thyroid gland. The largest me asures 7 mm. No follow-up is recommended. Mediastinum and Jocelyn: No dominant adenopathy or fluid collection. The esophagus is unremarkable. Pleura: No effusion or pneumothorax. Heart: The heart is not dilated. No coronary artery calcifications are seen. No pericardial effusion. There is an aortic valve replacement. Pulmonary arteries: No pulmonary emboli are identified. Aorta: Thoracic aorta non-dilated. Atherosclerosis. Lymph nodes: Within normal limits. Soft tissues: Unremarkable. Bones:Within normal limits for the patient's age. ABDOMEN: Liver: Normal density. No measurable mass. Partial hepatic resection. Portal, Superior Mesenteric, and Splenic Veins: Unremarkable. Gallbladder and Biliary Tract: Status post cholecystectomy. No biliary ductal dilatation. Pancreas: Normal density, no abnormal calcifications or inflammatory process. Spleen: Normal. Adrenals: No masses seen. Kidneys: Normal size, contour and axis. No radiodense stones or obstructive uropathy. There are tiny hypodensities in the kidneys. They are too small for further characterization, but likely reflect sm all cysts. No follow-up is recommended. Abdominal Aorta: Abdominal portion non-dilated. Atherosclerosis. Bowel: No obstruction or bowel wall thickening. No evidence of appendicitis. Anastomotic changes are seen in the sigmoid colon. No evidence of an obstructing mass. Peritoneal Cavity: The partially calcified mass in the left abdomen is again seen. It measures 4.3 x 3.0 cm. It appears grossly unchanged compared to the prior examination. No ascites is present. No free air. Lymph Nodes: Within normal limits. Bones: Within normal limits for the patient's age. Unchanged compared to the prior examinations. Gr jaki 1 anterolisthesis of L4 on L5. There is a mild right convex curvature of the lumbar spine. Soft Tissues: There is a supraumbilical fat containing small midline anterior abdominal wall hernia. There is a moderate size infra umbilical fat containing anterior abdominal wall hernia. PELVIS: Bladder: Symmetric distention, no gross wall thickening. Reproductive Organs: Unremarkable as visualized. Lymph Nodes: Within normal limits. Bones: Within normal limits. IMPRESSION: 1. Stable 4 mm left lower lobe pulmonary nodule. 2. Stable partially calcified left mesenteric mass. 3. Postsurgical changes in the sigmoid colon. 4. Partial hepatic resection, status post cholecystectomy. RADIATION DOSE DELIVERED: Total DLP DATA REPOSITORY: All CT scans at this facility are submitted to the National Radiology Data Registry (NRDR) Dose Index Registry (DIR) with the [employer] ([employer]). RADIATION OPTIMIZATION: All CT scans at this facility use at least one of these dose optimization te chniques: automated exposure control; mA and/or kV adjustment per patient size (includes targeted exa ms where dose is matched to clinical indication); or iterative reconstruction.
[2022-09-04] MEDS: Barium Sulfate 2% W/V-Creamy Vanilla Smoothie 450 ML BTL 900 ML PO (08:21)
[2022-09-04 08:28] LABS: Abs Immature Grans 0.01 10^3/uL (0.0-0.06); Absolute Basophil Count 0.01 10^3/uL (0.0-0.2); Absolute Lymphocyte Count 1.35 10^3/uL (1.2-3.4); Absolute Monocyte Count 0.31 10^3/uL (0.1-0.8); Absolute Neutrophil Count 2.48 10^3/uL (1.2-6.7); Basophils % 0.2; Eosinophils % 4.6; HCT 36.1 % (36.0-46.0); HGB 12.5 g/dL (11.2-15.7); Immature Grans % 0.2; MCHC 34.6 % (32.0-36.0); MCV 92 fL (80-95); MPV 10.4 fL (8.0-11.0); Monocytes % 7.1; Neutrophils % 56.9; Platelet Count 146 10^3/uL (130-400); RBC 3.91 10^6/uL (3.93-5.22); RDW 13.3 % (11.7-14.6); WBC 4.36 10^3/uL (4.4-10.8)
[2022-09-04 08:45] LABS: ALT 22 U/L (14-59); AST 25 U/L (15-37); Albumin 3.7 g/dL (3.4-5.0); Alkaline Phosphatase 81 U/L (46-116); Anion Gap 8.3 mmol/L (3-11); BUN 21 mg/dL (7-18); Bilirubin, Total 0.4 mg/dL (0.2-1.0); CO2 25.7 mmol/L (21.0-32.0); CREATININE 0.9 mg/dL (0.55-1.02); Calcium 8.6 mg/dL (8.5-10.1); Chloride 109 mmol/L (98-107); Estimated GFR 63.83 (mL/min/1.73m2); Glucose 103 mg/dL (74-106); Sodium 143 mmol/L (136-145); Total Protein 6.6 g/dL (6.4-8.2)
[2022-09-04] MEDS: Omnipaque 350 MG/ML 500 ML BTL-Imaging package 100 ML IJ (10:24)
[2022-09-04] MEDS: Normal Saline - Diluent 50 ML VIAL IJ (10:25)
[2022-09-04 20:48] LABS: CEA 2.5 ng/mL (See Note)
== END 2022-09-04 02:13 ==
LOC: DI 01:54
PROVIDERS: PCP Family Medicine; Visit Provider Nurse Practitioner Family
DX: C18.9 Malignant neoplasm of colon, unspecified (principal); Q44.0 Agenesis, aplasia and hypoplasia of gallbladder; Z48.815 Encounter for surgical aftercare following surgery on the digestive system; Z90.89 Acquired absence of other organs
CPT/HCPCS: 74177; 80053; 71260; 82378; 85025

== ENCOUNTER 2022-09-10 03:31 | Outpatient (RCR) | payer MEDICARE, SELFPAY ==
[2022-09-10] MEDS: ABATACEPT 750 MG in Normal Saline 100 ML 200 MG IVPB (10:40)
[2022-09-10] MEDS: Normal Saline Flush 10 ML SYR IVP (10:41)
== END 2022-09-15 23:59 | disposition home or self-care (01) ==
LOC: INF 03:31
PROVIDERS: PCP Family Medicine; Visit Provider Nurse Practitioner Family
DX: M05.79 Rheumatoid arthritis with rheumatoid factor of multiple sites without organ or systems involvement (principal)
CPT/HCPCS: 96365; J0129

== ENCOUNTER 2022-10-08 03:59 | Outpatient (RCR) | payer MEDICARE, SELFPAY ==
[2022-10-08] MEDS: ABATACEPT 750 MG in Normal Saline 100 ML 200 MG IVPB (10:31)
[2022-10-08] MEDS: Normal Saline Flush 10 ML SYR IVP (10:31)
== END 2022-10-16 23:59 | disposition home or self-care (01) ==
LOC: INF 03:59
PROVIDERS: PCP Family Medicine; Visit Provider Nurse Practitioner Family
DX: M05.79 Rheumatoid arthritis with rheumatoid factor of multiple sites without organ or systems involvement (principal)
CPT/HCPCS: 96365; J0129

== ENCOUNTER 2022-11-05 03:05 | Outpatient (RCR) | payer MEDICARE, SELFPAY ==
[2022-11-05 10:37] LABS: Abs Immature Grans 0.03 10^3/uL (0.0-0.06); Absolute Basophil Count 0.02 10^3/uL (0.0-0.2); Absolute Eosinophil Count 0.08 10^3/uL (0.0-0.7); Absolute Lymphocyte Count 0.82 10^3/uL (1.2-3.4); Absolute Monocyte Count 0.37 10^3/uL (0.1-0.8); Absolute Neutrophil Count 3.46 10^3/uL (1.2-6.7); Basophils % 0.4; Eosinophils % 1.7; HCT 37.8 % (36.0-46.0); Immature Grans % 0.6; Lymphocytes % 17.2; MCH 31.5 pg (27.0-33.0); MCHC 34.4 % (32.0-36.0); MCV 92 fL (80-95); MPV 10.3 fL (8.0-11.0); Monocytes % 7.7; Neutrophils % 72.4; Platelet Count 148 10^3/uL (130-400); RBC 4.13 10^6/uL (3.93-5.22); RDW 13.2 % (11.7-14.6); WBC 4.78 10^3/uL (4.4-10.8)
[2022-11-05] MEDS: Normal Saline Flush 10 ML SYR IVP (10:37)
[2022-11-05] MEDS: ABATACEPT 750 MG in Normal Saline 100 ML 200 MG IVPB (10:37)
[2022-11-05 10:59] LABS: ALT 24 U/L (14-59); AST 22 U/L (15-37); Alkaline Phosphatase 82 U/L (46-116); Anion Gap 6.2 mmol/L (3-11); BUN 20 mg/dL (7-18); Bilirubin, Total 0.6 mg/dL (0.2-1.0); C-Reactive Protein 0.27 mg/dL (0.0-0.3); CO2 29.8 mmol/L (21.0-32.0); CREATININE 0.9 mg/dL (0.55-1.02); Calcium 9.6 mg/dL (8.5-10.1); Chloride 103 mmol/L (98-107); Estimated GFR 63.83 (mL/min/1.73m2); Glucose 104 mg/dL (74-106); Potassium 3.4 mmol/L (3.5-5.1); Sodium 139 mmol/L (136-145); Total Protein 7.3 g/dL (6.4-8.2)
== END 2022-11-15 23:59 | disposition home or self-care (01) ==
LOC: INF 03:05
PROVIDERS: PCP Family Medicine; Visit Provider Nurse Practitioner Family
DX: M05.79 Rheumatoid arthritis with rheumatoid factor of multiple sites without organ or systems involvement (principal)
CPT/HCPCS: 36415; 80053; 96365; 85025; 86140; J0129

== ENCOUNTER → 2022-11-17 03:18 | Outpatient (CLI) | payer MEDICARE, SELFPAY ==
[2022-11-17] MEDS: Barium Sulfate 2% W/V-Creamy Vanilla Smoothie 450 ML BTL 900 ML PO (09:02)
[2022-11-17 10:21] LABS: Abs Immature Grans 0.02 10^3/uL (0.0-0.06); Absolute Basophil Count 0.01 10^3/uL (0.0-0.2); Absolute Eosinophil Count 0.06 10^3/uL (0.0-0.7); Absolute Lymphocyte Count 0.85 10^3/uL (1.2-3.4); Absolute Monocyte Count 0.26 10^3/uL (0.1-0.8); Absolute Neutrophil Count 3.41 10^3/uL (1.2-6.7); Basophils % 0.2; Eosinophils % 1.3; HCT 36.3 % (36.0-46.0); HGB 12.4 g/dL (11.2-15.7); Immature Grans % 0.4; Lymphocytes % 18.4; MCH 31.2 pg (27.0-33.0); MCHC 34.2 % (32.0-36.0); MCV 91 fL (80-95); MPV 9.4 fL (8.0-11.0); Monocytes % 5.6; Neutrophils % 74.1; Platelet Count 151 10^3/uL (130-400); RBC 3.98 10^6/uL (3.93-5.22); RDW-SD 42.4 fL; WBC 4.61 10^3/uL (4.4-10.8)
[2022-11-17 10:40] LABS: ALT 30 U/L (14-59); AST 23 U/L (15-37); Albumin 3.8 g/dL (3.4-5.0); Alkaline Phosphatase 84 U/L (46-116); Anion Gap 5.8 mmol/L (3-11); BUN 23 mg/dL (7-18); Bilirubin, Total 0.7 mg/dL (0.2-1.0); CO2 29.2 mmol/L (21.0-32.0); Calcium 9.5 mg/dL (8.5-10.1); Chloride 103 mmol/L (98-107); Estimated GFR 56.25 (mL/min/1.73m2); Glucose 105 mg/dL (74-106); Potassium 3.6 mmol/L (3.5-5.1); Sodium 138 mmol/L (136-145); Total Protein 7.1 g/dL (6.4-8.2)
[2022-11-17] MEDS: Normal Saline - Diluent 50 ML VIAL IJ (11:51)
[2022-11-17] MEDS: Omnipaque 350 MG/ML 500 ML BTL-Imaging package IJ (11:53)
--- NOTE | 2022-11-17 12:15 | DI.CT_ITS ---
Exam(s) CT CHEST/ABD/PEL W EXAM: CT CHEST/ABD/PEL W CLINICAL HISTORY: PRIMARY COLON CA WITH METS,C18.9,ASSESS TREATMENT RESPONSE. TECHNIQUE: Imaging Protocol: Axial computed tomography images with coronal and sagittal reformatted images were created and reviewed CONTRAST MATERIAL: Intravenous: Omnipaque 350 Contrast volume:100 ml Oral: Yes. Oral contrast was also administered for bowel opacification. COMPARISON: CT CT CHEST/ABD/PEL W from 09/04/2022 FINDINGS: CHEST: LUNGS: Again noted is a stable unchanged 4 millimeter nodule in the left lower lobe. There are no ne w lung nodules.. There are mild increased markings in the superior segment of the left lower lobe no w evident no new right lung findings. There are no pleural effusions. No new findings in trachea an d mainstem bronchi.. MEDIASTINUM: There is no hilar nor mediastinal adenopathy. Nodules again noted in the inferior aspect of the right thyroid lobe which measures 9 x 9 mm. CARDIAC: Heart size is normal. There is no pericardial effusion.Aortic valve TAVR noted. Diameter o f the ascending thoracic aorta is within normal limits. There is no evidence of dissection. OSSEOUS: No significant osseous lesions.. ABDOMEN: There is no ascites. LIVER: Partial hepatic resection again noted. There are no new discrete focal hepatic lesions nor di latation of intrahepatic ducts. GALLBLADDER/BILIARY: The gallbladder is again noted be surgically absent. CBD is not dilated. PANCREAS: No evidence of pancreatic mass nor dilatation of the pancreatic duct. SPLEEN: Spleen is not enlarged. There are no intrasplenic lesions. Splenic and portal veins are pool nt. ADRENALS: There are no significant adrenal masses. KIDNEYS: No calculi nor hydronephrosis. No solid renal masses. No cysts evident. ABDOMINAL AORTA: Abdominal aorta is not enlarged. LYMPH NODES: There is no retroperitoneal nor paraaortic adenopathy. ABDOMINAL WALL: Anterior abdominal wall midline fat containing paraumbilical hernia is again noted. This does not contain bowel loops and there is no associated bowel obstruction. GI: There is a anastomosis in the sigmoid from partial sigmoid resection. There is again noted a par tially calcified mesenteric mass again noted in left side of the upper pelvis which measures 4.3 by 2 .5 by 3.0 cm. This appears stable in size and configuration and there are no new additional mesenter ic masses evident. PELVIS: LYMPH NODES: There is no intrapelvic nor inguinal adenopathy. GI: No evidence of appendicitis.No evidence of sigmoid diverticulitis. URINARY BLADDER: No calculi nor masses evident REPRODUCTIVE: Slight thickening of the endometrium noted for this age group. No abnormal adnexal mas ses. No free fluid. OSSEOUS: No fractures. No new significant osseous lesions. IMPRESSION: 1. Stable solitary 4 millimeter left lower lobe nodule. No new lung findings and no pleural effusion s nor intrathoracic adenopathy. 2. Stable partially calcified left mesenteric mass. 3. Postsurgical changes in the sigmoid colon. 4. Partial hepatic resection and post cholecystectomy. No new lesions in the liver nor elsewhere in the abdomen. No ascites. 5. Endometrial thickness appears slightly prominent for this advanced age group. Can be further shannon with ultrasound. RADIATION DOSE DELIVERED: 1,471.66mGy.cm Total DLP DATA REPOSITORY: All CT scans at this facility are submitted to the National Radiology Data Registry (NRDR) Dose Index Registry (DIR) with the [employer] ([employer]). RADIATION OPTIMIZATION: All CT scans at this facility use at least one of these dose optimization te chniques: automated exposure control; mA and/or kV adjustment per patient size (includes targeted exa ms where dose is matched to clinical indication); or iterative reconstruction.
[2022-11-17 19:22] LABS: CEA 2.5 ng/mL (See Note)
== END ==
PROVIDERS: PCP Family Medicine; Visit Provider Nurse Practitioner Family
DX: R91.1 Solitary pulmonary nodule (principal); Z98.890 Other specified postprocedural states; K66.8 Other specified disorders of peritoneum
CPT/HCPCS: 74177; 80053; 71260; 82378; 85025

== ENCOUNTER 2022-12-11 13:58 | Emergency (ER) | payer MEDICARE, SELFPAY ==
[2022-12-11 13:54] VITALS: BP 151/102; PULSE 83; RESP 20; TEMP 37.1; O2SAT 97
[2022-12-11 13:59] VITALS: BP 151/102; PULSE 84
--- NOTE | 2022-12-11 14:00 | DI.RAD_ITS ---
Exam(s) XR HIP PELVIS ADULT BL EXAM: XR HIP PELVIS ADULT BL CLINICAL HISTORY: fall, hip pain, unreliable. TECHNIQUE: 2D digital imaging was performed. Three views. COMPARISON: No exams were available for comparison FINDINGS: BONES: No acute fracture is present. No bony destructive lesion is seen. JOINTS: No dislocation present. Hip joint spaces are maintained. There is bilateral acetabular spu rring. There are degenerative changes at the SI joints and pubic symphysis are not widened. SOFT TISSUE: Vascular calcifications. IMPRESSION: No acute abnormality. DATA REPOSITORY: RADIATION DOSE DELIVERED:
--- NOTE | 2022-12-11 14:00 | RT.EKG_ITS ---
APPROVED REPORT Exam: Resting ECG Reason for Exam: fall, unknown downtime, history atrial fib Patient Location: E HR:77 bpm ECG Measurements Heart Rate 77 AXIS PA 183 P 32 QRSd 169 QRS -48 QT 449 T 136 QTc 506 Conclusion Sinus rhythm...normal P axis, V-rate 60- 99 Atrial premature complex...SV complex w/ short R-R interval Left bundle branch block...QRSd>120, broad/notched R ST elevation secondary to IVCD...Multiple VCG criteria
[2022-12-11 14:01] VITALS: BP 132/79; PULSE 53
[2022-12-11] MEDS: Normal Saline 1,000 ML 1000 ML IV (14:23)
[2022-12-11 14:24] LABS: Abs Immature Grans 0.03 10^3/uL (0.0-0.06); Absolute Basophil Count 0.02 10^3/uL (0.0-0.2); Absolute Eosinophil Count 0.02 10^3/uL (0.0-0.7); Absolute Monocyte Count 0.41 10^3/uL (0.1-0.8); Absolute Neutrophil Count 6.48 10^3/uL (1.2-6.7); Basophils % 0.3; Eosinophils % 0.3; HCT 33.1 % (36.0-46.0); HGB 11.1 g/dL (11.2-15.7); Immature Grans % 0.4; Lymphocytes % 6.7; MCH 29.7 pg (27.0-33.0); MCHC 33.5 % (32.0-36.0); MCV 89 fL (80-95); MPV 9.8 fL (8.0-11.0); Monocytes % 5.5; Neutrophils % 86.8; Platelet Count 187 10^3/uL (130-400); RBC 3.74 10^6/uL (3.93-5.22); RDW 13.3 % (11.7-14.6); RDW-SD 42.9 fL; WBC 7.46 10^3/uL (4.4-10.8)
[2022-12-11 14:32] LABS: Ammonia < 10 umol/L (11-32)
--- NOTE | 2022-12-11 14:39 | DI.CT_ITS ---
Exam(s) CT HEAD WO EXAM: CT HEAD WO CLINICAL HISTORY: unknown down time, fall. TECHNIQUE: Imaging Protocol: Axial computed tomography images with coronal and sagittal reformatted images were created and reviewed COMPARISON: CT CT HEAD WO from 01/03/2022 FINDINGS: Exam limited by patient motion, particularly lower images. Ventricles and Extra axial spaces: Unchanged from prior. Hemorrhage: No hemorrhage is visible. Subtle hemorrhage could be obscured by artifact. Cerebral parenchyma: No evidence of acute infarct or mass. Midline shift: None. Brainstem/Cerebellum: Normal. Calvarium: Normal. Visualized Paranasal sinuses/Mastoids: Clear. Soft Tissues: Unremarkable. IMPRESSION: Limited exam due to motion. No acute intracranial process. RADIATION DOSE DELIVERED: Total DLP DATA REPOSITORY: All CT scans at this facility are submitted to the National Radiology Data Registry (NRDR) Dose Index Registry (DIR) with the [employer] ([employer]). RADIATION OPTIMIZATION: All CT scans at this facility use at least one of these dose optimization te chniques: automated exposure control; mA and/or kV adjustment per patient size (includes targeted exa ms where dose is matched to clinical indication); or iterative reconstruction.
[2022-12-11 14:44] LABS: ALT 17 U/L (14-59); AST 24 U/L (15-37); Albumin 3.5 g/dL (3.4-5.0); Alkaline Phosphatase 86 U/L (46-116); Anion Gap 8.7 mmol/L (3-11); BUN 9 mg/dL (7-18); CO2 26.3 mmol/L (21.0-32.0); CREATININE 0.8 mg/dL (0.55-1.02); Calcium 8.9 mg/dL (8.5-10.1); Chloride 102 mmol/L (98-107); Creatine Kinase 265 U/L (26-192); Estimated GFR 73.52 (mL/min/1.73m2); Glucose 138 mg/dL (74-106); Magnesium 1.9 mg/dL (1.8-2.4); Potassium 3.1 mmol/L (3.5-5.1); Sodium 137 mmol/L (136-145); Total Protein 6.9 g/dL (6.4-8.2)
[2022-12-11] MEDS: Lactated Ringers 500 ML 1000 ML IV (15:36)
--- NOTE | 2022-12-11 15:37 | ED.GENADUL_ITS ---
Discharge Plan Disposition Patient Disposition: Home Condition: Stable Discharge Details Clinical Impression: Confusion, Fall Primary Care Provider: Tania Foy ED Provider: Timoteo García Home Meds and New Rx's Prescriptions: Continued methotrexate sodium 2.5 mg tablet 10 mg PO QWEEK aspirin 81 mg tablet,chewable 81 mg PO DAILY calcium carbonate-vitamin D3 1 EACH tablet 1 ea PO DAILY folic acid 1 MG tablet 1 mg PO DAILY Qty: 90 cholecalciferol (vitamin D3) 1,000 UNIT tablet 1,000 unit PO DAILY losartan 25 mg tablet 50 mg PO DAILY Qty: 90 3RF metoprolol succinate 25 mg tablet extended release 24 hr 12.5 mg PO DAILY Qty: 45 4RF ICaps AREDS2 (copper citrate) 250 mg-200 unit -12.5 mg-1 mg tablet 2 tab PO DAILY furosemide 20 mg tablet 20 mg PO DAILY Qty: 90 4RF potassium chloride 10 mEq tablet extended release 10 meq PO DAILY Qty: 90 4RF Hold Instructions: Changed by Provider Orencia (with maltose) 250 mg recon soln See Rx Instructions IV Q4W Rx Instructions: 750mg intravenously every 4 weeks; Discharge Instructions Instructions: Fall Prevention for Older Adults (ED), Mild Cognitive Impairment: New Diagnosis (DC) Additional Instructions: You were seen in the emergency department for your fall at home, you have been having increasing confusion lately and I think you need to be evaluated by your primary care provider Dr. Foy. They are going to make a house call for you. We have also arranged a walker for you as well as home health including nursing, physical therapy, Occupational Therapy. We have sent referrals for this service and it should get done on an urgent basis. Your medical work-up was unremarkable with no signs of significant infection, no trauma to your head or hips. You need to refrain from driving at all this is likely going to be a permanent limitation. Please return for any worsening falls, any significant trauma, severe confusion with fever or signs of illness. Referrals: Care Management [Provider Group] Tania Foy MD, [place] [Primary Care Provider] - Discharge Data Discharge Date/Time-TO BE ENTERED AT DEPARTURE: 12/11/22 17:45 Medical Decision Making <TRU Urbano - Last Filed: 12/11/22 18:01> Assessment: 82-year-old female presents by EMS for a fall of unknown duration downtime. She states it was 2 days ago but she appears very well for this time spent down, has no signs of major trauma on physical exam, she is globally confused and per independent historian her friend Jessica she has been having memory issues and confusion consistently. She lives independently and does not use a walker normally at home, she states that somebody came over and cleans her floors and they were very slippery and she slipped. She is alert to person and month but not specific day or year and has trouble differentiating which hospital she is in. She knows she is from [place]. Pertinent physical exam findings include mild bilateral hip tenderness without crepitus, she is ambulating with walker and PT was consulted in department. Her lungs are clear to auscultation, she has a benign cardiac exam, she is overall nontoxic with a soft nontender abdomen with no ecchymosis globally, her neuro exam has no focalities and her NIH is 0. Pertinent diagnostics of a CBC showing no leukocytosis, mild hypokalemia that we will replete with normal dietary intake, her CK is not elevated 0 point of suspicion for rhabdomyolysis and her urine shows no UTI. CT of the head is negative for any intracranial bleeding or mass effect, x-ray of the hip shows no acute fracture. Speaking with the patient to develop disposition plan it became apparent she missed a primary care appointment today, myself and Dr. Wadsworth consulted with her primary care provider Dr. Foy, we completed home health recommendations for PT as well as OT for safety in the home, nursing to make sure she is receiving correct medications with her global confusion likely early onset dementia. She states that she has been on a wait list for placement for assisted living or SNF for years. She does drive in the community quite frequently and we advised her that she needed to cease driving immediately as it is a danger to herself and others. The patient and patient's friend and verbalized understanding of this plan and return to ED criteria, they have aided in obtaining a life alert for her should she have further falls, she was provide d fall risk education materials. Medical Records Medical records reviewed: Yes I reviewed the patient's medical records. Imaging Data Radiologic Study: My impression: CT Head wo to rule out mets, trauma - ICH, XR Hips for mild bilat hip tenderness Radiologist's impression: EXAM: CT HEAD WO CLINICAL HISTORY: unknown down time, fall. TECHNIQUE: Imaging Protocol: Axial computed tomography images with coronal and sagittal reformatted images were created and reviewed COMPARISON: CT CT HEAD WO from 01/03/2022 FINDINGS: Exam limited by patient motion, particularly lower images. Ventricles and Extra axial spaces: Unchanged from prior. Hemorrhage: No hemorrhage is visible. Subtle hemorrhage could be obscured by artifact. Cerebral parenchyma: No evidence of acute infarct or mass. Midline shift: None. Brainstem/Cerebellum: Normal. Calvarium: Normal. Visualized Paranasal sinuses/Mastoids: Clear. Soft Tissues: Unremarkable. IMPRESSION: Limited exam due to motion. No acute intracranial process. RADIATION DOSE DELIVERED: Total DLP DATA REPOSITORY: All CT scans at this facility are submitted to the National Radiology Data Registry (NRDR) Dose Index Registry (DIR) with the [employer] (ACR). RADIATION OPTIMIZATION: All CT scans at this facility use at least one of these dose optimization techniques: automated exposure control; mA and/or kV adjustment per patient size (includes targeted exams where dose is matched to clinical indication); or iterative reconstruction. [id number]: Total DLP = 0.00 mGy-cm Ordered By: Timoteo García CC: Dictated By: Elli De La Vega M.D. 12/11/221442 <Electronically signed by Elli De La Vega M.D. in [place]> 12/11/221442 Transcribed By: Elli De La Vega 12/11/221442 EXAM: XR HIP PELVIS ADULT BL CLINICAL HISTORY: fall, hip pain, unreliable. TECHNIQUE: 2D digital imaging was performed. Three views. COMPARISON: No exams were available for comparison FINDINGS: BONES: No acute fracture is present. No bony destructive lesion is seen. JOINTS: No dislocation present. Hip joint spaces are maintained. There is bilateral acetabular spurring. There are degenerative changes at the SI joints and pubic symphysis are not widened. SOFT TISSUE: Vascular calcifications. IMPRESSION: No acute abnormality. DATA REPOSITORY: RADIATION DOSE DELIVERED: Ordered By: Timoteo García CC: Dictated By: Elli De La Vega M.D. 12/11/221456 <Electronically signed by Elli De La Vega M.D. in [place]> 12/11/221456 Transcribed By: Elli De La Vega 12/11/221456 Lab Data Labs: Laboratory Tests Range/Units 12/11/22 12/11/22 12/11/22 14:05 14:05 16:30 WBC (4.4-10.8) 10^3/uL 7.46 RBC (3.93-5.22) 10^6/uL 3.74 L Hgb (11.2-15.7) g/dL 11.1 L Hct (36.0-46.0) % 33.1 L MCV (80-95) fL 89 MCH (27.0-33.0) pg 29.7 MCHC (32.0-36.0) % 33.5 RDW (11.7-14.6) % 13.3 Plt Count (130-400) 10^3/uL 187 MPV (8.0-11.0) fL 9.8 Immature Gran % 0.4 Neutrophils % 86.8 Lymphocytes % 6.7 Monocytes % 5.5 Eosinophils % 0.3 Basophils % 0.3 Nucleated RBC % (0.0-0.3) % 0.0 Absolute Neutrophils (1.2-6.7) 10^3/uL 6.48 Absolute Lymphocytes (1.2-3.4) 10^3/uL 0.50 L Absolute Monocytes (0.1-0.8) 10^3/uL 0.41 Absolute Eosinophils (0.0-0.7) 10^3/uL 0.02 Absolute Basophils (0.0-0.2) 10^3/uL 0.02 Sodium (136-145) mmol/L 137 Potassium (3.5-5.1) mmol/L 3.1 L Chloride (98-107) mmol/L 102 Carbon Dioxide (21.0-32.0) mmol/L 26.3 Anion Gap (3-11) mmol/L 8.7 BUN (7-18) mg/dL 9 Creatinine (0.55-1.02) mg/dL 0.8 Est GFR (CKD-EPI 2020) (mL/min/1.73m2) 73.52 Glucose (74-106) mg/dL 138 H Calcium (8.5-10.1) mg/dL 8.9 Magnesium (1.8-2.4) mg/dL 1.9 Total Bilirubin (0.2-1.0) mg/dL 1.0 AST (15-37) U/L 24 ALT (14-59) U/L 17 Alkaline Phosphatase (46-116) U/L 86 Ammonia (11-32) umol/L < 10 L Creatine Kinase (26-192) U/L 265 H Cancelled Total Protein (6.4-8.2) g/dL 6.9 Albumin (3.4-5.0) g/dL 3.5 Urine Color (Yellow) Yellow Urine Clarity (Clear) Clear Urine pH (5-8) 7.0 Ur Specific [place] (1.005-1.025) 1.020 Urine Protein (Negative) mg/dL 30 H Urine Ketones (Negative) mg/dL 15 H Urine Blood (Negative) Negative Urine Nitrite (Negative) Negative Urine Bilirubin (Negative) Negative Urine Urobilinogen (Up to 0.2) mg/dL 1.0 H Ur Leukocyte Esterase (Negative) Negative Urine RBC (0-2) HPF 0-2 Urine WBC (0-5) HPF 0-2 Ur Epithelial Cells (Negative) HPF Rare Urine Crystals (Negative) HPF Rare Amorphous Urine Bacteria (Negative) HPF Rare Urine Casts (Negative) LPF Negative Urine Mucus (Negative) Trace Ur Culture Indicated? No Urine Glucose (Negative) mg/dL Negative <Yair Wadsworth MD - Last Filed: 12/14/22 15:55> Date: 12/11/22 Time: 15:53 Note: Patient seen, examined, and discussed with TRU García. I agree with treatment plan as discussed/documented. HPI <TRU Urbano - Last Filed: 12/11/22 18:01> General Date/Time Provider Initiated Documentation: 12/11/22 14:16 . HPI Narrative: 82-year-old female is brought in by EMS/[facility]-she has reportedly suffered a fall on Thursday after someone visited her home and wash the floors which were slippery and could not get up for 2 days. She states that she may have sold her self and that she may be a little dehydrated but is reporting no pain. She is globally confused and alert to person, not entirely place, knows the month but not day, does not know who the president is. Denies sensory deficits or motor deficits, denies dizziness, is not speaking with garbled speech, denies recent fever or cough or shortness of breath. Patient does endorse some mild bilateral hip tenderness. She lives alone but has a quality audit representative through the [place] on aging, she has a neighbor Jessica who presented to the ED states that she had not eaten her Meals on Wheels delivery for 2 days and not taken her medications for 2 days. That likely she has been down in her home for the entire 2 days. She states that she has been having global confusion and memory problems for quite some time now. Related Data Home Medications Medication Instructions Recorded Confirmed calcium carbonate 600 mg-vitamin 1 ea PO DAILY 10/30/12 12/11/22 D3 5 mcg (200 unit) tablet cholecalciferol (vitamin D3) 25 1,000 unit PO DAILY 10/30/12 12/11/22 mcg (1,000 unit) tablet folic acid 1 mg tablet 1 mg PO DAILY #90 tab-caps 10/30/12 12/11/22 methotrexate sodium 2.5 mg tablet 10 mg PO QWEEK 08/07/20 12/11/22 aspirin 81 mg chewable tablet 81 mg PO DAILY 07/29/21 12/11/22 losartan 25 mg tablet 50 mg (2 x 25 mg) PO DAILY #90 tabs 11/13/21 12/11/22 metoprolol succinate 25 mg 12.5 mg (1/2 x 25 mg) PO DAILY #45 01/29/22 12/11/22 tablet,extended release 24 hr tabs vit C 250 mg-vit E 200 unit-zinc 2 tab PO DAILY 02/28/22 12/11/22 12.5 mg-copper 1 [id number] tablet (ICaps AREDS2 (copper citrate)) furosemide 20 mg tablet 20 mg PO DAILY #90 tabs 09/08/22 12/11/22 potassium chloride 10 mEq 10 meq PO DAILY #90 tabs 11/06/22 12/11/22 tablet,extended release abatacept (with maltose) 250 mg See Rx Instructions IV Q4W 12/11/22 12/11/22 intravenous solution (Orencia (with maltose)) Previous Rx's Medication Instructions Recorded losartan 25 mg tablet 50 mg (2 x 25 mg) PO DAILY #90 tabs 11/13/21 metoprolol succinate 25 mg 12.5 mg (1/2 x 25 mg) PO DAILY #45 01/29/22 tablet,extended release 24 hr tabs furosemide 20 mg tablet 20 mg PO DAILY #90 tabs 09/08/22 potassium chloride 10 mEq 10 meq PO DAILY #90 tabs 11/06/22 tablet,extended release Allergies Allergy/AdvReac Type Severity Reaction Status Date / Time hydrocodone AdvReac Intermediate Nausea, Verified 12/11/22 14:46 vomitiing General Stated Complaint: Trauma ESTEPHANIA: 2 Review of Systems <TRU Urbano - Last Filed: 12/11/22 18:01> All systems reviewed & are unremarkable except as noted in HPI and below PFSH <TRU Urbano - Last Filed: 12/11/22 18:01> All Active Problems (Updated 12/11/22 @ 16:38 by Yair Wadsworth MD) Fall (Acute) Confusion (Acute) Corns and callosities (Acute) Other specified peripheral vascular diseases (Acute) Mycotic toenails (Acute) Other rheumatoid arthritis with rheumatoid factor of right ankle and foot (Acute) Other rheumatoid arthritis with rheumatoid factor of left ankle and foot (Acute) Metastasis from colon cancer (Acute) Metastasis from colon cancer (Acute) Hx of colon cancer, stage IV (Acute) mets to liver Tx sx and chemo Systolic murmur (Acute) systolic (2002 echo [facility] normal) Rotator cuff syndrome (Acute) Rheumatoid arthritis (Acute 11/28/11) sees Dr Cameron (dx 12/23) Primary malignant neoplasm of colon (Acute 01/16/08) with metastases to the liver; surgery and chemo (sigmoid colectomy and partial hepatectomy) Paralytic strabismus (Acute) Increased body mass index (BMI) (Acute 03/24/17) History of surgery of liver (Acute) Hammer toes of both feet (Acute 03/24/17) Depressive disorder (Acute 11/28/11) 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) Cholelithiasis without obstruction (Acute) Undiagnosed cardiac murmurs (Acute) systolic (2002 echo [facility] normal) Long-term use of immunosuppressant medication (Acute) Wheezing (Acute) Impacted cerumen, bilateral (Acute) Pneumonia (Acute) Aortic stenosis, moderate (Acute) 1.2-1.3 cm on 04/09/20 Symptomatic severe aortic stenosis with low ejection fraction (Acute) 32% : 1.2 cm Pleural effusion (Acute) Breath, shortness (Acute) Acute exacerbation of CHF (congestive heart failure) (Acute) DVT prophylaxis (Acute) Discharge planning issues (Acute) Chronic systolic heart failure (Acute) Cardiomyopathy (Acute) Left bundle branch block (Acute) S/P TAVR (transcatheter aortic valve replacement) (Acute) [place] [facility] [place], [place] (Acute) Metastatic colon cancer in female (Acute) [place] [facility] [place] Tooth pain (Acute) CHF (congestive heart failure) (Chronic) Vascular abnormality of brain (Acute) Medical History (Updated 12/11/22 @ 16:38 by Yair Wadsworth MD) Depression History of DVT (deep vein thrombosis) CAD (coronary artery disease) Aortic stenosis s/p TAVR Surgical History (Updated 03/12/22 @ 08:28 by Jed Christianson) History of partial colectomy Hx of cholecystectomy History of colonoscopy [place] [facility] [place] 10cm x 10 cm section of the sigmoid colon Extraction of cataract 03/08/15;RIGHT EYE; DR. TODD 03/01/15;LEFT; DR. TODD Family History Mother Alzheimer disease Father Heart disease Sister No problems noted. Sister No problems noted. Grandfather Stroke Grandmother No problems noted. Social History Smoking/Tobacco Use Status: Never Smoking risk assessment performed?: Yes Alcohol Intake: current Alcohol Intake frequency: holidays/special occasions only Alcohol type: wine Drug use: Never Substance use type: does not use Current gender identity: female What type of physical activity do you participate in: none Do you feel safe at home: Yes Do you feel safe in your relationship?: Yes Additional Social history: Lives alone with her cats in [place]. No local family. Exam <TRU Urbano - Last Filed: 12/11/22 18:01> Const General: cooperative, healthy appearing and comfortable [facility] Head: normal to inspection, normocephalic, atraumatic, no acral cyanosis, no Nye's sign, no contusions, no hematomas, no raccoon eyes and No periorbital ecchymosis General nose exam: external nose normal, no nasal discharge and no epistaxis Eyes General: appearance normal, both eyes and all related structures Visual Tran: normal visual tran by confrontation Pupils: PERRL EOM: EOM intact bilaterally Neck Neck: normal visual inspection, full ROM and no midline deformity Chest Chest: normal inspection of the chest, normal palpation of entire chest wall, no crepitus, no localized rib tenderness and no tenderness Resp Effort & Inspection: normal respiratory effort, able to speak in complete sentences and abnormal respiratory pattern Auscultation: clear to auscultation bilaterally, no crackles and lung sounds not diminished Cardio Jugular venous pressure: no JVD Rate: regular rate Heart Sounds: murmur Bruits: no carotid bruits Pulses: radial pulses present GI Palpation: soft, no guarding, no pulsatile masses and nontender Back/Spine/Pelvis Cervical Spine: No cervical spinal tenderness Thoracic/Lumbar Spine: thoraco-lumbar ROM normal, straight leg raise negative bilaterally, No thoracic spinal tenderness and No lumbar spinal tenderness Skin General skin exam: no rashes or lesions noted, no ecchymosis, no erythema, no mottling, no petechiae and no purpura Neuro General: patient alert, patient awake, not oriented x3, moves all extremities, normal light touch, pain and propioception, no focal motor deficits, CN's II-XI intact bilaterally and patient confused Cranial Nerves: PERRL, EOM intact bilaterally, no nystagmus, facial strength normal, able to rotate head bilaterally and able to elevate shoulders bilaterally Cognition: abnormal cognition Speech: speech normal and other Gait: antalgic and gait assisted Motor: muscle tone normal throughout, strength 5/5 throughout, no pronator drift, no movement abnormalities noted and no fasciculations Sensory Exam: no sensory deficits noted Coordination: [id number] test normal and Does not sway with eyes open Other: Incorrect responses but appropriate to various topics, likely general global confusion/cognitive decline Course <TRU Urbano - Last Filed: 12/11/22 18:01> Vital Signs Vital signs: Vital Signs Temperature 37.1 C 12/11/22 13:54 Pulse 83 12/11/22 13:54 Respiratory Rate 20 12/11/22 13:54 Blood Pressure 151/102 H 12/11/22 13:54 Pulse Oximetry 97 12/11/22 13:54 Temperature 37.1 C 12/11/22 13:54 Pulse 83 12/11/22 13:54 Respiratory Rate 20 12/11/22 13:54 Blood Pressure 151/102 H 12/11/22 13:54 Pulse Oximetry 97 12/11/22 13:54 Oxygen Delivery Method Room Air 12/11/22 13:54 Oxygen Flow Rate 0 12/11/22 13:54 Lab/Test Results Lab/Test Results: Laboratory Tests Range/Units 12/11/22 12/11/22 14:05 14:05 WBC (4.4-10.8) 10^3/uL 7.46 RBC (3.93-5.22) 10^6/uL 3.74 L Hgb (11.2-15.7) g/dL 11.1 L Hct (36.0-46.0) % 33.1 L MCV (80-95) fL 89 MCH (27.0-33.0) pg 29.7 MCHC (32.0-36.0) % 33.5 RDW (11.7-14.6) % 13.3 Plt Count (130-400) 10^3/uL 187 MPV (8.0-11.0) fL 9.8 Immature Gran % 0.4 Neutrophils % 86.8 Lymphocytes % 6.7 Monocytes % 5.5 Eosinophils % 0.3 Basophils % 0.3 Nucleated RBC % (0.0-0.3) % 0.0 Absolute Neutrophils (1.2-6.7) 10^3/uL 6.48 Absolute Lymphocytes (1.2-3.4) 10^3/uL 0.50 L Absolute Monocytes (0.1-0.8) 10^3/uL 0.41 Absolute Eosinophils (0.0-0.7) 10^3/uL 0.02 Absolute Basophils (0.0-0.2) 10^3/uL 0.02 Sodium (136-145) mmol/L 137 Potassium (3.5-5.1) mmol/L 3.1 L Chloride (98-107) mmol/L 102 Carbon Dioxide (21.0-32.0) mmol/L 26.3 Anion Gap (3-11) mmol/L 8.7 BUN (7-18) mg/dL 9 Creatinine (0.55-1.02) mg/dL 0.8 Est GFR (CKD-EPI 2020) (mL/min/1.73m2) 73.52 Glucose (74-106) mg/dL 138 H Calcium (8.5-10.1) mg/dL 8.9 Magnesium (1.8-2.4) mg/dL 1.9 Total Bilirubin (0.2-1.0) mg/dL 1.0 AST (15-37) U/L 24 ALT (14-59) U/L 17 Alkaline Phosphatase (46-116) U/L 86 Ammonia (11-32) umol/L < 10 L Creatine Kinase (26-192) U/L 265 H Cancelled Total Protein (6.4-8.2) g/dL 6.9 Albumin (3.4-5.0) g/dL 3.5
[2022-12-11 15:55] VITALS: BP 143/52; PULSE 74
--- NOTE | 2022-12-11 15:55 | IN_ITS ---
PT Notes Visit Reasons: [facility] Emergency Department Initial Evaluation Date: 12/11/2022 Referring Doctor: TRU Shelley PT Orders: PT CONSULT: Safety Consult for D/C Precautions: Fall. Standard. Activity as tolerated. Patient Profile/Admitting Diagnosis: Patient is an 82-year-old female who presented to the ED due to a fall this week and reportedly satyed on the floor for 2 days. referral for Pt was made to assess for safety of ambulation performance using front-wheeled walker in anticipation of discharge to home alone per PLOF. PMHX: All Active Problems (Updated 07/26/22 @ 18:44 by Vivian Madrigal DPM) Corns and callosities (Acute) Other specified peripheral vascular diseases (Acute) Mycotic toenails (Acute) Other rheumatoid arthritis with rheumatoid factor of right ankle and foot (Acute) Other rheumatoid arthritis with rheumatoid factor of left ankle and foot (Acute) Metastasis from colon cancer (Acute) Metastasis from colon cancer (Acute) Hx of colon cancer, stage IV (Acute) mets to liver Tx sx and chemoSystolic murmur (Acute) systolic (2002 echo [facility] normal) Rotator cuff syndrome (Acute) Rheumatoid arthritis (Acute 11/28/11) sees Dr Cameron (dx 12/23) Primary malignant neoplasm of colon (Acute 01/16/08) with metastases to the liver; surgery and chemo (sigmoid colectomy and partial hepatectomy) Paralytic strabismus (Acute) Increased body mass index (BMI) (Acute 03/24/17) History of surgery of liver (Acute) Hammer toes of both feet (Acute 03/24/17) Depressive disorder (Acute 11/28/11) 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) Cholelithiasis without obstruction (Acute) Undiagnosed cardiac murmurs (Acute) systolic (2002 echo [facility] normal) Long-term use of immunosuppressant medication (Acute) Wheezing (Acute) Impacted cerumen, bilateral (Acute) Pneumonia (Acute) Aortic stenosis, moderate (Acute) 1.2-1.3 cm on 04/09/20Symptomatic severe aortic stenosis with low ejection fraction (Acute) 32% : 1.2 cmPleural effusion (Acute) Breath, shortness (Acute) Acute exacerbation of CHF (congestive heart failure) (Acute) DVT prophylaxis (Acute) Discharge planning issues (Acute) Chronic systolic heart failure (Acute) Cardiomyopathy (Acute) Left bundle branch block (Acute) S/P TAVR (transcatheter aortic valve replacement) (Acute) [place] [facility] [place] [place]) Metastatic colon cancer in female (Acute) bx [facility] [place]/22Tooth pain (Acute) CHF (congestive heart failure) (Chronic) Vascular abnormality of brain (Acute) Medical History (Updated 07/26/22 @ 18:44 by Vivian Madrigal DPM) Depression History of DVT (deep vein thrombosis) CAD (coronary artery disease) Aortic stenosis s/p TAVR Surgical History (Updated 03/12/22 @ 08:28 by Jed Christianson) History of partial colectomy Hx of cholecystectomy History of colonoscopy Sigmoidoscopy [facility] [place]; 10cm x 10 cm section of the sigmoid colon Extraction of cataract 03/08/15;RIGHT EYE; DR. TODD 03/01/15;LEFT; DR. TODD Social History/Home Situation: Lives alone in a priavte home with 5-6 steps to enter with a rail on one side. Had been managing at home without AD but has had some decline that resulted to this fall. Friends Miguelito and Mp stated that they have been providing assistance and miguelito has recently been made her POA. Patient is on the waitlist to go to an [facility] as she has been becoming unable to mange alone at home which has exacerbated for this admission due to probable dehydration and UTI. Equipment Owned/DME: None Subjective: Leanne reports some chronic pain in B feet due to arthritic process going on. Agreeable to seeing golf ball cover treater eventually so she could get orthopedic shoes that will allow for better and safer navigation indoors and outdoors. Denies headache, chest pain, and lightheadedness throughout up health system. Objective: General Observation: Supine in stretcher. Friends Miguelito (POA) and miguelito's Mp were present in room. IV through L UE. Mental Status: Alert and oriented as to person. Mildy doubtful about the year but she did say it is 2022. Unsure if it was March this month. Aware that she is [facility] in the hospital. Able to say her birthday without hesitation. Pain: Mild pain in soles and toes of B feet Vital Signs: Closely monitored by Nurse Haas ROM: Right Upper Extremity: Shoulder Flexion WFL. Shoulder abduction WFL. Elbow flexion WFL. Wrist flexion WFL. Functional opening and closing of hand WFL. Left Upper Extremity: Shoulder Flexion WFL. Shoulder abduction WFL. Elbow flexion WFL. Wrist flexion WFL. Functional opening and closing of hand WFL. Right Lower Extremity: Hip flexion WFL. Hip abduction WFL. Knee flexion WFL. Ankle dorsiflexion to neutral only. Ankle plantarflexion WFL. Left Lower Extremity: Hip flexion WFL. Hip abduction WFL. Knee flexion WFL. Ankle dorsiflexion to neutral only. Ankle plantarflexion WFL. Strength: Right Upper Extremity: Shoulder flexors 4/5. Shoulder abductors 4/5. Elbow flexors 4/5. Elbow extensors 4/5. Composition Siding Worker strong. Left Upper Extremity: Shoulder flexors 4/5. Shoulder abductors 4/5. Elbow flexors 4/5. Elbow extensors 4/5. Composition Siding Worker strong. Right Lower Extremity: Hip flexors 4-/5. Hip abductors 4-/5. Knee flexors 4-/5. Knee extensors 4-/5. Ankle dorsiflexors 3-/5. Ankle plantarflexors 4-/5. Left Lower Extremity: Hip flexors 4-/5. Hip abductors 4-/5. Knee flexors 4-/5. Knee extensors 4-/5. Ankle dorsiflexors 3-/5. Ankle plantarflexors 4-/5. Bed Mobility/Transfers: Supine to sit with stand by assist with cues provided for use of B hands for support Sit to stand with stand by assist with cues provided for use of B hands for support Stand to sit with stand by assist with cues provided for use of B hands for support Bed to toilet seat stand by assist with cues provided for use of B hands for support Gait: Facilitated safe and correct performance of level surface ambulation using FWW with step through gait pattern with report of mild chronic pain in her soles and toes, covered a distance of 75 feet with stand by assist. Balance: Static Sitting: Normal Dynamic Sitting: Normal Static Standing: Fair Dynamic Standing: Fair Special Tests: Mobility Limitations Standardized Measure [facility] 6 clicks Basic Mobility Inpatient Short Form: Raw Score: 23 CMS Score: 11% deficit Informed Consent/Education: Patient was instructed in purpose of PT consult. Agreeable to going home with FWW. Amenable to PT working with her for functional mobility training, strengthening, balance, and for home safety check. Assessment: Patient presents with clinical signs and symptoms consistent with current/admitting diagnoses that have resulted to mobility limitations, gait instability, generalized weakness, and overall ADL decline as demonstrated by the following impairment level findings: 1. Decreased strength to B UE/LE major muscle groups 2. Impaired sitting/standing balance 3. Impaired activity tolerance Impairments are contributing to the following functional limitations: 1. Difficulty with ambulation without assistive device 2. Increased completion time for mobility ADL performance 3. Increased risk for falls 4. Difficulty with managing steps alone safely Patient is assessed as a 12484 complexity based on the following: History: 82-year-old female with past medical history as indicated above Examination: Demonstrable impairment in strength, balance, and mobility level with underlying impairments and functional limitations as exhibited above as well as deficit score of 11% utilizing the [facility] Mobility Inpatient Short Form Presentation: Stable Decision Makin moderate complexity Goals: N/A. PT evaluation and one treatment session only for functional mobility training. Plan of Care/Treatment Plan: N/A. PT evaluation and one treatment session only for functional mobility training. DISCHARGE RECOMMENDATIONS: [] Home with no services [] [X] Home with services. Patient will benefit from home health PT services in order to progress mobility level using least restrictive assistive ambulatory device, assess home safety, identify additional equipment needs, and establish a functional maintenance program that will increase ability of patient to remain at home. [] Home with outpatient PT [] [] SNF for continued rehabilitation [] [] Director Of Category Management Care [] [] SNF versus LTC based on ability to participate and progress [] [X] Will require front-wheeled walker to reduce fall risk at home TREATMENT CODE/TIME: 49966 x 20 minutes for unit, 43360 x 18 minutes for 1 unit beginning at 3:55 PM. Thank you for the opportunity to participate in the care of this patient. Jackie Villegas PT, DPT, CLT [facility] [place], [place]
[2022-12-11 16:37] LABS: Bilirubin Negative (Negative); Blood Negative (Negative); Clarity Clear (Clear); Glucose Negative (Negative); Ketones 15 mg/dL (Negative); Leukocyte Esterase Negative (Negative); Nitrite Negative (Negative)
[2022-12-11 16:50] LABS: RBC 0-2 HPF (0-2); WBC 0-2 HPF (0-5)
[2022-12-11 16:51] LABS: Bacteria Rare HPF (Negative); C & S Indicated? No; Casts Negative LPF (Negative); Crystals Rare Amorphous HPF (Negative); Epithelial Cells Rare HPF (Negative); Mucus Trace (Negative)
[2022-12-11 17:20] VITALS: BP 130/32; PULSE 66
--- NOTE | 2022-12-14 16:01 | NUR.NOTE ---
Accessed pt chart to determine need for walker for [facility]. First few pages of note sent to [facility] for confimation of walker need. No order placed. Nursing Note:
== END 2022-12-11 17:45 | disposition home or self-care (01) ==
PROVIDERS: Emergency Provider Physician Assistant; PCP Family Medicine
DX: R41.0 Disorientation, unspecified (principal); E87.6 Hypokalemia; I11.0 Hypertensive heart disease with heart failure; I50.22 Chronic systolic (congestive) heart failure; I25.10 Atherosclerotic heart disease of native coronary artery without angina pectoris; Z85.038 Personal history of other malignant neoplasm of large intestine; Z95.2 Presence of prosthetic heart valve; Z86.718 Personal history of other venous thrombosis and embolism; W01.0XXA Fall on same level from slipping, tripping and stumbling without subsequent striking against object, initial encounter; Y93.01 Activity, walking, marching and hiking; Y92.018 Other place in single-family (private) house as the place of occurrence of the external cause
CPT/HCPCS: 73521; 80053; 82550; 93005; 97162; 97530; 99284; 70450; 81003; 81015; 82140; 83735; 85025; 93010

== ENCOUNTER 2023-01-15 01:43 | Outpatient (RCR) | payer MEDICARE, SELFPAY ==
[2023-01-15] MEDS: ABATACEPT 750 MG in Normal Saline 100 ML 200 MG IVPB (11:01)
[2023-01-15] MEDS: Normal Saline Flush 10 ML SYR IVP (11:01)
[2023-01-15 11:20] LABS: Abs Immature Grans 0.01 10^3/uL (0.0-0.06); Absolute Basophil Count 0.03 10^3/uL (0.0-0.2); Absolute Eosinophil Count 0.13 10^3/uL (0.0-0.7); Absolute Neutrophil Count 3.78 10^3/uL (1.2-6.7); Basophils % 0.5; Eosinophils % 2.3; HCT 38.3 % (36.0-46.0); HGB 12.9 g/dL (11.2-15.7); Immature Grans % 0.2; Lymphocytes % 21.6; MCH 30.3 pg (27.0-33.0); MCHC 33.7 % (32.0-36.0); MCV 90 fL (80-95); Monocytes % 7.2; Neutrophils % 68.2; Platelet Count 197 10^3/uL (130-400); RBC 4.26 10^6/uL (3.93-5.22); RDW 16.1 % (11.7-14.6); RDW-SD 52.5 fL; WBC 5.55 10^3/uL (4.4-10.8)
[2023-01-15 11:38] LABS: ALT 29 U/L (14-59); AST 20 U/L (15-37); Albumin 3.9 g/dL (3.4-5.0); Alkaline Phosphatase 83 U/L (46-116); BUN 23 mg/dL (7-18); Bilirubin, Total 0.6 mg/dL (0.2-1.0); C-Reactive Protein < 0.05 mg/dL (0.0-0.3); CREATININE 0.9 mg/dL (0.55-1.02); Calcium 9.8 mg/dL (8.5-10.1); Chloride 106 mmol/L (98-107); Estimated GFR 63.83 (mL/min/1.73m2); Glucose 89 mg/dL (74-106); Potassium 3.5 mmol/L (3.5-5.1); Sodium 142 mmol/L (136-145); Total Protein 7.5 g/dL (6.4-8.2)
== END 2023-01-15 23:59 | disposition home or self-care (01) ==
LOC: INF 01:43
PROVIDERS: Nurse Practitioner Family; PCP Family Medicine; Visit Provider Nurse Practitioner Acute Care
DX: M05.79 Rheumatoid arthritis with rheumatoid factor of multiple sites without organ or systems involvement (principal)
CPT/HCPCS: 36415; 80053; 96365; 85025; 86140; J0129

== ENCOUNTER 2023-02-12 00:42 | Outpatient (RCR) | payer MEDICARE, SELFPAY ==
[2023-02-12] MEDS: ABATACEPT 750 MG in Normal Saline 100 ML 200 MG IVPB (10:56)
[2023-02-12] MEDS: Normal Saline Flush 10 ML SYR IVP (10:57)
== END 2023-02-15 23:59 | disposition home or self-care (01) ==
LOC: INF 00:42
PROVIDERS: PCP Family Medicine; Visit Provider Nurse Practitioner Family
DX: M05.79 Rheumatoid arthritis with rheumatoid factor of multiple sites without organ or systems involvement (principal)
CPT/HCPCS: 96365; J0129

== ENCOUNTER 2023-03-16 03:12 | Outpatient (RCR) | payer MEDICARE, SELFPAY ==
[2023-03-16] MEDS: ABATACEPT 750 MG in Normal Saline 100 ML 200 MG IVPB (10:17)
[2023-03-16] MEDS: Normal Saline Flush 10 ML SYR IVP (10:18)
[2023-03-16 10:28] LABS: Abs Immature Grans 0.01 10^3/uL (0.0-0.06); Absolute Basophil Count 0.02 10^3/uL (0.0-0.2); Absolute Eosinophil Count 0.14 10^3/uL (0.0-0.7); Absolute Lymphocyte Count 1.49 10^3/uL (1.2-3.4); Absolute Monocyte Count 0.35 10^3/uL (0.1-0.8); Basophils % 0.3; Eosinophils % 2.2; HCT 39.7 % (36.0-46.0); HGB 13.3 g/dL (11.2-15.7); Immature Grans % 0.2; Lymphocytes % 22.9; MCH 30.2 pg (27.0-33.0); MCHC 33.5 % (32.0-36.0); MCV 90 fL (80-95); MPV 10.3 fL (8.0-11.0); Monocytes % 5.4; Platelet Count 173 10^3/uL (130-400); RDW 14.9 % (11.7-14.6); RDW-SD 49.1 fL; WBC 6.51 10^3/uL (4.4-10.8)
[2023-03-16 11:11] LABS: ALT 24 U/L (14-59); AST 17 U/L (15-37); Albumin 3.9 g/dL (3.4-5.0); Alkaline Phosphatase 65 U/L (46-116); Anion Gap 9.5 mmol/L (3-11); BUN 26 mg/dL (7-18); C-Reactive Protein 0.09 mg/dL (0.0-0.3); CO2 29.5 mmol/L (21.0-32.0); CREATININE 0.9 mg/dL (0.55-1.02); Calcium 9.4 mg/dL (8.5-10.1); Chloride 105 mmol/L (98-107); Estimated GFR 63.43 (mL/min/1.73m2); Glucose 98 mg/dL (74-106); Potassium 3.2 mmol/L (3.5-5.1); Sodium 144 mmol/L (136-145); Total Protein 6.9 g/dL (6.4-8.2)
[2023-03-16 19:18] LABS: CEA 3.8 ng/mL (See Note)
== END 2023-03-18 23:59 | disposition home or self-care (01) ==
LOC: INF 03:12
PROVIDERS: PCP Family Medicine; Visit Provider Nurse Practitioner Family
DX: M05.79 Rheumatoid arthritis with rheumatoid factor of multiple sites without organ or systems involvement (principal); C18.9 Malignant neoplasm of colon, unspecified; C78.7 Secondary malignant neoplasm of liver and intrahepatic bile duct
CPT/HCPCS: 36415; 80053; 96365; 82378; 85025; 86140; J0129

== ENCOUNTER 2023-04-08 14:12 | Outpatient (CLI) | payer MEDICARE, SELFPAY ==
[2023-04-08 13:14] LABS: Abs Immature Grans 0.01 10^3/uL (0.0-0.06); Absolute Basophil Count 0.04 10^3/uL (0.0-0.2); Absolute Eosinophil Count 0.09 10^3/uL (0.0-0.7); Absolute Lymphocyte Count 0.88 10^3/uL (1.2-3.4); Absolute Monocyte Count 0.25 10^3/uL (0.1-0.8); Absolute Neutrophil Count 3.66 10^3/uL (1.2-6.7); Basophils % 0.8; Eosinophils % 1.8; HCT 37.2 % (36.0-46.0); HGB 12.4 g/dL (11.2-15.7); Immature Grans % 0.2; Lymphocytes % 17.8; MCH 30.5 pg (27.0-33.0); MCHC 33.3 % (32.0-36.0); MCV 91 fL (80-95); MPV 9.4 fL (8.0-11.0); Monocytes % 5.1; Neutrophils % 74.3; Platelet Count 156 10^3/uL (130-400); RBC 4.07 10^6/uL (3.93-5.22); RDW 14.6 % (11.7-14.6); RDW-SD 48.2 fL; WBC 4.93 10^3/uL (4.4-10.8)
[2023-04-08 13:36] LABS: ALT 21 U/L (14-59); AST 21 U/L (15-37); Albumin 3.9 g/dL (3.4-5.0); Alkaline Phosphatase 81 U/L (46-116); Anion Gap 8.4 mmol/L (3-11); BUN 22 mg/dL (7-18); Bilirubin, Total 0.5 mg/dL (0.2-1.0); CO2 30.6 mmol/L (21.0-32.0); Calcium 9.5 mg/dL (8.5-10.1); Chloride 107 mmol/L (98-107); Glucose 133 mg/dL (74-106); Potassium 3.7 mmol/L (3.5-5.1); Sodium 146 mmol/L (136-145)
[2023-04-09 09:25] LABS: CEA 3.9 ng/mL (See Note)
== END 2023-04-08 14:13 | disposition home or self-care (01) ==
LOC: LBO 14:13
PROVIDERS: PCP Family Medicine; Visit Provider Internal Medicine Hematology & Oncology
DX: C18.9 Malignant neoplasm of colon, unspecified (principal); C78.7 Secondary malignant neoplasm of liver and intrahepatic bile duct
CPT/HCPCS: 36415; 80053; 82378; 85025

== ENCOUNTER 2023-04-15 02:34 | Outpatient (RCR) | payer MEDICARE, SELFPAY ==
[2023-04-15] MEDS: Normal Saline Flush 10 ML SYR IVP (11:01)
[2023-04-15] MEDS: ABATACEPT 750 MG in Normal Saline 100 ML 200 MG IVPB (11:01)
== END 2023-04-16 23:59 | disposition home or self-care (01) ==
LOC: INF 02:34
PROVIDERS: PCP Family Medicine; Visit Provider Nurse Practitioner Family
DX: M05.79 Rheumatoid arthritis with rheumatoid factor of multiple sites without organ or systems involvement (principal); C18.9 Malignant neoplasm of colon, unspecified; C78.7 Secondary malignant neoplasm of liver and intrahepatic bile duct
CPT/HCPCS: 96365; J0129

== ENCOUNTER → 2023-04-23 09:46 | Outpatient (BNVA) | payer MEDICARE, SELFPAY | PROVIDERS: PCP Family Medicine; Referring Provider Family Medicine; Visit Provider Podiatrist | DX: B35.1 Tinea unguium (principal); L60.3 Nail dystrophy; M79.674 Pain in right toe(s); M79.675 Pain in left toe(s) | CPT/HCPCS: 11721 ==

== ENCOUNTER 2023-05-20 04:53 | Outpatient (RCR) | payer MEDICARE, SELFPAY ==
[2023-05-20 10:07] LABS: Abs Immature Grans 0.01 10^3/uL (0.0-0.06); Absolute Basophil Count 0.03 10^3/uL (0.0-0.2); Absolute Eosinophil Count 0.15 10^3/uL (0.0-0.7); Absolute Lymphocyte Count 1.05 10^3/uL (1.2-3.4); Absolute Monocyte Count 0.39 10^3/uL (0.1-0.8); Absolute Neutrophil Count 3.52 10^3/uL (1.2-6.7); Basophils % 0.6; Eosinophils % 2.9; HCT 40.8 % (36.0-46.0); HGB 13.5 g/dL (11.2-15.7); Immature Grans % 0.2; Lymphocytes % 20.4; MCH 31.3 pg (27.0-33.0); MCHC 33.1 % (32.0-36.0); MCV 95 fL (80-95); MPV 10.2 fL (8.0-11.0); Monocytes % 7.6; Neutrophils % 68.3; Platelet Count 179 10^3/uL (130-400); RBC 4.31 10^6/uL (3.93-5.22); RDW 13.4 % (11.7-14.6); RDW-SD 45.5 fL; WBC 5.15 10^3/uL (4.4-10.8)
[2023-05-20 10:39] LABS: ALT 24 U/L (14-59); AST 19 U/L (15-37); Albumin 3.8 g/dL (3.4-5.0); Alkaline Phosphatase 76 U/L (46-116); Anion Gap 9.6 mmol/L (3-11); BUN 29 mg/dL (7-18); Bilirubin, Total 0.4 mg/dL (0.2-1.0); CO2 26.4 mmol/L (21.0-32.0); CREATININE 0.8 mg/dL (0.55-1.02); Calcium 8.8 mg/dL (8.5-10.1); Chloride 109 mmol/L (98-107); Estimated GFR 73.06 (mL/min/1.73m2); Glucose 101 mg/dL (74-106); Potassium 3.9 mmol/L (3.5-5.1); Sodium 145 mmol/L (136-145); Total Protein 6.9 g/dL (6.4-8.2)
[2023-05-20] MEDS: Normal Saline Flush 10 ML SYR IVP (10:39)
[2023-05-20] MEDS: ABATACEPT 750 MG in Normal Saline 100 ML 200 MG IVPB (10:39)
[2023-05-20 10:40] LABS: C-Reactive Protein < 0.50 mg/dL (<or=0.5)
== END 2023-06-16 23:59 | disposition home or self-care (01) ==
LOC: INF 04:53
PROVIDERS: PCP Family Medicine; Visit Provider Nurse Practitioner Family
DX: M05.79 Rheumatoid arthritis with rheumatoid factor of multiple sites without organ or systems involvement (principal)
CPT/HCPCS: 36415; 80053; 96365; 85025; 86140; J0129

== ENCOUNTER → 2023-06-25 00:01 | Outpatient (CLI) | payer MEDICARE, SELFPAY ==
[2023-06-25] MEDS: Barium Sulfate 2% W/V-Berry Smoothie 450 ML BTL PO ×2 (11:39→11:40)
[2023-06-25 11:41] LABS: Abs Immature Grans 0.01 10^3/uL (0.0-0.06); Absolute Basophil Count 0.02 10^3/uL (0.0-0.2); Absolute Eosinophil Count 0.12 10^3/uL (0.0-0.7); Absolute Lymphocyte Count 0.99 10^3/uL (1.2-3.4); Absolute Monocyte Count 0.27 10^3/uL (0.1-0.8); Absolute Neutrophil Count 3.79 10^3/uL (1.2-6.7); Basophils % 0.4 %; Eosinophils % 2.3 %; HCT 38.3 % (36.0-46.0); HGB 13.1 g/dL (11.2-15.7); Immature Grans % 0.2 %; MCH 31.6 pg (27.0-33.0); MCHC 34.2 % (32.0-36.0); MCV 92 fL (80-95); MPV 9.9 fL (8.0-11.0); Monocytes % 5.2 %; Neutrophils % 72.9 %; Platelet Count 155 10^3/uL (130-400); RBC 4.15 10^6/uL (3.93-5.22); RDW 13.2 % (11.7-14.6); RDW-SD 43.8 fL
[2023-06-25 11:56] LABS: ALT 19 U/L (14-59); AST 16 U/L (15-37); Alkaline Phosphatase 92 U/L (46-116); Anion Gap 9.5 mmol/L (3-11); BUN 27 mg/dL (7-18); Bilirubin, Total 0.4 mg/dL (0.2-1.0); CO2 27.5 mmol/L (21.0-32.0); CREATININE 0.8 mg/dL (0.55-1.02); Calcium 8.8 mg/dL (8.5-10.1); Chloride 106 mmol/L (98-107); Estimated GFR 73.06 (mL/min/1.73m2); Glucose 92 mg/dL (74-106); Potassium 3.9 mmol/L (3.5-5.1); Sodium 143 mmol/L (136-145)
[2023-06-25] MEDS: Omnipaque 350 MG/ML 500 ML BTL-Imaging package 100 ML IJ (13:40)
[2023-06-25] MEDS: Normal Saline - Diluent 50 ML VIAL IJ (13:46)
--- NOTE | 2023-06-25 14:00 | DI.CT_ITS ---
Exam(s) CT CHEST/ABD/PEL W EXAM: CT CHEST/ABD/PEL W CLINICAL HISTORY: C18.9,C78.7,C18.9 Colon Ca mets to liver, Colon CA to other site TECHNIQUE: Imaging Protocol: Axial computed tomography images with coronal and sagittal reformatted images were created and reviewed CONTRAST MATERIAL: Intravenous: Omnipaque 350 contrast volume:100 mL Oral: Yes COMPARISON: CT CT ABDOMEN PELVIS W from 01/03/[address] CHEST/ABD/PEL W from 09/04/[address] CHEST/ABD/PEL W from 11/17/2022 FINDINGS: CHEST: Tracheobronchial tree: Patent where visualized. Pulmonary parenchyma: There is a stable 4.5 mm nodule in the left lower lobe (series 5, image 397). No new pulmonary nodules are present. No focal consolidating infiltrates are seen. Visualized thyroid gland: There is again seen a right thyroid nodule measuring 7 mm. No follow-up is recommended. Mediastinum and Jocelyn: No dominant adenopathy or fluid collection. The esophagus is unremarkable. Pleura: No effusion or pneumothorax. Heart: Cardiomegaly. Coronary artery calcifications are present. There is an aortic valve replaceme nt. Calcification of the mitral annulus is present. No pericardial effusion. Pulmonary arteries: No pulmonary emboli are identified. Aorta: Thoracic aorta non-dilated. There is no evidence of dissection. Atherosclerotic calcification is present. Lymph nodes: Within normal limits. Soft tissues: Unremarkable. Bones:Within normal limits for the patient's age. ABDOMEN: Liver: There again seen postsurgical changes of a hepatic resection. No hepatic mass is seen. Portal, Superior Mesenteric, and Splenic Veins: Unremarkable. Gallbladder and Biliary Tract: Gallbladder is absent. There is no biliary ductal dilatation. Pancreas: Normal density, no abnormal calcifications or inflammatory process. Spleen: Normal. Adrenals: No masses seen. Kidneys: Normal size, contour and axis. No radiodense stones or obstructive uropathy. No masses seen. Abdominal Aorta: Abdominal portion non-dilated. Atherosclerotic calcification is present. Bowel: No obstruction or bowel wall thickening. No evidence of appendicitis. Peritoneal Cavity: There is again seen a partially calcified mesenteric mass measuring 4.4 x 3.3 cm. No free air. Lymph Nodes: Within normal limits. Bones: Within normal limits for the patient's age. No aggressive osseous lesion is seen in the lumba r spine. There is a right convex lumbar scoliosis. Soft Tissues: There is a fat containing midline paraumbilical hernia. PELVIS: Bladder: Symmetric distention, no gross wall thickening. Reproductive Organs: Unremarkable as visualized. Lymph Nodes: Within normal limits. Bones: Within normal limits. IMPRESSION: 1. Stable findings in the chest, abdomen and pelvis. 2. No acute abnormality is seen in the abdomen or pelvis. RADIATION DOSE DELIVERED: 1,558.41mGy.cm Total DLP DATA REPOSITORY: All CT scans at this facility are submitted to the National Radiology Data Registry (NRDR) Dose Index Registry (DIR) with the [employer] (ACR). RADIATION OPTIMIZATION: All CT scans at this facility use at least one of these dose optimization te chniques: automated exposure control; mA and/or kV adjustment per patient size (includes targeted exa ms where dose is matched to clinical indication); or iterative reconstruction.
[2023-06-25 19:18] LABS: CEA 5.5 ng/mL (See Note)
== END ==
PROVIDERS: PCP Family Medicine; Visit Provider Nurse Practitioner Family
DX: C18.9 Malignant neoplasm of colon, unspecified (principal); C78.7 Secondary malignant neoplasm of liver and intrahepatic bile duct
CPT/HCPCS: 74177; 80053; 71260; 82378; 85025

== ENCOUNTER 2023-07-15 04:51 | Outpatient (RCR) | payer MEDICARE, SELFPAY ==
[2023-06-17] MEDS: ABATACEPT 750 MG in Normal Saline 100 ML 200 MG IVPB (11:05)
[2023-06-17] MEDS: Normal Saline Flush 10 ML SYR IVP (11:10)
[2023-07-15] MEDS: ABATACEPT 750 MG in Normal Saline 100 ML 200 MG IVPB (10:43)
[2023-07-15] MEDS: Normal Saline Flush 10 ML SYR IVP (10:43)
== END 2023-07-17 23:59 | disposition home or self-care (01) ==
LOC: INF 04:51
PROVIDERS: PCP Family Medicine; Visit Provider Nurse Practitioner Family
DX: M05.79 Rheumatoid arthritis with rheumatoid factor of multiple sites without organ or systems involvement (principal)
CPT/HCPCS: 96365; J0129

== ENCOUNTER 2023-08-12 01:21 | Outpatient (RCR) | payer MEDICARE, SELFPAY ==
[2023-08-12 10:29] LABS: Abs Immature Grans 0.02 10^3/uL (0.0-0.06); Absolute Basophil Count 0.02 10^3/uL (0.0-0.2); Absolute Eosinophil Count 0.11 10^3/uL (0.0-0.7); Absolute Lymphocyte Count 1.03 10^3/uL (1.2-3.4); Absolute Monocyte Count 0.32 10^3/uL (0.1-0.8); Absolute Neutrophil Count 4.02 10^3/uL (1.2-6.7); Basophils % 0.4 %; HCT 39.1 % (36.0-46.0); HGB 13.1 g/dL (11.2-15.7); Immature Grans % 0.4 %; Lymphocytes % 18.7 %; MCHC 33.5 % (32.0-36.0); MCV 92 fL (80-95); MPV 10.2 fL (8.0-11.0); Monocytes % 5.8 %; Neutrophils % 72.7 %; Platelet Count 156 10^3/uL (130-400); RBC 4.23 10^6/uL (3.93-5.22); RDW 13.3 % (11.7-14.6); RDW-SD 44.5 fL; WBC 5.52 10^3/uL (4.4-10.8)
[2023-08-12] MEDS: ABATACEPT 750 MG in Normal Saline 100 ML 200 MG IVPB (10:39)
[2023-08-12] MEDS: Normal Saline Flush 10 ML SYR IVP (10:40)
[2023-08-12 10:44] LABS: ALT 23 U/L (14-59); AST 21 U/L (15-37); Alkaline Phosphatase 79 U/L (46-116); Anion Gap 8.5 mmol/L (3-11); BUN 19 mg/dL (7-18); Bilirubin, Total 0.77 mg/dL (0.2-1.0); CO2 28.5 mmol/L (21.0-32.0); CREATININE 0.9 mg/dL (0.55-1.02); Calcium 8.9 mg/dL (8.5-10.1); Chloride 106 mmol/L (98-107); Estimated GFR 63.43 (mL/min/1.73m2); Glucose 102 mg/dL (74-106); Potassium 3.7 mmol/L (3.5-5.1); Sodium 143 mmol/L (136-145)
[2023-08-12 10:45] LABS: C-Reactive Protein < 0.50 mg/dL (<or=0.5)
== END 2023-08-16 23:59 | disposition home or self-care (01) ==
LOC: INF 01:21
PROVIDERS: Nurse Practitioner Acute Care; PCP Family Medicine; Visit Provider Nurse Practitioner Family
DX: M05.79 Rheumatoid arthritis with rheumatoid factor of multiple sites without organ or systems involvement (principal)
CPT/HCPCS: 36415; 80053; 96365; 85025; 86140; J0129

== ENCOUNTER 2023-09-09 02:01 | Outpatient (RCR) | payer MEDICARE, SELFPAY ==
[2023-09-09] MEDS: Normal Saline Flush 10 ML SYR IVP (10:46)
[2023-09-09] MEDS: ABATACEPT 750 MG in Normal Saline 100 ML 200 MG IVPB (10:46)
== END 2023-09-16 23:59 | disposition home or self-care (01) ==
LOC: INF 02:01
PROVIDERS: PCP Family Medicine; Visit Provider Nurse Practitioner Family
DX: M05.79 Rheumatoid arthritis with rheumatoid factor of multiple sites without organ or systems involvement (principal)
CPT/HCPCS: 96365; J0129

== ENCOUNTER 2023-09-14 12:19 | Emergency (ER) | payer MEDICARE, SELFPAY ==
[2023-09-14 12:20] VITALS: BP 115/91; PULSE 102; RESP 17; TEMP 36.4; O2SAT 95
--- NOTE | 2023-09-14 12:46 | W.ED.GENAD ---
Discharge Plan Disposition Patient Disposition: Home Condition: Stable Discharge Details Clinical Impression: Vision loss, right eye Primary Care Provider: Tanai Foy ED Provider: Josué Burton Home Meds and New Rx's Prescriptions: Continued methotrexate sodium 2.5 mg tablet 10 mg PO QWEEK aspirin 81 mg tablet,chewable 81 mg PO DAILY folic acid 1 mg tablet 1 mg PO DAILY Qty: 90 6RF calcium carbonate-vitamin D3 600 mg-5 mcg (200 unit) tablet 1 tab PO BID Qty: 180 5RF furosemide 20 mg tablet 20 mg PO DAILY Qty: 90 4RF losartan 50 mg tablet 50 mg PO DAILY Qty: 90 3RF metoprolol succinate 25 mg tablet extended release 24 hr 12.5 mg PO DAILY Qty: 45 4RF potassium chloride 10 mEq tablet extended release 10 meq PO DAILY Qty: 90 4RF ICaps AREDS2 (copper citrate) 250 mg-200 unit -12.5 mg-1 mg tablet 2 tab PO DAILY Qty: 180 4RF cholecalciferol (vitamin D3) 1,000 UNIT tablet 1,000 unit PO DAILY Orencia (with maltose) 250 mg recon soln See Rx Instructions IV Q4W Rx Instructions: 750mg intravenously every 4 weeks; Discharge Instructions Additional Instructions: You have an appointment at 2 PM [facility] Please go to this appointment and follow their recommendations. HPI General Mode of arrival: ambulatory. Date/Time Provider Initiated Documentation: 09/14/23 12:21. Limitations to Documentation: no limitations. Information obtained by: patient. History of Present Illness 83 year old F presents to the emergency department with the chief complaint of decrease in vision right eye, and is localized to the eyes and right. Patient reports no radiation. Patient started experiencing this day(s) (3) and it has been constant. No relieving factors improve symptom(s), No exacerbating factors reported . Patient notes no other symptoms.. Patient did receive the following treatments prior to arrival, none Related Data Home Medications ?Medication ?Instructions ?Recorded ?Confirmed cholecalciferol (vitamin D3) 25 1,000 unit PO DAILY 10/30/12 04/23/23 mcg (1,000 unit) tablet methotrexate sodium 2.5 mg tablet 10 mg PO QWEEK 08/07/20 04/23/23 aspirin 81 mg chewable tablet 81 mg PO DAILY 07/29/21 04/23/23 abatacept (with maltose) 250 mg See Rx Instructions IV Q4W 12/11/22 04/23/23 intravenous solution (Orencia (with maltose)) calcium carbonate 600 mg-vitamin 1 tab PO BID #180 tabs 01/20/23 04/23/23 D3 5 mcg (200 unit) tablet folic acid 1 mg tablet 1 mg PO DAILY #90 tab-caps 01/20/23 04/23/23 furosemide 20 mg tablet 20 mg PO DAILY #90 tabs 01/20/23 04/23/23 losartan 50 mg tablet 50 mg PO DAILY #90 tabs 01/20/23 04/23/23 metoprolol succinate 25 mg 12.5 mg (1/2 x 25 mg) PO DAILY #45 01/20/23 04/23/23 tablet,extended release 24 hr tabs potassium chloride 10 mEq 10 meq PO DAILY #90 tabs 01/20/23 04/23/23 tablet,extended release vit C 250 mg-vit E 200 unit-zinc 2 tab PO DAILY #180 tabs 01/20/23 04/23/23 12.5 mg-copper 1 [id number] tablet (ICaps AREDS2 (copper citrate)) Previous Rx's ?Medication ?Instructions ?Recorded calcium carbonate 600 mg-vitamin 1 tab PO BID #180 tabs 01/20/23 D3 5 mcg (200 unit) tablet folic acid 1 mg tablet 1 mg PO DAILY #90 tab-caps 01/20/23 furosemide 20 mg tablet 20 mg PO DAILY #90 tabs 01/20/23 losartan 50 mg tablet 50 mg PO DAILY #90 tabs 01/20/23 metoprolol succinate 25 mg 12.5 mg (1/2 x 25 mg) PO DAILY #45 01/20/23 tablet,extended release 24 hr tabs potassium chloride 10 mEq 10 meq PO DAILY #90 tabs 01/20/23 tablet,extended release vit C 250 mg-vit E 200 unit-zinc 2 tab PO DAILY #180 tabs 01/20/23 12.5 mg-copper 1 [id number] tablet (ICaps AREDS2 (copper citrate)) Allergies Allergy/AdvReac Type Severity Reaction Status Date / Time hydrocodone AdvReac Intermediate Nausea, Verified 04/23/23 09:50 vomitiing General Stated Complaint: EyeProblem ESTEPHANIA: 3 Review of Systems All systems reviewed & are unremarkable except as noted in HPI and below Constitutional Constitutional: Denies chills, Denies fever(s) and Denies weakness Eyes Eyes: Reports loss of vision Cardiovascular Cardiovascular: Denies chest pain and Denies dyspnea Respiratory Respiratory: Denies cough and Denies dyspnea Gastrointestinal Gastrointestinal: Denies abdominal pain, Denies nausea and Denies vomiting Integumentary/Breasts Skin/Breast: Denies rash Neurologic Neurologic: Reports loss of vision and Denies weakness Exam Const General: no acute distress Orientation: alert HENMT Head: normal to inspection Ears: external ears normal General nose exam: external nose normal Mouth: moist mucous membranes Eyes Periorbital: periorbital findings normal Eyelids: no eyelid abnormalities Neck Neck: normal visual inspection Resp Effort & Inspection: normal respiratory effort and able to speak in complete sentences Cardio Rate: regular rate Skin General skin exam: no rashes or lesions noted Neuro General: patient alert and patient oriented x3 Extrem General: normal to inspection Psych Mental Status: mental status grossly normal Course Vital Signs Vital signs: Vital Signs Temperature 36.4 C L 09/14/23 12:20 Pulse 102 H 09/14/23 12:20 Respiratory Rate 17 09/14/23 12:20 Blood Pressure 115/91 H 09/14/23 12:20 Pulse Oximetry 95 09/14/23 12:20 Temperature 36.4 C L 09/14/23 12:20 Temperature Source Temporal Artery Scan 09/14/23 12:20 Pulse 102 H 09/14/23 12:20 Respiratory Rate 17 09/14/23 12:20 Blood Pressure 115/91 H 09/14/23 12:20 Pulse Oximetry 95 09/14/23 12:20 Pain Level 0 09/14/23 12:20 Medical Decision Making 83-year-old female with a history of A-fib not on anticoagulation, hypertension rheumatoid arthritis, who comes in with decreased vision in right eye since Thursday. Is unclear why she waited until today to be evaluated. She has not had any pain or discomfort in the eye or head. She says she otherwise feels fine. She says she can only see presence of light in the right eye. When held in finger she cannot see on the right eye, has intact 20/25 vision in the left eye with her glasses on. There is no periorbital swelling, her pupils are still reactive to light. Bedside ultrasound does appear to have a vitreous hemorrhage did not see a clear retinal detachment. Similar findings on retinal exam I do not find evidence of central vein occlusion or central artery occlusion. She has no pain so doubt entities such as endophthalmitis or glaucoma, IOP 16. She has no other neurological deficits and has a steady gait so doubt CVA. Given lack of head pain and findings feel is likely related to eye pathology and I suspect vitreous hemorrhage. Stable to [facility] and they do have an availability at 2:00 today. I discussed consulting with [facility] ophthalmology and possible transfer patient does not want to be transferred if possible would like to stay local so feel this is reasonable. Given she is at the issue since Thursday unlikely to have significant change in vision with treatments at this time. She will return here if other findings found during exam Differential Diagnosis Differential Diagnosis: Vitreous hemorrhage, retinal detachment Medical Records Medical records reviewed: Yes I reviewed the patient's medical records. 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 (Acute) Urinary incontinence (Acute) Corns and callosities (Acute) Other specified peripheral vascular diseases (Acute) Mycotic toenails (Acute) Other rheumatoid arthritis with rheumatoid factor of right ankle and foot (Acute) Other rheumatoid arthritis with rheumatoid factor of left ankle and foot (Acute) Metastasis from colon cancer (Acute) Metastasis from colon cancer (Acute) Hx of colon cancer, stage IV (Acute) mets to liver Tx sx and chemo Systolic murmur (Acute) systolic (2002 echo [facility] normal) Rotator cuff syndrome (Acute) Rheumatoid arthritis (Acute 11/28/11) sees Dr Cameron (dx 12/23) Primary malignant neoplasm of colon (Acute 01/16/08) with metastases to the liver; surgery and chemo (sigmoid colectomy and partial hepatectomy) Paralytic strabismus (Acute) Increased body mass index (BMI) (Acute 03/24/17) History of surgery of liver (Acute) Hammer toes of both feet (Acute 03/24/17) Depressive disorder (Acute 11/28/11) 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) Cholelithiasis without obstruction (Acute) Undiagnosed cardiac murmurs (Acute) systolic (2002 echo [facility] normal) Long-term use of immunosuppressant medication (Acute) Wheezing (Acute) Impacted cerumen, bilateral (Acute) Pneumonia (Acute) Aortic stenosis, moderate (Acute) 1.2-1.3 cm on 04/09/20 Symptomatic severe aortic stenosis with low ejection fraction (Acute) 32% : 1.2 cm Pleural effusion (Acute) Breath, shortness (Acute) Acute exacerbation of CHF (congestive heart failure) (Acute) DVT prophylaxis (Acute) Discharge planning issues (Acute) Chronic systolic heart failure (Acute) Cardiomyopathy (Acute) Left bundle branch block (Acute) S/P TAVR (transcatheter aortic valve replacement) (Acute) 07/17/21 [facility] [place] CT scan, head (Acute) Metastatic colon cancer in female (Acute) bx [facility] [place] 01/15/22 Tooth pain (Acute) CHF (congestive heart failure) (Chronic) Vascular abnormality of brain (Acute) Medical History Depression History of DVT (deep vein thrombosis) CAD (coronary artery disease) Aortic stenosis s/p TAVR Surgical History History of partial colectomy Hx of cholecystectomy History of colonoscopy Sigmoidoscopy [facility] [place]; 10cm x 10 cm section of the sigmoid colon Extraction of cataract 03/08/15;RIGHT EYE; DR. TODD 03/01/15;LEFT; DR. TODD Family History Mother Alzheimer disease Father Heart disease Sister No problems noted. Sister No problems noted. Grandfather Stroke Grandmother No problems noted. Social History Smoking/Tobacco Use Status: Never Smoking risk assessment performed?: Yes Alcohol Intake: current Alcohol Intake frequency: holidays/special occasions only Alcohol type: wine Drug use: Never Substance use type: does not use Current gender identity: female What type of physical activity do you participate in: none Do you feel safe at home: Yes Do you feel safe in your relationship?: Yes Additional Social history: Lives alone with her cats in [place]. No local family.
[2023-09-14 13:21] VITALS: BP 118/82; PULSE 90; RESP 16; TEMP 36.4; O2SAT 96
[2023-09-14 13:23] VITALS: BP 118/82; PULSE 90; RESP 16; TEMP 36.4; O2SAT 96
== END 2023-09-14 13:13 | disposition home or self-care (01) ==
PROVIDERS: Emergency Provider Emergency Medicine; PCP Family Medicine
DX: H53.131 Sudden visual loss, right eye (principal); I25.10 Atherosclerotic heart disease of native coronary artery without angina pectoris; I10 Essential (primary) hypertension; I48.91 Unspecified atrial fibrillation; M06.9 Rheumatoid arthritis, unspecified; Z90.49 Acquired absence of other specified parts of digestive tract; Z79.82 Long term (current) use of aspirin; Z86.718 Personal history of other venous thrombosis and embolism
CPT/HCPCS: 99283

== ENCOUNTER 2023-09-14 14:50 | Observation (INO) | payer MEDICARE, SELFPAY ==
[2023-09-14] VITALS (34 sets, daily range): BP systolic 130–194; BP diastolic 55–94; PULSE 60–94; RESP 12–20; TEMP 36.9–37.2; O2SAT 95–98
--- NOTE | 2023-09-14 15:00 | RT.EKG_ITS ---
APPROVED REPORT Exam: Resting ECG Reason for Exam: ?cva Patient Location: E HR:96 bpm ECG Measurements Heart Rate 96 AXIS KS 212 P 54 QRSd 158 QRS -25 QT 405 T 147 QTc 511 Conclusion Sinus rhythm...normal P axis, V-rate 60- 99 Borderline prolonged KS interval...KS >207, V-rate 91-120 Left bundle branch block...QRSd>120, broad/notched R ST elevation secondary to IVCD...Multiple VCG criteria
--- NOTE | 2023-09-14 15:25 | ED.GENADUL_ITS ---
Discharge Plan Discharge Details Chief Complaint: CVA/TIA Clinical Impression: Vision loss, right eye, Central retinal artery occlusion of right eye Primary Care Provider: Tania Foy ED Provider: Josué Burton Home Meds and New Rx's Prescriptions: No Action methotrexate sodium 2.5 mg tablet 10 mg PO QWEEK aspirin 81 mg tablet,chewable 81 mg PO DAILY folic acid 1 mg tablet 1 mg PO DAILY Qty: 90 6RF calcium carbonate-vitamin D3 600 mg-5 mcg (200 unit) tablet 1 tab PO BID Qty: 180 5RF furosemide 20 mg tablet 20 mg PO DAILY Qty: 90 4RF losartan 50 mg tablet 50 mg PO DAILY Qty: 90 3RF metoprolol succinate 25 mg tablet extended release 24 hr 12.5 mg PO DAILY Qty: 45 4RF potassium chloride 10 mEq tablet extended release 10 meq PO DAILY Qty: 90 4RF ICaps AREDS2 (copper citrate) 250 mg-200 unit -12.5 mg-1 mg tablet 2 tab PO DAILY Qty: 180 4RF cholecalciferol (vitamin D3) 1,000 UNIT tablet 1,000 unit PO DAILY Orencia (with maltose) 250 mg recon soln See Rx Instructions IV Q4W Rx Instructions: 750mg intravenously every 4 weeks; HPI General Mode of arrival: ambulatory . Date/Time Provider Initiated Documentation: 09/14/23 14:54 . Limitations to Documentation: no limitations . Information obtained by: patient and RN/MD . History of Present Illness 83 year old F presents to the emergency department with the chief complaint of right eye vision loss, described as severe, Patient started experiencing this day(s) (3) and it has been constant. No relieving factors improve symptom(s), No exacerbating factors reported . Patient notes no other symptoms.. Patient did receive the following treatments prior to arrival, none Related Data Home Medications ?Medication ?Instructions ?Recorded ?Confirmed cholecalciferol (vitamin D3) 25 1,000 unit PO DAILY 10/30/12 04/23/23 mcg (1,000 unit) tablet methotrexate sodium 2.5 mg tablet 10 mg PO QWEEK 08/07/20 04/23/23 aspirin 81 mg chewable tablet 81 mg PO DAILY 07/29/21 04/23/23 abatacept (with maltose) 250 mg See Rx Instructions IV Q4W 12/11/22 04/23/23 intravenous solution (Orencia (with maltose)) calcium carbonate 600 mg-vitamin 1 tab PO BID #180 tabs 01/20/23 04/23/23 D3 5 mcg (200 unit) tablet folic acid 1 mg tablet 1 mg PO DAILY #90 tab-caps 01/20/23 04/23/23 furosemide 20 mg tablet 20 mg PO DAILY #90 tabs 01/20/23 04/23/23 losartan 50 mg tablet 50 mg PO DAILY #90 tabs 01/20/23 04/23/23 metoprolol succinate 25 mg 12.5 mg (1/2 x 25 mg) PO DAILY #45 01/20/23 04/23/23 tablet,extended release 24 hr tabs potassium chloride 10 mEq 10 meq PO DAILY #90 tabs 01/20/23 04/23/23 tablet,extended release vit C 250 mg-vit E 200 unit-zinc 2 tab PO DAILY #180 tabs 01/20/23 04/23/23 12.5 mg-copper 1 [id number] tablet (ICaps AREDS2 (copper citrate)) Previous Rx's ?Medication ?Instructions ?Recorded calcium carbonate 600 mg-vitamin 1 tab PO BID #180 tabs 01/20/23 D3 5 mcg (200 unit) tablet folic acid 1 mg tablet 1 mg PO DAILY #90 tab-caps 01/20/23 furosemide 20 mg tablet 20 mg PO DAILY #90 tabs 01/20/23 losartan 50 mg tablet 50 mg PO DAILY #90 tabs 01/20/23 metoprolol succinate 25 mg 12.5 mg (1/2 x 25 mg) PO DAILY #45 01/20/23 tablet,extended release 24 hr tabs potassium chloride 10 mEq 10 meq PO DAILY #90 tabs 01/20/23 tablet,extended release vit C 250 mg-vit E 200 unit-zinc 2 tab PO DAILY #180 tabs 01/20/23 12.5 mg-copper 1 [id number] tablet (ICaps AREDS2 (copper citrate)) Allergies Allergy/AdvReac Type Severity Reaction Status Date / Time hydrocodone AdvReac Intermediate Nausea, Verified 04/23/23 09:50 vomitiing General Stated Complaint: CVA/TIA ESTEPHANIA: 3 Review of Systems All systems reviewed & are unremarkable except as noted in HPI and below Constitutional Constitutional: Denies chills, Denies fever(s) and Denies weakness Eyes Eyes: Reports loss of vision Cardiovascular Cardiovascular: Denies chest pain and Denies dyspnea Respiratory Respiratory: Denies cough and Denies dyspnea Gastrointestinal Gastrointestinal: Denies abdominal pain, Denies nausea and Denies vomiting Musculoskeletal Musculoskeletal: Denies joint swelling Integumentary/Breasts Skin/Breast: Denies rash Neurologic Neurologic: Reports loss of vision and Denies weakness Psychiatric Psychiatric: Denies depression Exam Const General: no acute distress Orientation: alert HENMT Head: normal to inspection and no temporal artery tenderness Ears: external ears normal General nose exam: external nose normal Mouth: moist mucous membranes Eyes Alignment and Position: alignment normal Periorbital: periorbital findings normal Eyelids: eyelids normal Resp Effort & Inspection: normal respiratory effort and able to speak in complete sentences Cardio Rate: regular rate Skin General skin exam: no rashes or lesions noted Neuro General: patient alert and patient oriented x3 Extrem General: normal to inspection Psych Mental Status: mental status grossly normal Course Vital Signs Vital signs: Vital Signs Temperature 37.2 C 09/14/23 14:54 Pulse 94 H 09/14/23 14:54 Respiratory Rate 12 09/14/23 14:54 Blood Pressure 130/94 H 09/14/23 14:54 Pulse Oximetry 97 09/14/23 14:54 Temperature 37.2 C 09/14/23 14:54 Temperature Source Skin 09/14/23 14:54 Pulse 94 H 09/14/23 14:54 Respiratory Rate 12 09/14/23 14:54 Blood Pressure 130/94 H 09/14/23 14:54 Blood Pressure Position Sitting 09/14/23 14:54 Pulse Oximetry 97 09/14/23 14:54 Oxygen Delivery Method Room Air 09/14/23 14:54 Oxygen Flow Rate 0 09/14/23 14:54 Pain Level 0 09/14/23 14:54 Medical Decision Making 83-year-old female with a history of A-fib not on any anticoagulation, prior colon cancer, rheumatoid arthritis who comes in after she was evaluated at [facility] care was found to have central retinal artery occlusion. Since Thursday she has had loss of vision in the right eye can only see light in the right eye. She denies any pain or fevers. No temporal artery pain. She is alert and oriented x 3 speaking clearly on arrival. She is no focal motor or sensation deficits clear speech no facial droop. Since it has been 3 days from symptom onset there is nothing to do from an ophthalmological standpoint for the occlusion other than addressing any modifiable risk factors. She is also outside the window for any tPA for stroke or neuroradiology intervention.Unable to assess visual lam in the right eye due to the lack of vision in the eye. Has no hemianopia on the left side. Will proceed with CBC, CMP and obtain a CTA of the neck and brain consult neurology for further recs. Labs without significant change from baseline. CTA and neuroconsult pending. Patient will be signed out to oncoming provider pending imaging results and neurology recommendations. Differential Diagnosis Differential Diagnosis: central retinal artery occlusion, giant cell arteritis Medical Records Medical records reviewed: Yes I reviewed the patient's medical records. Lab Data Lab results reviewed: Yes I reviewed the patient's lab results. 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 (Acute) Urinary incontinence (Acute) Corns and callosities (Acute) Other specified peripheral vascular diseases (Acute) Mycotic toenails (Acute) Other rheumatoid arthritis with rheumatoid factor of right ankle and foot (Acute) Other rheumatoid arthritis with rheumatoid factor of left ankle and foot (Acute) Metastasis from colon cancer (Acute) Metastasis from colon cancer (Acute) Hx of colon cancer, stage IV (Acute) mets to liver Tx sx and chemo Systolic murmur (Acute) systolic (2002 echo [facility] normal) Rotator cuff syndrome (Acute) Rheumatoid arthritis (Acute 11/28/11) sees Dr Cameron (dx 12/23) Primary malignant neoplasm of colon (Acute 01/16/08) with metastases to the liver; surgery and chemo (sigmoid colectomy and partial hepatectomy) Paralytic strabismus (Acute) Increased body mass index (BMI) (Acute 03/24/17) History of surgery of liver (Acute) Hammer toes of both feet (Acute 03/24/17) Depressive disorder (Acute 11/28/11) 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) Cholelithiasis without obstruction (Acute) Undiagnosed cardiac murmurs (Acute) systolic (2002 echo [facility] normal) Long-term use of immunosuppressant medication (Acute) Wheezing (Acute) Impacted cerumen, bilateral (Acute) Pneumonia (Acute) Aortic stenosis, moderate (Acute) 1.2-1.3 cm on 04/09/20 Symptomatic severe aortic stenosis with low ejection fraction (Acute) 32% : 1.2 cm Pleural effusion (Acute) Breath, shortness (Acute) Acute exacerbation of CHF (congestive heart failure) (Acute) DVT prophylaxis (Acute) Discharge planning issues (Acute) Chronic systolic heart failure (Acute) Cardiomyopathy (Acute) Left bundle branch block (Acute) S/P TAVR (transcatheter aortic valve replacement) (Acute) 07/17/21 [facility] Abnormal CT scan, head (Acute) Metastatic colon cancer in female (Acute) bx [facility] 01/15/22 Tooth pain (Acute) CHF (congestive heart failure) (Chronic) Vascular abnormality of brain (Acute) Medical History Depression History of DVT (deep vein thrombosis) CAD (coronary artery disease) Aortic stenosis s/p TAVR Surgical History History of partial colectomy Hx of cholecystectomy History of colonoscopy Sigmoidoscopy [facility]; 10cm x 10 cm section of the sigmoid colon Extraction of cataract 03/08/15;RIGHT EYE; DR. TODD 03/01/15;LEFT; DR. TODD Family History Mother Alzheimer disease Father Heart disease Sister No problems noted. Sister No problems noted. Grandfather Stroke Grandmother No problems noted. Social History Smoking/Tobacco Use Status: Never Smoking risk assessment performed?: Yes Alcohol Intake: current Alcohol Intake frequency: holidays/special occasions only Alcohol type: wine Drug use: Never Substance use type: does not use Housing: house Current gender identity: female What type of physical activity do you participate in: none Do you feel safe at home: Yes Do you feel safe in your relationship?: Yes Additional Social history: Lives alone with her cats in [place]. No local family.
[2023-09-14 15:35] LABS: Abs Immature Grans 0.02 10^3/uL (0.0-0.06); Absolute Basophil Count 0.02 10^3/uL (0.0-0.2); Absolute Lymphocyte Count 1.48 10^3/uL (1.2-3.4); Absolute Monocyte Count 0.47 10^3/uL (0.1-0.8); Absolute Neutrophil Count 4.85 10^3/uL (1.2-6.7); Basophils % 0.3 %; Eosinophils % 1.4 %; HCT 37.9 % (36.0-46.0); HGB 12.7 g/dL (11.2-15.7); Immature Grans % 0.3 %; Lymphocytes % 21.3 %; MCH 31.1 pg (27.0-33.0); MCHC 33.5 % (32.0-36.0); MCV 93 fL (80-95); MPV 10.2 fL (8.0-11.0); Monocytes % 6.8 %; Neutrophils % 69.9 %; Platelet Count 180 10^3/uL (130-400); RBC 4.09 10^6/uL (3.93-5.22); RDW 13.2 % (11.7-14.6); RDW-SD 44.5 fL; WBC 6.94 10^3/uL (4.4-10.8)
[2023-09-14 15:38] LABS: ESR 38 mm/hr (0-30)
[2023-09-14 15:49] LABS: PTT Activated 24.3 sec (23.6-32.8); Prothrombin Time 10.1 sec (9.1-11.1)
[2023-09-14 15:51] LABS: ALT 30 U/L (14-59); AST 24 U/L (15-37); Alkaline Phosphatase 108 U/L (46-116); Anion Gap 12.3 mmol/L (3-11); BUN 27 mg/dL (7-18); Bilirubin, Total 0.69 mg/dL (0.2-1.0); CO2 25.7 mmol/L (21.0-32.0); CREATININE 1.1 mg/dL (0.55-1.02); Calcium 10.1 mg/dL (8.5-10.1); Chloride 108 mmol/L (98-107); Estimated GFR 49.86 (mL/min/1.73m2); Glucose 96 mg/dL (74-106); Potassium 3.8 mmol/L (3.5-5.1); Sodium 146 mmol/L (136-145); Total Protein 7.5 g/dL (6.4-8.2)
[2023-09-14] MEDS: Omnipaque 350 MG/ML 100 ML BTL IJ (16:22)
[2023-09-14] MEDS: Normal Saline - Diluent 50 ML VIAL IJ (16:23)
--- NOTE | 2023-09-14 16:30 | DI.CT_ITS ---
Exam(s) CT BRAIN NECK CTA EXAM: CT BRAIN NECK CTA CLINICAL HISTORY: vision changes, central retinal artery occlusion. TECHNIQUE: Imaging Protocol: Axial CT angiography was performed with multi-slice acquisition and mu lti-planar and/or 3D reconstructions. CONTRAST MATERIAL: Intravenous: Omnipaque 350 contrast volume:100 mL COMPARISON: CT CT HEAD WO from 12/11/2022 FINDINGS: CT Head W/O and W: Ventricles and Extra axial spaces: Normal in size and morphology for the patient's age. Hemorrhage: None. Cerebral parenchyma: There are areas of decreased attenuation in the white matter consistent with chr onic microvascular ischemic disease. No acute territorial infarct is identified. No mass effect is seen. Midline shift: None. Brainstem/Cerebellum: Normal. Calvarium: Normal. Visualized Paranasal sinuses/Mastoids: Clear. Soft Tissues: Unremarkable. Enhancement: Unremarkable. CTA Neck W: Common Carotid: Right: No dissection, occlusion or significant stenosis. Mild atherosclerotic calcification is seen in the distal common carotid artery and carotid bulb but no significant stenosis results. Left: No dissection, occlusion or significant stenosis. There is calcification seen in the proximal internal carotid artery but no significant stenosis is present. External Carotid: Right: No occlusion or significant stenosis. Left: No occlusion or significant stenosis. Internal Carotid: Right: No dissection, occlusion or significant stenosis. There is mild calcification at the origin o f the right internal carotid artery without significant stenosis. Left: No dissection, occlusion or significant stenosis. Vertebral Artery: Right: No dissection, occlusion or significant stenosis. Left: No dissection, occlusion or significant stenosis. Lung Apices: Normal. Bones: Within normal limits for the patient's age. Soft Tissues: Normal. Thyroid gland: Unremarkable. CTA Brain W: Internal Carotid Arteries: Atherosclerotic calcification is seen in the internal carotid arteries mel aterally. No aneurysm, occlusion or significant stenosis. Anterior Cerebral Arteries: Right: No aneurysm, occlusion or significant stenosis. Left: No aneurysm, occlusion or significant stenosis. Middle Cerebral Arteries: Right: No aneurysm, occlusion or significant stenosis. Left: No aneurysm or occlusion. There is narrowing of the distal M1 segment of the left MCA. There is 70-90 percent narrowing present. Posterior Cerebral Arteries: Right: No aneurysm, occlusion or significant stenosis. Left: No aneurysm, occlusion or significant stenosis. Vertebral Arteries: Right: No aneurysm, occlusion or significant stenosis. Left: No aneurysm, occlusion or significant stenosis. Basilar Artery: No aneurysm, occlusion or significant stenosis. IMPRESSION: 1. Significant stenosis in the distal M1 segment of the left MCA. No occlusion is seen. No aneurysm is present. 2. No acute intracranial process. Age-appropriate cerebral atrophy and chronic microvascular ischemi c disease. 3. No occlusion or significant stenosis on the CT angiography of the neck. RADIATION DOSE DELIVERED: Total DLP DATA REPOSITORY: All CT scans at this facility are submitted to the National Radiology Data Registry (NRDR) Dose Index Registry (DIR) with the [employer] (ACR). RADIATION OPTIMIZATION: All CT scans at this facility use at least one of these dose optimization te chniques: automated exposure control; mA and/or kV adjustment per patient size (includes targeted exa ms where dose is matched to clinical indication); or iterative reconstruction.
--- NOTE | 2023-09-14 16:51 | W.EDPROG ---
Date of service: 09/14/23 Time of Service: 16:00 Medical Decision Making Handoff report received from Dr. Burton, daytime physician. Please see his note and earlier visit from today for full HPI/ROS/physical exam. Leanne is an 83-year-old female with history of A-fib not on anticoagulation, HTN, and rheumatoid arthritis who presented to the emergency department today for evaluation of vision loss in her right eye starting 3 days ago. She is only able to detect light in the right eye. No other neurological deficits or gait change noted. She was evaluated at [facility], diagnosed with CRAO. She returned to the emergency department, received CTA of her head and neck, as well as teleneuro consult to rule out stroke. I did perform a brief physical exam. Exam reassuring. Patient does have right eye vision loss noted. PERRL (afferent defect noted to R eye), EOMs intact. Cranial nerves II through XII intact as tested. No facial droop. Normal finger to finger and rapid alternating movements. 5 out of 5 muscle strength to upper and lower extremities. Discussed case with Dr. Guido, [facility] teleneurology. Recommends echo to rule out embolic etiology, as well as MRI. Loading doses of Plavix and aspirin to be given, followed by 75 mg Plavix daily with 81 mg ASA. Zio patch recommended for 2 weeks at home. Leanne received dose of Plavix 300 mg and aspirin 81 mg here in the emergency department. I also discussed case with Dr. Hunter, [facility] ophthalmology. He is agreeable with plan of care; as symptoms were within the last 4 days, expedited workup rather than outpatient workup is appropriate, recommends follow-up with ophthalmology in the next couple of weeks. They will reach out to patient for scheduling. Presented case to Dr. Ortiz, [facility] hospitalist. He is agreeable with plan to admit patient. Imaging Data Radiologic Study: Radiologist's impression: Exam(s) CT BRAIN NECK CTA EXAM: CT BRAIN NECK CTA CLINICAL HISTORY: vision changes, central retinal artery occlusion. TECHNIQUE: Imaging Protocol: Axial CT angiography was performed with multi-slice acquisition and multi-planar and/or 3D reconstructions. CONTRAST MATERIAL: Intravenous: Omnipaque 350 contrast volume:100 mL COMPARISON: CT CT HEAD WO from 12/11/2022 FINDINGS: CT Head W/O and W: Ventricles and Extra axial spaces: Normal in size and morphology for the patient's age. Hemorrhage: None. Cerebral parenchyma: There are areas of decreased attenuation in the white matter consistent with chronic microvascular ischemic disease. No acute territorial infarct is identified. No mass effect is seen. Midline shift: None. Brainstem/Cerebellum: Normal. Calvarium: Normal. Visualized Paranasal sinuses/Mastoids: Clear. Soft Tissues: Unremarkable. Enhancement: Unremarkable. CTA Neck W: Common Carotid: Right: No dissection, occlusion or significant stenosis. Mild atherosclerotic calcification is seen in the distal common carotid artery and carotid bulb but no significant stenosis results. Left: No dissection, occlusion or significant stenosis. There is calcification seen in the proximal internal carotid artery but no significant stenosis is present. External Carotid: Right: No occlusion or significant stenosis. Left: No occlusion or significant stenosis. Internal Carotid: Right: No dissection, occlusion or significant stenosis. There is mild calcification at the origin of the right internal carotid artery without significant stenosis. Left: No dissection, occlusion or significant stenosis. Vertebral Artery: Right: No dissection, occlusion or significant stenosis. Left: No dissection, occlusion or significant stenosis. Lung Apices: Normal. Bones: Within normal limits for the patient's age. Soft Tissues: Normal. Thyroid gland: Unremarkable. CTA Brain W: Internal Carotid Arteries: Atherosclerotic calcification is seen in the internal carotid arteries bilaterally. No aneurysm, occlusion or significant stenosis. Anterior Cerebral Arteries: Right: No aneurysm, occlusion or significant stenosis. Left: No aneurysm, occlusion or significant stenosis. Middle Cerebral Arteries: Right: No aneurysm, occlusion or significant stenosis. Left: No aneurysm or occlusion. There is narrowing of the distal M1 segment of the left MCA. There is 70-90 percent narrowing present. Posterior Cerebral Arteries: Right: No aneurysm, occlusion or significant stenosis. Left: No aneurysm, occlusion or significant stenosis. Vertebral Arteries: Right: No aneurysm, occlusion or significant stenosis. Left: No aneurysm, occlusion or significant stenosis. Basilar Artery: No aneurysm, occlusion or significant stenosis. IMPRESSION: 1. Significant stenosis in the distal M1 segment of the left MCA. No occlusion is seen. No aneurysm is present. 2. No acute intracranial process. Age-appropriate cerebral atrophy and chronic microvascular ischemic disease. 3. No occlusion or significant stenosis on the CT angiography of the neck. Quality:SDOH Health Related Social Needs: No Data to Display Sign Out Sign Out Data: Sign Out Comment: Loss of vision in the right eye since Thursday, only able to perceive light. Seen that should be eye care and diagnosed with central retinal artery occlusion sent here for neuroimaging, CTA results and neurology consult pending. Last updated by Josué Burton MD at 09/14/23 16:28 Discharge Plan Disposition Patient Disposition: Admit to [facility] Discharge Details Clinical Impression: Vision loss, right eye, Central retinal artery occlusion of right eye Primary Care Provider: Tania Foy ED Provider: Claudia Saeed Home Meds and New Rx's Prescriptions: No Action methotrexate sodium 2.5 mg tablet 10 mg PO QWEEK aspirin 81 mg tablet,chewable 81 mg PO DAILY folic acid 1 mg tablet 1 mg PO DAILY Qty: 90 6RF calcium carbonate-vitamin D3 600 mg-5 mcg (200 unit) tablet 1 tab PO BID Qty: 180 5RF furosemide 20 mg tablet 20 mg PO DAILY Qty: 90 4RF losartan 50 mg tablet 50 mg PO DAILY Qty: 90 3RF metoprolol succinate 25 mg tablet extended release 24 hr 12.5 mg PO DAILY Qty: 45 4RF potassium chloride 10 mEq tablet extended release 10 meq PO DAILY Qty: 90 4RF ICaps AREDS2 (copper citrate) 250 mg-200 unit -12.5 mg-1 mg tablet 2 tab PO DAILY Qty: 180 4RF cholecalciferol (vitamin D3) 1,000 UNIT tablet 1,000 unit PO DAILY Orencia (with maltose) 250 mg recon soln See Rx Instructions IV Q4W Rx Instructions: 750mg intravenously every 4 weeks;
[2023-09-14] MEDS: Aspirin 81 MG CHEW CH (19:13)
[2023-09-14] MEDS: Clopidogrel 300 MG TAB PO (19:13)
--- NOTE | 2023-09-14 20:32 | W.PM.HP.N ---
Date of service: 09/14/23 Time of Service: 20:32 Assessment and Plan Assessment and plan (1) Central retinal artery occlusion of right eye: Status: Acute Assessment and plan: Retinal artery occlusion. Source not apparent at present, but no evidence arrythmia or carotid disease; likely this is small vessel atherosclerosis. Notably, nothing to suggest temporal arteritis with only marginally out of range ESR and no physical findings. Will continue DUAP, begin statin, check cardiac ECHO and watch on telemetry. I'm not sure that MRI will be useful as this is clearly a pre-chiasmal event. Will also obtain PT consult as the visual loss will only exacerbate pre-existent ambulatory dysfunction. Reviewed ADs, requests Full Code. History of Present Illness History of Present Illness Chief Complaint: monocular vision loss Narrative: 83 female presents with 3 days of painless loss of vision right eye. Seen today by Optho, diagnosed central rentinal artery thrombosis and sent to ER for further evaluation. In ER w/u of note for sinus rhythm on EKG, negative CTA head and neck save for a 70-90% narrowing distal M1 segment left MCA. ESR 38. Neuro consulted and advised ECHO, DUAP, Tely and MRI. I was asked to evaluate for admission. Patient states that other than the visual loss she feels her usual self. No h/o DM, HTN, smoking or prior clots. There is history o0f RA and colon cancer metastatic to liver in 2008, with recurrent mesenteric met 2022, s/p XRT. Notably she has baseline ambulatory dysfunction (uses a walker), lives alone and tells me she had greater than usual difficulty getting around due to the loss of vision. Review of Systems Narrative: per HPI 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 (Acute) Urinary incontinence (Acute) Corns and callosities (Acute) Other specified peripheral vascular diseases (Acute) Mycotic toenails (Acute) Other rheumatoid arthritis with rheumatoid factor of right ankle and foot (Acute) Other rheumatoid arthritis with rheumatoid factor of left ankle and foot (Acute) Metastasis from colon cancer (Acute) Metastasis from colon cancer (Acute) Hx of colon cancer, stage IV (Acute) mets to liver Tx sx and chemo Systolic murmur (Acute) systolic (2002 echo [facility] normal) Rotator cuff syndrome (Acute) Rheumatoid arthritis (Acute 11/28/11) sees Dr Cameron (dx 12/23) Primary malignant neoplasm of colon (Acute 01/16/08) with metastases to the liver; surgery and chemo (sigmoid colectomy and partial hepatectomy) Paralytic strabismus (Acute) Increased body mass index (BMI) (Acute 03/24/17) History of surgery of liver (Acute) Hammer toes of both feet (Acute 03/24/17) Depressive disorder (Acute 11/28/11) 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) Cholelithiasis without obstruction (Acute) Undiagnosed cardiac murmurs (Acute) systolic (2002 echo [facility] normal) Long-term use of immunosuppressant medication (Acute) Wheezing (Acute) Impacted cerumen, bilateral (Acute) Pneumonia (Acute) Aortic stenosis, moderate (Acute) 1.2-1.3 cm on 04/09/20 Symptomatic severe aortic stenosis with low ejection fraction (Acute) 32% : 1.2 cm Pleural effusion (Acute) Breath, shortness (Acute) Acute exacerbation of CHF (congestive heart failure) (Acute) DVT prophylaxis (Acute) Discharge planning issues (Acute) Chronic systolic heart failure (Acute) Cardiomyopathy (Acute) Left bundle branch block (Acute) S/P TAVR (transcatheter aortic valve replacement) (Acute) 07/17/21 [facility] [place] Abnormal CT scan, head (Acute) Metastatic colon cancer in female (Acute) bx [facility] 01/15/22 Tooth pain (Acute) CHF (congestive heart failure) (Chronic) Vascular abnormality of brain (Acute) Medical History Depression History of DVT (deep vein thrombosis) CAD (coronary artery disease) Aortic stenosis s/p TAVR Surgical History History of partial colectomy Hx of cholecystectomy History of colonoscopy Sigmoidoscopy [facility]; 10cm x 10 cm section of the sigmoid colon Extraction of cataract 03/08/15;RIGHT EYE; DR. TODD 1/14/16;LEFT; DR. TODD Family History Mother Alzheimer disease Father Heart disease Sister No problems noted. Sister No problems noted. Grandfather Stroke Grandmother No problems noted. Social History Smoking/Tobacco Use Status: Never Smoking risk assessment performed?: Yes Alcohol Intake: current Alcohol Intake frequency: holidays/special occasions only Alcohol type: wine Drug use: Never Substance use type: does not use Housing: house Current gender identity: female What type of physical activity do you participate in: none Do you feel safe at home: Yes Do you feel safe in your relationship?: Yes Additional Social history: Lives alone with her cats in [place]. No local family. Meds Allergies and Home Medications Allergies Allergy/AdvReac Type Severity Reaction Status Date / Time hydrocodone AdvReac Intermediate Nausea, Verified 04/23/23 09:50 vomitiing Home Medications ?Medication ?Instructions ?Recorded ?Confirmed ?Type cholecalciferol (vitamin D3) 25 1,000 unit PO DAILY 10/30/12 09/14/23 History mcg (1,000 unit) tablet methotrexate sodium 2.5 mg tablet 10 mg PO QWEEK 08/07/20 09/14/23 History aspirin 81 mg chewable tablet 81 mg PO DAILY 07/29/21 09/14/23 History abatacept (with maltose) 250 mg See Rx Instructions IV Q4W 12/11/22 09/14/23 History intravenous solution (Orencia (with maltose)) calcium carbonate 600 mg-vitamin 1 tab PO BID #180 tabs 01/20/23 09/14/23 Rx D3 5 mcg (200 unit) tablet folic acid 1 mg tablet 1 mg PO DAILY #90 tab-caps 01/20/23 09/14/23 Rx furosemide 20 mg tablet 20 mg PO DAILY #90 tabs 01/20/23 09/14/23 Rx losartan 50 mg tablet 50 mg PO DAILY #90 tabs 01/20/23 09/14/23 Rx metoprolol succinate 25 mg 12.5 mg (1/2 x 25 mg) PO DAILY #45 01/20/23 09/14/23 Rx tablet,extended release 24 hr tabs potassium chloride 10 mEq 10 meq PO DAILY #90 tabs 01/20/23 09/14/23 Rx tablet,extended release vit C 250 mg-vit E 200 unit-zinc 2 tab PO DAILY #180 tabs 01/20/23 09/14/23 Rx 12.5 mg-copper 1 [id number] tablet (ICaps AREDS2 (copper citrate)) Exam Narrative Exam Narrative: 167/67, 61, 37.2, 15, 97% RA. HEENT there is an afferent pupillary defect on the right along with retinal pallor, and anisicoria (OD approx 6, OS approx 4); does not see light OD, visual lam full OS. No temporal artery tenderness or nodularity. Neck supple, w/o bruit; lungs clear; heart RRR; abdomen soft and NT; extremities w/o edema; neuro Ox3, lucid, moves all 4s Results Labs 09/14/23 15:27 09/14/23 15:27 Labs: Laboratory Results - last 24 hr 09/14/23 15:27 WBC 6.94 RBC 4.09 Hgb 12.7 Hct 37.9 MCV 93 MCH 31.1 MCHC 33.5 RDW 13.2 Plt Count 180 MPV 10.2 Immature Gran % 0.3 Neutrophils % 69.9 Lymphocytes % 21.3 Monocytes % 6.8 Eosinophils % 1.4 Basophils % 0.3 Nucleated RBC % 0.0 Absolute Neutrophils 4.85 Absolute Lymphocytes 1.48 Absolute Monocytes 0.47 Absolute Eosinophils 0.10 Absolute Basophils 0.02 ESR 38 H PT 10.1 INR 1.0 APTT 24.3 Sodium 146 H Potassium 3.8 Chloride 108 H Carbon Dioxide 25.7 Anion Gap 12.3 H BUN 27 H Creatinine 1.1 H Est GFR (CKD-EPI 2020) 49.86 Glucose 96 Calcium 10.1 Magnesium 2.0 Total Bilirubin 0.69 AST 24 ALT 30 Alkaline Phosphatase 108 Total Protein 7.5 Albumin 4.0 Last Vital Signs Temp 37.2 C 09/14/23 14:54 Pulse 61 09/14/23 17:46 Resp 15 09/14/23 15:46 BP 167/67 H 09/14/23 17:46 Pulse Ox 97 09/14/23 17:50 Time Spent Time spent with Patient: 55-74 minutes Time was spent: preparing to see the patient(eg.review tests), obtaining and/or reviewing separately otained hiistory, ordering medications,tests, procedures, referring, communicating with other health health care recruiter and indepentently interpreting results
[2023-09-14] MEDS: Normal Saline Flush 10 ML SYR IVP (22:26)
[2023-09-14] MEDS: Atorvastatin 40 MG TAB 80 MG PO (22:26)
[2023-09-15 03:09] VITALS: BP 152/86; PULSE 68; RESP 18; TEMP 37.1; O2SAT 95
--- NOTE | 2023-09-15 06:18 | W.PC.ACHO ---
Registration Status: Primary Language: Preferred Language: ED Information & Data Chief Complaint CVA/TIA 09/14/23 15:46 Chief Complaint CVA/TIA 09/14/23 15:27 Triage Note vision loss since thursday. 09/14/23 14:54 sent from here to Dr. Lopes's and was evaluated and found to have a central retinal artery occlusion. Sent back here for a stroke work up. outside of therapeutic timeframe for stroke tx. Medical / Surgical History (Last Reviewed 09/14/23 @ 20:43 by Chano Ortiz MD) Depression History of DVT (deep vein thrombosis) CAD (coronary artery disease) Aortic stenosis (Last Reviewed 09/14/23 @ 20:43 by Chano Ortiz MD) History of partial colectomy Hx of cholecystectomy History of colonoscopy Sigmoidoscopy Extraction of cataract Most Recent Vital Signs Temperature 36.9 C 09/14/23 22:54 Temperature Source Skin 09/14/23 14:54 Pulse 64 09/14/23 22:54 Pulse Rhythm Regular 09/14/23 22:54 Respiratory Rate 20 09/14/23 22:54 Respiratory Effort Normal, Non-Labored 09/14/23 22:54 Respiratory Depth Normal 09/14/23 22:54 Respiratory Pattern Normal 09/14/23 22:54 Blood Pressure 154/83 H 09/14/23 22:54 Blood Pressure Mean 100 09/14/23 21:30 Blood Pressure Position Sitting 09/14/23 14:54 Pulse Oximetry 96 09/14/23 22:54 Oxygen Delivery Method Room Air 09/14/23 22:54 Oxygen Flow Rate 0 09/14/23 22:54 Pain Level 0 09/14/23 22:54 Allergies hydrocodone Adverse Reaction (Intermediate, Verified 04/23/23 09:50) Nausea, vomitiing Active Medications Generic Name Dose Route Start Last Admin Trade Name Freq PRN Reason Stop Dose Admin Atorvastatin Calcium 80 mg 09/14/23 22:00 09/14/23 22:26 Atorvastatin 40 Mg Tab PO 80 mg QPM WES Administration Iohexol 100 ml 09/14/23 16:30 09/14/23 16:22 Omnipaque 350 Mg/Ml 100 Ml Btl IJ 10/14/23 23:59 100 ml DIRECTED WES Administration Sodium Chloride 0 ml 09/14/23 20:00 09/14/23 22:26 Normal Saline Flush 10 Ml Syr IVP 10 ml BID WES Administration Sodium Chloride 50 ml 09/14/23 16:30 09/14/23 16:23 Normal Saline - Diluent 50 Ml Vial IJ 50 ml .FOR DI USE WES Administration IV IV Catheter Type [Left Saline Lock Antecubital] IV Catheter Gauge [Left 20 Antecubital] Diet Orders Category Date Time Status Regular/Normal [DIET] Nutrition 09/15/23 Breakfast Active Diagnostics 09/14/23 Range/Units 15:27 WBC 6.94 (4.4-10.8) 10^3/uL RBC 4.09 (3.93-5.22) 10^6/uL Hgb 12.7 (11.2-15.7) g/dL Hct 37.9 (36.0-46.0) % MCV 93 (80-95) fL MCH 31.1 (27.0-33.0) pg MCHC 33.5 (32.0-36.0) % RDW 13.2 (11.7-14.6) % Plt Count 180 (130-400) 10^3/uL MPV 10.2 (8.0-11.0) fL Immature Gran % 0.3 % Neutrophils % 69.9 % Lymphocytes % 21.3 % Monocytes % 6.8 % Eosinophils % 1.4 % Basophils % 0.3 % Nucleated RBC % 0.0 (0.0-0.3) % Absolute Neutrophils 4.85 (1.2-6.7) 10^3/uL Absolute Lymphocytes 1.48 (1.2-3.4) 10^3/uL Absolute Monocytes 0.47 (0.1-0.8) 10^3/uL Absolute Eosinophils 0.10 (0.0-0.7) 10^3/uL Absolute Basophils 0.02 (0.0-0.2) 10^3/uL ESR 38 H (0-30) mm/hr PT 10.1 (9.1-11.1) sec INR 1.0 (0.9-1.1) APTT 24.3 (23.6-32.8) sec Sodium 146 H (136-145) mmol/L Potassium 3.8 (3.5-5.1) mmol/L Chloride 108 H (98-107) mmol/L Carbon Dioxide 25.7 (21.0-32.0) mmol/L Anion Gap 12.3 H (3-11) mmol/L BUN 27 H (7-18) mg/dL Creatinine 1.1 H (0.55-1.02) mg/dL Est GFR (CKD-EPI 2020) 49.86 (mL/min/1.73m2) Glucose 96 (74-106) mg/dL Calcium 10.1 (8.5-10.1) mg/dL Magnesium 2.0 (1.8-2.4) mg/dL Total Bilirubin 0.69 (0.2-1.0) mg/dL AST 24 (15-37) U/L ALT 30 (14-59) U/L Alkaline Phosphatase 108 (46-116) U/L Total Protein 7.5 (6.4-8.2) g/dL Albumin 4.0 (3.4-5.0) g/dL Intake and Output - 24 Hour Total 09/14/23 14:50 thru 09/15/23 04:26 Weight 68.039 kg Other: Urine Color Yellow Urine Appearance Clear Urine Odor Normal Comment x1 assist to void in toilet Voiding Methods Toilet Falls Risk Assessment History of Falls No History 09/14/23 22:54 Contributing Factors Impairments 09/14/23 22:54 Ambulatory Aids Uses ambulatory device 09/14/23 22:54 Tubes/Lines W/no contributing factors 09/14/23 22:54 Gait Evaluation W/any additional score 09/14/23 22:54 Cognition No cognitive impairment 09/14/23 22:54 Fall Total Score 48 09/14/23 22:54 Level of Risk Moderate Risk 09/14/23 22:54 Problems (Last Reviewed 09/14/23 @ 20:43 by Chano Ortiz MD) Central retinal artery occlusion of right eye (Acute) v v v v v v v v v Sending and/or Receiving Nurses: Please use comment section below to note any information pertinent to the patient hand-off not included above. Information / Comments: Pt is unsteady on her feet and is continent of bowel and bladder. Report received from: Waldo Romero, EMT
--- NOTE | 2023-09-15 07:30 | DI.MRI_ITS ---
Exam(s) MR BRAIN WO EXAM: MR BRAIN WO CLINICAL HISTORY: central retinal artery occlusion, left M1 stenosis. TECHNIQUE: Multiplanar multisequence MRI of the brain was performed. CONTRAST MATERIAL: Noncontrast COMPARISON: MR MR BRAIN WO from 01/30/[address] BRAIN NECK CTA from 09/14/2023 FINDINGS: VENTRICLES AND EXTRA AXIAL SPACES: Dilated the commensurate to the degree of atrophy. Stable size an d appearance. HEMORRHAGE: None. CEREBRAL PARENCHYMA: Several scattered foci of restricted diffusion seen in the anterior right fronta l lobe, left periventricular white matter and bilateral inferior cerebellar hemispheres. No space-oc cupying lesion identified. Moderate to severe atrophy again noted. Relatively mild underlying white matter changes of small vessel disease. MIDLINE SHIFT: None. BRAINSTEM/CEREBELLUM: diffuse cerebellar atrophy present. CALVARIUM: Normal. VISUALIZED PARANASAL SINUSES/MASTOIDS: Clear. Orbits: Unremarkable. Pituitary: Normal. Vasculature: Normal flow voids. IMPRESSION: There are few small scattered foci of restricted diffusion in the right frontal, left periventricular white matter bilateral cerebellar hemispheres consistent with acute lacunar infarcts, likely embolic .. DATA REPOSITORY:
[2023-09-15 07:37] VITALS: BP 149/62; PULSE 58; RESP 17; TEMP 36.2; O2SAT 95
--- NOTE | 2023-09-15 08:32 | DI.US_ITS ---
APPROVED REPORT EXAM: Comprehensive 2D, Doppler, and color-flow Echocardiogram Patient Location: In-Patient Room/Bed: [address] [facility] [employer] Hearing Impaired: Micaela Kirk RDCS (AE) Indications: Central retinal artery occlusion, PAF Echo Enhancing Agent Indication: Rule out Shunt Agent(s) / Amount(s) Used: Agitated Saline 30.0 cc Comments: Contrast study was performed with 3 IV injections of 10ccs of agitated normal saline, at re st, with cough and post valsalva maneuver. Negative contrast study for shunt flow. Other Information Study Quality: Fair. Technically limited study due to body habitus, unable to compress patient had pa in . Conclusion Mild concentric left ventricular hypertrophy. EF biplane is 35%. Visually it appears closer to 40 t o 45%, no segmental wall motion abnormalities Right ventricle is not well-visualized but does not appear enlarged Left atrium is moderately dilated. Right atrial size is normal No intracardiac shunting is identified with injection of agitated saline There is a bioprosthetic aortic valve. Mean gradient is 18 mmHg There is mitral annular calcification with mild eccentric mitral regurgitation Ascending aorta measures 3.79 cm Wall motion Left Ventricle The left ventricle is normal size. Left ventricular systolic function is moderately decreased. Mild c oncentric left ventricular hypertrophy. There is global hypokinesis of the left ventricle. There is n o ventricular septal defect visualized. LVEF is 35%. Right Ventricle Right ventricle is not well visualized. Right ventricular systolic function could not be assessed. Atria Left atrium is moderately dilated. Right atrium is not well visualized. The interatrial septum is int act with no evidence for an atrial septal defect. Saline bubble contrast intravenous injection does n ot demonstrate PFO. Aortic Valve TAVR valve replacement. Highest mean aortic valve gradient is 18.45mmHg. Peak aortic valve gradient i s 32.28mmHg. No aortic regurgitation is present. Mitral Valve Moderate to severe mitral annular calcification. No evidence of mitral valve stenosis. Mild eccentric mitral regurgitation. Tricuspid Valve The tricuspid valve is normal in structure. There is no tricuspid valve stenosis. Trace tricuspid reg urgitation. Unable to assess PA pressure. Pulmonic Valve The pulmonary valve is normal in structure. There is no pulmonic valvular stenosis. Trace pulmonic re gurgitation. Great Vessels The aortic root is normal in size. The ascending aorta is mildly dilated. Aortic arch is not well vis ualized. IVC is normal in size and collapses >50% with inspiration. Pericardium There is no pericardial effusion. 2D Dimensions IVSD d PLAX 1.10 cm F: 0.6-1.0 Ao Root d 1.97 cm F: 2.7 - 3.3 LVPW d PLAX 1.10 cm F: 0.6 - 1.0 Ao Asc Diam d 3.79 cm F: 2.3 - 3.1 LVID d PLAX 4.53 cm F: 3.8 - 5.2 LVDs 3.76 cm F: 2.2 - 3.5 LV EF Teichholz 35.6 % FS 16.94 % LV EDV (Teich) 94.0 mL LV ESV (Teich) 60.6 mL Auto EF LV EDV A4C 125.1 mL LV EDV A2C 106.3 mL LV EDV BP 120.5 mL LV ESV A4C 82.5 mL LV ESV A2C 69.2 mL LV ESV BP 79.2 mL LVEF(%) A4C 34.0 % LVEF(%) A2C 34.9 % LVEF(%) BP 34.3 % LV SV A4C 42.6 ml LV SV A2C 37.1 ml LV SV BP 41.3 ml LV CO A4C 2.3 L/min LV CO A2C 2.4 L/min LV CO BP 2.3 L/min HR A4C 53.98 BPM HR A2C 63.84 BPM LV EDV Index (BP) LA Volume LA Length A4C 5.2 cm LA Length A2C 5.6 cm LA Area A4C s 17.58 cm2 LA Area A2C s 23.65 cm2 LA Vol A4C A-L 50.42 mL LA Vol A2C A-L 85.11 mL LA Vol Biplane A-L 67.8 mL LA Vol/BSA A4C A-L LA Vol/BSA A2C A-L LA Vol/BSA BP A-L 41.1 mL/m2 LA Vol A4C MOD 47.3 mL LA Vol A2C MOD 80.9 mL LA Vol BP MOD 63.8 mL LV Diastology MV E' medial 0.059 (>0.07 m/s) MV E Vmax 1.05 (0.4-1.3 m/s) MV E/E' MED 17.80 (<14) MV A Vmax 1.55 (0.4-1.3 m/s) MV E' lateral 0.068 (>0.1 m/s) E/A Ratio 0.7 MV E/E' LAT 15.45 (<14) MV E' Average 0.063 m/s MV E/E'(average) 16.54 Aortic Valve AoV Vmax 2.84 m/s LVOT Vmax 1.69 m/s AoV Peak Grad 32.3 mmHg LVOT Peak Grad 11.4 mmHg AoV Area (Vmax) 1.78 cm2 LVOT VTI 0.384 m AoV VTI 0.595 m LVOT Mean Grad 9.8 mmHg AoV Mean Carlos. 1.99 m/s LVOT SV 114.78 mL AoV Mean Grad 18.5 mmHg LVOT Diam s 1.95 cm AoV Area (VTI) 1.93 cm2 Velocity Ratio 0.60 Mitral Valve MV DT 412 (160-240 msec) MV Vmax TIPS 1.78 m/s MV Mean Grad 4.7 (<2mmHg) MV VTI 0.532 m Tricuspid Valve RA Pressure 3.00 mmHg TR Peak Grad 0.0 mmHg TV S' 0.12 m/s RVSP (TR) 3.1 mmHg
--- NOTE | 2023-09-15 08:55 | PDOC.CMIN ---
Date of service: 09/15/23 Time of Service: 08:56 Care Management Initial Assmt Initial Assessment Reason for Hospitalization: Right Retinal Artery Occlusion Functional Status/Living Situation Patient Presentation: Karla was sitting in a chair, watching TV when CM met with her. She easily engages in conversation and shares that she is grieving the loss of her independence as she ages, especially not being able to drive. Karla currently lives alone in a mobile home she owns in [place]. She has a CM through the [facility] and is on a waiting list to get into detention at the [facility] or [facility]. She is meeting with [facility] next week. Karla does not have any family, but does mention that she has a few close friends that live nearby that are supportive and help her with transportation and get her groceries. Town of Residence: [place] Resides with: Alone Significant Other/Family: Local (None) Natural Supports: No family, has a couple friends in [place] Employment Status: Retired Instrumental Activities of Daily Living (ADLs): Independent Medications Medication Management: No Issues/Barriers identified Physical Functioning/Mobility Assistive Device: N/A Advance Directives Advance Directives: Do you have an Advance Directive: Y 11/02/12 10:10 AD On File at [facility]: Y 04/30/12 10:41 Date Asked 07/17/08 04/30/12 12:09 AD Date Reviewed 09/14/23 09/14/23 21:21 COLST On File at [facility] No 04/01/20 17:12 COLST Date Scanned Code Status Resuscitation Status Full Code Insurance Coverage/Financial Issues Insurance: Medicare Financial Assistance Financial Issues: Karla does endorse financial difficulty, food and housing. Per pt, she receives MOW and has an appointment with her CM at [facility] next week and would like to discuss it with them personally, rather than having CM reach out. Care Team Visit Care Team Role Provider Type Tania Foy MD, [place] Primary Care Provider [facility] Remi Borrero Other Providers OTHER Claudia Raygoza Emergency Provider NURSE PRACTITIONER Chano Ortiz MD Admit Provider [facility] STAFF PHYSICIAN Attending Provider Discharge Potential Discharge Needs: PT Evaluation and PCP F/U Appt Anticipated Barriers to Discharge: None Identified Patient/Family Education Needs: Review discharge instructions, discuss Ask Me Three Transportation: Private vehicle Plan: PT consult, Echo, MRI are pending. Anticipate, pt will discharge home via private vehicle with a friend when medically ready for discharge. She will need a school bus monitor and New VNA services will be ordered, if needed. CM will follow. 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 (Acute) Urinary incontinence (Acute) Corns and callosities (Acute) Other specified peripheral vascular diseases (Acute) Mycotic toenails (Acute) Other rheumatoid arthritis with rheumatoid factor of right ankle and foot (Acute) Other rheumatoid arthritis with rheumatoid factor of left ankle and foot (Acute) Metastasis from colon cancer (Acute) Metastasis from colon cancer (Acute) Hx of colon cancer, stage IV (Acute) mets to liver Tx sx and chemo Systolic murmur (Acute) systolic (2002 echo [facility] normal) Rotator cuff syndrome (Acute) Rheumatoid arthritis (Acute 11/28/11) sees Dr Cameron (dx 12/23) Primary malignant neoplasm of colon (Acute 01/16/08) with metastases to the liver; surgery and chemo (sigmoid colectomy and partial hepatectomy) Paralytic strabismus (Acute) Increased body mass index (BMI) (Acute 03/24/17) History of surgery of liver (Acute) Hammer toes of both feet (Acute 03/24/17) Depressive disorder (Acute 11/28/11) 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) Cholelithiasis without obstruction (Acute) Undiagnosed cardiac murmurs (Acute) systolic (2002 echo [facility] normal) Long-term use of immunosuppressant medication (Acute) Wheezing (Acute) Impacted cerumen, bilateral (Acute) Pneumonia (Acute) Aortic stenosis, moderate (Acute) 1.2-1.3 cm on 04/09/20 Symptomatic severe aortic stenosis with low ejection fraction (Acute) 32% : 1.2 cm Pleural effusion (Acute) Breath, shortness (Acute) Acute exacerbation of CHF (congestive heart failure) (Acute) DVT prophylaxis (Acute) Discharge planning issues (Acute) Chronic systolic heart failure (Acute) Cardiomyopathy (Acute) Left bundle branch block (Acute) S/P TAVR (transcatheter aortic valve replacement) (Acute) 07/17/21 [facility] Abnormal CT scan, head (Acute) Metastatic colon cancer in female (Acute) bx [facility] 01/15/22 Tooth pain (Acute) CHF (congestive heart failure) (Chronic) Vascular abnormality of brain (Acute) Medical History Depression History of DVT (deep vein thrombosis) CAD (coronary artery disease) Aortic stenosis s/p TAVR Surgical History History of partial colectomy Hx of cholecystectomy History of colonoscopy Sigmoidoscopy [facility]; 10cm x 10 cm section of the sigmoid colon Extraction of cataract 03/08/15;RIGHT EYE; DR. TODD 03/01/15;LEFT; DR. TODD Family History Mother Alzheimer disease Father Heart disease Sister No problems noted. Sister No problems noted. Grandfather Stroke Grandmother No problems noted. Social History Smoking/Tobacco Use Status: Never Smoking risk assessment performed?: Yes Alcohol Intake: current Alcohol Intake frequency: holidays/special occasions only Alcohol type: wine Drug use: Never Substance use type: does not use Housing: house Current gender identity: female What type of physical activity do you participate in: none Do you feel safe at home: Yes Do you feel safe in your relationship?: Yes Additional Social history: Lives alone with her cats in [place]. No local family. SDOH(Care Management) Screening Will the Patient Participate in the Screening?: Yes Do you worry about having a steady place to live?: no In the past 12 months, have you had to go without electric, gas, oil or water in your home?: no Have you or anyone in your house had to go without enough food to eat?: no Has lack of transportation kept you from medical appointments or from doing things needed for daily living?: no Has anyone in your support network made you feel unsafe for any reason?: no
[2023-09-15] MEDS: Aspirin 81 MG CHEW PO (09:53)
[2023-09-15] MEDS: Metoprolol CR 25 MG TABCR 12.5 MG PO (09:53)
[2023-09-15] MEDS: Clopidogrel 75 MG TAB PO (09:53)
[2023-09-15] MEDS: Losartan 50 MG TAB PO (09:53)
[2023-09-15] MEDS: Folic Acid 1 MG TAB PO (09:53)
[2023-09-15] MEDS: Furosemide 20 MG TAB PO (09:54)
[2023-09-15] MEDS: Normal Saline Flush 10 ML SYR IVP ×2 (09:57→20:08)
[2023-09-15 11:26] VITALS: BP 117/64; PULSE 67; RESP 18; TEMP 36.4; O2SAT 99
--- NOTE | 2023-09-15 11:41 | PHA.REVIEW2 ---
Pharmacy Admission Review Admission Clinical Review Admission Pharmacy Review: Central retinal artery occlusion of right eye (Acute) hydrocodone Adverse Reaction (Intermediate, Verified 04/23/23 09:50) Nausea, vomitiing Resuscitation Status Full Code Height 5 ft Weight 68.039 kg Comments Comments/Follow Ups: Per morning meeting, patient may be discharged later today Pharmacy Admission Review Renal Dosing Renal Dosing: BUN 27 mg/dL (7-18) H 09/14/23 15:27 Creatinine 1.1 mg/dL (0.55-1.02) H 09/14/23 15:27 Medications needing adjustments: Reviewed (CrCl 33.35 mL/min) List of meds needing interventions: Current medications are okay Anticoagulation Anticoagulation: Hgb 12.7 g/dL (11.2-15.7) 09/14/23 15:27 Hct 37.9 % (36.0-46.0) 09/14/23 15:27 Plt Count 180 10^3/uL (130-400) 09/14/23 15:27 INR 1.0 (0.9-1.1) 09/14/23 15:27 Creatinine 1.1 mg/dL (0.55-1.02) H 09/14/23 15:27 DVT Prophylaxis: Reviewed Medications: Aspirin (+ clopidogrel DUAP) Relevant Labs Relevant Labs: ESR 38 mm/hr (0-30) H 09/14/23 15:27 Sodium 146 mmol/L (136-145) H 09/14/23 15:27 Potassium 3.8 mmol/L (3.5-5.1) 09/14/23 15:27 Chloride 108 mmol/L (98-107) H 09/14/23 15:27 Magnesium 2.0 mg/dL (1.8-2.4) 09/14/23 15:27 Electrolytes, C-Reactive P, ESR: Reviewed (No new labs for today) Cardiac Review Cardiac Review: Blood Pressure 117/64 1126 Blood Pressure 149/62 0737 Blood Pressure 152/86 0309 BP, HR, EF%: Reviewed (HR WNL) QTc Review QTc: Reviewed (511 from 09/13) IV to PO Switch IV Medications: Reviewed Home Meds Home Med List reviewed: Reviewed Relevent Home Meds Not ordered & why?: abatacept (monthly infusion), calcium and vitamin D3 Current Meds Current Medication Order Review: Reviewed Comments Comments/Follow Ups: Per morning meeting, patient may be discharged later today
[2023-09-15 14:47] VITALS: BP 125/64; PULSE 86; RESP 17; TEMP 36.7; O2SAT 96
--- NOTE | 2023-09-15 16:52 | W.PM.PROGNOT ---
Date of Service Date of service: 09/15/23 Time of Service: 16:52 Assessment and Plan Assessment and plan (1) Cerebrovascular accident (CVA) due to embolism: Status: Acute Assessment and plan: patient has bilateral embolic acute lacunar strokes involving multiple territories including right frontal, left periventricular (L MCA) and bilateral cerebellar (posterior) and likely source is cardic from her moderate cardiomyopathy and TAVR. She will begin Apixaban tonight, tomorrow when CM is here, I will ask them to assist her w/ applying for financial assistance w/ her medications. dc her aspirin and plavix but continue high dose statin. will dc home in the morning. Qualifiers: Precerebral and cerebral artery: middle cerebral artery Laterality of affected vessel: bilateral Qualified Code(s): I63.413 - Cerebral infarction due to embolism of bilateral middle cerebral arteries (2) Central retinal artery occlusion of right eye: Status: Acute Assessment and plan: dx made by deflector operator at [facility] prior to her presenation to the E.D. yesterday. will ask for office records documenting the same (3) S/P TAVR (transcatheter aortic valve replacement): Status: Acute (4) Cardiomyopathy: Status: Acute Assessment and plan: yoselin remains on low dose lasix to keep her out of acute CHF and she is currently on low dose toprol XL along w/ losartan. further adjustment of her GDT to be done by either PCP or cardiology. Qualifiers: Cardiomyopathy type: unspecified Qualified Code(s): I42.9 - Cardiomyopathy, unspecified (5) CAD (coronary artery disease): Assessment and plan: patient reportedly has nonocclusive CAD and she is asymptomatic of angina. therefore I will stop aspirin so to reduce her risks of bleeding from combo of asa and apixaban. Qualifiers: Coronary Disease-Associated Artery/Lesion type: [place] posta artery [place] vs. transplanted heart: [place] heart Associated angina: without angina Qualified Code(s): I25.10 - Atherosclerotic heart disease of [place] coronary artery without angina pectoris Subjective Subjective Interval history since last seen: Delaney has had no change in her vision she has no perception of even shadows in the right eye. There is been no new neurologic symptoms such as paresthesias or paraparesis no speech problems. Patient underwent transthoracic echocardiogram with bubble study as well as MRI of the brain today. I went over the results with her I also reached out to teleneurology at [facility] today. I spoke with Dr. Guido from [facility] teleneurology who reviewed her MRI findings. Based on the patient's echocardiogram and MRI findings the patient has a moderate diffuse global cardiomyopathy and a bioprosthetic aortic valve and has new bilateral multifocal lacunar infarcts consistent with embolic phenomena involving left frontal, right parietal and bilateral cerebellar suspicious for cardioembolic source. Based on this and her right retinal artery occlusion he feels that she would be best served by being on a D.O.A.C. Patient previously been on aspirin 81 mg daily for the last couple years and the patient could not tell me why she was put on aspirin. She has known nonocclusive coronary artery disease and has not had any symptoms of angina. She has moderate nonischemic cardiomyopathy with an LVEF of 35 to 40%With no segmental wall motion abnormalities. She has moderate left atrial enlargement and no intracardiac shunt. Bioprosthetic aortic valve is intact with a mean gradient of 18 mm she has mild eccentric mitral regurgitation. The ascending aorta is mildly dilated at 3.[address] Cueto is recommending that the patient's stop the Plavix and begin apixaban 5 mg twice daily and he said that if she needs aspirin for cardiac reason she can remain on an aspirin 81 mg daily otherwise just apixaban therapy. I did explain that while her chart has PAF listed as a diagnosis I have been unable to discover any EKG or telemetry documentation of the same. Nevertheless her MRI findings of multiple cerebral artery territory fresh lacunar strokes supports a diagnosis of cardioembolic source even though she currently is in sinus rhythm w/ LBBB. (I combed through her chart and found that her PCP, Mel Dc N.P. first entered the dx of unspecified atrial fibrillation on her chart on 03/18/20 and this dx status was changed to ruled out by Jessie Bravo NP on 04/10/20. I reviewed all of her EKG we have on file dating back to 04/09/20 and could not find any evidence for afib. Patient is agreeble to staying tonight to begin apixaban 5 mg bid while we stop her plavix and aspirin. I think w/ no evidence for ischemic causes for her cardiomyopathy and no angina symptoms then continuing both ASA and apixaban greatly increases her risks for a bleed and given her limited vision and her age, she is higher risks for fall and internal bleeding. But given her retinal artery thrombosis and multiple cerebral infarcts she needs anticoagulation for stroke prevention. Exam Narrative Exam Narrative: Eldery female who is alert, oriented, normal speech, normal facial mimetic muscle use Pupils, right pupils is reactive to indirect light from the left pupil but not reactive to direct light, full EOMI, vision in left eye is grossl intact but not even able to count fingers or make out any of my face w/ her right eye Normal movement of her tongue and palate and normal speech Grossly normal ROM and strength in both arms, hands and legs and feet Lungs: clear Heart: regular w/ systolic mumur over USB bilaterally No periperpheral edema Objective Last Vital Signs Temp 36.7 C 09/15/23 14:47 Pulse 86 09/15/23 14:47 Resp 17 09/15/23 14:47 BP 125/64 09/15/23 14:47 Pulse Ox 96 09/15/23 14:47 PAWSS Have you Been Recently Intoxicated or Drunk Within the Last 30 days?: No Have you Ever Experienced Previous Episodes of Alcohol Withdrawal?: No Have you ever Experienced Withdrawal Seizures?: No Have you ever Experienced Delirium Tremens(DT)s?: No Have you ever undergone Alcohol Rehabilitation Treatment (i.e, inpt ot outpatient treatment programs)?: No Have you ever Experienced Blackouts?: No Have you ever Combined Alcohol with other Downers within the last 90 days?: No Have you ever Combined Alcohol with any other Substance of Abuse during the last 90 days?: No Positive Blood Alcohol level on Presentation? [PCS.BAL]: No Evidence of Increased Autonomic Activity (i.e. HR>120, tremor, sweating, agitation, nausea)?: No Result: 0 Time Spent with Patient Time Spent with Patient: >50 minutes Time was spent: preparing to see the patient(eg.review tests), ordering medications,tests, procedures, referring, communicating with other health manager urgent care (nursing and w/ Dr. Guido, teleneurologist), indepentently interpreting results, counseling the patient and care coordination
[2023-09-15 19:47] VITALS: BP 159/74; PULSE 65; RESP 19; TEMP 36.5; O2SAT 96
[2023-09-15] MEDS: Apixaban 5 MG TAB PO (20:07)
[2023-09-15] MEDS: Atorvastatin 40 MG TAB 80 MG PO (20:07)
[2023-09-15 23:41] VITALS: BP 148/68; PULSE 86; RESP 18; TEMP 36.8; O2SAT 96
[2023-09-16] MEDS: Folic Acid 1 MG TAB PO (07:44)
[2023-09-16] MEDS: Apixaban 5 MG TAB PO (07:44)
[2023-09-16] MEDS: Furosemide 20 MG TAB PO (07:44)
[2023-09-16] MEDS: Losartan 50 MG TAB PO (07:44)
[2023-09-16] MEDS: Metoprolol CR 25 MG TABCR 12.5 MG PO (07:45)
[2023-09-16] MEDS: Normal Saline Flush 10 ML SYR IVP (07:45)
[2023-09-16 07:51] VITALS: BP 158/76; PULSE 91; RESP 16; TEMP 36.8; O2SAT 95
--- NOTE | 2023-09-16 09:33 | IN_ITS ---
PT Notes Visit Reasons: retinal artery occlusion Inpatient Physical Therapy Evaluation Date: 09/16/23 Referring Doctor: Dr. Ortiz PT Orders: PT CONSULT: exacerbation of chronic condition Precautions: standard Patient Profile/Admitting Diagnosis: Patient admitted 09/14/23 for acute management of cerebrovascular accident (CVA) due to embolism, with right retinal artery occlusion. Leanne has baseline mobility impairments, and had been working on balance with outpatient PT prior to admission. Social History/Home Situation: Leanne resides in a single level home with 2STE. Has a FWW, but uses only occasionally. Walks household distances. Struggles with community ambulation due to balance issues and fatigue. Receiving Meals on Wheels and relies on [facility] for transportation. Reports that [facility] will only transport her for 2 PT visits per month at this time. Equipment Owned/DME: FWW Subjective: Leanne states that she is feeling good and looking forward to going home. She admits to issues with her balance, but states that she has never fallen. She typically relies on furniture in the home, but does have a FWW that she uses occasionally. States that she is nervous about getting around with the new changes in her vision. Objective: General Observation: Standing and adjusting chair when PT enters the room. Observed to take slow, shuffling steps to sit back to chair, maintaining UE support to chair throughout. Mental Status: A&Ox3 Pain: reports chronic pain in various locations due to RA ROM: Right Upper Extremity: WFL Left Upper Extremity: WFL Right Lower Extremity: Hip flexion to 100* or greater. Knee motion 0-90 or greater. Ankle motion allows DF just beyond neutral. Left Lower Extremity: Hip flexion to 100* or greater. Knee motion 0-90 or greater. Ankle motion allows DF just beyond neutral. Strength: Right Upper Extremity: Shoulder flexion 3/5 or greater. Biceps 4/5. Triceps 4/5. Left Upper Extremity: Shoulder flexion 3/5 or greater. Biceps 4/5. Triceps 4/5. Right Lower Extremity: Hip flexion 4/5. Quads 4+/5. Ankle DF 4/5. Left Lower Extremity: Hip flexion 4/5. Quads 4+/5. Ankle DF 4/5. Bed Mobility/Transfers: bed mobility independent per patient report sit-stand: independent stand-sit: independent Gait: Ambulates 100' with FWW, cues for visual scanning to right. Requires additional cues for FWW management. Demonstrates slow, shuffling gait with limited foot clearance bilat. Balance: Static Sitting: normal Dynamic Sitting: normal Static Standing: good Dynamic Standing: fair 4-Position Balance Test: 1/4 Small WILLIAM: 10 seconds Partial Tandem: 5 seconds Full Tandem: 0 seconds Single Leg Stance: 0 seconds Special Tests: Mobility Limitations Standardized Measure [facility] AM-PAC 6 clicks Basic Mobility Inpatient Short Form: Raw Score: 23 CMS Score: 11.2% impairment Informed Consent/Education: Patient instructed in purpose of PT consult and plan of care. Assessment: Patient is an 83 year old female referred to physical therapy services in acute care setting following CVA with acute visual deficit. She has underlying balance impairments, negatively impacted by her acute loss of vision in right eye. She had been participating in PT intervention prior to admission, although with difficulty attending due to transportation. She'll benefit from initiation of HH PT upon return home, with anticipated transition back to outpatient services as her mobility improves. Will additionally benefit from consistent use of FWW for household ambulation in the home. She is safe to ret urn home with above modifications once medically cleared for discharge. No further PT in acute care setting. Patient currently demonstrates the following impairment level findings: 1. Decreased balance 2. acute visual impairment 3. chronic pain related to RA Impairments are contributing to the following functional limitations: 1. increased fall risk 2. requires FWW for safe ambulation Patient is assessed as Low [id number] complexity based on the following: History: As above. Complicating factors include transportation issues for outpatient services, h/o chronic pain, underlying balance impairments. Examination: functional limitations as noted above Presentation: stable Decision Making: low complexity Plan of Care/Treatment Plan: No further PT in acute care setting. DISCHARGE RECOMMENDATIONS: Home with HH PT TREATMENT CODE/TIME: [id number] ([id number]) Maru Little, PT, DPT [facility] Please sign an return this page within 30 days if you agree with the above POC. Thank you! 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 (Acute) Urinary incontinence (Acute) Corns and callosities (Acute) Other specified peripheral vascular diseases (Acute) Mycotic toenails (Acute) Other rheumatoid arthritis with rheumatoid factor of right ankle and foot (Acute) Other rheumatoid arthritis with rheumatoid factor of left ankle and foot (Acute) Metastasis from colon cancer (Acute) Metastasis from colon cancer (Acute) Hx of colon cancer, stage IV (Acute) mets to liver Tx sx and chemo Systolic murmur (Acute) systolic (2002 echo [facility] normal) Rotator cuff syndrome (Acute) Rheumatoid arthritis (Acute 11/28/11) sees Dr Cameron (dx 12/23) Primary malignant neoplasm of colon (Acute 01/16/08) with metastases to the liver; surgery and chemo (sigmoid colectomy and partial hepatectomy) Paralytic strabismus (Acute) Increased body mass index (BMI) (Acute 03/24/17) History of surgery of liver (Acute) Hammer toes of both feet (Acute 03/24/17) Depressive disorder (Acute 11/28/11) 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) Cholelithiasis without obstruction (Acute) Undiagnosed cardiac murmurs (Acute) systolic (2002 echo [facility] normal) Long-term use of immunosuppressant medication (Acute) Wheezing (Acute) Impacted cerumen, bilateral (Acute) Pneumonia (Acute) Aortic stenosis, moderate (Acute) 1.2-1.3 cm on 04/09/20 Symptomatic severe aortic stenosis with low ejection fraction (Acute) 32% : 1.2 cm Pleural effusion (Acute) Breath, shortness (Acute) Acute exacerbation of CHF (congestive heart failure) (Acute) DVT prophylaxis (Acute) Discharge planning issues (Acute) Chronic systolic heart failure (Acute) Cardiomyopathy (Acute) Left bundle branch block (Acute) S/P TAVR (transcatheter aortic valve replacement) (Acute) 07/17/21 [facility] Abnormal CT scan, head (Acute) Metastatic colon cancer in female (Acute) bx [facility] 01/15/22 Tooth pain (Acute) CHF (congestive heart failure) (Chronic) Vascular abnormality of brain (Acute) Medical History Depression History of DVT (deep vein thrombosis) CAD (coronary artery disease) Aortic stenosis s/p TAVR Surgical History History of partial colectomy Hx of cholecystectomy History of colonoscopy Sigmoidoscopy [facility]; 10cm x 10 cm section of the sigmoid colon Extraction of cataract 03/08/15;RIGHT EYE; DR. TODD 03/01/15;LEFT; DR. TODD
--- NOTE | 2023-09-16 10:31 | CMDISCH_ITS ---
Date of service: 09/16/23 Time of Service: 10:31 LACE Index Scoring Tool Questions: Length of Stay (in days): 2 Was the patient admitted via the E.D.?: Yes Comorbidities: Cerebrovascular Disease, Congestive Heart Failure and Metastatic Solid Tumor (Colon Cancer) E.D. Visits: 2 Answers: Total Score: 12 Risk of Readmission: High Risk Care Management Discharge Plan Reason for Hospitalization: Retinal Artery Occlusion Discharge Plan: Leanne is discharged home with [facility]. She is transported via [facility] private vehicle. Karla will follow up with community providers and her discharge plan of care as instructed. telemarketer supervisor was placed prior to patient discharge. Patient/Family Education Needs: Review discharge instructions, limitations, medications and plan to follow up with community providers. Discuss ask me three. Services Needed at Discharge: Home Health Care Services ([facility] RN,PT,OT,CERTIFIED MEDICAL DOSIMETRIST) and Transportation ([facility], coordinated by CM) SDOH Health Related Social Needs: No Data to Display
[2023-09-16 11:14] VITALS: BP 124/80; PULSE 65; RESP 15; TEMP 36.4; O2SAT 96
[2023-09-16] MEDS: Lacri-Lube 3.5 GM TUBE OD (11:59)
--- NOTE | 2023-09-16 12:01 | W.PM.DS.N ---
Date of service: 09/16/23 Time of Service: 12:01 DS: Diagnosis Discharge Diagnosis (1) Cerebrovascular accident (CVA) due to embolism: Status: Acute Asessment and Plan: Multiple bilateral small scattered foci restricted diffusion defects in the right frontal and left periventricular white matter and bilateral cerebellar hemispheres were found on MRI scan and consistent with acute lacunar infarcts likely embolic. Patient was started on apixaban 5 mg twice a day and her aspirin was discontinued. Atorvastatin 80 mg nightly was added to her regimen for stroke prevention. Order is placed for 30-day cardiac event recorder. Echocardiogram was done shows moderate cardiomyopathy and a bioprosthetic valve with no aortic stenosis and there is no shunt across the intra-atrial or intraventricular septum. CTA of head and neck did not show any acute occlusions of her cerebral or cervical vessels although there is moderate to severe stenosis of left MCA M1 segment. (2) Central retinal artery occlusion of right eye: Status: Acute Asessment and Plan: Follow-up with your engineering teacher at [facility] (3) S/P TAVR (transcatheter aortic valve replacement): Status: Acute (4) Cardiomyopathy: Status: Acute Asessment and Plan: Continue home medications of losartan and Toprol-XL, begin apixaban (5) CAD (coronary artery disease): Asessment and Plan: Begin atorvastatin, begin apixaban, discontinue aspirin Discharge Plan Disposition Patient Disposition: Home W/Home Health Services Condition: Improving Discharge Details Reason For Visit: retinal artery occlusion Admit Date/Time: 09/14/23 20:52 Admit Provider: Chano Ortiz Attending Provider: Chano Ortiz Primary Care Provider: Tania Foy Hospital Course Hospital Course: This 83-year-old female with a past medical history of cardiomyopathy, coronary artery disease, rheumatoid arthritis presents emergency department on 09/14/2023 with complaints of painless loss of vision in her right eye which was evaluated by ophthalmology and diagnosed with central retinal artery thrombosis and was sent to the ER for further evaluation. Evaluation in the ER showed her rhythm to be sinus rhythm with first-degree AV block and left bundle branch block. CT of the head and neck showed no acute occlusion she does have a 70 to 90% narrowing of the distal M1 segment of left MCA. ESR was slightly above normal at 38 (normal 0-30).. Telehealth neurology consultation was obtained with [facility] with Dr. Jenelle Guido, his recommendation was for the patient be hospitalized for telemetry monitoring and to obtain brain MRI to rule out right hemispheric embolic stroke and to obtain an echocardiogram and arrange Zio patch to look for cardiac arrhythmia cause for her embolism. He also recommended loading her with Plavix 300 mg then 75 mg of Plavix daily thereafter. He also recommended 81 mg aspirin daily which she was already on. However after the MRI obtained showed multiple lacunar embolic emboli in multiple cerebral vessel territories including anterior middle and posterior circulation Dr. Muller was reconsulted and after reviewing MRI scan concluded that she indeed had an acute embolic CVA and recommends initiation of apixaban even though we have not documented atrial fibrillation. He recommend apixaban 5 mg twice daily and DC the Plavix and a decision whether to continue the baby aspirin or not depending on her cardiac risk factors. He also recommend Zio patch for 2 weeks as an outpatient. He recommends ophthalmology and neurology follow-up as an outpatient as well. On the day of discharge patient did complain of burning in the right eye and there was some hyperemia of her conjunctiva. Tears refresh was prescribed for her there was no purulent drainage from her eye. She denied any headaches or sharp pain in the right eye. Home Meds and New Rx's Prescriptions: New Eliquis 5 mg tablet 5 mg PO BID Qty: 60 1RF Refresh Lacri-Lube 56.8-42.5 % Ointment 1 applic OD TID PRNQty: 0 0RF atorvastatin 40 mg Tablet 80 mg PO QPM Qty: 30 0RF Continued methotrexate sodium 2.5 mg tablet 10 mg PO QWEEK folic acid 1 mg tablet 1 mg PO DAILY Qty: 90 6RF calcium carbonate-vitamin D3 600 mg-5 mcg (200 unit) tablet 1 tab PO BID Qty: 180 5RF furosemide 20 mg tablet 20 mg PO DAILY Qty: 90 4RF losartan 50 mg tablet 50 mg PO DAILY Qty: 90 3RF metoprolol succinate 25 mg tablet extended release 24 hr 12.5 mg PO DAILY Qty: 45 4RF cholecalciferol (vitamin D3) 1,000 UNIT tablet 1,000 unit PO DAILY Orencia (with maltose) 250 mg recon soln See Rx Instructions IV Q4W Rx Instructions: 750mg intravenously every 4 weeks; ICaps AREDS2 250 mg-200 unit -12.5 mg-1 mg capsule PO Patient Comments: TAKE TWO CAPSULES BY MOUTH EVERY DAY Discontinued aspirin 81 mg tablet,chewable 81 mg PO DAILY Discharge Instructions Instructions: Apixaban, Stroke - Discharge instructions Additional Instructions: You were admitted to evaluate the cause of your recent retinal artery thrombosis of your right eye. You were found to have multiple small embolic strokes involving both sides of your brain. No large areas of the brain were involved which is probably why you have not had more symptoms other than the retinal artery thrombosis. Unfortunately it has left you w/ permananent vision loss of the right eye. YOu need to follow up w/ your eye doctor at [facility]. However, you also need to follow up w/ a neurologist. A neurologist was consulted through telehealth at [facility] and he inteviewed you on the computer and reviewed your chart and your labs and images of your brain. He feels that you have experienced an embolic stroke probably caused by a clot from the heart. You were at risk for strokes due to your cardiomyopathy (congestive heart failure) and your bioprosthetic aortic valve. He recommends that you take an anticoagulant called apixaban to prevent future strokes. You were already on an aspirin when you presented to the hospital but aspirin alone is not sufficient to prevent clots from emoblizing (traveling) from the heart. Blood thinners such as apixaban greatly reduce the risk of stroke. HOwever, apixaban does carry some risks for bleeding in the event of trauma. We have stopped your aspirin in favor of using apixaban alone in order to reduce your risks for bleeding. We have also prescribed atorvastatin, a cholesterol lowering medication that can help to reduce risk of heart attacks and strokes. We would like you to get a lipid panel as you have not had your cholesterol checked recently. This can be done through the lab as an outpatient. You may be able to arrange this at your doctors office and have it drawn there. Stand Alone Forms: Nursing Discharge Form Referrals: Tania Foy MD, [place] [Primary Care Provider] - (Message left at office if you do not hear from them today please call them to make a full up appt in 1-2 weeks ) Maryjane Sims MD [ [facility] STAFF PHYSICIAN] - (Referral sent office will call you ) MARTHA OWENS [ NON-[facility] STAFF PHYSICIAN] - (needs follow up within 2 weeks) Activity:: Activity as Tolerated Equipment/Supplies:: No Equipment Needed Diet:: Normal Diet Discharge Orders Discharge Orders: Discharge Order (Routine); Ordered 09/16/23 Ordered By: Tommy Monk Other Ambulatory Orders: Cardiac Event Recorder (Routine) Timeframe: 1 Day Facility: [facility] - Location: Respiratory Therapy Ordered By: Tommy Monk Hemoglobin A1C (Routine) Timeframe: 1 Week Facility: [facility] - Location: Laboratory Outpatient - [facility] Ordered By: Tommy Monk Lipid 2 (Routine) Timeframe: 1 Week Facility: [facility] - Location: Laboratory Outpatient - [facility] Ordered By: Tommy Monk DS: Summary Time Spent with Patient providing and/or coordinating discharge services: Greater than 30 minutes Specific discharge activities: Interview/exam of patient; review of discharge instructions, completion of prescriptions/discharge instructions; discussion w/ nursing and CM; documentation of hospital visit Status at Discharge Functional status at discharge: uses cane/walker Overall status at discharge: patient is not back to baseline Mental Status: mental status grossly normal Speech and Movement: speech and movement normal Mood: congruent mood Affect: normal affect Quality:SDOH Health Related Social Needs: No Data to Display Quality: Stroke Contraindication Not Initiating IV-Tpa: Treatment not indicated Onset of Symptoms Date: 09/11/23 Symptom Onset Unknown: Yes Rehab Services Assessed: Activities of daily living assessment Exam Narrative Exam Narrative: Elderly white female sitting up in her chair alert and orient x 3 complain of some burning in the right eye and some redness. Funduscopic exam was attempted but unable to be performed as it could not get her pupil dilated enough to look at the fundus. Conjunctiva appears to be injected erythematous but without purulent discharge Rest of exam is unchanged from yesterday, she is alert and orient x 3 with normal speech no facial asymmetry and no focal motor or sensory deficits in her extremities. Psych Mental Status: mental status grossly normal Speech and Movement: speech and movement normal Mood: congruent mood Affect: normal affect DS: Data Vitals/I&O Vitals and I&O: Vital Signs Temperature 36.4 C L 09/16/23 11:14 Temperature Source Tympanic 09/15/23 23:41 Pulse 65 09/16/23 11:14 Pulse Rhythm Regular 09/16/23 08:00 Respiratory Rate 15 09/16/23 11:14 Respiratory Effort Normal, Non-Labored 09/16/23 08:00 Respiratory Depth Normal 09/16/23 08:00 Respiratory Pattern Normal 09/16/23 08:00 Blood Pressure 124/80 09/16/23 11:14 Blood Pressure Mean 100 09/14/23 21:30 Blood Pressure Position Sitting 09/14/23 14:54 Pulse Oximetry 96 09/16/23 11:14 Oxygen Delivery Method Room Air 09/16/23 11:14 Oxygen Flow Rate 0 09/16/23 11:14 Pain Level 0 09/16/23 11:14 Comment pt complains of burning in right eye but no pain. 09/16/23 11:14 Intake & Output 09/15/23 09/16/23 09/16/23 23:59 11:59 23:59 Intake Total 360 / 610 245 / 245 Balance 360 / 610 245 / 245 Intake: IV 5 / 5 Oral 360 / 600 240 / 240 Other: Urine Color Yellow Urine Appearance Clear Clear Urine Odor Normal Normal Comment pT stated that she used bathroom recently. Pt denies gi/gu sx. Voiding independently in toilet; no hat. 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 (Acute) Urinary incontinence (Acute) Corns and callosities (Acute) Other specified peripheral vascular diseases (Acute) Mycotic toenails (Acute) Other rheumatoid arthritis with rheumatoid factor of right ankle and foot (Acute) Other rheumatoid arthritis with rheumatoid factor of left ankle and foot (Acute) Metastasis from colon cancer (Acute) Metastasis from colon cancer (Acute) Hx of colon cancer, stage IV (Acute) mets to liver Tx sx and chemo Systolic murmur (Acute) systolic (2002 echo [facility] normal) Rotator cuff syndrome (Acute) Rheumatoid arthritis (Acute 11/28/11) sees Dr Cameron (dx 12/23) Primary malignant neoplasm of colon (Acute 01/16/08) with metastases to the liver; surgery and chemo (sigmoid colectomy and partial hepatectomy) Paralytic strabismus (Acute) Increased body mass index (BMI) (Acute 03/24/17) History of surgery of liver (Acute) Hammer toes of both feet (Acute 03/24/17) Depressive disorder (Acute 11/28/11) 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) Cholelithiasis without obstruction (Acute) Undiagnosed cardiac murmurs (Acute) systolic (2002 echo [facility] normal) Long-term use of immunosuppressant medication (Acute) Wheezing (Acute) Impacted cerumen, bilateral (Acute) Pneumonia (Acute) Aortic stenosis, moderate (Acute) 1.2-1.3 cm on 04/09/20 Symptomatic severe aortic stenosis with low ejection fraction (Acute) 32% : 1.2 cm Pleural effusion (Acute) Breath, shortness (Acute) Acute exacerbation of CHF (congestive heart failure) (Acute) DVT prophylaxis (Acute) Discharge planning issues (Acute) Chronic systolic heart failure (Acute) Cardiomyopathy (Acute) Left bundle branch block (Acute) S/P TAVR (transcatheter aortic valve replacement) (Acute) [place] [facility] [place], [place] (Acute) Metastatic colon cancer in female (Acute) [place] [facility] [place] Tooth pain (Acute) CHF (congestive heart failure) (Chronic) Vascular abnormality of brain (Acute) Medical History Depression History of DVT (deep vein thrombosis) CAD (coronary artery disease) Aortic stenosis s/p TAVR Surgical History History of partial colectomy Hx of cholecystectomy History of colonoscopy [place] [facility] [place] 10cm x 10 cm section of the sigmoid colon Extraction of cataract 03/08/15;RIGHT EYE; DR. TODD 03/01/15;LEFT; DR. TODD Family History Mother Alzheimer disease Father Heart disease Sister No problems noted. Sister No problems noted. Grandfather Stroke Grandmother No problems noted. Social History Smoking/Tobacco Use Status: Never Smoking risk assessment performed?: Yes Alcohol Intake: current Alcohol Intake frequency: holidays/special occasions only Alcohol type: wine Drug use: Never Substance use type: does not use Housing: house Current gender identity: female What type of physical activity do you participate in: none Do you feel safe at home: Yes Do you feel safe in your relationship?: Yes Additional Social history: Lives alone with her cats in [place]. No local family. Time Spent with Patient Time Spent with Patient: 45-69 minutes Time was spent: preparing to see the patient(eg.review tests), ordering medications,tests, procedures, referring, communicating with other health after school caregiver, indepentently interpreting results, counseling the patient and care coordination
--- NOTE | 2023-09-16 12:04 | PDOC.HHF2F_ITS ---
Home Health Referral Home Health Orders Clinical synopsis of why skilled professionals are needed: Patient presents to the emergency department with 3-day history of acute onset of vision loss in the right eye has been diagnosed by operations intern prior to presenting to the emergency department with an acute right retinal artery thrombosis. Patient's evaluation emergency department included teleneurology consultation with [facility] neurologist who recommended hospitalization under observation status for evaluation of potential embolic CVA. Initial CT of the head and neck showed no acute thrombosis of the cervical or cerebral vessels but there was narrowing of the left MCA. MRI demonstrated multiple embolic lacunar strokes in multiple territories consistent w/ embolic CVA. Echo showed moderate cardiomyopathy and a bioprosthetic aortic valve w/ no aortic stenosis and no shunt flow across the atrial or ventricular septum. patient was begun on apixaban for stroke prevention. Telemetry did not reveal any atrial fibrillation. Rhythm was sinus w/ 1st degree AV block and LBBB. She was evaluated by P.T. She is felt to benefit from nursing visits to monitor her medications, check compliance and educate her about her stroke, monitor vital signs, coordinate w/ PCP and neurology her med changes. P.T. and O.T. serivces are requested to evaluate her ability to maintain her independent living given her recent debilitation d/t vision loss in her right eye. Registered Nurse: Check all that apply Instruct on new or changed medication(s)/assess compliance: Ordered Other: monitor medication changes, monitor vital signs, coordinate orders w/ PCP and neurology Physical Therapist: Check all that apply Increase strength & endurance for safe mobility at home: Ordered To design/establish home maintenance program: Ordered Fall reduction therapy program for patient with history of frequent falls: O rdered Home safety evaluation and teaching/gait training including stair management (if applicable): Ordered Occupational Therapist: Evaluate and treat for patient unable to perform ADL/IADL/self-care: Ordered Other: evaluate needs w/ regard to recent right eye vision loss, loss of depth perception Decision Support Analyst: Assist with community resources: Ordered Home Bound Status Requires the aid of supportive device (check all that apply): Walker Describe why leaving home would require a considerable and taxing effort: Safety Concerns: describe (recent loss of vision in her right eye has impaired her depth perception increasing her risks for falls) Encounter Date and Reason: I certify that a FTF encounter for this patient was performed on September 16, 2023 and that such encounter was related to the primary reason the patient requires home health services. The encounter was conducted in the following manner: * By me as the certifying physician, EDITING CLERK, PA or * By an inpatient physician, EDITING CLERK or PA during an inpatient stay who communicated findings to me, Certification And Authentication I certify that I composed the above information based on my clinical judgment relating to this patient's medical condition and, if applicable, clinical findings communicated to me by the NPP or inpatient physician who performed the FTF encounter. Name of Provider that will be monitoring home health services: Tania Foy
== END 2023-09-16 14:36 | disposition home health service (06) ==
LOC: ER 21:25 → MS 22:00
PROVIDERS: Emergency Medicine; Admitting Provider General Practice; Emergency Provider Nurse Practitioner Family; PCP Family Medicine; Visit Provider General Practice
DX: H34.11 Central retinal artery occlusion, right eye (principal); I63.413 Cerebral infarction due to embolism of bilateral middle cerebral arteries; I50.22 Chronic systolic (congestive) heart failure; Z95.2 Presence of prosthetic heart valve; I42.9 Cardiomyopathy, unspecified; I25.10 Atherosclerotic heart disease of native coronary artery without angina pectoris; I44.7 Left bundle-branch block, unspecified; F32.A Depression, unspecified; Z79.899 Other long term (current) drug therapy; M05.872 Other rheumatoid arthritis with rheumatoid factor of left ankle and foot; M05.871 Other rheumatoid arthritis with rheumatoid factor of right ankle and foot; C78.7 Secondary malignant neoplasm of liver and intrahepatic bile duct; Z85.038 Personal history of other malignant neoplasm of large intestine
CPT/HCPCS: 00123; 36415; 70496; 70498; 80053; 85652; 93005; 93306; 97161; 99285; 70551; 83735; 85025; 85610; 85730; 93010; 99222; 99233; 99239; G0378; J3490

== ENCOUNTER 2023-09-21 11:56 | Outpatient (CLI) | payer MEDICARE, SELFPAY ==
--- NOTE | 2023-09-21 15:07 | W.CARDEVENT ---
Date of service: 09/21/23 Time of Service: 15:07 Cardiac Event Recorder Referring Provider:: Tania Foy Indications:: Cardiomyopathy, stroke Cardiac Event Note: This is a cardiac event monitor. The patient was monitored for 1 hour and 12 minutes Rhythm throughout was sinus. Average heart rate was 77. No significant dysrhythmias were observed
== END 2023-09-21 11:57 | disposition home or self-care (01) ==
LOC: CARDOPNVT 11:56
PROVIDERS: PCP Family Medicine; Visit Provider Internal Medicine Cardiovascular Disease
DX: I42.9 Cardiomyopathy, unspecified (principal); I63.9 Cerebral infarction, unspecified
CPT/HCPCS: 93272

== ENCOUNTER 2023-10-16 00:22 | Outpatient (CLI) | payer MEDICARE, SELFPAY ==
--- NOTE | 2023-10-16 | DI.CT_ITS ---
Exam(s) CT CHEST/ABD/PEL W EXAM: CT CHEST/ABD/PEL W CLINICAL HISTORY: STAGE IV COLON CANCER MESENTERIC MASS. TECHNIQUE: Imaging Protocol: Axial computed tomography images with coronal and sagittal reformatted images were created and reviewed CONTRAST MATERIAL: Intravenous: Omnipaque 350 Contrast volume:100 ml Oral: yes 900 mL COMPARISON: CT CT CHEST/ABD/PEL W from 06/25/2023 FINDINGS: CHEST: Tracheobronchial tree: Patent. Pulmonary parenchyma: No consolidation or dominant measurable mass. Stable 4 x 5 millimeter nodule l eft lower lobe. Pleura: No effusion or pneumothorax. Mediastinum: Within normal limits. Aorta: Thoracic portion non-dilated. Pulmonary arteries: No visible emboli. Heart: Left atrium and left ventricle are moderately enlarged. Mitral annular calcifications. TAVR. Severe coronary artery calcifications. No pericardial effusion. Bones: Unremarkable for age. No lytic or blastic lesions.No compression fractures. Soft tissues: Unremarkable. ABDOMEN and PELVIS: Liver: Resection of the posterior portion of the liver again noted. Normal density. No measurable ma ss. Gallbladder and biliary tract: No evidence of stones or wall thickening. No biliary dilatation. Pancreas: Normal density, no abnormal calcifications or inflammatory process. Spleen: Normal. Kidneys: Normal size, contour and axis. No radiodense stones. No obstructive uropathy. No suspicious masses seen. Adrenal glands: No masses seen. Aorta: Abdominal portion non-dilated. Lymph nodes: Within normal limits. Soft tissues: Stable fatty containing hernias. Bladder: Nearly empty. Unremarkable. Bowel: No obstruction or bowel wall thickening. Sigmoid anastomosis. Large quantity of stool dista lly. No visible mass. Peritoneal cavity: Stable partially calcified mesenteric mass left mid abdomen. No ascites. No foca l collection. No mesenteric inflammatory response. No free air. Bones: Scoliosis and degenerative changes. Reproductive organs: Within normal limits. IMPRESSION: Stable appearance of mesenteric mass. No new abnormalities. Stable nodule left lower lobe. RADIATION DOSE DELIVERED: Total DLP DATA REPOSITORY: All CT scans at this facility are submitted to the National Radiology Data Registry (NRDR) Dose Index Registry (DIR) with the [employer] (A[employer]). RADIATION OPTIMIZATION: All CT scans at this facility use at least one of these dose optimization te chniques: automated exposure control; mA and/or kV adjustment per patient size (includes targeted exa ms where dose is matched to clinical indication); or iterative reconstruction.
[2023-10-16 12:04] LABS: Abs Immature Grans 0.01 10^3/uL (0.0-0.06); Absolute Basophil Count 0.01 10^3/uL (0.0-0.2); Absolute Eosinophil Count 0.09 10^3/uL (0.0-0.7); Absolute Lymphocyte Count 1.09 10^3/uL (1.2-3.4); Absolute Monocyte Count 0.29 10^3/uL (0.1-0.8); Absolute Neutrophil Count 3.03 10^3/uL (1.2-6.7); Basophils % 0.2 %; HCT 36.9 % (36.0-46.0); HGB 12.2 g/dL (11.2-15.7); Immature Grans % 0.2 %; Lymphocytes % 24.1 %; MCH 30.7 pg (27.0-33.0); MCHC 33.1 % (32.0-36.0); MCV 93 fL (80-95); MPV 10.4 fL (8.0-11.0); Monocytes % 6.4 %; Neutrophils % 67.1 %; Platelet Count 143 10^3/uL (130-400); RBC 3.97 10^6/uL (3.93-5.22); RDW 13.7 % (11.7-14.6); RDW-SD 46.3 fL; WBC 4.52 10^3/uL (4.4-10.8)
[2023-10-16 12:16] LABS: ALT 20 U/L (14-59); AST 22 U/L (15-37); Alkaline Phosphatase 88 U/L (46-116); Anion Gap 7.5 mmol/L (3-11); BUN 14 mg/dL (7-18); Bilirubin, Total 0.83 mg/dL (0.2-1.0); CO2 29.5 mmol/L (21.0-32.0); CREATININE 0.9 mg/dL (0.55-1.02); Calcium 9.4 mg/dL (8.5-10.1); Chloride 106 mmol/L (98-107); Estimated GFR 63.43 (mL/min/1.73m2); Glucose 100 mg/dL (74-106); Potassium 3.5 mmol/L (3.5-5.1); Sodium 143 mmol/L (136-145)
[2023-10-16] MEDS: Normal Saline - Diluent 50 ML VIAL IJ (14:01)
[2023-10-16] MEDS: Omnipaque 350 MG/ML 100 ML BTL IJ (14:02)
[2023-10-16] MEDS: Barium Sulfate 2% W/V-Creamy Vanilla Smoothie 450 ML BTL PO ×2 (14:19→14:20)
[2023-10-16 22:36] LABS: CEA 7.5 ng/mL (See Note)
== END 2023-10-16 00:42 ==
PROVIDERS: PCP Family Medicine; Visit Provider Internal Medicine Hematology & Oncology
DX: C18.2 Malignant neoplasm of ascending colon (principal)
CPT/HCPCS: 74177; 80053; 71260; 82378; 85025; J3490

== ENCOUNTER 2023-11-05 02:56 | Outpatient (RCR) | payer MEDICARE, SELFPAY ==
[2023-11-05 11:45] LABS: Abs Immature Grans 0.02 10^3/uL (0.0-0.06); Absolute Basophil Count 0.02 10^3/uL (0.0-0.2); Absolute Eosinophil Count 0.11 10^3/uL (0.0-0.7); Absolute Lymphocyte Count 1.05 10^3/uL (1.2-3.4); Absolute Monocyte Count 0.22 10^3/uL (0.1-0.8); Absolute Neutrophil Count 3.74 10^3/uL (1.2-6.7); Basophils % 0.4 %; Eosinophils % 2.1 %; HCT 35.3 % (36.0-46.0); HGB 11.6 g/dL (11.2-15.7); Immature Grans % 0.4 %; Lymphocytes % 20.3 %; MCH 30.9 pg (27.0-33.0); MCHC 32.9 % (32.0-36.0); MCV 94 fL (80-95); MPV 10.5 fL (8.0-11.0); Monocytes % 4.3 %; Neutrophils % 72.5 %; Platelet Count 125 10^3/uL (130-400); RBC 3.75 10^6/uL (3.93-5.22); RDW 13.8 % (11.7-14.6); RDW-SD 47.1 fL; WBC 5.16 10^3/uL (4.4-10.8)
[2023-11-05] MEDS: ABATACEPT 750 MG in Normal Saline 100 ML 200 MG IVPB (12:11)
[2023-11-05 12:12] LABS: ALT 23 U/L (14-59); AST 24 U/L (15-37); Albumin 3.7 g/dL (3.4-5.0); Alkaline Phosphatase 93 U/L (46-116); Anion Gap 5.6 mmol/L (3-11); BUN 18 mg/dL (7-18); Bilirubin, Total 0.59 mg/dL (0.2-1.0); C-Reactive Protein < 0.50 mg/dL (<or=0.5); CO2 28.4 mmol/L (21.0-32.0); CREATININE 0.9 mg/dL (0.55-1.02); Calcium 9.4 mg/dL (8.5-10.1); Chloride 108 mmol/L (98-107); Estimated GFR 63.43 (mL/min/1.73m2); Glucose 122 mg/dL (74-106); Sodium 142 mmol/L (136-145); Total Protein 6.6 g/dL (6.4-8.2)
== END 2023-11-16 23:59 | disposition home or self-care (01) ==
LOC: INF 02:56
PROVIDERS: Internal Medicine Rheumatology; PCP Family Medicine; Visit Provider Nurse Practitioner Family
DX: M05.79 Rheumatoid arthritis with rheumatoid factor of multiple sites without organ or systems involvement (principal)
CPT/HCPCS: 36415; 80053; 96365; 85025; 86140; J0129

== ENCOUNTER 2023-12-03 02:35 | Outpatient (RCR) | payer MEDICARE, SELFPAY ==
[2023-12-03] MEDS: Normal Saline Flush 10 ML SYR IVP (10:22)
[2023-12-03] MEDS: ABATACEPT 750 MG in Normal Saline 100 ML 200 MG IVPB (10:53)
== END 2023-12-17 23:59 | disposition home or self-care (01) ==
LOC: INF 02:35
PROVIDERS: PCP Family Medicine; Visit Provider Nurse Practitioner Family
DX: M05.79 Rheumatoid arthritis with rheumatoid factor of multiple sites without organ or systems involvement (principal)
CPT/HCPCS: 96365; J0129

== ENCOUNTER 2024-01-01 01:34 | Outpatient (RCR) | payer MEDICARE, SELFPAY ==
[2024-01-01 10:30] LABS: Abs Immature Grans 0.01 10^3/uL (0.0-0.06); Absolute Basophil Count 0.02 10^3/uL (0.0-0.2); Absolute Eosinophil Count 0.07 10^3/uL (0.0-0.7); Absolute Lymphocyte Count 0.88 10^3/uL (1.2-3.4); Absolute Neutrophil Count 4.01 10^3/uL (1.2-6.7); Basophils % 0.4 %; Eosinophils % 1.3 %; HCT 40.4 % (36.0-46.0); HGB 13.5 g/dL (11.2-15.7); Immature Grans % 0.2 %; Lymphocytes % 16.6 %; MCH 30.6 pg (27.0-33.0); MCHC 33.4 % (32.0-36.0); MCV 92 fL (80-95); MPV 10.7 fL (8.0-11.0); Monocytes % 5.7 %; Neutrophils % 75.8 %; Platelet Count 140 10^3/uL (130-400); RBC 4.41 10^6/uL (3.93-5.22); RDW 12.7 % (11.7-14.6); RDW-SD 41.5 fL; WBC 5.29 10^3/uL (4.4-10.8)
[2024-01-01 10:42] LABS: ALT 22 U/L (14-59); AST 24 U/L (15-37); Alkaline Phosphatase 111 U/L (46-116); Anion Gap 10.5 mmol/L (3-11); BUN 22 mg/dL (7-18); Bilirubin, Total 0.77 mg/dL (0.2-1.0); C-Reactive Protein < 0.50 mg/dL (<or=0.5); CO2 26.5 mmol/L (21.0-32.0); Calcium 9.4 mg/dL (8.5-10.1); Chloride 106 mmol/L (98-107); Glucose 107 mg/dL (74-106); Sodium 143 mmol/L (136-145); Total Protein 7.3 g/dL (6.4-8.2)
[2024-01-01] MEDS: Normal Saline Flush 10 ML SYR IVP (10:56)
[2024-01-01] MEDS: ABATACEPT 750 MG in Normal Saline 100 ML 200 MG IVPB (10:56)
== END 2024-01-16 23:59 | disposition home or self-care (01) ==
LOC: INF 01:34
PROVIDERS: Internal Medicine Rheumatology; PCP Family Medicine; Visit Provider Nurse Practitioner Family
DX: M05.79 Rheumatoid arthritis with rheumatoid factor of multiple sites without organ or systems involvement (principal)
CPT/HCPCS: 80053; 96365; 85025; 86140; J0129

== ENCOUNTER 2024-01-28 03:07 | Outpatient (RCR) | payer MEDICARE, SELFPAY ==
[2024-01-28] MEDS: ABATACEPT 750 MG in Normal Saline 100 ML 200 MG IVPB (11:23)
[2024-01-28] MEDS: Normal Saline Flush 10 ML SYR IVP (11:24)
== END 2024-02-16 23:59 | disposition home or self-care (01) ==
LOC: INF 03:07
PROVIDERS: PCP Family Medicine; Visit Provider Nurse Practitioner Family
DX: M05.79 Rheumatoid arthritis with rheumatoid factor of multiple sites without organ or systems involvement (principal)
CPT/HCPCS: 96365; J0129

== ENCOUNTER 2024-02-23 02:13 | Outpatient (RCR) | payer MEDICARE, SELFPAY ==
[2024-02-23] MEDS: Normal Saline Flush 10 ML SYR IVP (10:30)
[2024-02-23 10:40] LABS: Abs Immature Grans 0.01 10^3/uL (0.0-0.06); Absolute Basophil Count 0.01 10^3/uL (0.0-0.2); Absolute Eosinophil Count 0.04 10^3/uL (0.0-0.7); Absolute Lymphocyte Count 1.06 10^3/uL (1.2-3.4); Absolute Monocyte Count 0.27 10^3/uL (0.1-0.8); Absolute Neutrophil Count 4.17 10^3/uL (1.2-6.7); Basophils % 0.2 %; Eosinophils % 0.7 %; HCT 41.1 % (36.0-46.0); HGB 13.9 g/dL (11.2-15.7); Immature Grans % 0.2 %; Lymphocytes % 19.1 %; MCH 30.9 pg (27.0-33.0); MCHC 33.8 % (32.0-36.0); MCV 91 fL (80-95); MPV 10.4 fL (8.0-11.0); Monocytes % 4.9 %; Neutrophils % 74.9 %; Platelet Count 163 10^3/uL (130-400); RDW 13.2 % (11.7-14.6); RDW-SD 43.4 fL; WBC 5.56 10^3/uL (4.4-10.8)
[2024-02-23 10:55] LABS: ALT 21 U/L (14-59); AST 20 U/L (15-37); Albumin 4.2 g/dL (3.4-5.0); Alkaline Phosphatase 92 U/L (46-116); Anion Gap 6.3 mmol/L (3-11); BUN 22 mg/dL (7-18); Bilirubin, Total 0.72 mg/dL (0.2-1.0); C-Reactive Protein < 0.50 mg/dL (<or=0.5); CO2 29.7 mmol/L (21.0-32.0); Calcium 9.6 mg/dL (8.5-10.1); Chloride 107 mmol/L (98-107); Estimated GFR 55.55 (mL/min/1.73m2); Glucose 97 mg/dL (74-106); Potassium 3.7 mmol/L (3.5-5.1); Sodium 143 mmol/L (136-145); Total Protein 7.3 g/dL (6.4-8.2)
[2024-02-23] MEDS: ABATACEPT 750 MG in Normal Saline 100 ML 200 MG IVPB (11:09)
== END 2024-03-18 23:59 | disposition home or self-care (01) ==
LOC: INF 02:13
PROVIDERS: PCP Family Medicine; Visit Provider Nurse Practitioner Family
DX: M05.79 Rheumatoid arthritis with rheumatoid factor of multiple sites without organ or systems involvement (principal)
CPT/HCPCS: 36415; 80053; 96365; 85025; 86140; J0129

== ENCOUNTER 2024-03-30 03:53 | Outpatient (RCR) | payer MEDICARE, SELFPAY ==
[2024-03-30] MEDS: ABATACEPT 750 MG in Normal Saline 100 ML 200 MG IVPB (11:45)
[2024-03-30] MEDS: Normal Saline Flush 10 ML SYR IVP (11:46)
== END 2024-04-15 23:59 | disposition home or self-care (01) ==
LOC: INF 03:53
PROVIDERS: PCP Family Medicine; Visit Provider Nurse Practitioner Family
DX: M05.79 Rheumatoid arthritis with rheumatoid factor of multiple sites without organ or systems involvement (principal)
CPT/HCPCS: 96365; J0129

== ENCOUNTER 2024-04-27 04:18 | Outpatient (RCR) | payer MEDICARE, SELFPAY ==
[2024-04-27 10:16] LABS: Abs Immature Grans 0.02 10^3/uL (0.0-0.06); Absolute Basophil Count 0.02 10^3/uL (0.0-0.2); Absolute Lymphocyte Count 1.21 10^3/uL (1.2-3.4); Absolute Monocyte Count 0.28 10^3/uL (0.1-0.8); Absolute Neutrophil Count 3.32 10^3/uL (1.2-6.7); Basophils % 0.4 %; HCT 41.1 % (36.0-46.0); HGB 13.7 g/dL (11.2-15.7); Immature Grans % 0.4 %; Lymphocytes % 24.4 %; MCH 31.1 pg (27.0-33.0); MCHC 33.3 % (32.0-36.0); MCV 93 fL (80-95); MPV 10.4 fL (8.0-11.0); Monocytes % 5.7 %; Neutrophils % 67.1 %; Platelet Count 163 10^3/uL (130-400); RDW 13.4 % (11.7-14.6); RDW-SD 45.5 fL; WBC 4.95 10^3/uL (4.4-10.8)
[2024-04-27 10:42] LABS: ALT 31 U/L (14-59); AST 24 U/L (15-37); Alkaline Phosphatase 84 U/L (46-116); Anion Gap 6.7 mmol/L (3-11); BUN 24 mg/dL (7-18); Bilirubin, Total 0.6 mg/dL (0.2-1.0); CO2 31.3 mmol/L (21.0-32.0); Calcium 9.5 mg/dL (8.5-10.1); Chloride 108 mmol/L (98-107); Estimated GFR 55.55 (mL/min/1.73m2); Glucose 112 mg/dL (74-106); Potassium 4.1 mmol/L (3.5-5.1); Sodium 146 mmol/L (136-145); Total Protein 7.2 g/dL (6.4-8.2)
[2024-04-27] MEDS: Normal Saline Flush 5 ML SYR IVP (10:55)
[2024-04-27] MEDS: ABATACEPT 750 MG in Normal Saline 100 ML 200 MG IVPB (10:55)
== END 2024-05-16 23:59 | disposition home or self-care (01) ==
LOC: INF 04:18
PROVIDERS: Internal Medicine Rheumatology; PCP Family Medicine; Visit Provider Nurse Practitioner Family
DX: M05.79 Rheumatoid arthritis with rheumatoid factor of multiple sites without organ or systems involvement (principal)
CPT/HCPCS: 36415; 80053; 96365; 85025; J0129

== ENCOUNTER 2024-05-25 01:47 | Outpatient (RCR) | payer MEDICARE, SELFPAY ==
[2024-05-25] MEDS: ABATACEPT 750 MG in Normal Saline 100 ML 200 MG IVPB (10:27)
[2024-05-25] MEDS: Normal Saline Flush 5 ML SYR IVP (10:28)
== END 2024-06-15 23:59 | disposition home or self-care (01) ==
LOC: INF 01:47
PROVIDERS: PCP Family Medicine; Visit Provider Nurse Practitioner Family
DX: M05.79 Rheumatoid arthritis with rheumatoid factor of multiple sites without organ or systems involvement (principal)
CPT/HCPCS: 96365; J0129

== ENCOUNTER 2024-06-22 01:29 | Outpatient (RCR) | payer MEDICARE, SELFPAY ==
[2024-06-22 10:39] LABS: Abs Immature Grans 0.01 10^3/uL (0.0-0.06); Absolute Basophil Count 0.02 10^3/uL (0.0-0.2); Absolute Eosinophil Count 0.06 10^3/uL (0.0-0.7); Absolute Lymphocyte Count 0.96 10^3/uL (1.2-3.4); Absolute Monocyte Count 0.25 10^3/uL (0.1-0.8); Absolute Neutrophil Count 3.84 10^3/uL (1.2-6.7); Basophils % 0.4 %; Eosinophils % 1.2 %; HCT 37.9 % (36.0-46.0); Immature Grans % 0.2 %; Lymphocytes % 18.7 %; MCH 31.2 pg (27.0-33.0); MCHC 34.3 % (32.0-36.0); MCV 91 fL (80-95); MPV 10.4 fL (8.0-11.0); Monocytes % 4.9 %; Neutrophils % 74.6 %; Platelet Count 147 10^3/uL (130-400); RBC 4.17 10^6/uL (3.93-5.22); RDW 13.2 % (11.7-14.6); RDW-SD 43.1 fL; WBC 5.14 10^3/uL (4.4-10.8)
[2024-06-22 10:57] LABS: ALT 18 U/L (14-59); AST 20 U/L (15-37); Alkaline Phosphatase 82 U/L (46-116); Anion Gap 6.3 mmol/L (3-11); BUN 22 mg/dL (7-18); Bilirubin, Total 0.8 mg/dL (0.2-1.0); CO2 29.7 mmol/L (21.0-32.0); CREATININE 0.9 mg/dL (0.55-1.02); Calcium 9.6 mg/dL (8.5-10.1); Chloride 105 mmol/L (98-107); Estimated GFR 63.04 (mL/min/1.73m2); Glucose 100 mg/dL (74-106); Potassium 3.7 mmol/L (3.5-5.1); Sodium 141 mmol/L (136-145); Total Protein 7.2 g/dL (6.4-8.2)
[2024-06-22] MEDS: Normal Saline Flush 10 ML SYR IVP (11:06)
[2024-06-22] MEDS: ABATACEPT 750 MG in Normal Saline 100 ML 200 MG IVPB (11:06)
== END 2024-07-16 23:59 | disposition home or self-care (01) ==
LOC: INF 01:29
PROVIDERS: Internal Medicine Rheumatology; PCP Family Medicine; Visit Provider Nurse Practitioner Family
DX: M05.79 Rheumatoid arthritis with rheumatoid factor of multiple sites without organ or systems involvement (principal)
CPT/HCPCS: 36415; 80053; 96365; 85025; J0129

== ENCOUNTER 2024-07-21 03:17 | Outpatient (RCR) | payer MEDICARE, SELFPAY ==
[2024-07-21] MEDS: Normal Saline Flush 10 ML SYR IVP (11:30)
[2024-07-21] MEDS: ABATACEPT 750 MG in Normal Saline 100 ML 200 MG IVPB (11:31)
== END 2024-08-15 23:59 | disposition home or self-care (01) ==
LOC: INF 03:17
PROVIDERS: PCP Family Medicine; Visit Provider Nurse Practitioner Family
DX: M05.79 Rheumatoid arthritis with rheumatoid factor of multiple sites without organ or systems involvement (principal)
CPT/HCPCS: 96365; J0129

== ENCOUNTER 2024-08-17 03:49 | Outpatient (RCR) | payer MEDICARE, SELFPAY ==
[2024-08-17 10:26] LABS: Abs Immature Grans 0.01 10^3/uL (0.0-0.06); HCT 39.1 % (36.0-46.0); HGB 13.0 g/dL (11.2-15.7); Immature Grans % 0.2 %; MCH 30.3 pg (27.0-33.0); MCHC 33.2 % (32.0-36.0); MCV 91 fL (80-95); MPV 9.7 fL (8.0-11.0); Platelet Count 152 10^3/uL (130-400); RBC 4.29 10^6/uL (3.93-5.22); RDW 13.2 % (11.7-14.6); RDW-SD 42.5 fL; WBC 5.25 10^3/uL (4.4-10.8)
[2024-08-17] MEDS: Normal Saline Flush 10 ML SYR IVP (10:35)
[2024-08-17] MEDS: ABATACEPT 750 MG in Normal Saline 100 ML 200 MG IVPB (10:35)
[2024-08-17 10:59] LABS: ALT 44 U/L (14-59); AST 25 U/L (15-37); Albumin 3.9 g/dL (3.4-5.0); Alkaline Phosphatase 93 U/L (46-116); Anion Gap 12.1 mmol/L (3-11); BUN 21 mg/dL (7-18); Bilirubin, Total 0.7 mg/dL (0.2-1.0); CO2 25.9 mmol/L (21.0-32.0); Calcium 9.0 mg/dL (8.5-10.1); Chloride 107 mmol/L (98-107); Estimated GFR 63.04 (mL/min/1.73m2); Glucose 95 mg/dL (74-106); Potassium 3.7 mmol/L (3.5-5.1); Sodium 145 mmol/L (136-145); Total Protein 6.9 g/dL (6.4-8.2)
== END 2024-09-15 23:59 | disposition home or self-care (01) ==
LOC: INF 03:49
PROVIDERS: Internal Medicine Rheumatology; PCP Family Medicine; Visit Provider Nurse Practitioner Family
DX: M05.79 Rheumatoid arthritis with rheumatoid factor of multiple sites without organ or systems involvement (principal)
CPT/HCPCS: 36415; 80053; 96365; 85025; J0129

== ENCOUNTER 2024-09-15 02:28 | Outpatient (CLI) | payer MEDICARE, SELFPAY ==
[2024-09-15] MEDS: ABATACEPT 750 MG in Normal Saline 100 ML 200 MG IVPB (10:57)
[2024-09-15] MEDS: Normal Saline Flush 10 ML SYR IVP (11:25)
== END 2024-09-15 02:29 | disposition home or self-care (01) ==
LOC: INF 02:28
PROVIDERS: PCP Family Medicine; Visit Provider Family Medicine
DX: M05.79 Rheumatoid arthritis with rheumatoid factor of multiple sites without organ or systems involvement (principal)
CPT/HCPCS: J0129

== ENCOUNTER 2024-10-12 01:57 | Outpatient (CLI) | payer MEDICARE, SELFPAY ==
[2024-10-12] MEDS: Normal Saline Flush 10 ML SYR IVP (10:18)
[2024-10-12] MEDS: ABATACEPT 750 MG in Normal Saline 100 ML 200 MG IVPB (10:18)
[2024-10-12 10:41] LABS: Abs Immature Grans 0.02 10^3/uL (0.0-0.06); HCT 39.5 % (36.0-46.0); HGB 13.1 g/dL (11.2-15.7); Immature Grans % 0.4 %; MCH 30.4 pg (27.0-33.0); MCHC 33.2 % (32.0-36.0); MCV 92 fL (80-95); MPV 10.9 fL (8.0-11.0); Platelet Count 143 10^3/uL (130-400); RBC 4.31 10^6/uL (3.93-5.22); RDW 13.4 % (11.7-14.6); RDW-SD 44.1 fL; WBC 4.84 10^3/uL (4.4-10.8)
[2024-10-12 11:26] LABS: ALT 23 U/L (14-59); AST 20 U/L (15-37); Albumin 3.8 g/dL (3.4-5.0); Alkaline Phosphatase 77 U/L (46-116); Anion Gap 4.3 mmol/L (3-11); BUN 17 mg/dL (7-18); Bilirubin, Total 0.7 mg/dL (0.2-1.0); CO2 31.7 mmol/L (21.0-32.0); Calcium 9.2 mg/dL (8.5-10.1); Chloride 106 mmol/L (98-107); Estimated GFR 63.04 (mL/min/1.73m2); Glucose 117 mg/dL (74-106); Potassium 3.9 mmol/L (3.5-5.1); Sodium 142 mmol/L (136-145); Total Protein 6.8 g/dL (6.4-8.2)
== END 2024-10-12 01:58 | disposition home or self-care (01) ==
LOC: INF 01:58
PROVIDERS: Internal Medicine Rheumatology; PCP Family Medicine; Visit Provider Family Medicine
DX: M05.79 Rheumatoid arthritis with rheumatoid factor of multiple sites without organ or systems involvement (principal)
CPT/HCPCS: 36415; 80053; 96365; 85025; J0129

== ENCOUNTER 2024-11-09 03:56 | Outpatient (CLI) | payer MEDICARE, SELFPAY ==
[2024-11-09] MEDS: ABATACEPT 750 MG in Normal Saline 100 ML 200 MG IVPB (10:48)
[2024-11-09] MEDS: Normal Saline Flush 10 ML SYR IVP (10:48)
== END 2024-11-09 03:57 | disposition home or self-care (01) ==
LOC: INF 03:57
PROVIDERS: PCP Family Medicine; Visit Provider Family Medicine
DX: M05.79 Rheumatoid arthritis with rheumatoid factor of multiple sites without organ or systems involvement (principal)
CPT/HCPCS: 96365; J0129

== ENCOUNTER 2024-12-07 01:57 | Outpatient (CLI) | payer MEDICARE, SELFPAY ==
[2024-12-07] MEDS: ABATACEPT 750 MG in Normal Saline 100 ML 200 MG IVPB (10:38)
[2024-12-07] MEDS: Normal Saline Flush 10 ML SYR IVP (10:38)
[2024-12-07 10:47] LABS: Abs Immature Grans 0.00 10^3/uL (0.0-0.06); HCT 38.0 % (36.0-46.0); HGB 13.1 g/dL (11.2-15.7); Immature Grans % 0.0 %; MCH 31.8 pg (27.0-33.0); MCHC 34.5 % (32.0-36.0); MCV 92 fL (80-95); MPV 10.3 fL (8.0-11.0); Platelet Count 141 10^3/uL (130-400); RBC 4.12 10^6/uL (3.93-5.22); RDW 13.2 % (11.7-14.6); RDW-SD 44.1 fL; WBC 4.82 10^3/uL (4.4-10.8)
[2024-12-07 11:10] LABS: ALT 21 U/L (14-59); AST 16 U/L (15-37); Albumin 3.9 g/dL (3.4-5.0); Alkaline Phosphatase 78 U/L (46-116); Anion Gap 7.5 mmol/L (3-11); BUN 19 mg/dL (7-18); Bilirubin, Total 0.8 mg/dL (0.2-1.0); CO2 29.5 mmol/L (21.0-32.0); Calcium 9.1 mg/dL (8.5-10.1); Chloride 104 mmol/L (98-107); Estimated GFR 55.55 (mL/min/1.73m2); Glucose 92 mg/dL (74-106); Potassium 3.2 mmol/L (3.5-5.1); Sodium 141 mmol/L (136-145); Total Protein 6.9 g/dL (6.4-8.2)
== END 2024-12-07 01:58 | disposition home or self-care (01) ==
LOC: INF 01:57
PROVIDERS: Family Medicine; PCP Family Medicine; Visit Provider Nurse Practitioner Acute Care
DX: M05.79 Rheumatoid arthritis with rheumatoid factor of multiple sites without organ or systems involvement (principal)
CPT/HCPCS: 36415; 80053; 96365; 85025; J0129

== ENCOUNTER → 2025-01-04 02:06 | Outpatient (CLI) | payer MEDICARE, SELFPAY ==
--- NOTE | 2025-01-04 07:00 | DI.RAD_ITS ---
Exam(s) XR KNEE RT 3V AP,LAT,REY EXAM: XR KNEE RT 3V AP,LAT,REY CLINICAL HISTORY: right knee pain,[id number]. TECHNIQUE: 2D digital imaging was performed. Three views. COMPARISON: No exams were available for comparison FINDINGS: BONES: No acute fracture is present. No bony destructive lesion is seen. Small enthesophytes at the patella. JOINTS: There is moderate to severe narrowing of the lateral femoral tibial joint space and prominent periarticular spurring. There is periarticular spurring mild joint space narrowing of the medial femoral tibial joint. No joint effusion is seen. SOFT TISSUE: Severe vascular calcifications. IMPRESSION: Degenerative changes, greater of the lateral femoral tibial joint. DATA REPOSITORY: RADIATION DOSE DELIVERED:
== END ==
LOC: DI 02:06
PROVIDERS: PCP Family Medicine; Visit Provider Family Medicine
DX: M17.11 Unilateral primary osteoarthritis, right knee (principal)
CPT/HCPCS: 73562

== ENCOUNTER 2025-01-04 03:18 | Outpatient (CLI) | payer MEDICARE, SELFPAY ==
[2025-01-04] MEDS: ABATACEPT 750 MG in Normal Saline 100 ML 200 MG IVPB (10:27)
[2025-01-04] MEDS: Normal Saline Flush 10 ML SYR IVP (10:27)
== END 2025-01-04 03:19 | disposition home or self-care (01) ==
LOC: INF 03:18
PROVIDERS: PCP Family Medicine; Visit Provider Family Medicine
DX: M05.79 Rheumatoid arthritis with rheumatoid factor of multiple sites without organ or systems involvement (principal)
CPT/HCPCS: 96365; J0129